=== PATIENT | female | born 1940 | race Caucasian/White ===

== ENCOUNTER 2016-10-07 18:08 | Inpatient (IN) | payer MEDICARE, OTHER ==
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
[2016-10-07 18:45] LABS: % BASOPHILS 0.8 % (0.0-2.0); % EOSINOPHILS 0.3 % (0.0-5.0); % MONOCYTES 6.2 % (2.0-10.0); % NEUTROPHILS 68.7 % (40.0-80.0); HEMATOCRIT 41.3 % (35.0-45.0); HEMOGLOBIN 13.7 gm/dL (11.7-16.1); MEAN CELL VOLUME 94.1 fl (81-100); MEAN CORPUSCULAR HEMOGLOBIN 31.3 pg (27.0-31.0); MEAN CORPUSCULAR HGB CONC 33.3 pg (28.0-36.0); NEUTROPHILE ABSOLUTE 4.9 Th/cmm (1.8-8.0); PLATELET COUNT 362 Th/cmm (150-400); RED BLOOD COUNT 4.39 Mil/cmm (3.80-5.20); RED CELL DISTRIBUTION WIDTH 12.1 % (11.5-20.0); WHITE BLOOD COUNT 7.3 Th/cmm (4.8-10.8)
[2016-10-07 18:53] LABS: ALB/GLOB RATIO 1.1 (1.0-1.8); ALKALINE PHOSPHATASE 195 U/L (34-104); ANION GAP 8.7 (7.0-16.0); BILIRUBIN,TOTAL 0.5 mg/dL (0.3-1.0); BUN - UREA NITROGEN 24 mg/dL (7-25); CALCIUM SERUM 9.8 mg/dL (8.6-10.3); CARBON DIOXIDE 27.4 mEq/L (21.0-31.0); CHLORIDE 101 mEq/L (98-107); CREATININE - SERUM 0.8 mg/dL (0.6-1.2); GLUCOSE 178 mg/dL (70-105); POTASSIUM SERUM 3.1 mEq/L (3.5-5.1); SGOT 25 U/L (13-39); SGPT/ALT 18 U/L (7-52); SODIUM SERUM 134 mEq/L (136-145)
[2016-10-07] MEDS ORDERED: Potassium Chloride 20 mEq ER Tab PO ONE ×2 (20:11→20:40)
[2016-10-07] MEDS ORDERED: cefTRIAXone 1 GM in Sodium Chloride 0.9% 50 ML IV ONE (21:16)
[2016-10-07] MEDS ORDERED: Magnesium Hydroxide (MOM) 30 mL UDC PO PRN (21:23)
[2016-10-07 22:58] LABS: URINE BILIRUBIN SMALL (NEGATIVE); URINE BLOOD NEGATIVE (NEGATIVE); URINE COLOR YELLOW; URINE GLUCOSE (UA) 500 mg/dL (NEGATIVE); URINE KETONE 15 mg/dL (NEGATIVE); URINE PH 5.5; URINE PROTEIN NEGATIVE (NEGATIVE)
[2016-10-07] MEDS: 0.45% NS w/20 mEq KCl 1,000 ML IV SCH (22:58)
[2016-10-07 22:59] LABS: URINE BACTERIA FEW /hpf (NONE SEEN); URINE EPITHELIAL CELLS OCCASIONAL /lpf (FEW); URINE RBC NONE SEEN /hpf (0-5)
--- NOTE | 2016-10-07 23:38 | Admit Criteria Form ---
Admit Criteria Forms - Admit Criteria Diagnosis: PSYCHIATRIC DISORDERS (Place 'X' for any and all applicable criteria): Ongoing inpatient care may be needed for 1 or more of the following(1)(2)(3)(4)( 6)(7)(8): [X ]I. Danger to self or others not manageable at lower level of care. [ ]II. Grave disability (eg, inability to perform self care necessary at lower level of care) [ ]III. Agitation or inappropriate behavior interfering with care for primary condition (eg, attempting to discontinue lines or drains prematurely, unable to cooperate with respiratory care) [ ]IV. Severe disability or disorder indicated by ALL of the following: [ ]a) Severe behavioral health disorder-related symptoms or condition indicated by 1 or more of the following: [ ]i) Severe problem with cognition, memory, judgment, or impulse control [ ]ii) Severe clinical manifestations (eg, hallucinations, delusions, other acute psychotic symptoms, sebastián, extreme agitation or anxiety) [ ]b) Patient management at lower level of care is not feasible until acute intervention or modification is initiated. Extended stay beyond goal length of stay for the primary condition may be needed until ALLof the following are present(1)(2)(3)(4)7)47)(23): [ ]a) Danger to self or others is absent or manageable at lower level of care [ ]b) Behavior crisis management, including physical or chemical restraints, is required and is not available at a lower level of care. [ ]c) Behavioral symptoms (e.g., agitation, somnolence, inappropriate behavior) are present, and are not manageable at a lower level of care. [ ]d) Patient cannot understand follow-up treatment and crisis plan. [ ]e) Provider and supports are sufficiently available at lower level of care. [ ]f) Patient can participate (e.g., verify absence of plan for harm) and is in needed of monitoring. The original [facility] [employer] content created by [facility] [employer] has been revised. The portions of the content which have been revised are identified through the use of italic text or in bold, and [facility] [employer] has neither reviewed nor approved the modified material. All other unmodified content is copyright [facility]. Please see references footnoted in the original [facility] edition 2017 Admit Criteria Met?: Yes
[2016-10-08] MEDS: INSULIN ASPART, RECOMBINANT 100 UNITS/ML SUBQ SCH ×3 (07:08→18:54)
[2016-10-08] MEDS ORDERED: EMPAGLIFLOZIN 10 MG PO SCH (09:00)
[2016-10-08] MEDS ORDERED: Multivitamin w/ Minerals Tab PO SCH (09:00)
[2016-10-08] MEDS: 0.45% NS w/20 mEq KCl 1,000 ML IV SCH (13:57)
[2016-10-08] MEDS ORDERED: VTE Chemical Prophylaxis Screen/Admission MC PRN (14:43)
== END 2016-10-08 23:00 | DRG 637 ==
LOC: ER 18:08 → MSI 21:05
PROVIDERS: ADMIT Family Medicine; ATTEND Family Medicine
DX: E11.649 Type 2 diabetes mellitus with hypoglycemia without coma (principal); G93.41 Metabolic encephalopathy; F03.90 Unspecified dementia, unspecified severity, without behavioral disturbance, psychotic disturbance, mood disturbance, and anxiety; N39.0 Urinary tract infection, site not specified; E86.0 Dehydration; E87.6 Hypokalemia; I10 Essential (primary) hypertension; F32.9 Major depressive disorder, single episode, unspecified; F29 Unspecified psychosis not due to a substance or known physiological condition; E78.5 Hyperlipidemia, unspecified; M19.90 Unspecified osteoarthritis, unspecified site; I25.2 Old myocardial infarction
CPT/HCPCS: 36415-UA; 80053-TC; 81001-TC; 82948-90; 84443-TC; 85025-TC; 86592-TC; 93005; J0696; J1644; J1815; J3480; Q0177; Z7610

== ENCOUNTER 2016-10-08 22:10 | Inpatient (IN) | payer MEDICARE, OTHER ==
[2016-10-08 22:43] VITALS: BP 123/76
[2016-10-08] MEDS ORDERED: Magnesium Hydroxide (MOM) 30 mL UDC PO PRN (23:01)
[2016-10-09] MEDS ORDERED: EMPAGLIFLOZIN 10 MG PO SCH (09:00)
[2016-10-09] MEDS: Multivitamin w/ Minerals Tab PO SCH (09:47)
--- NOTE | 2016-10-09 15:15 | History and Physical ---
History of Present Illness - HPI Chief Complaint: Altered level of mental status. HPI: The patient is an 75 year F with PMH significant for dementia,HTN,DM, admitted to medical floor with ALOC.The [facility] Vital Signs: Last Vital Signs Temp 97.6 F 10/09/16 06:31 Pulse 98 10/09/16 06:31 Resp 18 10/09/16 06:31 BP 96/71 10/09/16 06:31 Pulse Ox 96 10/09/16 06:31 Weight (lbs): 75 kg Past Medical History Cardiovascular: Report: AFIB, CAD, HTN, Hyperlipidemia Pulmonary: Report: No Pertinent Hx SECTION CHIEF: Report: Dementia GI: Report: No Pertinent Hx Psych: Report: Anxiety, Other (dementia) Musculoskeletal: Report: No Pertinent Hx Rheumatologic: Report: No pertinent Hx Infectious Disease: Report: No Pertinent Hx Renal/: Report: No Pertinent Hx Endocrine: Report: Diabetes Dermatology: Report: No Pertinent Hx - Past Surgical History Past Surgical History: No pertinent Hx Family Medical History - Family Member Mother Ethnicity: Unknown Living Status: Unknown Hx Family Cancer: (unknown) Hx Family Coronary Artery Disease: (unknown) Hx Family Congestive Heart Failure: (unknown) Hx Family Hypertension: (unknown) Hx Family Stroke: (unknown) Hx Family Diabetes: (unknown) Hx Family Seizures: (unknown) Hx Family Dementia: (unknown) Hx Family AIDS: (unknown) Hx Family COPD: (unknown) Hx Family Hepatitis: (unknown) Hx Family Psychiatric Problems: (unknown) Hx Family Tuberculosis: (unknown) Social History Smoke: No Alcohol: None Drugs: None 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 Domestic Violence: Negative Health Maintenance Health Maintenance: Tetanus, Influenza Vaccine, Pneumococcal Vaccine - Medications Home Medications: Home Medication Medication Instructions Recorded Type Acetaminophen [Tylenol] 650 mg PO Q4HR PRN 10/07/16 History Atorvastatin Calcium [Lipitor] 40 mg PO DAILY 10/07/16 History Docusate Sodium [Colace] 100 mg PO BID 10/07/16 History Donepezil Hcl [Aricept] 1 tab PO HS 10/07/16 History Empagliflozin [Jardiance] 10 mg PO DAILY 10/07/16 History Magnesium Hydroxide [Milk of 30 ml PO HS PRN 10/07/16 History Magnesia] Multivitamin w/ Minerals 1 tab PO DAILY 10/07/16 History [Theragran M] hydrOXYzine Pamoate [Vistaril] 25 mg PO BID 10/07/16 History metFORMIN [Glucophage] 500 mg PO BID 10/07/16 History - Allergies Allergies/Adverse Reactions: Allergies Allergy/AdvReac Type Severity Reaction Status Date / Time No Known Allergies Allergy Verified 10/07/16 18:22 Review of Systems - Review of Systems Constitutional: Denies: Fever, Chills, Sweats, Weakness Eyes: Denies: Pain, Vision Change, Redness ENT: Denies: Ear Pain, Ear Discharge, Nose Pain, Nose Discharge, Nose Congestion , Mouth Pain, Mouth Swelling, Throat Pain, Throat Swelling Respiratory: Denies: Cough, Dry, Shortness of Breath, Hemoptysis, Pleuritic Pain , Sputum, Wheezing Cardiovascular: Denies: Chest Pain, Palpitations, Orthopnea, Edema, Light Headedness Gastrointestinal: Denies: Nausea, Vomiting, Abdominal Pain, Diarrhea, Constipation, Hematochezia Genitourinary: Denies: Dysuria, Frequency, Incontinence, Hematuria, Retention Musculoskeletal: Denies: Neck Pain, Shoulder Pain, Arm Pain, Back Pain, Hand Pain, Foot Pain Skin: Denies: Rash, Lesions, Fernando, Bruising Neurological: Report: Confusion. Denies: Weakness, Numbness, Incoordination, Change in Speech, Seizures - Lab Results All Lab Results last 24 hours: Laboratory Last Values POC Glucose 143 MG/DL (70 - 105) H 10/08/16 23:59 Laboratory Results - last 24 hr 10/08/16 23:59 POC Glucose 143 H
[2016-10-10] MEDS: Multivitamin w/ Minerals Tab PO SCH (09:22)
[2016-10-11] MEDS: Multivitamin w/ Minerals Tab PO SCH (10:04)
[2016-10-12] MEDS: Multivitamin w/ Minerals Tab PO SCH (10:15)
[2016-10-13] MEDS: Multivitamin w/ Minerals Tab PO SCH (09:06)
--- NOTE | 2016-10-13 10:45 | Geri Psych Progress Note ---
Laura Psych Progress Note - Intro Patient was seen: . - Assessment Assessment: Case discussed with staff Reviewed The patient records and met with patient patient continues to be confused and demented continues to be unable to make a plan for self care continues to be unpredictable impulsive poor insight she is compliant with the medication with no side effects sedation no nausea no extrapyramidal symptoms working also PLACEMENT and will continue to work with the patient and group therapy milieu therapy adjusted medication as needed - Vitals, I&O Vitals: Vital Signs - 24 hr 10/12/16 10/12/16 10/12/16 14:00 19:51 20:00 Temp 98.0 F 97.2 F HR 90 102 RR 20 18 18 BP 105/54 100/49 O2 Sat % 96 96 10/13/16 05:54 Temp 98 F HR 70 RR 18 BP 94/54 O2 Sat % 97 I&O: Intake & Output 10/11/16 10/12/16 10/13/16 10/14/16 06:59 06:59 06:59 06:59 Intake Total 700 1140 1040 Balance 700 1140 1040 - ROS Neurological: Report: Other (see assmt) Psychological ROS: Report: Other (see assmt) - Objective Psych General Appearance: Report: Other (see assmt) Psych Behavior: Report: Other (see assmt) Psych Speech: Report: Other (see assmt) Psych Mood: Report: Other (see assmt) Psych Affect: Report: Other (see assmt) Psych Thought Process: Report: Other (see assmt) Psych Cognition: Report: Other (see assmt) Psych Insight: Report: Other (see assmt) Psych Judgement: Report: Other (see assmt) - Plan Plan: . - Review of Relevant Data Review of Relevant Data: I have reviewed the following items and time maureen (where applicable) has been applied. Psych Data Reviewed: Meds - Medications Current Medications: Current Medications Acetaminophen (Tylenol) 650 mg PO Q4HR PRN PRN Reason: Pain (Mild) Stop: 12/07/16 23:00 Atorvastatin Calcium (Lipitor) 40 mg PO DAILY [facility] Stop: 12/08/16 08:59 Last Admin: 10/13/16 09:06 Dose: 40 mg Docusate Sodium (Colace) 100 mg PO BID [facility] Stop: 12/08/16 08:59 Last Admin: 10/13/16 09:03 Dose: 100 mg Donepezil HCl (Aricept) 10 mg PO HS [facility] Stop: 12/08/16 20:59 Last Admin: 10/12/16 20:58 Dose: 10 mg Hydroxyzine Pamoate (Vistaril) 25 mg PO BID ERWIN PRN Reason: Protocol Stop: 12/08/16 08:59 Last Admin: 10/13/16 09:03 Dose: 25 mg Lorazepam (Ativan) 0.5 mg PO Q4HR PRN; Protocol PRN Reason: Anxiety Stop: 11/08/16 07:07 Last Admin: 10/13/16 09:07 Dose: 0.5 mg Magnesium Hydroxide (Milk Of Magnesia) 30 ml PO HS PRN PRN Reason: Constipation Stop: 12/07/16 23:00 Memantine (Namenda) 5 mg PO DAILY [facility] Stop: 12/11/16 08:59 Last Admin: 10/13/16 09:06 Dose: 5 mg Metformin HCl (Glucophage) 500 mg PO BID [facility] Stop: 12/08/16 08:59 Last Admin: 10/13/16 09:06 Dose: 500 mg Risperidone (Risperdal) 0.75 mg PO BID ERWIN PRN Reason: Protocol Stop: 12/11/16 11:32 Last Admin: 10/13/16 09:02 Dose: 0.75 mg Zolpidem Tartrate (Ambien) 5 mg PO HS PRN PRN Reason: Insomnia Stop: 12/07/16 22:56 Last Admin: 10/10/16 20:42 Dose: 5 mg
--- NOTE | 2016-10-13 12:05 | General Progress Note ---
Subjective - Review of Systems Service Date: 10/13/16 Subjective: The patient still confused.Still has episodes of agitation Objective - Results Recent Labs: Laboratory Last Values POC Glucose 162 MG/DL (70 - 105) H 10/13/16 06:00 - Physical Exam Vitals and I&O: Vital Signs Temp 98 F 10/13/16 05:54 Pulse 70 10/13/16 05:54 Resp 18 10/13/16 05:54 BP 94/54 10/13/16 05:54 Pulse Ox 97 10/13/16 05:54 Intake & Output 10/12/16 10/13/16 10/13/16 18:59 06:59 18:59 Intake Total 800 240 Balance 800 240 Weight (lbs) 54.068 kg Intake: Oral 800 240 Other: # Voids 4 1 # Bowel Movements 1 Stool Characteristics Soft Soft Active Medications: Current Medications Acetaminophen (Tylenol) 650 mg PO Q4HR PRN PRN Reason: Pain (Mild) Stop: 12/07/16 23:00 Atorvastatin Calcium (Lipitor) 40 mg PO DAILY [facility] Stop: 12/08/16 08:59 Last Admin: 10/13/16 09:06 Dose: 40 mg Docusate Sodium (Colace) 100 mg PO BID [facility] Stop: 12/08/16 08:59 Last Admin: 10/13/16 09:03 Dose: 100 mg Donepezil HCl (Aricept) 10 mg PO HS [facility] Stop: 12/08/16 20:59 Last Admin: 10/12/16 20:58 Dose: 10 mg Hydroxyzine Pamoate (Vistaril) 25 mg PO BID [facility] PRN Reason: Protocol Stop: 12/08/16 08:59 Last Admin: 10/13/16 09:03 Dose: 25 mg Lorazepam (Ativan) 0.5 mg PO Q4HR PRN; Protocol PRN Reason: Anxiety Stop: 11/08/16 07:07 Last Admin: 10/13/16 09:07 Dose: 0.5 mg Magnesium Hydroxide (Milk Of Magnesia) 30 ml PO HS PRN PRN Reason: Constipation Stop: 12/07/16 23:00 Memantine (Namenda) 5 mg PO DAILY [facility] Stop: 12/11/16 08:59 Last Admin: 10/13/16 09:06 Dose: 5 mg Metformin HCl (Glucophage) 500 mg PO BID [facility] Stop: 12/08/16 08:59 Last Admin: 10/13/16 09:06 Dose: 500 mg Risperidone (Risperdal) 0.75 mg PO BID [facility] PRN Reason: Protocol Stop: 12/11/16 11:32 Last Admin: 10/13/16 09:02 Dose: 0.75 mg Zolpidem Tartrate (Ambien) 5 mg PO HS PRN PRN Reason: Insomnia Stop: 12/07/16 22:56 Last Admin: 10/10/16 20:42 Dose: 5 mg General: No acute distress HEENT: Atraumatic, PERRLA, EOMI, Mucous membr. moist/pink Neck: Supple, JVD, +2 carotid pulse wo bruit, LAD Cardiovascular: Regular rate, Normal S1, Normal S2, Systolic murmurs, no Gallops Lungs: Clear to auscultation, Normal air movement Abdomen: Bowel sounds Neurological: Normal speech, Normal tone, Reflexes 2+ Psych/Mental Status: Other (confused) Assessment/Plan - Assessment Assessment: 1.DM. 2.HTN. 3.Dementia. - Plan Plan: Continue on current medication and diet.She is clear for activity. Nutritional Asmnt/Malnutr-PDOC - Dietary Evaluation Malnutrition Findings (Please click <Entered> for more info): Nutritional Asmnt/Malnutrition Start: 10/13/16 10: 46 Text: Status: Complete Freq: Document 10/13/16 10:46 GSUN (Rec: 10/13/16 10:48 [email or web address] [email or web address]) Nutritional Asmnt/Malnutrition Patient General Information Nutritional Screening Moderate Risk Screening Diagnosis Reason for visit: psychosis Pertinent Medical Hx/Surgical Hx Afib, CAD, HTN, hyperlipidemia , anxiety, dementia, DM Subjective Information 75 year old female from SNF, transfered from [facility] (dx. ALOC). Pt was asleep during visit, unable to be woken up. [place] up to neck, unable to complete physical assessment, pt with hx of being combative in [facility] unit. Pt appears overall thin. Bedscale 122.6lb at [facility] unit, CBW 119.2lb [facility] unit, questionable EMR weight 165ln, pt does not appear overweight. Spoke to RN , RN stated no nutrition concern at this time. Avg PO intake 71% of meals since adm, meeting nutritional needs. Current Diet Order/ Nutrition Support [facility] soft chopped, ELMA, CCHO Pertinent Medications Lipitor, Colace, MOM, Glucophage Pertinent Labs POC glucose since adm 143, 229 , 162 Nutritional Hx/Data Height 1.68 m Height (Calculated Centimeters) 167.6 Current Weight (lbs) 54.068 kg Weight (Calculated Kilograms) 54.1 Weight (Calculated Grams) 10185.2 [place] Body Weight 130 Weight Status Approriate GI Symptoms Usual diet at home [place] SNF: [facility] soft hcopped, ELMA, CCHO Skin Integrity/Comment: [place] 16. Skin intact. Current %PO Fair (50-74%) Estimated Nutritional Goals BEE in Kcals: Using Current wt Calories/Kcals/Kg CBW 119.2lb/54.1kg Kcals Calculated 1353-1623kcal (25-30kcal/kg) Protein: Using Current wt Protein Calculated 54g (1g/kg) Fluid: ml 1353-1623ml (1ml/kcal) Nutritional Problem 1. Problem Problem Altered nutrition related laboratory values related to Etiology DM aeb Signs/Symptoms: H&P, elevated POC glucose Intervention/Recommendation Comments 1. Continue with current diet order. Avg PO intake is adequate. 2. Recommend requent accuchecks, 3 checks so far since adm range 143-229H. Expected Outcomes/Goals Expected Outcomes/Goals 1. PO intake conitnue to meet at least 75% of estimated nutritional needs.
[2016-10-14] MEDS: Multivitamin w/ Minerals Tab PO SCH (09:15)
--- NOTE | 2016-10-14 14:54 | General Progress Note ---
Subjective - Review of Systems Service Date: 10/14/16 Subjective: The patient still confused.Still has episodes of agitation Objective - Results Recent Labs: Laboratory Last Values POC Glucose 162 MG/DL (70 - 105) H 10/13/16 06:00 - Physical Exam Vitals and I&O: Vital Signs Temp 97.8 F 10/14/16 07:01 Pulse 82 10/14/16 07:01 Resp 18 10/14/16 07:01 BP 110/52 10/14/16 07:01 Pulse Ox 97 10/14/16 07:01 Intake & Output 10/13/16 10/14/16 10/14/16 18:59 06:59 18:59 Intake Total 1200 Balance 1200 Weight (lbs) 54.068 kg Intake: Oral 1200 Other: # Voids 2 # Bowel Movements 1 Stool Characteristics Soft Active Medications: Current Medications Acetaminophen (Tylenol) 650 mg PO Q4HR PRN PRN Reason: Pain (Mild) Stop: 12/07/16 23:00 Atorvastatin Calcium (Lipitor) 40 mg PO DAILY [facility] Stop: 12/08/16 08:59 Last Admin: 10/14/16 09:15 Dose: 40 mg Docusate Sodium (Colace) 100 mg PO BID [facility] Stop: 12/08/16 08:59 Last Admin: 10/14/16 09:15 Dose: 100 mg Donepezil HCl (Aricept) 10 mg PO HS [facility] Stop: 12/08/16 20:59 Last Admin: 10/13/16 20:40 Dose: 10 mg Hydroxyzine Pamoate (Vistaril) 25 mg PO BID [facility] PRN Reason: Protocol Stop: 12/08/16 08:59 Last Admin: 10/14/16 09:14 Dose: 25 mg Lorazepam (Ativan) 0.5 mg PO Q4HR PRN; Protocol PRN Reason: Anxiety Stop: 11/08/16 07:07 Last Admin: 10/13/16 09:07 Dose: 0.5 mg Magnesium Hydroxide (Milk Of Magnesia) 30 ml PO HS PRN PRN Reason: Constipation Stop: 12/07/16 23:00 Memantine (Namenda) 5 mg PO DAILY [facility] Stop: 12/11/16 08:59 Last Admin: 10/14/16 09:14 Dose: 5 mg Metformin HCl (Glucophage) 500 mg PO BID [facility] Stop: 12/08/16 08:59 Last Admin: 10/14/16 09:14 Dose: 500 mg Risperidone (Risperdal) 0.75 mg PO BID [facility] PRN Reason: Protocol Stop: 12/11/16 11:32 Last Admin: 10/14/16 09:14 Dose: 0.75 mg Zolpidem Tartrate (Ambien) 5 mg PO HS PRN PRN Reason: Insomnia Stop: 12/07/16 22:56 Last Admin: 10/10/16 20:42 Dose: 5 mg General: No acute distress, no Alert HEENT: Atraumatic, PERRLA, EOMI Neck: Supple Cardiovascular: Regular rate, Normal S1, Normal S2 Lungs: Clear to auscultation Abdomen: Bowel sounds, Soft, no Hepatomegaly, no Splenomegaly, no Distended, no Rebound, no Mass Extremities: no Clubbing, no Cyanosis, no Edema, no Pulses Neurological: Normal gait, Normal speech, Normal tone, no Sensation intact Skin: no Rash, no Breakdown, no Significant lesion Psych/Mental Status: no Mental status NL Assessment/Plan - Assessment Assessment: 1.DM. 2.HTN. 3.Dementia. - Plan Plan: Continue on current medication and diet.She is clear for activity. Nutritional Asmnt/Malnutr-PDOC - Dietary Evaluation Malnutrition Findings (Please click <Entered> for more info): Nutritional Asmnt/Malnutrition Start: 10/13/16 10: 46 Text: Status: Complete Freq: Document 10/13/16 10:46 GSUN (Rec: 10/13/16 10:48 [email or web address] [email or web address]) Nutritional Asmnt/Malnutrition Patient General Information Nutritional Screening Moderate Risk Screening Diagnosis Reason for visit: psychosis Pertinent Medical Hx/Surgical Hx Afib, CAD, HTN, hyperlipidemia , anxiety, dementia, DM Subjective Information 75 year old female from SNF, transfered from [facility] (dx. ALOC). Pt was asleep during visit, unable to be woken up. [place] up to neck, unable to complete physical assessment, pt with hx of being combative in [facility] unit. Pt appears overall thin. Bedscale 122.6lb at [facility] unit, CBW 119.2lb [facility] unit, questionable EMR weight 165ln, pt does not appear overweight. Spoke to RN , RN stated no nutrition concern at this time. Avg PO intake 71% of meals since adm, meeting nutritional needs. Current Diet Order/ Nutrition Support [facility] soft chopped, ELMA, CCHO Pertinent Medications Lipitor, Colace, MOM, Glucophage Pertinent Labs POC glucose since adm 143, 229 , 162 Nutritional Hx/Data Height 1.68 m Height (Calculated Centimeters) 167.6 Current Weight (lbs) 54.068 kg Weight (Calculated Kilograms) 54.1 Weight (Calculated Grams) 42662.2 [place] Body Weight 130 Weight Status Approriate GI Symptoms Usual diet at home [place] SNF: [facility] soft hcopped, ELMA, CCHO Skin Integrity/Comment: [place] 16. Skin intact. Current %PO Fair (50-74%) Estimated Nutritional Goals BEE in Kcals: Using Current wt Calories/Kcals/Kg CBW 119.2lb/54.1kg Kcals Calculated 1353-1623kcal (25-30kcal/kg) Protein: Using Current wt Protein Calculated 54g (1g/kg) Fluid: ml 1353-1623ml (1ml/kcal) Nutritional Problem 1. Problem Problem Altered nutrition related laboratory values related to Etiology DM aeb Signs/Symptoms: H&P, elevated POC glucose Intervention/Recommendation Comments 1. Continue with current diet order. Avg PO intake is adequate. 2. Recommend requent accuchecks, 3 checks so far since adm range 143-229H. Expected Outcomes/Goals Expected Outcomes/Goals 1. PO intake conitnue to meet at least 75% of estimated nutritional needs.
[2016-10-15] MEDS: Multivitamin w/ Minerals Tab PO SCH (10:00)
--- NOTE | 2016-10-15 13:55 | Internal Medicine Prog Note ---
Internal Medicine Subjective - Subjective Service Date: 10/15/16 Patient is:: arousable, confused Internal Medicine Objective - Results Recent Labs: Laboratory Last Values POC Glucose 162 MG/DL (70 - 105) H 10/13/16 06:00 - Physical Exam Vitals and I&O: Vital Signs Temp 97.3 F 10/15/16 06:41 Pulse 80 10/15/16 06:41 Resp 20 10/15/16 08:00 BP 124/64 10/15/16 06:41 Pulse Ox 97 10/15/16 06:41 Intake & Output 10/14/16 10/15/16 10/15/16 18:59 06:59 18:59 Intake Total 960 120 Balance 960 120 Intake: Oral 960 120 Other: # Voids 3 3 # Bowel Movements 1 0 Active Medications: Current Medications Acetaminophen (Tylenol) 650 mg PO Q4HR PRN PRN Reason: Pain (Mild) Stop: 12/07/16 23:00 Atorvastatin Calcium (Lipitor) 40 mg PO DAILY [facility] Stop: 12/08/16 08:59 Last Admin: 10/15/16 10:00 Dose: 40 mg Docusate Sodium (Colace) 100 mg PO BID [facility] Stop: 12/08/16 08:59 Last Admin: 10/15/16 10:00 Dose: 100 mg Donepezil HCl (Aricept) 10 mg PO HS [facility] Stop: 12/08/16 20:59 Last Admin: 10/14/16 20:21 Dose: 10 mg Hydroxyzine Pamoate (Vistaril) 25 mg PO BID [facility] PRN Reason: Protocol Stop: 12/08/16 08:59 Last Admin: 10/15/16 10:00 Dose: 25 mg Lorazepam (Ativan) 0.5 mg PO Q4HR PRN; Protocol PRN Reason: Anxiety Stop: 11/08/16 07:07 Last Admin: 10/13/16 09:07 Dose: 0.5 mg Magnesium Hydroxide (Milk Of Magnesia) 30 ml PO HS PRN PRN Reason: Constipation Stop: 12/07/16 23:00 Memantine (Namenda) 5 mg PO DAILY [facility] Stop: 12/11/16 08:59 Last Admin: 10/15/16 10:00 Dose: 5 mg Metformin HCl (Glucophage) 500 mg PO BID [facility] Stop: 12/08/16 08:59 Last Admin: 10/15/16 10:00 Dose: 500 mg Risperidone (Risperdal) 0.75 mg PO BID [facility] PRN Reason: Protocol Stop: 12/11/16 11:32 Last Admin: 10/15/16 09:58 Dose: 0.75 mg Zolpidem Tartrate (Ambien) 5 mg PO HS PRN PRN Reason: Insomnia Stop: 12/07/16 22:56 Last Admin: 10/10/16 20:42 Dose: 5 mg General: weak HEENT: PERRLA, EOMI Neck: Supple, No LAD, no + JVD Lungs: no rales Cardiovascular: RRR, Normal S1, Normal S2, no with murmur Abdomen: soft, non-tender Extremities: clear, no edema, no clubbing Neurological: no change Internal Medicine Assmt/Plan - Assessment Assessment: 1.DM. 2.HTN. 3.Dementia. - Plan Plan: Continue on current medication and diet.She is clear for activity. Nutritional Asmnt/Malnutr-PDOC - Dietary Evaluation Malnutrition Findings (Please click <Entered> for more info): Nutritional Asmnt/Malnutrition Start: 10/13/16 10: 46 Text: Status: Complete Freq: Document 10/13/16 10:46 GSUN (Rec: 10/13/16 10:48 [email or web address]) Nutritional Asmnt/Malnutrition Patient General Information Nutritional Screening Moderate Risk Screening Diagnosis Reason for visit: psychosis Pertinent Medical Hx/Surgical Hx Afib, CAD, HTN, hyperlipidemia , anxiety, dementia, DM Subjective Information 75 year old female from SNF, transfered from [facility] (dx. ALOC). Pt was asleep during visit, unable to be woken up. [place] up to neck, unable to complete physical assessment, pt with hx of being combative in [facility] unit. Pt appears overall thin. Bedscale 122.6lb at [facility] unit, CBW 119.2lb [facility] unit, questionable EMR weight 165ln, pt does not appear overweight. Spoke to RN , RN stated no nutrition concern at this time. Avg PO intake 71% of meals since adm, meeting nutritional needs. Current Diet Order/ Nutrition Support Mech soft chopped, ELMA, CCHO Pertinent Medications Lipitor, Colace, MOM, Glucophage Pertinent Labs POC glucose since adm 143, 229 , 162 Nutritional Hx/Data Height 1.68 m Height (Calculated Centimeters) 167.6 Current Weight (lbs) 54.068 kg Weight (Calculated Kilograms) 54.1 Weight (Calculated Grams) 91934.2 [place] Body Weight 130 Weight Status Approriate GI Symptoms Usual diet at home [place] [facility]: [facility] soft hcopped, ELMA, CCHO Skin Integrity/Comment: [place] 16. Skin intact. Current %PO Fair (50-74%) Estimated Nutritional Goals BEE in Kcals: Using Current wt Calories/Kcals/Kg CBW 119.2lb/54.1kg Kcals Calculated 1353-1623kcal (25-30kcal/kg) Protein: Using Current wt Protein Calculated 54g (1g/kg) Fluid: ml 1353-1623ml (1ml/kcal) Nutritional Problem 1. Problem Problem Altered nutrition related laboratory values related to Etiology DM aeb Signs/Symptoms: H&P, elevated POC glucose Intervention/Recommendation Comments 1. Continue with current diet order. Avg PO intake is adequate. 2. Recommend requent accuchecks, 3 checks so far since adm range 143-229H. Expected Outcomes/Goals Expected Outcomes/Goals 1. PO intake conitnue to meet at least 75% of estimated nutritional needs.
[2016-10-16] MEDS: Multivitamin w/ Minerals Tab PO SCH (08:55)
[2016-10-17] MEDS: Multivitamin w/ Minerals Tab PO SCH (09:18)
[2016-10-17] MEDS ORDERED: Sodium Chloride 0.9% 1,000 ML IV ONE (20:04)
--- NOTE | 2016-10-17 20:21 | General Progress Note ---
Subjective - Review of Systems Service Date: 10/17/16 Subjective: ER Physician Rapid Response Note: Responded immediately when Rapid Response Call was announced overhead at about 1950. On arrival, pt appeared to be lethargic but was responsive to voice and tactile stimuli. According to pt's nurse, pt was noticed to be hypotensive with SBP in the high 80's. Pt had good respiratory effort and did not appear to be in distress otherwise. PE. P75 R 14 BP 99/52 O2 saturation in RA 94-95% Accuchek 138 WDWN female in NAD. Pt appeared to be lethargic but was responsive to voice and tactile stimuli HEENT PERRL. Unremarkable. Mucous membrane is dry. Pt did not cooperate for eye exam. Neck Supple. Carotid 2+/2+. No JVD. No cervical lymphadenopathy. COR RRR without m/g/r Lungs Clear. No rales or wheeze. Abdomen Soft, NT. Unremarkable. Ext No c/c/e. Neuro Alert and responsive to voice and tactile stimuli. Spontaneous movements noticed in all 4 extremities. Pt did not cooperate for full neurologic exam. 12 lead EKG: NSR wtih VR 74. LAD. Cannot r/o old AMI, age undetermined. No acute ischemic changes. Imp: Transient hypotension with decreased responsiveness most likely due to dehydration. Plan: IV with normal saline 500 ml IV bolus, then 150 ml/hr. Pt is to be transferred to Telemetry [place]. Pt's attending physician has been contacted. Awaiting for his response. Objective - Results Recent Labs: Laboratory Last Values POC Glucose 138 MG/DL (70 - 105) H 10/17/16 19:54 - Physical Exam Vitals and I&O: Vital Signs Temp 98.0 F 10/16/16 20:00 Pulse 76 10/17/16 08:00 Resp 18 10/17/16 08:00 BP 102/63 10/16/16 20:00 Pulse Ox 97 10/16/16 20:00 Intake & Output 10/17/16 10/17/16 10/18/16 06:59 18:59 06:59 Intake Total 120 Balance 120 Intake: Oral 120 Other: # Voids 1 Active Medications: Current Medications Acetaminophen (Tylenol) 650 mg PO Q4HR PRN PRN Reason: Pain (Mild) Stop: 12/07/16 23:00 Atorvastatin Calcium (Lipitor) 40 mg PO DAILY [facility] Stop: 12/08/16 08:59 Last Admin: 10/17/16 09:16 Dose: 40 mg Docusate Sodium (Colace) 100 mg PO BID [facility] Stop: 12/08/16 08:59 Last Admin: 10/17/16 16:40 Dose: 100 mg Donepezil HCl (Aricept) 10 mg PO HS [facility] Stop: 12/08/16 20:59 Last Admin: 10/16/16 20:21 Dose: Not Given Hydroxyzine Pamoate (Vistaril) 25 mg PO BID [facility] PRN Reason: Protocol Stop: 12/08/16 08:59 Last Admin: 10/17/16 16:41 Dose: 25 mg Sodium Chloride (Nacl 0.9%) 1,000 mls @ 0 mls/hr IV .Q0M ONE PRN Reason: Wide Open Stop: 10/17/16 20:05 Lorazepam (Ativan) 0.5 mg PO Q4HR PRN; Protocol PRN Reason: Anxiety Stop: 11/08/16 07:07 Last Admin: 10/16/16 13:40 Dose: 0.5 mg Magnesium Hydroxide (Milk Of Magnesia) 30 ml PO HS PRN PRN Reason: Constipation Stop: 12/07/16 23:00 Memantine (Namenda) 5 mg PO DAILY [facility] Stop: 12/11/16 08:59 Last Admin: 10/17/16 09:18 Dose: 5 mg Metformin HCl (Glucophage) 500 mg PO BID [facility] Stop: 12/08/16 08:59 Last Admin: 10/17/16 16:40 Dose: 500 mg Risperidone (Risperdal) 1 mg PO BID [facility] PRN Reason: Protocol Stop: 12/15/16 10:13 Last Admin: 10/17/16 16:40 Dose: 1 mg Zolpidem Tartrate (Ambien) 5 mg PO HS PRN PRN Reason: Insomnia Stop: 12/07/16 22:56 Last Admin: 10/10/16 20:42 Dose: 5 mg General: No acute distress, no Alert HEENT: Atraumatic, PERRLA, EOMI Neck: Supple Cardiovascular: Regular rate, Normal S1, Normal S2 Lungs: Clear to auscultation Abdomen: Bowel sounds, Soft, no Hepatomegaly, no Splenomegaly, no Distended, no Rebound, no Mass Extremities: no Clubbing, no Cyanosis, no Edema, no Pulses Neurological: Normal gait, Normal speech, Normal tone, no Sensation intact Skin: no Rash, no Breakdown, no Significant lesion Psych/Mental Status: no Mental status NL Assessment/Plan - Assessment Assessment: At 2019, pt's condition continued to improve. She was more alert and spoke clearly. BP was normalized to 107/54. I spoke with Dr. Ritchie, who covers for Dr. Rose, at about 2049. He was updated about pt's condition with pertinent history, physical findings, and EKG reviewed. He concurred with present management and assumed care of pt from here on. Case was signed off to Dr. Ritchie at about 2054 Nutritional Asmnt/Malnutr-PDOC - Dietary Evaluation Malnutrition Findings (Please click <Entered> for more info): Nutritional Asmnt/Malnutrition Start: 10/13/16 10: 46 Text: Status: Complete Freq: Document 10/13/16 10:46 GSUN (Rec: 10/13/16 10:48 [email or web address] [email or web address]) Nutritional Asmnt/Malnutrition Patient General Information Nutritional Screening Moderate Risk Screening Diagnosis Reason for visit: psychosis Pertinent Medical Hx/Surgical Hx Afib, CAD, HTN, hyperlipidemia , anxiety, dementia, DM Subjective Information 75 year old female from SNF, transfered from [facility] (dx. ALOC). Pt was asleep during visit, unable to be woken up. [place] up to neck, unable to complete physical assessment, pt with hx of being combative in [facility] unit. Pt appears overall thin. Bedscale 122.6lb at [facility] unit, CBW 119.2lb [facility] unit, questionable EMR weight 165ln, pt does not appear overweight. Spoke to RN , RN stated no nutrition concern at this time. Avg PO intake 71% of meals since adm, meeting nutritional needs. Current Diet Order/ Nutrition Support [facility] soft chopped, ELMA, CCHO Pertinent Medications Lipitor, Colace, MOM, Glucophage Pertinent Labs POC glucose since adm 143, 229 , 162 Nutritional Hx/Data Height 1.68 m Height (Calculated Centimeters) 167.6 Current Weight (lbs) 54.068 kg Weight (Calculated Kilograms) 54.1 Weight (Calculated Grams) 22317.2 [place] Body Weight 130 Weight Status Approriate GI Symptoms Usual diet at home [place] [facility]: [facility] soft hcopped, ELMA, CCHO Skin Integrity/Comment: [place] 16. Skin intact. Current %PO Fair (50-74%) Estimated Nutritional Goals BEE in Kcals: Using Current wt Calories/Kcals/Kg CBW 119.2lb/54.1kg Kcals Calculated 1353-1623kcal (25-30kcal/kg) Protein: Using Current wt Protein Calculated 54g (1g/kg) Fluid: ml 1353-1623ml (1ml/kcal) Nutritional Problem 1. Problem Problem Altered nutrition related laboratory values related to Etiology DM aeb Signs/Symptoms: H&P, elevated POC glucose Intervention/Recommendation Comments 1. Continue with current diet order. Avg PO intake is adequate. 2. Recommend requent accuchecks, 3 checks so far since adm range 143-229H. Expected Outcomes/Goals Expected Outcomes/Goals 1. PO intake conitnue to meet at least 75% of estimated nutritional needs.
== END 2016-10-17 21:00 | DRG 884 ==
LOC: GERO 22:10
PROVIDERS: ADMIT Psychiatry & Neurology Psychiatry; ATTEND Psychiatry & Neurology Psychiatry
DX: F03.90 Unspecified dementia, unspecified severity, without behavioral disturbance, psychotic disturbance, mood disturbance, and anxiety (principal); I95.89 Other hypotension; E11.9 Type 2 diabetes mellitus without complications; E86.0 Dehydration; F29 Unspecified psychosis not due to a substance or known physiological condition; I10 Essential (primary) hypertension
CPT/HCPCS: 82948-90; 93005; Q0177; Z7610

== ENCOUNTER 2016-10-17 20:30 | Inpatient (IN) | payer MEDICARE, OTHER ==
[2016-10-17] MEDS ORDERED: Sodium Chloride 0.9% 500 ML IV ONE (22:03)
[2016-10-17 22:19] LABS: % BASOPHILS 0.7 % (0.0-2.0); % EOSINOPHILS 0.9 % (0.0-5.0); % LYMPHOCYTES 31.4 % (20.0-50.0); % MONOCYTES 4.6 % (2.0-10.0); % NEUTROPHILS 62.4 % (40.0-80.0); MEAN CELL VOLUME 95.4 fl (81-100); MEAN CORPUSCULAR HEMOGLOBIN 31.9 pg (27.0-31.0); MEAN CORPUSCULAR HGB CONC 33.4 pg (28.0-36.0); MEAN PLATELET VOLUME 6.8 fl; NEUTROPHILE ABSOLUTE 4.7 Th/cmm (1.8-8.0); RED BLOOD COUNT 3.76 Mil/cmm (3.80-5.20); RED CELL DISTRIBUTION WIDTH 12.2 % (11.5-20.0); WHITE BLOOD COUNT 7.7 Th/cmm (4.8-10.8)
[2016-10-17 22:22] LABS: HEMATOCRIT 35.9 % (35.0-45.0); PLATELET COUNT 284 Th/cmm (150-400)
[2016-10-17 22:25] LABS: ALKALINE PHOSPHATASE 130 U/L (34-104); ANION GAP 4.8 (7.0-16.0); BILIRUBIN,TOTAL 0.5 mg/dL (0.3-1.0); BUN - UREA NITROGEN 17 mg/dL (7-25); BUN/CREATININE RATIO 28.3; CALCIUM SERUM 8.9 mg/dL (8.6-10.3); CARBON DIOXIDE 26.8 mEq/L (21.0-31.0); CHLORIDE 102 mEq/L (98-107); CREATININE - SERUM 0.6 mg/dL (0.6-1.2); GLUCOSE 154 mg/dL (70-105); POTASSIUM SERUM 3.6 mEq/L (3.5-5.1); SGOT 24 U/L (13-39); SGPT/ALT 20 U/L (7-52); SODIUM SERUM 130 mEq/L (136-145)
[2016-10-17] MEDS ORDERED: Magnesium Hydroxide (MOM) 30 mL UDC PO PRN (22:43)
[2016-10-17] MEDS: Sodium Chloride 0.9% 1,000 ML IV SCH (23:12)
[2016-10-18 07:04] LABS: % BASOPHILS 0.1 % (0.0-2.0); % EOSINOPHILS 0.8 % (0.0-5.0); % LYMPHOCYTES 27.5 % (20.0-50.0); % MONOCYTES 7.2 % (2.0-10.0); % NEUTROPHILS 64.4 % (40.0-80.0); HEMATOCRIT 34.3 % (35.0-45.0); HEMOGLOBIN 11.5 gm/dL (11.7-16.1); MEAN CELL VOLUME 94.4 fl (81-100); MEAN CORPUSCULAR HEMOGLOBIN 31.8 pg (27.0-31.0); MEAN CORPUSCULAR HGB CONC 33.7 pg (28.0-36.0); NEUTROPHILE ABSOLUTE 4.4 Th/cmm (1.8-8.0); PLATELET COUNT 244 Th/cmm (150-400); RED BLOOD COUNT 3.63 Mil/cmm (3.80-5.20); RED CELL DISTRIBUTION WIDTH 11.7 % (11.5-20.0); WHITE BLOOD COUNT 6.9 Th/cmm (4.8-10.8)
[2016-10-18 07:28] LABS: ANION GAP 5.9 (7.0-16.0); BUN - UREA NITROGEN 14 mg/dL (7-25); BUN/CREATININE RATIO 23.3; CALCIUM SERUM 8.8 mg/dL (8.6-10.3); CARBON DIOXIDE 26.8 mEq/L (21.0-31.0); CHLORIDE 107 mEq/L (98-107); CREATININE - SERUM 0.6 mg/dL (0.6-1.2); GLUCOSE 129 mg/dL (70-105); POTASSIUM SERUM 3.7 mEq/L (3.5-5.1); SODIUM SERUM 136 mEq/L (136-145)
[2016-10-18] MEDS: Multivitamin w/ Minerals Tab PO SCH ×2 (09:37→09:41)
[2016-10-18] MEDS: Sodium Chloride 0.9% 1,000 ML IV SCH (12:05)
--- NOTE | 2016-10-18 17:29 | Internal Medicine Prog Note ---
Internal Medicine Subjective - Subjective Service Date: 10/18/16 Patient seen and examined:: with staff (She pulling her IV line,but eatting well.) Patient is:: awake, non-verbal, in bed, agitated, confused Per staff patient has:: unstable gait, confused Internal Medicine Objective - Results Result Diagrams: 10/18/16 06:44 10/18/16 06:44 Recent Labs: Laboratory Last Values WBC 6.9 Th/cmm (4.8-10.8) 10/18/16 06:44 RBC 3.63 Mil/cmm (3.80-5.20) L 10/18/16 06:44 Hgb 11.5 gm/dL (11.7-16.1) L 10/18/16 06:44 Hct 34.3 % (35.0-45.0) L 10/18/16 06:44 MCV 94.4 fl (81-100) 10/18/16 06:44 MCH 31.8 pg (27.0-31.0) H 10/18/16 06:44 MCHC Differential 33.7 pg (28.0-36.0) 10/18/16 06:44 RDW 11.7 % (11.5-20.0) 10/18/16 06:44 Plt Count 244 Th/cmm (150-400) 10/18/16 06:44 MPV 7.0 fl 10/18/16 06:44 Neutrophils % 64.4 % (40.0-80.0) 10/18/16 06:44 Lymphocytes % 27.5 % (20.0-50.0) 10/18/16 06:44 Monocytes % 7.2 % (2.0-10.0) 10/18/16 06:44 Eosinophils % 0.8 % (0.0-5.0) 10/18/16 06:44 Basophils % 0.1 % (0.0-2.0) 10/18/16 06:44 Sodium 136 mEq/L (136-145) 10/18/16 06:44 Potassium 3.7 mEq/L (3.5-5.1) 10/18/16 06:44 Chloride 107 mEq/L (98-107) 10/18/16 06:44 Carbon Dioxide 26.8 mEq/L (21.0-31.0) 10/18/16 06:44 Anion Gap 5.9 (7.0-16.0) L 10/18/16 06:44 BUN 14 mg/dL (7-25) 10/18/16 06:44 Creatinine 0.6 mg/dL (0.6-1.2) 10/18/16 06:44 Est GFR ( Amer) TNP 10/18/16 06:44 Est GFR (Non-Af Amer) TNP 10/18/16 06:44 BUN/Creatinine Ratio 23.3 10/18/16 06:44 Glucose 129 mg/dL (70-105) H 10/18/16 06:44 POC Glucose 164 MG/DL (70 - 105) H 10/18/16 05:41 Calcium 8.8 mg/dL (8.6-10.3) 10/18/16 06:44 Total Bilirubin 0.5 mg/dL (0.3-1.0) 10/17/16 22:03 AST 24 U/L (13-39) 10/17/16 22:03 ALT 20 U/L (7-52) 10/17/16 22:03 Alkaline Phosphatase 130 U/L (34-104) H 10/17/16 22:03 Troponin I 0.01 ng/mL (0.01-0.05) 10/18/16 06:44 Total Protein 5.9 gm/dL (6.0-8.3) L 10/17/16 22:03 Albumin 3.0 gm/dL (3.7-5.3) L 10/17/16 22:03 Globulin 2.9 gm/dL 10/17/16 22:03 Albumin/Globulin Ratio 1.0 (1.0-1.8) 10/17/16 22:03 - Physical Exam Vitals and I&O: Vital Signs Temp 97 F 10/18/16 08:00 Pulse 94 10/18/16 08:00 Resp 16 10/18/16 08:00 BP 107/56 10/18/16 08:00 Pulse Ox 96 10/18/16 08:00 Intake & Output 10/17/16 10/18/16 10/18/16 18:59 06:59 18:59 Intake Total 200 966.25 Balance 200 966.25 Weight (lbs) 58.513 kg 58.513 kg Intake: Intake, IV Amount 966.25 Sodium Chloride 0.9% 1, 966.25 000 ml @ 75 mls/hr IV . [id number] [facility] Rx#:[id number] Oral 200 Other: # Voids 4 Active Medications: Current Medications Acetaminophen (Tylenol) 650 mg PO Q4H PRN PRN Reason: Pain (Mild) Stop: 12/16/16 22:31 Atorvastatin Calcium (Lipitor) 40 mg PO DAILY [facility] PRN Reason: Protocol Stop: 12/17/16 08:59 Last Admin: 10/18/16 09:41 Dose: Not Given Docusate Sodium (Colace) 100 mg PO BID [facility] Stop: 12/17/16 08:59 Last Admin: 10/18/16 09:41 Dose: Not Given Donepezil HCl (Aricept) 10 mg PO HS [facility] Stop: 12/17/16 20:59 Hydroxyzine Pamoate (Vistaril) 25 mg PO BID [facility] PRN Reason: Protocol Stop: 12/17/16 08:59 Last Admin: 10/18/16 09:41 Dose: Not Given Sodium Chloride (Nacl 0.9%) 1,000 mls @ 75 mls/hr IV .[id number] [facility] Stop: 12/16/16 22:24 Last Admin: 10/18/16 12:05 Dose: 75 mls/hr Lorazepam (Ativan) 0.5 mg PO Q4HR PRN; Protocol PRN Reason: Anxiety Stop: 12/16/16 22:40 Magnesium Hydroxide (Milk Of Magnesia) 30 ml PO HS PRN PRN Reason: Constipation Stop: 12/16/16 22:42 Metformin HCl (Glucophage) 500 mg PO BIDWM [facility] Stop: 12/17/16 07:59 Last Admin: 10/18/16 09:40 Dose: Not Given Risperidone (Risperdal) 0.75 mg PO BID [facility] PRN Reason: Protocol Stop: 12/17/16 08:59 Zolpidem Tartrate (Ambien) 5 mg PO HS PRN PRN Reason: Insomnia Stop: 12/16/16 22:59 General: no weak, no lethargic, no congested, no alert, no demented, no vegetative state, no obese, no bilateral temporal wasting, no cachectic, no edematous, no appears older HEENT: PERRLA, EOMI, anicteric sclerae, throat clear, no dry oral mucosa, no craniotomy scar Neck: Supple, No JVD, No thyromegaly, +2 carotid pulse wo bruit, + JVD, + trach , no mass, no deformity Lungs: CTAB, no congested, no wheezing, no rales, no ronchi, no chest deformity present Cardiovascular: RRR, Normal S1, Normal S2, without murmur, no with murmur, no tachy
--- NOTE | 2016-10-18 17:38 | History and Physical ---
History of Present Illness - HPI Chief Complaint: Altered level of conciousness and dehdration. HPI: The patient is an 75 year old f with past medical history significant for DM.dementia transfered from gyriatic floor to telematry with ALOC and dehydration.She was started on IV fluid. Vital Signs: Last Vital Signs Temp 97 F 10/18/16 08:00 Pulse 94 10/18/16 08:00 Resp 16 10/18/16 08:00 BP 107/56 10/18/16 08:00 Pulse Ox 96 10/18/16 08:00 Weight (lbs): 58 kg Past Medical History Cardiovascular: Report: Hyperlipidemia. Denies: No Pertinent Hx, AFIB, CAD, CHF , HTN, VA, Syncope, Mitral Valve Stenosis, Aortic Stenosis, Valve Insufficiency , Pulmonary Hypertension Pulmonary: Report: No Pertinent Hx. 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 Denies: CVA, Seizure, TIA, Vertigo GI: Report: No Pertinent Hx Psych: Report: Psychosis Musculoskeletal: Report: No Pertinent Hx Rheumatologic: Report: No pertinent Hx Infectious Disease: Report: No Pertinent Hx Renal/: Report: No Pertinent Hx Endocrine: Report: No Pertinent Hx Dermatology: Report: No Pertinent Hx - Past Surgical History Past Surgical History: No pertinent Hx Family Medical History - Family Member Mother History Unknown: Yes (Not cotributary) Ethnicity: Living Status: Hx Family Cancer: (unknown) Hx Family Coronary Artery Disease: (unknown) Hx Family Congestive Heart Failure: (unknown) Hx Family Hypertension: (unknown) Hx Family Stroke: (unknown) Hx Family Diabetes: (unknown) Hx Family Seizures: (unknown) Hx Family Dementia: (unknown) Hx Family AIDS: (unknown) Hx Family COPD: (unknown) Hx Family Hepatitis: (unknown) Hx Family Psychiatric Problems: (unknown) Hx Family Tuberculosis: (unknown) Social History Smoke: No Alcohol: None Drugs: None Lives: [facility] Domestic Violence: Negative Health Maintenance Health Maintenance: Tetanus, Influenza Vaccine, Pneumococcal Vaccine, Pap Smear , Mammogram, Colonoscopy, DEXA, HIV, PSA - Medications Home Medications: Home Medication Medication Instructions Recorded Type Acetaminophen [Tylenol] 650 mg PO Q4HR PRN 10/07/16 History Atorvastatin Calcium [Lipitor] 40 mg PO DAILY 10/07/16 History Docusate Sodium [Colace] 100 mg PO BID 10/07/16 History Donepezil Hcl [Aricept] 1 tab PO HS 10/07/16 History Empagliflozin [Jardiance] 10 mg PO DAILY 10/07/16 History Magnesium Hydroxide [Milk of 30 ml PO HS PRN 10/07/16 History Magnesia] Multivitamin w/ Minerals 1 tab PO DAILY 10/07/16 History [Theragran M] hydrOXYzine Pamoate [Vistaril] 25 mg PO BID 10/07/16 History metFORMIN [Glucophage] 500 mg PO BID 10/07/16 History - Allergies Allergies/Adverse Reactions: Allergies Allergy/AdvReac Type Severity Reaction Status Date / Time No Known Allergies Allergy Verified 10/07/16 18:22 Review of Systems - Review of Systems Constitutional: Report: No Significant Eyes: Report: No Significant ENT: Report: No Significant Respiratory: Report: No Significant Cardiovascular: Report: No Significant Gastrointestinal: Report: No Significant Genitourinary: Report: No Significant Musculoskeletal: Report: No Significant Skin: Report: No Significant Neurological: Report: Confusion Physical Exam - Physical Exam Neck: Report: Within normal limits Cardiovascular Systems: Report: +s1/s2 noted, Regular, Rate and Rhythm, no murmurs noted Respiratory: Report: Breath Sounds are within normal limits, Clear to Auscultation of lung pro Abdomen: Report: Non-tender to palpation, Tender to palpation Back: Report: Inspection of back is within normal limits. Extremities: Report: Non-tender to palpation. Skin: Report: Color of skin is within normal limits Neuro/Psych: Report: Disoriented to name time or place - Lab Results All Lab Results last 24 hours: Laboratory Last Values WBC 6.9 Th/cmm (4.8-10.8) 10/18/16 06:44 RBC 3.63 Mil/cmm (3.80-5.20) L 10/18/16 06:44 Hgb 11.5 gm/dL (11.7-16.1) L 10/18/16 06:44 Hct 34.3 % (35.0-45.0) L 10/18/16 06:44 MCV 94.4 fl (81-100) 10/18/16 06:44 MCH 31.8 pg (27.0-31.0) H 10/18/16 06:44 MCHC Differential 33.7 pg (28.0-36.0) 10/18/16 06:44 RDW 11.7 % (11.5-20.0) 10/18/16 06:44 Plt Count 244 Th/cmm (150-400) 10/18/16 06:44 MPV 7.0 fl 10/18/16 06:44 Neutrophils % 64.4 % (40.0-80.0) 10/18/16 06:44 Lymphocytes % 27.5 % (20.0-50.0) 10/18/16 06:44 Monocytes % 7.2 % (2.0-10.0) 10/18/16 06:44 Eosinophils % 0.8 % (0.0-5.0) 10/18/16 06:44 Basophils % 0.1 % (0.0-2.0) 10/18/16 06:44 Sodium 136 mEq/L (136-145) 10/18/16 06:44 Potassium 3.7 mEq/L (3.5-5.1) 10/18/16 06:44 Chloride 107 mEq/L (98-107) 10/18/16 06:44 Carbon Dioxide 26.8 mEq/L (21.0-31.0) 10/18/16 06:44 Anion Gap 5.9 (7.0-16.0) L 10/18/16 06:44 BUN 14 mg/dL (7-25) 10/18/16 06:44 Creatinine 0.6 mg/dL (0.6-1.2) 10/18/16 06:44 Est GFR ( Amer) TNP 10/18/16 06:44 Est GFR (Non-Af Amer) TNP 10/18/16 06:44 BUN/Creatinine Ratio 23.3 10/18/16 06:44 Glucose 129 mg/dL (70-105) H 10/18/16 06:44 POC Glucose 164 MG/DL (70 - 105) H 10/18/16 05:41 Calcium 8.8 mg/dL (8.6-10.3) 10/18/16 06:44 Total Bilirubin 0.5 mg/dL (0.3-1.0) 10/17/16 22:03 AST 24 U/L (13-39) 10/17/16 22:03 ALT 20 U/L (7-52) 10/17/16 22:03 Alkaline Phosphatase 130 U/L (34-104) H 10/17/16 22:03 Troponin I 0.01 ng/mL (0.01-0.05) 10/18/16 06:44 Total Protein 5.9 gm/dL (6.0-8.3) L 10/17/16 22:03 Albumin 3.0 gm/dL (3.7-5.3) L 10/17/16 22:03 Globulin 2.9 gm/dL 10/17/16 22:03 Albumin/Globulin Ratio 1.0 (1.0-1.8) 10/17/16 22:03 Laboratory Results - last 24 hr 10/17/16 10/17/16 10/17/16 22:03 22:03 22:03 WBC 7.7 RBC 3.76 L Hgb 12.0 Hct 35.9 D MCV 95.4 MCH 31.9 H MCHC Differential 33.4 RDW 12.2 Plt Count 284 D MPV 6.8 Neutrophils % 62.4 Lymphocytes % 31.4 Monocytes % 4.6 Eosinophils % 0.9 Basophils % 0.7 Sodium 130 L Potassium 3.6 Chloride 102 Carbon Dioxide 26.8 Anion Gap 4.8 L BUN 17 Creatinine 0.6 Est GFR ( Amer) TNP Est GFR (Non-Af Amer) TNP BUN/Creatinine Ratio 28.3 Glucose 154 H POC Glucose Calcium 8.9 Total Bilirubin 0.5 AST 24 ALT 20 Alkaline Phosphatase 130 H Troponin I 0.01 Total Protein 5.9 L Albumin 3.0 L Globulin 2.9 Albumin/Globulin Ratio 1.0 10/18/16 10/18/16 10/18/16 05:41 06:44 06:44 WBC 6.9 RBC 3.63 L Hgb 11.5 L Hct 34.3 L MCV 94.4 MCH 31.8 H MCHC Differential 33.7 RDW 11.7 Plt Count 244 MPV 7.0 Neutrophils % 64.4 Lymphocytes % 27.5 Monocytes % 7.2 Eosinophils % 0.8 Basophils % 0.1 Sodium 136 Potassium 3.7 Chloride 107 Carbon Dioxide 26.8 Anion Gap 5.9 L BUN 14 Creatinine 0.6 Est GFR ( Amer) TNP Est GFR (Non-Af Amer) TNP BUN/Creatinine Ratio 23.3 Glucose 129 H POC Glucose 164 H Calcium 8.8 Total Bilirubin AST ALT Alkaline Phosphatase Troponin I Total Protein Albumin Globulin Albumin/Globulin Ratio 10/18/16 06:44 WBC RBC Hgb Hct MCV MCH MCHC Differential RDW Plt Count MPV Neutrophils % Lymphocytes % Monocytes % Eosinophils % Basophils % Sodium Potassium Chloride Carbon Dioxide Anion Gap BUN Creatinine Est GFR ( Amer) Est GFR (Non-Af Amer) BUN/Creatinine Ratio Glucose POC Glucose Calcium Total Bilirubin AST ALT Alkaline Phosphatase Troponin I 0.01 Total Protein Albumin Globulin Albumin/Globulin Ratio - Assessment Assessment: 1.ALOC. 2.Dehydration 3.DM. 4.Dementia. - Plan Plan: Continue on current medication and diet.
[2016-10-19] MEDS: Multivitamin w/ Minerals Tab PO SCH (09:59)
--- NOTE | 2016-10-19 11:43 | Internal Medicine Prog Note ---
Internal Medicine Subjective - Subjective Service Date: 10/19/16 Patient is:: awake, non-verbal, in bed, agitated, confused Per staff patient has:: unstable gait, confused Internal Medicine Objective - Results Result Diagrams: 10/18/16 06:44 10/18/16 06:44 Recent Labs: Laboratory Last Values WBC 6.9 Th/cmm (4.8-10.8) 10/18/16 06:44 RBC 3.63 Mil/cmm (3.80-5.20) L 10/18/16 06:44 Hgb 11.5 gm/dL (11.7-16.1) L 10/18/16 06:44 Hct 34.3 % (35.0-45.0) L 10/18/16 06:44 MCV 94.4 fl (81-100) 10/18/16 06:44 MCH 31.8 pg (27.0-31.0) H 10/18/16 06:44 MCHC Differential 33.7 pg (28.0-36.0) 10/18/16 06:44 RDW 11.7 % (11.5-20.0) 10/18/16 06:44 Plt Count 244 Th/cmm (150-400) 10/18/16 06:44 MPV 7.0 fl 10/18/16 06:44 Neutrophils % 64.4 % (40.0-80.0) 10/18/16 06:44 Lymphocytes % 27.5 % (20.0-50.0) 10/18/16 06:44 Monocytes % 7.2 % (2.0-10.0) 10/18/16 06:44 Eosinophils % 0.8 % (0.0-5.0) 10/18/16 06:44 Basophils % 0.1 % (0.0-2.0) 10/18/16 06:44 Sodium 136 mEq/L (136-145) 10/18/16 06:44 Potassium 3.7 mEq/L (3.5-5.1) 10/18/16 06:44 Chloride 107 mEq/L (98-107) 10/18/16 06:44 Carbon Dioxide 26.8 mEq/L (21.0-31.0) 10/18/16 06:44 Anion Gap 5.9 (7.0-16.0) L 10/18/16 06:44 BUN 14 mg/dL (7-25) 10/18/16 06:44 Creatinine 0.6 mg/dL (0.6-1.2) 10/18/16 06:44 Est GFR ( Amer) TNP 10/18/16 06:44 Est GFR (Non-Af Amer) TNP 10/18/16 06:44 BUN/Creatinine Ratio 23.3 10/18/16 06:44 Glucose 129 mg/dL (70-105) H 10/18/16 06:44 POC Glucose 164 MG/DL (70 - 105) H 10/18/16 05:41 Calcium 8.8 mg/dL (8.6-10.3) 10/18/16 06:44 Total Bilirubin 0.5 mg/dL (0.3-1.0) 10/17/16 22:03 AST 24 U/L (13-39) 10/17/16 22:03 ALT 20 U/L (7-52) 10/17/16 22:03 Alkaline Phosphatase 130 U/L (34-104) H 10/17/16 22:03 Troponin I 0.01 ng/mL (0.01-0.05) 10/18/16 06:44 Total Protein 5.9 gm/dL (6.0-8.3) L 10/17/16 22:03 Albumin 3.0 gm/dL (3.7-5.3) L 10/17/16 22:03 Globulin 2.9 gm/dL 10/17/16 22:03 Albumin/Globulin Ratio 1.0 (1.0-1.8) 10/17/16 22:03 - Physical Exam Vitals and I&O: Vital Signs Temp 97 F 10/19/16 04:00 Pulse 76 10/19/16 04:00 Resp 18 10/19/16 04:00 BP 120/65 10/19/16 04:00 Pulse Ox 93 10/19/16 04:00 Intake & Output 10/18/16 10/19/16 10/19/16 18:59 06:59 18:59 Intake Total 1366.25 300 Balance 1366.25 300 Weight (lbs) 58.513 kg 53.977 kg Intake: Intake, IV Amount 966.25 Sodium Chloride 0.9% 1, 966.25 000 ml @ 75 mls/hr IV . [id number] [facility] Rx#:[id number] Oral 400 300 Other: # Voids 3 3 # Bowel Movements 0 0 Active Medications: Current Medications Acetaminophen (Tylenol) 650 mg PO Q4H PRN PRN Reason: Pain (Mild) Stop: 12/16/16 22:31 Atorvastatin Calcium (Lipitor) 40 mg PO DAILY [facility] PRN Reason: Protocol Stop: 12/17/16 08:59 Last Admin: 10/19/16 09:59 Dose: 40 mg Docusate Sodium (Colace) 100 mg PO BID [facility] Stop: 12/17/16 08:59 Last Admin: 10/19/16 09:59 Dose: 100 mg Donepezil HCl (Aricept) 10 mg PO HS [facility] Stop: 12/17/16 20:59 Last Admin: 10/18/16 21:44 Dose: 10 mg Hydroxyzine Pamoate (Vistaril) 25 mg PO BID [facility] PRN Reason: Protocol Stop: 12/17/16 08:59 Last Admin: 10/19/16 09:59 Dose: 25 mg Sodium Chloride (Nacl 0.9%) 1,000 mls @ 75 mls/hr IV .[id number] [facility] Stop: 12/16/16 22:24 Last Admin: 10/18/16 12:05 Dose: 75 mls/hr Lorazepam (Ativan) 0.5 mg PO Q4HR PRN; Protocol PRN Reason: Anxiety Stop: 12/16/16 22:40 Magnesium Hydroxide (Milk Of Magnesia) 30 ml PO HS PRN PRN Reason: Constipation Stop: 12/16/16 22:42 Metformin HCl (Glucophage) 500 mg PO BIDWM [facility] Stop: 12/17/16 07:59 Last Admin: 10/19/16 10:00 Dose: 500 mg Mupirocin (Bactroban Oint) 1 appl NS BID [facility] Stop: 10/23/16 17:01 Risperidone (Risperdal) 0.75 mg PO BID [facility] PRN Reason: Protocol Stop: 12/17/16 08:59 Zolpidem Tartrate (Ambien) 5 mg PO HS PRN PRN Reason: Insomnia Stop: 12/16/16 22:59 Last Admin: 10/18/16 21:44 Dose: 5 mg General: no weak, no lethargic, no congested, no alert, no demented, no vegetative state, no obese, no bilateral temporal wasting, no cachectic, no edematous, no appears older HEENT: PERRLA, EOMI, anicteric sclerae, throat clear, no dry oral mucosa, no craniotomy scar Neck: Supple, No JVD, No thyromegaly, +2 carotid pulse wo bruit, + JVD, + trach , no mass, no deformity Lungs: CTAB, no congested, no wheezing, no rales, no ronchi, no chest deformity present Cardiovascular: RRR, Normal S1, Normal S2, without murmur, no with murmur, no tachy Internal Medicine Assmt/Plan - Assessment Assessment: 1.ALOC. 2.Dehydration 3.DM. 4.Dementia. - Plan Plan: Continue on current medication and diet.Boost tid.
[2016-10-20] MEDS: Multivitamin w/ Minerals Tab PO SCH (11:00)
--- NOTE | 2016-10-20 13:47 | Internal Medicine Prog Note ---
Internal Medicine Subjective - Subjective Patient is:: awake, non-verbal, in bed, agitated, confused Per staff patient has:: unstable gait, confused Internal Medicine Objective - Results Result Diagrams: 10/18/16 06:44 10/18/16 06:44 Recent Labs: Laboratory Last Values WBC 6.9 Th/cmm (4.8-10.8) 10/18/16 06:44 RBC 3.63 Mil/cmm (3.80-5.20) L 10/18/16 06:44 Hgb 11.5 gm/dL (11.7-16.1) L 10/18/16 06:44 Hct 34.3 % (35.0-45.0) L 10/18/16 06:44 MCV 94.4 fl (81-100) 10/18/16 06:44 MCH 31.8 pg (27.0-31.0) H 10/18/16 06:44 MCHC Differential 33.7 pg (28.0-36.0) 10/18/16 06:44 RDW 11.7 % (11.5-20.0) 10/18/16 06:44 Plt Count 244 Th/cmm (150-400) 10/18/16 06:44 MPV 7.0 fl 10/18/16 06:44 Neutrophils % 64.4 % (40.0-80.0) 10/18/16 06:44 Lymphocytes % 27.5 % (20.0-50.0) 10/18/16 06:44 Monocytes % 7.2 % (2.0-10.0) 10/18/16 06:44 Eosinophils % 0.8 % (0.0-5.0) 10/18/16 06:44 Basophils % 0.1 % (0.0-2.0) 10/18/16 06:44 Sodium 136 mEq/L (136-145) 10/18/16 06:44 Potassium 3.7 mEq/L (3.5-5.1) 10/18/16 06:44 Chloride 107 mEq/L (98-107) 10/18/16 06:44 Carbon Dioxide 26.8 mEq/L (21.0-31.0) 10/18/16 06:44 Anion Gap 5.9 (7.0-16.0) L 10/18/16 06:44 BUN 14 mg/dL (7-25) 10/18/16 06:44 Creatinine 0.6 mg/dL (0.6-1.2) 10/18/16 06:44 Est GFR ( Amer) TNP 10/18/16 06:44 Est GFR (Non-Af Amer) TNP 10/18/16 06:44 BUN/Creatinine Ratio 23.3 10/18/16 06:44 Glucose 129 mg/dL (70-105) H 10/18/16 06:44 POC Glucose 164 MG/DL (70 - 105) H 10/18/16 05:41 Calcium 8.8 mg/dL (8.6-10.3) 10/18/16 06:44 Total Bilirubin 0.5 mg/dL (0.3-1.0) 10/17/16 22:03 AST 24 U/L (13-39) 10/17/16 22:03 ALT 20 U/L (7-52) 10/17/16 22:03 Alkaline Phosphatase 130 U/L (34-104) H 10/17/16 22:03 Troponin I 0.01 ng/mL (0.01-0.05) 10/18/16 06:44 Total Protein 5.9 gm/dL (6.0-8.3) L 10/17/16 22:03 Albumin 3.0 gm/dL (3.7-5.3) L 10/17/16 22:03 Globulin 2.9 gm/dL 10/17/16 22:03 Albumin/Globulin Ratio 1.0 (1.0-1.8) 10/17/16 22:03 - Physical Exam Vitals and I&O: Vital Signs Temp 97.8 F 10/20/16 04:00 Pulse 90 10/20/16 04:00 Resp 18 10/20/16 04:00 BP 113/60 10/20/16 04:00 Pulse Ox 93 10/19/16 04:00 Intake & Output 10/19/16 10/20/16 10/20/16 18:59 06:59 18:59 Weight (lbs) 53.977 kg 57.606 kg Other: # Voids 2 Stool Characteristics Soft Active Medications: Current Medications Acetaminophen (Tylenol) 650 mg PO Q4H PRN PRN Reason: Pain (Mild) Stop: 12/16/16 22:31 Atorvastatin Calcium (Lipitor) 40 mg PO DAILY [facility] PRN Reason: Protocol Stop: 12/17/16 08:59 Last Admin: 10/20/16 11:00 Dose: 40 mg Docusate Sodium (Colace) 100 mg PO BID [facility] Stop: 12/17/16 08:59 Last Admin: 10/20/16 11:01 Dose: 100 mg Donepezil HCl (Aricept) 10 mg PO HS [facility] Stop: 12/17/16 20:59 Last Admin: 10/19/16 20:28 Dose: 10 mg Hydroxyzine Pamoate (Vistaril) 25 mg PO BID [facility] PRN Reason: Protocol Stop: 12/17/16 08:59 Last Admin: 10/20/16 11:00 Dose: 25 mg Sodium Chloride (Nacl 0.9%) 1,000 mls @ 75 mls/hr IV .[id number] [facility] Stop: 12/16/16 22:24 Last Admin: 10/18/16 12:05 Dose: 75 mls/hr Ketoconazole (Nizoral 2% Cream) 1 appl TP BID [facility] Stop: 12/18/16 16:59 Last Admin: 10/20/16 11:02 Dose: 1 appl Lorazepam (Ativan) 0.5 mg PO Q4HR PRN; Protocol PRN Reason: Anxiety Stop: 12/16/16 22:40 Last Admin: 10/20/16 11:00 Dose: 0.5 mg Magnesium Hydroxide (Milk Of Magnesia) 30 ml PO HS PRN PRN Reason: Constipation Stop: 12/16/16 22:42 Metformin HCl (Glucophage) 500 mg PO BIDWM [facility] Stop: 12/17/16 07:59 Last Admin: 10/20/16 10:59 Dose: 500 mg Mupirocin (Bactroban Oint) 1 appl NS BID [facility] Stop: 10/23/16 17:01 Last Admin: 10/20/16 11:02 Dose: Not Given Risperidone (Risperdal) 0.75 mg PO BID [facility] Stop: 12/18/16 16:59 Last Admin: 10/20/16 10:59 Dose: 0.75 mg Zolpidem Tartrate (Ambien) 5 mg PO HS PRN PRN Reason: Insomnia Stop: 12/16/16 22:59 Last Admin: 10/20/16 00:01 Dose: 5 mg General: no weak, no lethargic, no congested, no alert, no demented, no vegetative state, no obese, no bilateral temporal wasting, no cachectic, no edematous, no appears older HEENT: PERRLA, EOMI, anicteric sclerae, throat clear, no dry oral mucosa, no craniotomy scar Neck: Supple, No JVD, No thyromegaly, +2 carotid pulse wo bruit, + JVD, + trach , no mass, no deformity Lungs: CTAB, no congested, no wheezing, no rales, no ronchi, no chest deformity present Cardiovascular: RRR, Normal S1, Normal S2, without murmur, no with murmur, no tachy Internal Medicine Assmt/Plan - Assessment Assessment: 1.ALOC. 2.Dehydration 3.DM. 4.Dementia. - Plan Plan: Continue on current medication and diet.Boost tid.
[2016-10-21] MEDS: Multivitamin w/ Minerals Tab PO SCH (08:35)
== END 2016-10-21 13:20 | DRG 640 ==
LOC: TELE 20:30 → MSI 10-19 11:46 → UNDODISIN 10-21 11:06
PROVIDERS: ADMIT Family Medicine; ATTEND Family Medicine
DX: E86.0 Dehydration (principal); G93.41 Metabolic encephalopathy; F03.90 Unspecified dementia, unspecified severity, without behavioral disturbance, psychotic disturbance, mood disturbance, and anxiety; E11.9 Type 2 diabetes mellitus without complications; E44.1 Mild protein-calorie malnutrition; R26.81 Unsteadiness on feet; E78.5 Hyperlipidemia, unspecified; Z68.20 Body mass index [BMI] 20.0-20.9, adult
CPT/HCPCS: 36415-UA; 80048-TC; 80053-TC; 82948-90; 84484-TC; 85025-TC; J7030; J7040; Q0177; Z7610

== ENCOUNTER 2016-10-21 13:23 | Inpatient (IN) | payer MEDICARE, OTHER ==
[2016-10-21] MEDS ORDERED: Magnesium Hydroxide (MOM) 30 mL UDC PO PRN (15:43)
[2016-10-22] MEDS ORDERED: EMPAGLIFLOZIN 10 MG PO SCH (09:00)
[2016-10-22] MEDS: Multivitamin w/ Minerals Tab PO SCH (09:10)
[2016-10-22 14:30] VITALS: BP 98/48
--- NOTE | 2016-10-22 19:14 | History and Physical ---
History of Present Illness - HPI Chief Complaint: Confusion and poor intake. HPI: The patient is 75 year old female with PMH significant for dementia, hyperlipidemia,admitted to acute hospital with alter level of conciousness.The patient has poor appetite.The [facility] eas [facility] 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 GI: Report: No Pertinent Hx Psych: Report: Psychosis Musculoskeletal: Report: No Pain Rheumatologic: Report: No pertinent Hx Infectious Disease: Report: No Pertinent Hx Renal/: Report: No Pertinent Hx Endocrine: Report: No Pertinent Hx Dermatology: Report: No Pertinent Hx - Past Surgical History Past Surgical History: No pertinent Hx Family Medical History - Family Member Mother History Unknown: Yes (Not cotributary) Ethnicity: Unknown Living Status: Unknown Hx Family Tuberculosis: No Social History Smoke: No Alcohol: None Drugs: None 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 Domestic Violence: Negative Health Maintenance Health Maintenance: Cholesterol, Influenza Vaccine, Pneumococcal Vaccine - Medications Home Medications: Home Medication Medication Instructions Recorded Type Acetaminophen [Tylenol] 650 mg PO Q4HR PRN 10/07/16 History Atorvastatin Calcium [Lipitor] 40 mg PO DAILY 10/07/16 History Docusate Sodium [Colace] 100 mg PO BID 10/07/16 History Donepezil Hcl [Aricept] 1 tab PO HS 10/07/16 History Empagliflozin [Jardiance] 10 mg PO DAILY 10/07/16 History Magnesium Hydroxide [Milk of 30 ml PO HS PRN 10/07/16 History Magnesia] Multivitamin w/ Minerals 1 tab PO DAILY 10/07/16 History [Theragran M] hydrOXYzine Pamoate [Vistaril] 25 mg PO BID 10/07/16 History metFORMIN [Glucophage] 500 mg PO BID 10/07/16 History Acetaminophen [Tylenol] 650 mg PO Q4H PRN tab 10/21/16 Rx Atorvastatin Calcium [Lipitor] 40 mg PO DAILY tab 10/21/16 Rx Docusate Sodium [Colace] 100 mg PO BID cap 10/21/16 Rx Donepezil Hcl [Aricept] 10 mg PO HS tab 10/21/16 Rx Ketoconazole 2% Cream [Nizoral 2% 1 appl TP BID appl 10/21/16 Rx Cream] Lorazepam [Ativan] 0.5 mg PO Q4HR PRN tab 10/21/16 Rx Magnesium Hydroxide [Milk of 30 ml PO HS PRN udc 10/21/16 Rx Magnesia] Multivitamin w/ Minerals 1 tab PO DAILY tab 10/21/16 Rx [Theragran M] Mupirocin Oint [Mupirocin*] 1 appl NS BID appl 10/21/16 Rx Zolpidem Tartrate [Ambien] 5 mg PO HS PRN tab 10/21/16 Rx hydrOXYzine Pamoate [Vistaril] 25 mg PO BID cap 10/21/16 Rx metFORMIN [Glucophage] 500 mg PO BIDWM tab 10/21/16 Rx risperiDONE [RisperDAL] 0.75 mg PO BID tab 10/21/16 Rx - Allergies Allergies/Adverse Reactions: Allergies Allergy/AdvReac Type Severity Reaction Status Date / Time No Known Allergies Allergy Verified 10/07/16 18:22 Review of Systems - Review of Systems Constitutional: Denies: No Significant, Fever, Chills, Sweats, Weakness, Malaise Eyes: Denies: No Significant, Pain, Vision Change, Conjunctivae Inflammation, Eyelid Inflammation, Redness ENT: Denies: No Significant, Ear Pain, Ear Discharge, Nose Pain, Nose Discharge , Nose Congestion, Mouth Pain, Mouth Swelling, Throat Pain, Throat Swelling Respiratory: Denies: No Significant, Cough, Dry, Shortness of Breath, Hemoptysis , SOB with Excertion, Pleuritic Pain, Sputum Cardiovascular: Denies: No Significant, Chest Pain, Palpitations, Orthopnea, Paroxysmal Noc. Dyspnea, Edema, Light Headedness Gastrointestinal: Denies: No Significant, Nausea, Vomiting, Abdominal Pain, Diarrhea, Constipation, Hematochezia Genitourinary: Denies: No Significant Musculoskeletal: Denies: No Significant Skin: Denies: No Significant Neurological: Denies: No Significant Physical Exam - Physical Exam Neck: Report: Within normal limits Cardiovascular Systems: Report: +s1/s2 noted, Regular, Rate and Rhythm, no murmurs noted Respiratory: Report: Breath Sounds are within normal limits, Clear to Auscultation of lung pro Abdomen: Report: Non-tender to palpation Back: Report: Inspection of back is within normal limits. Extremities: Report: Non-tender to palpation., Patient had full range of motion Skin: Report: Color of skin is within normal limits, Warm Neuro/Psych: Report: Disoriented to name time or place, No motor deficit, No sensory deficit - Lab Results All Lab Results last 24 hours: Laboratory Last Values POC Glucose 224 MG/DL (70 - 105) H 10/21/16 15:32 - Assessment Assessment: 1.Hyperlipidemia. 2.Dementia. 3.Poor apetite. 4.Psychosis. 5.Excoriation of the skin of back. - Plan Plan: Continue on current medication and diet and wound care.
[2016-10-23] MEDS: Multivitamin w/ Minerals Tab PO SCH (09:32)
--- NOTE | 2016-10-23 19:51 | Internal Medicine Prog Note ---
Internal Medicine Subjective - Subjective Service Date: 10/23/16 Patient seen and examined:: without staff Patient is:: awake, in bed, talking Patient Complaints of:: other (no complains) Per staff patient has:: no adverse event, eating well, confused, tolerating meds Internal Medicine Objective - Results Recent Labs: Laboratory Last Values POC Glucose 224 MG/DL (70 - 105) H 10/21/16 15:32 - Physical Exam Vitals and I&O: Vital Signs Temp 97.6 F 10/23/16 14:00 Pulse 88 10/23/16 14:00 Resp 20 10/23/16 14:00 BP 110/60 10/23/16 14:00 Pulse Ox 96 10/23/16 14:00 Intake & Output 10/23/16 10/23/16 10/24/16 06:59 18:59 06:59 Intake Total 1400 Balance 1400 Weight (lbs) 57 kg Intake: Oral 1400 Other: # Voids 3 # Bowel Movements 1 Active Medications: Current Medications Acetaminophen (Tylenol) 650 mg PO Q4H PRN PRN Reason: Pain (Mild) Stop: 12/20/16 15:38 Atorvastatin Calcium (Lipitor) 40 mg PO DAILY [facility] PRN Reason: Protocol Stop: 12/21/16 08:59 Last Admin: 10/23/16 09:32 Dose: 40 mg Docusate Sodium (Colace) 100 mg PO BID [facility] Stop: 12/20/16 16:59 Last Admin: 10/23/16 16:46 Dose: Not Given Donepezil HCl (Aricept) 10 mg PO HS [facility] Stop: 12/20/16 20:59 Last Admin: 10/22/16 21:08 Dose: 10 mg Hydroxyzine Pamoate (Vistaril) 25 mg PO BID [facility] PRN Reason: Protocol Stop: 10/31/16 16:59 Last Admin: 10/23/16 16:47 Dose: Not Given Ketoconazole (Nizoral 2% Cream) 1 appl TP BID [facility] Stop: 12/20/16 16:59 Last Admin: 10/23/16 16:47 Dose: Not Given Lorazepam (Ativan) 0.5 mg PO Q4HR PRN; Protocol PRN Reason: Anxiety Stop: 12/20/16 15:42 Last Admin: 10/21/16 21:10 Dose: 0.5 mg Magnesium Hydroxide (Milk Of Magnesia) 30 ml PO HS PRN PRN Reason: Constipation Stop: 12/20/16 15:42 Memantine (Namenda) 5 mg PO DAILY [facility] Stop: 12/22/16 08:59 Last Admin: 10/23/16 09:32 Dose: 5 mg Miscellaneous (Empagliflozin [Jardiance]) 10 mg PO DAILY [facility] Stop: 12/21/16 08:59 Mupirocin (Bactroban Oint) 1 appl NS BID [facility] Stop: 12/20/16 16:59 Last Admin: 10/23/16 16:47 Dose: Not Given Zolpidem Tartrate (Ambien) 5 mg PO HS PRN PRN Reason: Insomnia Stop: 12/20/16 15:42 General: weak, demented HEENT: PERRLA Neck: Supple, No JVD, No LAD Lungs: CTAB Cardiovascular: RRR, without murmur Abdomen: soft, non-tender Extremities: clear Neurological: no change Internal Medicine Assmt/Plan - Assessment Assessment: 1.Hyperlipidemia. 2.Dementia. 3.Poor apetite. 4.Psychosis. 5.Excoriation of the skin of back. - Plan Plan: Continue on current medication and diet and wound care.
[2016-10-24] MEDS: Multivitamin w/ Minerals Tab PO SCH (10:41)
--- NOTE | 2016-10-24 15:43 | Internal Medicine Prog Note ---
Internal Medicine Subjective - Subjective Service Date: 10/24/16 Patient seen and examined:: without staff Patient is:: awake, in bed, talking Patient Complaints of:: other (no complains) Per staff patient has:: no adverse event, eating well, confused, tolerating meds Internal Medicine Objective - Results Recent Labs: Laboratory Last Values POC Glucose 224 MG/DL (70 - 105) H 10/21/16 15:32 - Physical Exam Vitals and I&O: Vital Signs Temp 97.2 F 10/24/16 07:16 Pulse 87 10/24/16 07:16 Resp 18 10/24/16 15:24 BP 107/58 10/24/16 07:16 Pulse Ox 97 10/24/16 07:16 Intake & Output 10/23/16 10/24/16 10/24/16 18:59 06:59 18:59 Intake Total 1400 Balance 1400 Intake: Oral 1400 Other: # Voids 3 2 # Bowel Movements 1 Stool Characteristics Soft Active Medications: Current Medications Acetaminophen (Tylenol) 650 mg PO Q4H PRN PRN Reason: Pain (Mild) Stop: 12/20/16 15:38 Atorvastatin Calcium (Lipitor) 40 mg PO DAILY [facility] PRN Reason: Protocol Stop: 12/21/16 08:59 Last Admin: 10/24/16 10:41 Dose: Not Given Docusate Sodium (Colace) 100 mg PO BID [facility] Stop: 12/20/16 16:59 Last Admin: 10/24/16 10:30 Dose: Not Given Donepezil HCl (Aricept) 10 mg PO HS [facility] Stop: 12/20/16 20:59 Last Admin: 10/23/16 20:55 Dose: 10 mg Glipizide (Glucotrol) 2.5 mg PO DAILY [facility] Stop: 12/24/16 08:59 Hydroxyzine Pamoate (Vistaril) 25 mg PO BID [facility] PRN Reason: Protocol Stop: 10/31/16 16:59 Last Admin: 10/24/16 10:41 Dose: Not Given Ketoconazole (Nizoral 2% Cream) 1 appl TP BID [facility] Stop: 12/20/16 16:59 Last Admin: 10/24/16 10:29 Dose: Not Given Lorazepam (Ativan) 0.5 mg PO Q4HR PRN; Protocol PRN Reason: Anxiety Stop: 12/20/16 15:42 Last Admin: 10/21/16 21:10 Dose: 0.5 mg Magnesium Hydroxide (Milk Of Magnesia) 30 ml PO HS PRN PRN Reason: Constipation Stop: 12/20/16 15:42 Memantine (Namenda) 5 mg PO DAILY [facility] Stop: 12/22/16 08:59 Last Admin: 10/24/16 10:41 Dose: Not Given Miscellaneous (Empagliflozin [Jardiance]) 10 mg PO DAILY [facility] Stop: 12/21/16 08:59 Mupirocin (Bactroban Oint) 1 appl NS BID [facility] Stop: 12/20/16 16:59 Last Admin: 10/24/16 10:28 Dose: Not Given Zolpidem Tartrate (Ambien) 5 mg PO HS PRN PRN Reason: Insomnia Stop: 12/20/16 15:42 Last Admin: 10/23/16 20:55 Dose: 5 mg General: weak, demented HEENT: PERRLA Neck: Supple, No JVD, No LAD Lungs: CTAB Cardiovascular: RRR, without murmur Abdomen: soft, non-tender Extremities: clear Neurological: no change Internal Medicine Assmt/Plan - Assessment Assessment: 1.Hyperlipidemia. 2.Dementia. 3.Poor apetite. 4.Psychosis. 5.Excoriation of the skin of back. 6.DM - Plan Plan: Continue on current medication and diet and wound care.Glyburide 2.5 mg po every morning.
[2016-10-25] MEDS: Multivitamin w/ Minerals Tab PO SCH (08:07)
--- NOTE | 2016-10-25 16:16 | Internal Medicine Prog Note ---
Internal Medicine Subjective - Subjective Service Date: 10/25/16 Patient seen and examined:: with staff Patient is:: awake, in bed, talking Patient Complaints of:: other (no complains) Per staff patient has:: no adverse event, eating well, confused, tolerating meds Internal Medicine Objective - Results Recent Labs: Laboratory Last Values POC Glucose 224 MG/DL (70 - 105) H 10/21/16 15:32 - Physical Exam Vitals and I&O: Vital Signs Temp 98.3 F 10/25/16 15:43 Pulse 106 10/25/16 15:43 Resp 20 10/25/16 15:43 BP 151/72 10/25/16 15:43 Pulse Ox 98 10/25/16 15:43 Intake & Output 10/24/16 10/25/16 10/25/16 18:59 06:59 18:59 Intake Total 1200 120 Balance 1200 120 Intake: Oral 1200 120 Other: # Voids 4 3 # Bowel Movements 1 Stool Characteristics Soft Soft Active Medications: Current Medications Acetaminophen (Tylenol) 650 mg PO Q4H PRN PRN Reason: Pain (Mild) Stop: 12/20/16 15:38 Atorvastatin Calcium (Lipitor) 40 mg PO DAILY [facility] PRN Reason: Protocol Stop: 12/21/16 08:59 Last Admin: 10/25/16 08:07 Dose: 40 mg Docusate Sodium (Colace) 100 mg PO BID [facility] Stop: 12/20/16 16:59 Last Admin: 10/25/16 08:07 Dose: 100 mg Donepezil HCl (Aricept) 10 mg PO HS [facility] Stop: 12/20/16 20:59 Last Admin: 10/24/16 20:04 Dose: 10 mg Glipizide (Glucotrol) 2.5 mg PO DAILY [facility] Stop: 12/24/16 08:59 Last Admin: 10/25/16 08:08 Dose: 2.5 mg Hydroxyzine Pamoate (Vistaril) 25 mg PO BID [facility] PRN Reason: Protocol Stop: 10/31/16 16:59 Last Admin: 10/25/16 08:08 Dose: 25 mg Ketoconazole (Nizoral 2% Cream) 1 appl TP BID [facility] Stop: 12/20/16 16:59 Last Admin: 10/25/16 08:09 Dose: Not Given Lorazepam (Ativan) 0.5 mg PO Q4HR PRN; Protocol PRN Reason: Anxiety Stop: 12/20/16 15:42 Last Admin: 10/24/16 17:00 Dose: 0.5 mg Magnesium Hydroxide (Milk Of Magnesia) 30 ml PO HS PRN PRN Reason: Constipation Stop: 12/20/16 15:42 Memantine (Namenda) 5 mg PO DAILY [facility] Stop: 12/22/16 08:59 Last Admin: 10/25/16 08:08 Dose: 5 mg Mupirocin (Bactroban Oint) 1 appl NS BID [facility] Stop: 12/20/16 16:59 Last Admin: 10/25/16 08:09 Dose: Not Given Zolpidem Tartrate (Ambien) 5 mg PO HS PRN PRN Reason: Insomnia Stop: 12/20/16 15:42 Last Admin: 10/24/16 20:04 Dose: 5 mg General: weak, demented HEENT: PERRLA Neck: Supple, No JVD, No LAD Lungs: CTAB Cardiovascular: RRR, without murmur Abdomen: soft, non-tender Extremities: clear Neurological: no change - Procedures Procedures: SKIN OF THE LEFT BUTTOCK SIGNIFICANT FOR REDNESS AND TENDERNESS. Internal Medicine Assmt/Plan - Assessment Assessment: 1.Hyperlipidemia. 2.Dementia. 3.Poor apetite. 4.Psychosis. 5.Excoriation of the skin of back. 6.DM 7.CELLULITES AND POSSIBLE ABCESS OF LT BUTTOCK. - Plan Plan: Continue on current medication and diet and wound care.Glyburide 2.5 mg po every morning.Consult .Clindamycin 600mg po tid.CBC and CMP in AM.
[2016-10-26] MEDS: Multivitamin w/ Minerals Tab PO SCH (09:25)
[2016-10-26] MEDS: Venelex 60gm Tube TP SCH (09:25)
--- NOTE | 2016-10-26 21:43 | Internal Medicine Prog Note ---
Internal Medicine Subjective - Subjective Service Date: 10/26/16 Patient seen and examined:: with staff Patient is:: awake, in bed, talking Patient Complaints of:: other (no complains) Per staff patient has:: no adverse event, eating well, confused, tolerating meds Internal Medicine Objective - Results Recent Labs: Laboratory Last Values POC Glucose 224 MG/DL (70 - 105) H 10/21/16 15:32 - Physical Exam Vitals and I&O: Vital Signs Temp 97.3 F 10/26/16 20:29 Pulse 93 10/26/16 20:29 Resp 18 10/26/16 20:29 BP 115/63 10/26/16 20:29 Pulse Ox 94 10/26/16 20:29 Intake & Output 10/26/16 10/26/16 10/27/16 06:59 18:59 06:59 Intake Total 60 800 140 Balance 60 800 140 Intake: Oral 60 800 140 Other: # Voids 1 4 1 # Bowel Movements 0 1 1 Active Medications: Current Medications Acetaminophen (Tylenol) 650 mg PO Q4H PRN PRN Reason: Pain (Mild) Stop: 12/20/16 15:38 Atorvastatin Calcium (Lipitor) 40 mg PO DAILY ERWIN PRN Reason: Protocol Stop: 12/21/16 08:59 Last Admin: 10/26/16 09:16 Dose: 40 mg Clindamycin HCl (Cleocin Hcl) 300 mg PO Q8HR ERWIN Stop: 12/24/16 20:59 Last Admin: 10/26/16 21:01 Dose: 300 mg Docusate Sodium (Colace) 100 mg PO BID ERWIN Stop: 12/20/16 16:59 Last Admin: 10/26/16 17:02 Dose: 100 mg Donepezil HCl (Aricept) 10 mg PO HS ERWIN Stop: 12/20/16 20:59 Last Admin: 10/26/16 21:01 Dose: 10 mg Glipizide (Glucotrol) 2.5 mg PO DAILY ERWIN Stop: 12/24/16 08:59 Last Admin: 10/26/16 09:17 Dose: 2.5 mg Hydroxyzine Pamoate (Vistaril) 25 mg PO BID ERWIN PRN Reason: Protocol Stop: 10/31/16 16:59 Last Admin: 10/26/16 17:02 Dose: 25 mg Ketoconazole (Nizoral 2% Cream) 1 appl TP BID ERWIN Stop: 12/20/16 16:59 Last Admin: 10/26/16 17:01 Dose: Not Given Lorazepam (Ativan) 0.5 mg PO Q4HR PRN; Protocol PRN Reason: Anxiety Stop: 12/20/16 15:42 Last Admin: 10/26/16 21:01 Dose: 0.5 mg Magnesium Hydroxide (Milk Of Magnesia) 30 ml PO HS PRN PRN Reason: Constipation Stop: 12/20/16 15:42 Memantine (Namenda) 5 mg PO DAILY ERWIN Stop: 12/22/16 08:59 Last Admin: 10/26/16 09:16 Dose: 5 mg Mupirocin (Bactroban Oint) 1 appl NS BID ERWIN Stop: 12/20/16 16:59 Last Admin: 10/26/16 17:01 Dose: Not Given Zolpidem Tartrate (Ambien) 5 mg PO HS PRN PRN Reason: Insomnia Stop: 12/20/16 15:42 Last Admin: 10/24/16 20:04 Dose: 5 mg General: weak, demented HEENT: PERRLA Neck: Supple, No JVD, No LAD Lungs: CTAB Cardiovascular: RRR, without murmur Abdomen: soft, non-tender Extremities: clear Neurological: no change Internal Medicine Assmt/Plan - Assessment Assessment: 1.Hyperlipidemia. 2.Dementia. 3.Poor apetite. 4.Psychosis. 5.Excoriation of the skin of back. 6.DM 7.CELLULITES AND POSSIBLE ABCESS OF LT BUTTOCK. - Plan Plan: Continue on current medication and diet and wound care.Wetting for to see the patien.Continue on current antibiotics. Nutritional Asmnt/Malnutr-PDOC - Dietary Evaluation Malnutrition Findings (Please click <Entered> for more info): Nutritional Asmnt/Malnutrition Start: 10/26/16 17: 05 Text: Status: Complete Freq: Document 10/26/16 17:05 GSJUAN (Rec: 10/26/16 17:15 GSJUAN [email or web address]) Nutritional Asmnt/Malnutrition Patient General Information Nutritional Screening Consult Diagnosis Reason for visit: unspecified dementia Pertinent Medical Hx/Surgical Hx Hyperlipidemia, dementia, psychosis Subjective Information [address] consult for abscess x2-3. Attempted to speak to pt in thu chair in rec room, pt made eye contact but did not respond to RD. Limited physical assessment due to pt hx of being agitated, pt appeared overall thin. Spoke to DSP ENGINEER in rec room, DSP ENGINEER stated pt's PO intake is dependent on cognition, at times only want coffee and at times 100% of meals, no difficulties noted. Avg PO intake 58% of meals for past 12 meals, meeting nutritional needs. Current Diet Order/ Nutrition Support [facility] soft chopped. Pertinent Medications Lipitor, Colace, Gulcotrol, MOM Pertinent Labs 10/21: POC 224H Nutritional Hx/Data Height 1.68 m Height (Calculated Centimeters) 167.6 Current Weight (lbs) 56.971 kg Weight (Calculated Kilograms) 57.0 Weight (Calculated Grams) 26069.2 [place] Body Weight 130 Weight Status Approriate GI Symptoms Skin Integrity/Comment: Truman 15. Woudn care 10/25: right buttock abscess Current %PO Fair (50-74%) Estimated Nutritional Goals BEE in Kcals: Using Current wt Calories/Kcals/Kg CBW 125.6lb/57.1kg Kcals Calculated 1428-1713kcal (25-30kcal/kg) Protein: Using Current wt Protein Calculated 57g (1g/kg) Fluid: ml 1428-1713ml (1ml/kcal) Nutritional Problem 1. Problem Problem No nturitional problem at this time. Intervention/Recommendation Comments 1. Continue with current diet order. Avg PO intake is meeting minimal estimated nutritional needs. Encourage and assist with meals as needed. Expected Outcomes/Goals Expected Outcomes/Goals 1. PO intake continue to meet at least 75% of estimated nutritional needs.
[2016-10-27] MEDS: Multivitamin w/ Minerals Tab PO SCH (09:40)
[2016-10-27] MEDS: Venelex 60gm Tube TP SCH (09:47)
[2016-10-27 11:08] LABS: % BASOPHILS 0.4 % (0.0-2.0); % EOSINOPHILS 0.7 % (0.0-5.0); % LYMPHOCYTES 21.7 % (20.0-50.0); % NEUTROPHILS 71.2 % (40.0-80.0); HEMATOCRIT 34.7 % (35.0-45.0); HEMOGLOBIN 11.3 gm/dL (11.7-16.1); MEAN CORPUSCULAR HEMOGLOBIN 30.7 pg (27.0-31.0); MEAN CORPUSCULAR HGB CONC 32.7 pg (28.0-36.0); MEAN PLATELET VOLUME 6.8 fl; NEUTROPHILE ABSOLUTE 5.4 Th/cmm (1.8-8.0); RED CELL DISTRIBUTION WIDTH 11.9 % (11.5-20.0); WHITE BLOOD COUNT 7.6 Th/cmm (4.8-10.8)
[2016-10-27 11:16] LABS: PLATELET COUNT 341 Th/cmm (150-400)
--- NOTE | 2016-10-27 15:38 | Consultation ---
Consult Note - Consult Note Service Date: 10/27/16 Consult Note: PHYSICIAN Consultation Note: Date of Admission: 10/21/16 Purpose of Consultation: Chief Complaint: History of Present Illness: Patient TIARA DEAN was admitted to [facility] with UNSPECIFIED DEMENTIA. Past Medical History: Diagnoses TYPE 2 DIABETES MELLITUS WITHOUT COMPLICATIONS (10/21/16) HYPERLIPIDEMIA, UNSPECIFIED (10/21/16) UNSPECIFIED DEMENTIA WITHOUT BEHAVIORAL DISTURBANCE (10/21/16) UNSP PSYCHOSIS NOT DUE TO A SUBSTANCE OR KNOWN PHYSIOL COND (10/21/16) CELLULITIS OF BUTTOCK (10/21/16) Allergies Allergy/AdvReac Type Severity Reaction Status Date / Time No Known Allergies Allergy Verified 10/07/16 18:22 Vital Signs Temp 98.3 F 10/27/16 05:55 Pulse 83 10/27/16 05:55 Resp 19 10/27/16 05:55 BP 106/54 10/27/16 05:55 Pulse Ox 95 10/27/16 05:55 Intake & Output 10/26/16 10/27/16 10/27/16 18:59 06:59 18:59 Intake Total 800 140 Balance 800 140 Intake: Oral 800 140 Other: # Voids 4 2 # Bowel Movements 1 0 Laboratory Results - last 24 hr 10/27/16 11:00 WBC 7.6 RBC 3.70 L Hgb 11.3 L Hct 34.7 L MCV 94.0 MCH 30.7 MCHC Differential 32.7 RDW 11.9 Plt Count 341 D MPV 6.8 Neutrophils % 71.2 Lymphocytes % 21.7 Monocytes % 6.0 Eosinophils % 0.7 Basophils % 0.4 Home Medication Medication Instructions Recorded Type Acetaminophen [Tylenol] 650 mg PO Q4HR PRN 10/07/16 History Atorvastatin Calcium [Lipitor] 40 mg PO DAILY 10/07/16 History Donepezil Hcl [Aricept] 1 tab PO HS 10/07/16 History Empagliflozin [Jardiance] 10 mg PO DAILY 10/07/16 History metFORMIN [Glucophage] 500 mg PO BID 10/07/16 History Docusate Sodium [Colace] 100 mg PO BID cap 10/21/16 Rx Magnesium Hydroxide [Milk of 30 ml PO HS PRN udc 10/21/16 Rx Magnesia] Multivitamin w/ Minerals 1 tab PO DAILY tab 10/21/16 Rx [Theragran M] hydrOXYzine Pamoate [Vistaril] 25 mg PO BID cap 10/21/16 Rx metFORMIN [Glucophage] 500 mg PO BIDWM tab 10/21/16 Rx risperiDONE [RisperDAL] 0.75 mg PO BID tab 10/21/16 Rx Acetaminophen [Tylenol] 650 mg PO Q4H PRN tab 10/27/16 Rx Atorvastatin Calcium [Lipitor] 40 mg PO DAILY tab 10/27/16 Rx Balsam [place] Oil [Venelex] 1 appl TP DAILY appl 10/27/16 Rx Clindamycin HCl [Cleocin*] 300 mg PO Q8HR cap 10/27/16 Rx Docusate Sodium [Colace] 100 mg PO BID cap 10/27/16 Rx Donepezil Hcl [Aricept] 10 mg PO HS tab 10/27/16 Rx Glipizide [Glucotrol] 2.5 mg PO DAILY tab 10/27/16 Rx Ketoconazole 2% Cream [Nizoral 2% 1 appl TP BID appl 10/27/16 Rx Cream] Lorazepam [Ativan] 0.5 mg PO Q4HR PRN tab 10/27/16 Rx Magnesium Hydroxide [Milk of 30 ml PO HS PRN udc 10/27/16 Rx Magnesia] Memantine [Namenda] 5 mg PO DAILY tab 10/27/16 Rx Multivitamin w/ Minerals 1 tab PO DAILY tab 10/27/16 Rx [Theragran M] Mupirocin Oint [Mupirocin*] 1 appl NS BID appl 10/27/16 Rx Zolpidem Tartrate [Ambien] 5 mg PO HS PRN tab 10/27/16 Rx hydrOXYzine Pamoate [Vistaril] 25 mg PO BID cap 10/27/16 Rx risperiDONE [RisperDAL] 0.25 mg PO BID tab 10/27/16 Rx Current Medications Generic Name Dose Route Start Last Admin Trade Name Freq PRN Reason Stop Dose Admin Acetaminophen 650 mg 10/21/16 15:39 Tylenol PO 12/20/16 15:38 Q4H PRN Pain (Mild) Atorvastatin Calcium 40 mg 10/22/16 09:00 10/27/16 09:41 Lipitor PO 12/21/16 08:59 40 mg DAILY ERWIN Administration Protocol Clindamycin HCl 300 mg 10/25/16 21:00 10/27/16 14:33 Cleocin Hcl PO 12/24/16 20:59 300 mg Q8HR ERWIN Administration Docusate Sodium 100 mg 10/21/16 17:00 10/27/16 09:40 Colace PO 12/20/16 16:59 100 mg BID ERWIN Administration Donepezil HCl 10 mg 10/21/16 21:00 10/26/16 21:01 Aricept PO 12/20/16 20:59 10 mg HS ERWIN Administration Glipizide 2.5 mg 10/25/16 09:00 10/27/16 09:40 Glucotrol PO 12/24/16 08:59 2.5 mg DAILY ERWIN Administration Hydroxyzine Pamoate 25 mg 10/21/16 17:00 10/27/16 09:40 Vistaril PO 10/31/16 16:59 25 mg BID ERWIN Administration Protocol Ketoconazole 1 appl 10/21/16 17:00 10/27/16 09:47 Nizoral 2% Cream TP 12/20/16 16:59 1 appl BID ERWIN Administration Lorazepam 0.5 mg 10/21/16 15:43 10/26/16 21:01 Ativan PO 12/20/16 15:42 0.5 mg Q4HR PRN Administration Anxiety Protocol Magnesium Hydroxide 30 ml 10/21/16 15:43 Milk Of Magnesia PO 12/20/16 15:42 HS PRN Constipation Memantine 5 mg 10/23/16 09:00 10/27/16 09:41 Namenda PO 12/22/16 08:59 5 mg DAILY ERWIN Administration Mupirocin 1 appl 10/21/16 17:00 10/27/16 09:47 Bactroban Oint NS 12/20/16 16:59 1 appl BID ERWIN Administration Risperidone 0.25 mg 10/27/16 09:00 10/27/16 09:48 Risperdal PO 12/26/16 08:59 0.25 mg BID ERWIN Administration Protocol Zolpidem Tartrate 5 mg 10/21/16 15:43 10/24/16 20:04 Ambien PO 12/20/16 15:42 5 mg HS PRN Administration Insomnia Review of Systems: A 12 point ROS was reviewed with the pertinent positive and negatives noted in the HPI. Social History Smoking Status Unknown if ever smoked Drug Use No Alcohol Use No Physical Exam: General: HEENT: Cardio: Respiratory: Abdominal: Genital/Urinary: Extremities: Neurological: Assessment: right hip wound with necrosis and drainage measuring 3 by 4 cm Plan: Excisional debridement and local wound care Nighat Coreas Plaridel Cerna 10/[id number]
== END 2016-10-27 15:50 | DRG 884 ==
LOC: GERO 13:23
PROVIDERS: ADMIT Psychiatry & Neurology Psychiatry; ATTEND Psychiatry & Neurology Psychiatry
DX: F03.90 Unspecified dementia, unspecified severity, without behavioral disturbance, psychotic disturbance, mood disturbance, and anxiety (principal); E11.9 Type 2 diabetes mellitus without complications; L03.317 Cellulitis of buttock; S71.001A Unspecified open wound, right hip, initial encounter; F29 Unspecified psychosis not due to a substance or known physiological condition; E78.5 Hyperlipidemia, unspecified; S30.810A Abrasion of lower back and pelvis, initial encounter; Z79.84 Long term (current) use of oral hypoglycemic drugs
CPT/HCPCS: 36415-UA; 82948-90; 85025-TC; 87070-90; 87075-90; 87205-90; Q0177; Z7610

== ENCOUNTER 2016-10-27 15:54 | Inpatient (IN) | payer MEDICARE, MEDICAID ==
[2016-10-27 17:58] VITALS: BP 120/60
[2016-10-27] MEDS ORDERED: Non-Formulary Item 1 EA (Acetaminophen [Tylenol] 650 MG) PO PRN (18:56)
[2016-10-27] MEDS ORDERED: Magnesium Hydroxide (MOM) 30 mL UDC PO PRN (18:56)
[2016-10-27] MEDS ORDERED: MAGNESIUM HYDROXIDE PO PRN (18:56)
--- NOTE | 2016-10-27 20:15 | History and Physical ---
History of Present Illness - HPI Chief Complaint: CELLULITES AND ABCESS OF RT BUTTOCK. HPI: THE PATIENT IS A 75 YEAR FEMALE WITH PMH SIGNIFICANT FOR DM,DEMENTIA ,ADMITED TO THE MEDICAL FLOOR WITH CELLULITIS AND ABCESS OF RT BUTTOCK. 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 GI: Report: No Pertinent Hx Psych: Report: Psychosis Musculoskeletal: Report: No Pertinent Hx Rheumatologic: Report: No pertinent Hx Renal/: Report: No Pertinent Hx, Other (CELLULITIS AND ABCESS OF RT BUTTOCK.) Endocrine: Report: Diabetes Dermatology: Report: Cellulitis Family Medical History - Family Member Mother History Unknown: Yes (Not cotributary) Ethnicity: Unknown Living Status: Unknown Hx Family Cancer: (unknown) Hx Family Coronary Artery Disease: (unknown) Hx Family Congestive Heart Failure: (unknown) Hx Family Hypertension: (unknown) Hx Family Stroke: (unknown) Hx Family Diabetes: (unknown) Hx Family Seizures: (unknown) Hx Family Dementia: (unknown) Hx Family AIDS: (unknown) Hx Family COPD: (unknown) Hx Family Hepatitis: (unknown) Hx Family Psychiatric Problems: (unknown) Hx Family Tuberculosis: No Social History Smoke: No Alcohol: None Drugs: None Lives: Long Term Domestic Violence: Negative - Medications Home Medications: Home Medication Medication Instructions Recorded Type Acetaminophen [Tylenol] 650 mg PO Q4HR PRN 10/07/16 History Atorvastatin Calcium [Lipitor] 40 mg PO DAILY 10/07/16 History Donepezil Hcl [Aricept] 1 tab PO HS 10/07/16 History Empagliflozin [Jardiance] 10 mg PO DAILY 10/07/16 History metFORMIN [Glucophage] 500 mg PO BID 10/07/16 History Docusate Sodium [Colace] 100 mg PO BID cap 10/21/16 Rx Magnesium Hydroxide [Milk of 30 ml PO HS PRN udc 10/21/16 Rx Magnesia] Multivitamin w/ Minerals 1 tab PO DAILY tab 10/21/16 Rx [Theragran M] hydrOXYzine Pamoate [Vistaril] 25 mg PO BID cap 10/21/16 Rx metFORMIN [Glucophage] 500 mg PO BIDWM tab 10/21/16 Rx risperiDONE [RisperDAL] 0.75 mg PO BID tab 10/21/16 Rx Acetaminophen [Tylenol] 650 mg PO Q4H PRN tab 10/27/16 Rx Atorvastatin Calcium [Lipitor] 40 mg PO DAILY tab 10/27/16 Rx Balsam [place] Oil [Venelex] 1 appl TP DAILY appl 10/27/16 Rx Clindamycin HCl [Cleocin*] 300 mg PO Q8HR cap 10/27/16 Rx Docusate Sodium [Colace] 100 mg PO BID cap 10/27/16 Rx Donepezil Hcl [Aricept] 10 mg PO HS tab 10/27/16 Rx Glipizide [Glucotrol] 2.5 mg PO DAILY tab 10/27/16 Rx Ketoconazole 2% Cream [Nizoral 2% 1 appl TP BID appl 10/27/16 Rx Cream] Lorazepam [Ativan] 0.5 mg PO Q4HR PRN tab 10/27/16 Rx Magnesium Hydroxide [Milk of 30 ml PO HS PRN udc 10/27/16 Rx Magnesia] Memantine [Namenda] 5 mg PO DAILY tab 10/27/16 Rx Multivitamin w/ Minerals 1 tab PO DAILY tab 10/27/16 Rx [Theragran M] Mupirocin Oint [Mupirocin*] 1 appl NS BID appl 10/27/16 Rx Zolpidem Tartrate [Ambien] 5 mg PO HS PRN tab 10/27/16 Rx hydrOXYzine Pamoate [Vistaril] 25 mg PO BID cap 10/27/16 Rx risperiDONE [RisperDAL] 0.25 mg PO BID tab 10/27/16 Rx - Allergies Allergies/Adverse Reactions: Allergies Allergy/AdvReac Type Severity Reaction Status Date / Time No Known Allergies Allergy Verified 10/07/16 18:22 Review of Systems - Review of Systems Constitutional: Report: No Significant Eyes: Report: No Significant ENT: Report: No Significant Respiratory: Report: No Significant Cardiovascular: Report: No Significant Gastrointestinal: Report: No Significant Genitourinary: Report: No Significant Musculoskeletal: Report: No Significant Skin: Report: Lesions (ABCESS ON RT BUTTOCK) Neurological: Report: Confusion Physical Exam - Physical Exam HEENT: Report: Pharnyx within normal limits Neck: Report: Within normal limits Cardiovascular Systems: Report: Regular, Rate and Rhythm, no murmurs noted Respiratory: Report: Breath Sounds are within normal limits, Clear to Auscultation of lung pro Abdomen: Report: Non-tender to palpation Back: Report: Inspection of back is within normal limits. Extremities: Report: Non-tender to palpation. Skin: Report: Warm Neuro/Psych: Report: No new focal deficits - Assessment Assessment: 1.CELLULITES AND ABCESS OF RT BUTTOCK. 2.DM. 3.DEMENTIA. 4.DJD. - Plan Plan: 1.ADMIT TO MEDICAL FLOOR. 2.MECHANICAL DIEY. 3.VANCOMYCIN PER PHARMECY. 4.CONSULT . 5.CONSULT . 6.RESUME ALL MEDICATION AND DIET.
[2016-10-27] MEDS ORDERED: DONEPEZIL HCL PO SCH (21:00)
[2016-10-28 07:11] LABS: % BASOPHILS 0.3 % (0.0-2.0); % EOSINOPHILS 0.8 % (0.0-5.0); % LYMPHOCYTES 24.8 % (20.0-50.0); % MONOCYTES 5.7 % (2.0-10.0); % NEUTROPHILS 68.4 % (40.0-80.0); HEMATOCRIT 38.1 % (35.0-45.0); HEMOGLOBIN 12.7 gm/dL (11.7-16.1); MEAN CELL VOLUME 93.3 fl (81-100); MEAN CORPUSCULAR HGB CONC 33.2 pg (28.0-36.0); NEUTROPHILE ABSOLUTE 5.1 Th/cmm (1.8-8.0); PLATELET COUNT 375 Th/cmm (150-400); RED BLOOD COUNT 4.09 Mil/cmm (3.80-5.20); RED CELL DISTRIBUTION WIDTH 11.9 % (11.5-20.0); WHITE BLOOD COUNT 7.4 Th/cmm (4.8-10.8)
[2016-10-28 07:19] LABS: ALB/GLOB RATIO 0.8 (1.0-1.8); ALKALINE PHOSPHATASE 124 U/L (34-104); ANION GAP 7.4 (7.0-16.0); BILIRUBIN,TOTAL 0.4 mg/dL (0.3-1.0); BUN - UREA NITROGEN 17 mg/dL (7-25); BUN/CREATININE RATIO 28.3; CALCIUM SERUM 9.7 mg/dL (8.6-10.3); CARBON DIOXIDE 30.4 mEq/L (21.0-31.0); CHLORIDE 101 mEq/L (98-107); CREATININE - SERUM 0.6 mg/dL (0.6-1.2); GLUCOSE 223 mg/dL (70-105); POTASSIUM SERUM 3.8 mEq/L (3.5-5.1); SGOT 27 U/L (13-39); SGPT/ALT 23 U/L (7-52); SODIUM SERUM 135 mEq/L (136-145)
--- NOTE | 2016-10-28 08:43 | Consultation ---
Consult Note - Consult Note Service Date: 10/27/16 Consult Note: PHYSICIAN Consultation Note: Date of Admission: 10/27/16 Purpose of Consultation: Chief Complaint: History of Present Illness: Patient TIARA DEAN was admitted to [facility] with WOUND WITH MRSA INFECTION. Past Medical History: Diagnoses TYPE 2 DIABETES MELLITUS WITHOUT COMPLICATIONS (10/27/16) UNSPECIFIED DEMENTIA WITHOUT BEHAVIORAL DISTURBANCE (10/27/16) CUTANEOUS ABSCESS OF BUTTOCK (10/27/16) CELLULITIS OF BUTTOCK (10/27/16) UNSPECIFIED OSTEOARTHRITIS, UNSPECIFIED SITE (10/27/16) Allergies Allergy/AdvReac Type Severity Reaction Status Date / Time No Known Allergies Allergy Verified 10/07/16 18:22 Vital Signs Temp 97.8 F 10/28/16 04:00 Pulse 88 10/28/16 04:00 Resp 19 10/28/16 04:00 BP 138/78 10/28/16 04:00 Pulse Ox 98 10/28/16 04:00 Intake & Output 10/27/16 10/28/16 10/28/16 18:59 06:59 18:59 Weight (lbs) 54.522 kg Other: # Voids 2 # Bowel Movements 0 Stool Characteristics Soft Soft Laboratory Results - last 24 hr 10/28/16 10/28/16 06:25 06:25 WBC 7.4 RBC 4.09 Hgb 12.7 Hct 38.1 MCV 93.3 MCH 31.0 MCHC Differential 33.2 RDW 11.9 Plt Count 375 MPV 7.0 Neutrophils % 68.4 Lymphocytes % 24.8 Monocytes % 5.7 Eosinophils % 0.8 Basophils % 0.3 Sodium 135 L Potassium 3.8 Chloride 101 Carbon Dioxide 30.4 Anion Gap 7.4 BUN 17 Creatinine 0.6 Est GFR ( Amer) TNP Est GFR (Non-Af Amer) TNP BUN/Creatinine Ratio 28.3 Glucose 223 H Calcium 9.7 Total Bilirubin 0.4 AST 27 ALT 23 Alkaline Phosphatase 124 H Total Protein 7.2 Albumin 3.2 L Globulin 4.0 Albumin/Globulin Ratio 0.8 L Home Medication Medication Instructions Recorded Type Acetaminophen [Tylenol] 650 mg PO Q4HR PRN 10/07/16 History Atorvastatin Calcium [Lipitor] 40 mg PO DAILY 10/07/16 History Donepezil Hcl [Aricept] 1 tab PO HS 10/07/16 History Empagliflozin [Jardiance] 10 mg PO DAILY 10/07/16 History metFORMIN [Glucophage] 500 mg PO BID 10/07/16 History Docusate Sodium [Colace] 100 mg PO BID cap 10/21/16 Rx Magnesium Hydroxide [Milk of 30 ml PO HS PRN udc 10/21/16 Rx Magnesia] Multivitamin w/ Minerals 1 tab PO DAILY tab 10/21/16 Rx [Theragran M] hydrOXYzine Pamoate [Vistaril] 25 mg PO BID cap 10/21/16 Rx metFORMIN [Glucophage] 500 mg PO BIDWM tab 10/21/16 Rx risperiDONE [RisperDAL] 0.75 mg PO BID tab 10/21/16 Rx Acetaminophen [Tylenol] 650 mg PO Q4H PRN tab 10/27/16 Rx Atorvastatin Calcium [Lipitor] 40 mg PO DAILY tab 10/27/16 Rx Balsam [place] Oil [Venelex] 1 appl TP DAILY appl 10/27/16 Rx Clindamycin HCl [Cleocin*] 300 mg PO Q8HR cap 10/27/16 Rx Docusate Sodium [Colace] 100 mg PO BID cap 10/27/16 Rx Donepezil Hcl [Aricept] 10 mg PO HS tab 10/27/16 Rx Glipizide [Glucotrol] 2.5 mg PO DAILY tab 10/27/16 Rx Ketoconazole 2% Cream [Nizoral 2% 1 appl TP BID appl 10/27/16 Rx Cream] Lorazepam [Ativan] 0.5 mg PO Q4HR PRN tab 10/27/16 Rx Magnesium Hydroxide [Milk of 30 ml PO HS PRN udc 10/27/16 Rx Magnesia] Memantine [Namenda] 5 mg PO DAILY tab 10/27/16 Rx Multivitamin w/ Minerals 1 tab PO DAILY tab 10/27/16 Rx [Theragran M] Mupirocin Oint [Mupirocin*] 1 appl NS BID appl 10/27/16 Rx Zolpidem Tartrate [Ambien] 5 mg PO HS PRN tab 10/27/16 Rx hydrOXYzine Pamoate [Vistaril] 25 mg PO BID cap 10/27/16 Rx risperiDONE [RisperDAL] 0.25 mg PO BID tab 10/27/16 Rx Current Medications Generic Name Dose Route Start Last Admin Trade Name Freq PRN Reason Stop Dose Admin Acetaminophen 650 mg 10/27/16 18:56 Tylenol PO 12/26/16 18:55 Q4H PRN Pain (Mild) Atorvastatin Calcium 40 mg 10/28/16 09:00 Lipitor PO 12/27/16 08:59 DAILY ERWIN Protocol Clindamycin HCl 300 mg 10/27/16 21:00 10/28/16 05:45 Cleocin Hcl PO 12/26/16 20:59 Not Given Q8HR ERWIN Docusate Sodium 100 mg 10/28/16 09:00 Colace PO 12/27/16 08:59 BID ERWIN Donepezil HCl 10 mg 10/27/16 21:00 10/27/16 22:05 Aricept PO 12/26/16 20:59 10 mg HS ERWIN Administration Glipizide 2.5 mg 10/28/16 09:00 Glucotrol PO 12/27/16 08:59 DAILY ERWIN Hydroxyzine Pamoate 25 mg 10/28/16 09:00 Vistaril PO 12/27/16 08:59 BID ERWIN Protocol Hydroxyzine Pamoate 25 mg 10/28/16 09:00 Vistaril PO 12/27/16 08:59 BID ERWIN Protocol Ketoconazole 1 appl 10/28/16 09:00 Nizoral 2% Cream TP 12/27/16 08:59 BID ERWIN Lorazepam 0.5 mg 10/27/16 18:56 Ativan PO 12/26/16 18:55 Q4HR PRN Anxiety Protocol Magnesium Hydroxide 30 ml 10/27/16 18:56 Milk Of Magnesia PO 12/26/16 18:55 HS PRN Constipation Memantine 5 mg 10/28/16 09:00 Namenda PO 12/27/16 08:59 DAILY ERWIN Metformin HCl 500 mg 10/28/16 09:00 Glucophage PO 12/27/16 08:59 BID ERWIN Metformin HCl 500 mg 10/28/16 08:00 Glucophage PO 12/27/16 07:59 BIDWM ERWIN Miscellaneous 1 ea 10/27/16 21:00 Vancomycin Iv Per Pharmacy 12/26/16 20:59 PRN PRN PROTOCOL Miscellaneous 650 mg 10/27/16 18:56 Acetaminophen [Tylenol] PO Q4HR PRN Pain (Mild) Miscellaneous 40 mg 10/28/16 09:00 Atorvastatin Calcium [Lipitor] PO 12/27/16 08:59 DAILY ERWIN Miscellaneous 1 appl 10/28/16 09:00 Balsam [place] Oil [Venelex] TP 12/27/16 08:59 DAILY ERWIN Miscellaneous 100 mg 10/28/16 09:00 Docusate Sodium [Colace] PO 12/27/16 08:59 BID ERWIN Miscellaneous 1 tab 10/27/16 21:00 Donepezil Hcl [Aricept] PO 12/26/16 20:59 HS ERWIN Miscellaneous 10 mg 10/28/16 09:00 Empagliflozin [Jardiance] PO 12/27/16 08:59 DAILY ERWIN Miscellaneous 30 ml 10/27/16 18:56 Magnesium Hydroxide [Milk Of Magnesia] PO HS PRN Constipation Miscellaneous 1 tab 10/28/16 09:00 Multivitamin W/ Minerals [Theragran M] PO 12/27/16 08:59 DAILY ERWIN Miscellaneous 1 appl 10/28/16 09:00 Mupirocin Oint [Mupirocin*] NS 12/27/16 08:59 BID ERWIN Risperidone 0.25 mg 10/28/16 09:00 Risperdal PO 12/27/16 08:59 BID ERWIN Protocol Risperidone 0.75 mg 10/28/16 09:00 Risperdal PO 12/27/16 08:59 BID ERWIN Protocol Zolpidem Tartrate 5 mg 10/27/16 18:56 Ambien PO 12/26/16 18:55 HS PRN Insomnia Review of Systems: A 12 point ROS was reviewed with the pertinent positive and negatives noted in the HPI. Social History Smoking Status Never smoker Drug Use No Alcohol Use No Family Medical History Family Medical History Start: 10/27/16 16: 17 Freq: ONCE Status: Active Document 10/27/16 16:17 RICO (Rec: 10/27/16 20:13 RICO [email or web address]) Family Medical History Mother History Unknown Yes Ethnicity Unknown Living Status Unknown Physical Exam: General: HEENT: Cardio: Respiratory: Abdominal: Genital/Urinary: Extremities: Neurological: Assessment: patient seen in [facility]. has open wound right buttocks, etiology is unknown, duration unknown Plan: will need excisional debridement and local wound care Signed, Robert Disla 10/28/[id number]
--- NOTE | 2016-10-28 08:44 | General Progress Note ---
Subjective - Review of Systems Service Date: 10/28/16 Events since last encounter: await consent for debridement Objective - Results Result Diagrams: 10/28/16 06:25 10/28/16 06:25 Recent Labs: Laboratory Last Values WBC 7.4 Th/cmm (4.8-10.8) 10/28/16 06:25 RBC 4.09 Mil/cmm (3.80-5.20) 10/28/16 06:25 Hgb 12.7 gm/dL (11.7-16.1) 10/28/16 06:25 Hct 38.1 % (35.0-45.0) 10/28/16 06:25 MCV 93.3 fl (81-100) 10/28/16 06:25 MCH 31.0 pg (27.0-31.0) 10/28/16 06:25 MCHC Differential 33.2 pg (28.0-36.0) 10/28/16 06:25 RDW 11.9 % (11.5-20.0) 10/28/16 06:25 Plt Count 375 Th/cmm (150-400) 10/28/16 06:25 MPV 7.0 fl 10/28/16 06:25 Neutrophils % 68.4 % (40.0-80.0) 10/28/16 06:25 Lymphocytes % 24.8 % (20.0-50.0) 10/28/16 06:25 Monocytes % 5.7 % (2.0-10.0) 10/28/16 06:25 Eosinophils % 0.8 % (0.0-5.0) 10/28/16 06:25 Basophils % 0.3 % (0.0-2.0) 10/28/16 06:25 Sodium 135 mEq/L (136-145) L 10/28/16 06:25 Potassium 3.8 mEq/L (3.5-5.1) 10/28/16 06:25 Chloride 101 mEq/L (98-107) 10/28/16 06:25 Carbon Dioxide 30.4 mEq/L (21.0-31.0) 10/28/16 06:25 Anion Gap 7.4 (7.0-16.0) 10/28/16 06:25 BUN 17 mg/dL (7-25) 10/28/16 06:25 Creatinine 0.6 mg/dL (0.6-1.2) 10/28/16 06:25 Est GFR ( Amer) TNP 10/28/16 06:25 Est GFR (Non-Af Amer) TNP 10/28/16 06:25 BUN/Creatinine Ratio 28.3 10/28/16 06:25 Glucose 223 mg/dL (70-105) H 10/28/16 06:25 Hemoglobin A1c % 7.7 % (4.0-6.0) H 10/28/16 06:25 Calcium 9.7 mg/dL (8.6-10.3) 10/28/16 06:25 Total Bilirubin 0.4 mg/dL (0.3-1.0) 10/28/16 06:25 AST 27 U/L (13-39) 10/28/16 06:25 ALT 23 U/L (7-52) 10/28/16 06:25 Alkaline Phosphatase 124 U/L (34-104) H 10/28/16 06:25 Total Protein 7.2 gm/dL (6.0-8.3) 10/28/16 06:25 Albumin 3.2 gm/dL (3.7-5.3) L 10/28/16 06:25 Globulin 4.0 gm/dL 10/28/16 06:25 Albumin/Globulin Ratio 0.8 (1.0-1.8) L 10/28/16 06:25 - Physical Exam Vitals and I&O: Vital Signs Temp 97.8 F 10/28/16 04:00 Pulse 88 10/28/16 04:00 Resp 19 10/28/16 04:00 BP 138/78 10/28/16 04:00 Pulse Ox 98 10/28/16 04:00 Intake & Output 10/27/16 10/28/16 10/28/16 18:59 06:59 18:59 Weight (lbs) 54.522 kg Other: # Voids 2 # Bowel Movements 0 Stool Characteristics Soft Soft Active Medications: Current Medications Acetaminophen (Tylenol) 650 mg PO Q4H PRN PRN Reason: Pain (Mild) Stop: 12/26/16 18:55 Atorvastatin Calcium (Lipitor) 40 mg PO DAILY [facility] PRN Reason: Protocol Stop: 12/27/16 08:59 Clindamycin HCl (Cleocin Hcl) 300 mg PO Q8HR [facility] Stop: 12/26/16 20:59 Last Admin: 10/28/16 05:45 Dose: Not Given Docusate Sodium (Colace) 100 mg PO BID [facility] Stop: 12/27/16 08:59 Donepezil HCl (Aricept) 10 mg PO HS [facility] Stop: 12/26/16 20:59 Last Admin: 10/27/16 22:05 Dose: 10 mg Glipizide (Glucotrol) 2.5 mg PO DAILY [facility] Stop: 12/27/16 08:59 Hydroxyzine Pamoate (Vistaril) 25 mg PO BID [facility] PRN Reason: Protocol Stop: 12/27/16 08:59 Hydroxyzine Pamoate (Vistaril) 25 mg PO BID [facility] PRN Reason: Protocol Stop: 12/27/16 08:59 Ketoconazole (Nizoral 2% Cream) 1 appl TP BID [facility] Stop: 12/27/16 08:59 Lorazepam (Ativan) 0.5 mg PO Q4HR PRN; Protocol PRN Reason: Anxiety Stop: 12/26/16 18:55 Magnesium Hydroxide (Milk Of Magnesia) 30 ml PO HS PRN PRN Reason: Constipation Stop: 12/26/16 18:55 Memantine (Namenda) 5 mg PO DAILY [facility] Stop: 12/27/16 08:59 Metformin HCl (Glucophage) 500 mg PO BID [facility] Stop: 12/27/16 08:59 Metformin HCl (Glucophage) 500 mg PO BIDWM [facility] Stop: 12/27/16 07:59 Miscellaneous (Vancomycin Iv Per Pharmacy) 1 [facility] PRN PRN PRN Reason: PROTOCOL Stop: 12/26/16 20:59 Miscellaneous (Acetaminophen [Tylenol]) 650 mg PO Q4HR PRN PRN Reason: Pain (Mild) Miscellaneous (Atorvastatin Calcium [Lipitor]) 40 mg PO DAILY [facility] Stop: 12/27/16 08:59 Miscellaneous (Balsam [place] Oil [Venelex]) 1 appl TP DAILY [facility] Stop: 12/27/16 08:59 Miscellaneous (Docusate Sodium [Colace]) 100 mg PO BID [facility] Stop: 12/27/16 08:59 Miscellaneous (Donepezil Hcl [Aricept]) 1 tab PO HS [facility] Stop: 12/26/16 20:59 Miscellaneous (Empagliflozin [Jardiance]) 10 mg PO DAILY [facility] Stop: 12/27/16 08:59 Miscellaneous (Magnesium Hydroxide [Milk Of Magnesia]) 30 ml PO HS PRN PRN Reason: Constipation Miscellaneous (Multivitamin W/ Minerals [Theragran M]) 1 tab PO DAILY [facility] Stop: 12/27/16 08:59 Miscellaneous (Mupirocin Oint [Mupirocin*]) 1 appl NS BID [facility] Stop: 12/27/16 08:59 Risperidone (Risperdal) 0.25 mg PO BID [facility] PRN Reason: Protocol Stop: 12/27/16 08:59 Risperidone (Risperdal) 0.75 mg PO BID [facility] PRN Reason: Protocol Stop: 12/27/16 08:59 Zolpidem Tartrate (Ambien) 5 mg PO HS PRN PRN Reason: Insomnia Stop: 12/26/16 18:55
[2016-10-28] MEDS ORDERED: DOCUSATE SODIUM 100 MG PO SCH (09:00)
[2016-10-28] MEDS ORDERED: MULTIVITAMIN PO SCH (09:00)
[2016-10-28] MEDS ORDERED: Non-Formulary Item 1 EA (Atorvastatin Calcium [Lipitor] 40 MG) PO SCH (09:00)
[2016-10-28] MEDS ORDERED: CASTOR OIL APPL TP SCH (09:00)
[2016-10-28] MEDS ORDERED: MINERALS PO SCH (09:00)
[2016-10-28] MEDS ORDERED: [UNRECOGNIZED DRUG - OTHER] NS SCH (09:00)
[2016-10-28] MEDS ORDERED: BALSAM PERU TP SCH (09:00)
[2016-10-28] MEDS ORDERED: EMPAGLIFLOZIN 10 MG PO SCH (09:00)
[2016-10-28] MEDS: Multivitamin w/ Minerals Tab PO SCH (09:26)
[2016-10-28] MEDS ORDERED: Magnesium Hydroxide (MOM) 30 mL UDC PO PRN (11:38)
--- NOTE | 2016-10-28 15:33 | Internal Medicine Prog Note ---
Internal Medicine Subjective - Subjective Service Date: 10/28/16 Patient seen and examined:: without staff Patient is:: awake, non-verbal Per staff patient has:: no adverse event Internal Medicine Objective - Results Result Diagrams: 10/28/16 06:25 10/28/16 06:25 Recent Labs: Laboratory Last Values WBC 7.4 Th/cmm (4.8-10.8) 10/28/16 06:25 RBC 4.09 Mil/cmm (3.80-5.20) 10/28/16 06:25 Hgb 12.7 gm/dL (11.7-16.1) 10/28/16 06:25 Hct 38.1 % (35.0-45.0) 10/28/16 06:25 MCV 93.3 fl (81-100) 10/28/16 06:25 MCH 31.0 pg (27.0-31.0) 10/28/16 06:25 MCHC Differential 33.2 pg (28.0-36.0) 10/28/16 06:25 RDW 11.9 % (11.5-20.0) 10/28/16 06:25 Plt Count 375 Th/cmm (150-400) 10/28/16 06:25 MPV 7.0 fl 10/28/16 06:25 Neutrophils % 68.4 % (40.0-80.0) 10/28/16 06:25 Lymphocytes % 24.8 % (20.0-50.0) 10/28/16 06:25 Monocytes % 5.7 % (2.0-10.0) 10/28/16 06:25 Eosinophils % 0.8 % (0.0-5.0) 10/28/16 06:25 Basophils % 0.3 % (0.0-2.0) 10/28/16 06:25 Sodium 135 mEq/L (136-145) L 10/28/16 06:25 Potassium 3.8 mEq/L (3.5-5.1) 10/28/16 06:25 Chloride 101 mEq/L (98-107) 10/28/16 06:25 Carbon Dioxide 30.4 mEq/L (21.0-31.0) 10/28/16 06:25 Anion Gap 7.4 (7.0-16.0) 10/28/16 06:25 BUN 17 mg/dL (7-25) 10/28/16 06:25 Creatinine 0.6 mg/dL (0.6-1.2) 10/28/16 06:25 Est GFR ( Amer) TNP 10/28/16 06:25 Est GFR (Non-Af Amer) TNP 10/28/16 06:25 BUN/Creatinine Ratio 28.3 10/28/16 06:25 Glucose 223 mg/dL (70-105) H 10/28/16 06:25 POC Glucose 197 MG/DL (70 - 105) H 10/28/16 12:40 Hemoglobin A1c % 7.7 % (4.0-6.0) H 10/28/16 06:25 Calcium 9.7 mg/dL (8.6-10.3) 10/28/16 06:25 Total Bilirubin 0.4 mg/dL (0.3-1.0) 10/28/16 06:25 AST 27 U/L (13-39) 10/28/16 06:25 ALT 23 U/L (7-52) 10/28/16 06:25 Alkaline Phosphatase 124 U/L (34-104) H 10/28/16 06:25 Total Protein 7.2 gm/dL (6.0-8.3) 10/28/16 06:25 Albumin 3.2 gm/dL (3.7-5.3) L 10/28/16 06:25 Globulin 4.0 gm/dL 10/28/16 06:25 Albumin/Globulin Ratio 0.8 (1.0-1.8) L 10/28/16 06:25 - Physical Exam Vitals and I&O: Vital Signs Temp 97.8 F 10/28/16 04:00 Pulse 88 10/28/16 04:00 Resp 19 10/28/16 04:00 BP 138/78 10/28/16 04:00 Pulse Ox 98 10/28/16 04:00 Intake & Output 10/27/16 10/28/16 10/28/16 18:59 06:59 18:59 Weight (lbs) 54.522 kg Other: # Voids 2 # Bowel Movements 0 Stool Characteristics Soft Soft Active Medications: Current Medications Acetaminophen (Tylenol) 650 mg PO Q4H PRN PRN Reason: Pain (Mild) Stop: 12/26/16 18:55 Acetaminophen (Tylenol) 650 mg PO Q4H PRN PRN Reason: PAIN/FEVER Stop: 12/27/16 11:35 Atorvastatin Calcium (Lipitor) 40 mg PO DAILY [facility] PRN Reason: Protocol Stop: 12/27/16 08:59 Last Admin: 10/28/16 09:26 Dose: 40 mg Atorvastatin Calcium (Lipitor) 40 mg PO HS [facility] Stop: 12/27/16 20:59 Docusate Sodium (Colace) 100 mg PO BID [facility] Stop: 12/27/16 08:59 Last Admin: 10/28/16 09:27 Dose: 100 mg Docusate Sodium (Colace) 100 mg PO BID [facility] Stop: 12/27/16 16:59 Donepezil HCl (Aricept) 10 mg PO HS [facility] Stop: 12/26/16 20:59 Last Admin: 10/27/16 22:05 Dose: 10 mg Glipizide (Glucotrol) 2.5 mg PO DAILY [facility] Stop: 12/27/16 08:59 Last Admin: 10/28/16 09:28 Dose: 2.5 mg Hydroxyzine Pamoate (Vistaril) 25 mg PO BID [facility] PRN Reason: Protocol Stop: 12/27/16 08:59 Hydroxyzine Pamoate (Vistaril) 25 mg PO BID [facility] PRN Reason: Protocol Stop: 12/27/16 08:59 Last Admin: 10/28/16 09:29 Dose: 25 mg Vancomycin HCl 1.25 gm/ Sodium (Chloride) 250 mls @ 165 mls/hr IV Q24H [facility] Stop: 12/27/16 10:59 Last Admin: 10/28/16 11:00 Dose: 165 mls/hr Piperacillin Sod/Tazobactam (Sod 4.5 gm/ Sodium Chloride) 100 mls @ 100 mls/hr IV Q8HR [facility] Stop: 12/27/16 12:59 Ketoconazole (Nizoral 2% Cream) 1 appl TP BID [facility] Stop: 12/27/16 08:59 Last Admin: 10/28/16 09:29 Dose: 1 appl Lorazepam (Ativan) 0.5 mg PO Q4HR PRN; Protocol PRN Reason: Anxiety Stop: 12/26/16 18:55 Magnesium Hydroxide (Milk Of Magnesia) 30 ml PO HS PRN PRN Reason: Constipation Stop: 12/26/16 18:55 Magnesium Hydroxide (Milk Of Magnesia) 30 ml PO HS PRN PRN Reason: STOMACH Stop: 12/27/16 11:37 Memantine (Namenda) 5 mg PO DAILY [facility] Stop: 12/27/16 08:59 Last Admin: 10/28/16 09:27 Dose: 5 mg Metformin HCl (Glucophage) 500 mg PO BID [facility] Stop: 12/27/16 08:59 Metformin HCl (Glucophage) 500 mg PO BIDWM [facility] Stop: 12/27/16 07:59 Last Admin: 10/28/16 09:37 Dose: 500 mg Miscellaneous (Vancomycin Iv Per Pharmacy) 1 ea PRN PRN PRN Reason: PROTOCOL Stop: 12/26/16 20:59 Miscellaneous (Donepezil Hcl [Aricept]) 1 tab PO HS [facility] Stop: 12/26/16 20:59 Miscellaneous (Empagliflozin [Jardiance]) 10 mg PO DAILY [facility] Stop: 12/27/16 08:59 Miscellaneous (Zosyn Iv Per Pharmacy) 1 [facility] PRN PRN PRN Reason: PROTOCOL Stop: 12/27/16 12:25 Multivitamins/Vitamin C (Theragran) 1 tab PO DAILY [facility] Stop: 12/28/16 08:59 Mupirocin (Bactroban Oint) 1 appl NS BID [facility] Stop: 12/27/16 16:59 Risperidone (Risperdal) 0.75 mg PO BID [facility] PRN Reason: Protocol Stop: 12/27/16 08:59 Last Admin: 10/28/16 13:36 Dose: 0.75 mg Zolpidem Tartrate (Ambien) 5 mg PO HS PRN PRN Reason: Insomnia Stop: 12/26/16 18:55 General: weak, no lethargic, no congested, no obtunded, no disheveled, no thin, no bilateral temporal wasting HEENT: NC/AT, PERRLA, throat clear Neck: Supple, No JVD Lungs: CTAB, no congested, no rales, no ronchi Cardiovascular: Normal S1 Abdomen: soft, non-tender, non-distended Extremities: clear Neurological: bedbound Internal Medicine Assmt/Plan - Assessment Assessment: 1.CELLULITES AND ABCESS OF RT BUTTOCK. 2.DM. 3.DEMENTIA. 4.DJD. - Plan Plan: CONTINUE ON CURRENT MEDICATION AND DIET.
--- NOTE | 2016-10-28 20:09 | Consultation ---
DATE OF CONSULTATION: 10/28/2016 The patient was transferred from [facility] to Med/Surg on 10/27/2016. IDENTIFYING INFORMATION: The patient is a 75-year-old female. REASON FOR CONSULT: I was asked to followup with this patient who was sent from [facility]. The patient was admitted due to agitation and disability. The patient is demented, confused, very poor historian. The patient has been on Aricept 10 mg at bedtime and Ativan as needed 0.5 mg, Namenda 5 mg daily. Risperdal 0.25 mg twice a day that was increased to 0.75 mg twice a day. PAST PSYCHIATRIC HISTORY: The patient with multiple prior admissions because of agitation, irritability. She has been at [facility]. MEDICAL HISTORY: The patient was transferred to the medical floor because she had MRSA positive and she is on contact isolation. ALLERGIES: The patient has no known drug allergies. MEDICATIONS: The patient has high cholesterol. She is on antibiotic, clindamycin, Aricept 10 mg at bedtime, glipizide for high cholesterol and Desyrel as needed, ketoconazole 2% to apply to wound area, metformin for diabetes mellitus, multivitamin and ____ skin ointment, vancomycin. FAMILY AND SOCIAL HISTORY: Noncontributory. The patient has been staying at [facility] and her family is very supportive. They come and visit her every day. MENTAL STATUS EXAMINATION: The patient is appropriately dressed, not well groomed. She was alert, but very confused, unable to participate in meaningful conversation demented, confused, gets irritable easily, cannot tell me the date, where she is, why she is here or her age. Long and short term memory poor, cannot answer questions regarding hallucinations, suicidal ideation or homicidal ideation. Her insight and judgment is impaired. IMPRESSION: AXIS I: Psychosis, not otherwise specified, dementia. MEDICAL DIAGNOSES: Deferred to Dr. Rose. I would recommend to continue on medication. The patient needs follow up with the psychiatrist upon discharge. Thank you very much for allowing me to participate in the care of this most interesting lady. JOB# [id number]
--- NOTE | 2016-10-28 21:08 | Consultation ---
DATE OF CONSULTATION: 10/27/2016 PRIMARY CARE PHYSICIAN: Dr. Rose. This is a 75-year-old female who was from a longterm, was brought to the Emergency with complaint of sacral decubitus and patient's wound culture, MRSA positive. Infectious consultation was called. PAST MEDICAL HISTORY: Diabetes and dementia. FAMILY HISTORY: Negative, nonsmoker. ALLERGIES: None. REVIEW OF SYSTEMS: A 14-point review of systems negative except above. PHYSICAL EXAMINATION: GENERAL: The patient is an elderly female, well nourished. VITAL SIGNS: Temperature 98, pulse 75, respirations 18, blood pressure 149/65. HEENT: Mild pallor. No icterus. No plaque. NECK: Supple. No thyromegaly. LUNGS: Breath sounds bilateral vesicular. CARDIOVASCULAR: S1, S2. ABDOMEN: Soft, bowel sounds. NODES: No thyroid or cervical lymph nodes. EXTREMITIES: Sacral decubitus about 5-inch in diameter with fresh yellow slough. The patient also osteoarthritic changes, muscle hypertrophy. DIAGNOSES: 1.Methicillin-resistant Staphylococcus aureus infected sacral decubitus, unstageable. 2.Osteoarthritis. 3.Diabetes. PLAN: The patient is started on vancomycin, pharmacy to follow, supportive care, local wound care. Regarding hyperlipidemia, continue statin; fungal rash, ketoconazole, diabetes, glipizide; dementia, Aricept. Thank you, Dr. Rose for this consultation. MRSA isolation. JOB# [id number]
[2016-10-29 07:00] LABS: INR 0.95 (0.5-1.4); PROTHROMBIN TIME (TEST) 9.9 SECONDS (9.5-11.5)
[2016-10-29] MEDS ORDERED: Midazolam 1mg/ml 2 ml vial IV ONE (09:18)
--- NOTE | 2016-10-29 09:36 | Diagnostic Imaging Report ---
CHEST X-RAY: AP view INDICATION: Cough, preop COMPARISON: None FINDINGS: The patient is rotated. No focal consolidation or effusions. Heart size appears borderline prominent. Degenerative changes of the spine are noted. Cholecystectomy clips are noted. IMPRESSION: Limited exam due to rotation. No focal consolidation identified. Borderline prominent heart.
--- NOTE | 2016-10-29 09:51 | Operative Report ---
Operative Report - Surgery Date of Surgery:: 10/29/16 Procedure:: excisional debridement right hip wound Indication for procedure:: MRSA wound infection with necrosis Procedure consent:: given by granddaughter Anesthesia:: Anesthesiologist: Anesthesia: sedation Preoperative diagnosis:: MRSA wound infection right buttocks Postoperative diagnosis:: same Description of Procedure:: Procedure: The patient was placed on the left lateral decubitus position. She was given IV sedation The wound was prepped with Betadine and draped. Excisional debridement was done with scissors. photos were take. Size of wound: 2 by 4 cm,. 1 cm deep. Santyl was applied, local wound care will be ordered. Anesthiologist: Jani Verma Surgeon: Jani Hamilton
[2016-10-29] MEDS ORDERED: Venelex 60gm Tube TP ONE (09:54)
[2016-10-29] MEDS: Venelex 60gm Tube TP SCH (09:59)
[2016-10-29] MEDS: Multivitamin w/ Minerals Tab PO SCH (09:59)
[2016-10-29] MEDS: Multivitamin Tab PO SCH (09:59)
--- NOTE | 2016-10-29 17:17 | Internal Medicine Prog Note ---
Internal Medicine Subjective - Subjective Service Date: 10/29/16 Patient is:: awake, non-verbal Per staff patient has:: no adverse event Internal Medicine Objective - Results Result Diagrams: 10/28/16 06:25 10/28/16 06:25 Recent Labs: Laboratory Last Values WBC 7.4 Th/cmm (4.8-10.8) 10/28/16 06:25 RBC 4.09 Mil/cmm (3.80-5.20) 10/28/16 06:25 Hgb 12.7 gm/dL (11.7-16.1) 10/28/16 06:25 Hct 38.1 % (35.0-45.0) 10/28/16 06:25 MCV 93.3 fl (81-100) 10/28/16 06:25 MCH 31.0 pg (27.0-31.0) 10/28/16 06:25 MCHC Differential 33.2 pg (28.0-36.0) 10/28/16 06:25 RDW 11.9 % (11.5-20.0) 10/28/16 06:25 Plt Count 375 Th/cmm (150-400) 10/28/16 06:25 MPV 7.0 fl 10/28/16 06:25 Neutrophils % 68.4 % (40.0-80.0) 10/28/16 06:25 Lymphocytes % 24.8 % (20.0-50.0) 10/28/16 06:25 Monocytes % 5.7 % (2.0-10.0) 10/28/16 06:25 Eosinophils % 0.8 % (0.0-5.0) 10/28/16 06:25 Basophils % 0.3 % (0.0-2.0) 10/28/16 06:25 PT 9.9 SECONDS (9.5-11.5) 10/29/16 06:34 INR 0.95 (0.5-1.4) 10/29/16 06:34 PTT (Actin FS) 21.2 SECONDS (26.0-38.0) L 10/29/16 06:34 Sodium 135 mEq/L (136-145) L 10/28/16 06:25 Potassium 3.8 mEq/L (3.5-5.1) 10/28/16 06:25 Chloride 101 mEq/L (98-107) 10/28/16 06:25 Carbon Dioxide 30.4 mEq/L (21.0-31.0) 10/28/16 06:25 Anion Gap 7.4 (7.0-16.0) 10/28/16 06:25 BUN 17 mg/dL (7-25) 10/28/16 06:25 Creatinine 0.6 mg/dL (0.6-1.2) 10/28/16 06:25 Est GFR ( Amer) TNP 10/28/16 06:25 Est GFR (Non-Af Amer) TNP 10/28/16 06:25 BUN/Creatinine Ratio 28.3 10/28/16 06:25 Glucose 223 mg/dL (70-105) H 10/28/16 06:25 POC Glucose 145 MG/DL (70 - 105) H 10/29/16 05:59 Hemoglobin A1c % 7.7 % (4.0-6.0) H 10/28/16 06:25 Calcium 9.7 mg/dL (8.6-10.3) 10/28/16 06:25 Total Bilirubin 0.4 mg/dL (0.3-1.0) 10/28/16 06:25 AST 27 U/L (13-39) 10/28/16 06:25 ALT 23 U/L (7-52) 10/28/16 06:25 Alkaline Phosphatase 124 U/L (34-104) H 10/28/16 06:25 Total Protein 7.2 gm/dL (6.0-8.3) 10/28/16 06:25 Albumin 3.2 gm/dL (3.7-5.3) L 10/28/16 06:25 Globulin 4.0 gm/dL 10/28/16 06:25 Albumin/Globulin Ratio 0.8 (1.0-1.8) L 10/28/16 06:25 PTH Intact 21 pg/mL (15-65) 10/28/16 06:25 - Physical Exam Vitals and I&O: Vital Signs Temp 97.5 F 10/29/16 04:00 Pulse 90 10/29/16 04:00 Resp 18 10/29/16 04:00 BP 112/50 10/29/16 04:00 Pulse Ox 98 10/29/16 04:00 Intake & Output 10/28/16 10/29/16 10/29/16 18:59 06:59 18:59 Intake Total 250 120 100 Balance 250 120 100 Weight (lbs) 54.431 kg 54.091 kg Intake: Intake, IV Amount 250 100 Piperacillin Sodium/ 100 Tazobact 4.5 gm In Sodium Chloride 0.9% 100 ml @ 100 mls/hr IV Q8HR [facility] Rx #:[id number] Vancomycin HCl 1.25 gm In 250 Sodium Chloride 0.9% 250 ml @ 165 mls/hr IV Q24H [facility] Rx#:[id number] Oral 120 Other: # Voids 3 # Bowel Movements 1 Stool Characteristics Soft Formed Active Medications: Current Medications Acetaminophen (Tylenol) 650 mg PO Q4H PRN PRN Reason: Pain (Mild) Stop: 12/26/16 18:55 Acetaminophen (Tylenol) 650 mg PO Q4H PRN PRN Reason: PAIN/FEVER Stop: 12/27/16 11:35 Atorvastatin Calcium (Lipitor) 40 mg PO DAILY [facility] PRN Reason: Protocol Stop: 12/27/16 08:59 Last Admin: 10/29/16 09:58 Dose: Not Given Atorvastatin Calcium (Lipitor) 40 mg PO HS [facility] Stop: 12/27/16 20:59 Last Admin: 10/28/16 21:42 Dose: 40 mg Docusate Sodium (Colace) 100 mg PO BID [facility] Stop: 12/27/16 08:59 Last Admin: 10/29/16 09:57 Dose: Not Given Docusate Sodium (Colace) 100 mg PO BID [facility] Stop: 12/27/16 16:59 Last Admin: 10/29/16 09:59 Dose: Not Given Donepezil HCl (Aricept) 10 mg PO HS [facility] Stop: 12/26/16 20:59 Last Admin: 10/28/16 21:43 Dose: 10 mg Glipizide (Glucotrol) 2.5 mg PO DAILY [facility] Stop: 12/27/16 08:59 Last Admin: 10/29/16 09:59 Dose: Not Given Hydroxyzine Pamoate (Vistaril) 25 mg PO BID [facility] PRN Reason: Protocol Stop: 12/27/16 08:59 Last Admin: 10/29/16 09:59 Dose: Not Given Vancomycin HCl 1.25 gm/ Sodium (Chloride) 250 mls @ 165 mls/hr IV Q24H [facility] Stop: 12/27/16 10:59 Last Admin: 10/29/16 11:19 Dose: 165 mls/hr Piperacillin Sod/Tazobactam (Sod 4.5 gm/ Sodium Chloride) 100 mls @ 100 mls/hr IV Q8HR [facility] Stop: 12/27/16 12:59 Last Infusion: 10/29/16 08:00 Dose: Infused Ketoconazole (Nizoral 2% Cream) 1 appl TP BID [facility] Stop: 12/27/16 08:59 Last Admin: 10/29/16 09:57 Dose: Not Given Lorazepam (Ativan) 0.5 mg PO Q4HR PRN; Protocol PRN Reason: Anxiety Stop: 12/26/16 18:55 Last Admin: 10/28/16 21:44 Dose: 0.5 mg Magnesium Hydroxide (Milk Of Magnesia) 30 ml PO HS PRN PRN Reason: Constipation Stop: 12/26/16 18:55 Magnesium Hydroxide (Milk Of Magnesia) 30 ml PO HS PRN PRN Reason: STOMACH Stop: 12/27/16 11:37 Memantine (Namenda) 5 mg PO DAILY [facility] Stop: 12/27/16 08:59 Last Admin: 10/29/16 09:59 Dose: Not Given Metformin HCl (Glucophage) 500 mg PO BIDWM [facility] Stop: 12/27/16 07:59 Last Admin: 10/29/16 09:58 Dose: Not Given Miscellaneous (Vancomycin Iv Per Pharmacy) 1 [facility] PRN PRN PRN Reason: PROTOCOL Stop: 12/26/16 20:59 Miscellaneous (Empagliflozin [Jardiance]) 10 mg PO DAILY [facility] Stop: 12/27/16 08:59 Miscellaneous (Zosyn Iv Per Pharmacy) 1 [facility] PRN PRN PRN Reason: PROTOCOL Stop: 12/27/16 12:25 Multivitamins/Vitamin C (Theragran) 1 tab PO DAILY [facility] Stop: 12/28/16 08:59 Last Admin: 10/29/16 09:59 Dose: Not Given Mupirocin (Bactroban Oint) 1 appl NS BID [facility] Stop: 12/27/16 16:59 Last Admin: 10/29/16 09:57 Dose: Not Given Risperidone (Risperdal) 0.75 mg PO BID [facility] PRN Reason: Protocol Stop: 12/27/16 08:59 Last Admin: 10/29/16 09:59 Dose: Not Given Zolpidem Tartrate (Ambien) 5 mg PO HS PRN PRN Reason: Insomnia Stop: 12/26/16 18:55 General: weak, no lethargic, no congested, no obtunded, no disheveled, no thin, no bilateral temporal wasting HEENT: NC/AT, PERRLA, throat clear Neck: Supple, No JVD Lungs: CTAB, no congested, no rales, no ronchi Cardiovascular: Normal S1 Abdomen: soft, non-tender, non-distended Extremities: clear Neurological: bedbound - Procedures Procedures: Procedures Procedure Code Date EXCISION OF R UP LEG SUBCU/FASCIA, OPEN APPROACH [id number] 10/27/16 REMOVAL OF PRESSURE SORE [id number] 10/27/16 Internal Medicine Assmt/Plan - Assessment Assessment: 1.CELLULITES AND ABCESS OF RT BUTTOCK. 2.DM. 3.DEMENTIA. 4.DJD. 5.Status post surgical debredment of buttock abcess. - Plan Plan: CONTINUE ON CURRENT MEDICATION AND DIET.
--- NOTE | 2016-10-29 20:10 | Progress Notes ---
DATE: 10/29/2016 Case was discussed with staff of the patient, reviewed records. The patient continues to be restless, irritable. She does have MRSA to the wound. She is on contact isolation because of MRSA. She is unpredictable, impulsive. She has been needing a lot of redirection. She is on multiple antibiotics. No side effects with the medication, no sedation, no nausea. She is on Risperdal 0.25 mg twice a day, that was increased 0.75 mg twice a day, and no side effects, no sedation, no nausea, no extrapyramidal symptoms. We will continue to work with the patient in group therapy, milieu therapy, and adjust the medication as needed. JOB# [id number]
[2016-10-30] MEDS: Multivitamin w/ Minerals Tab PO SCH (09:56)
[2016-10-30] MEDS: Multivitamin Tab PO SCH (09:57)
[2016-10-30] MEDS: Venelex 60gm Tube TP SCH (09:58)
[2016-10-30] MEDS: Silver Antimicrobial Wound Gel 0.25 oz Tube TP SCH (09:59)
[2016-10-31] MEDS: Multivitamin w/ Minerals Tab PO SCH (08:58)
[2016-10-31] MEDS: Multivitamin Tab PO SCH (08:58)
[2016-10-31] MEDS: Venelex 60gm Tube TP SCH (08:59)
[2016-10-31] MEDS: Silver Antimicrobial Wound Gel 0.25 oz Tube TP SCH (08:59)
--- NOTE | 2016-10-31 09:24 | General Progress Note ---
Subjective - Review of Systems Service Date: 10/31/16 Events since last encounter: redressed. wound is superficial, still with poor granulation Objective - Results Result Diagrams: 10/28/16 06:25 10/30/16 10:55 Recent Labs: Laboratory Last Values WBC 7.4 Th/cmm (4.8-10.8) 10/28/16 06:25 RBC 4.09 Mil/cmm (3.80-5.20) 10/28/16 06:25 Hgb 12.7 gm/dL (11.7-16.1) 10/28/16 06:25 Hct 38.1 % (35.0-45.0) 10/28/16 06:25 MCV 93.3 fl (81-100) 10/28/16 06:25 MCH 31.0 pg (27.0-31.0) 10/28/16 06:25 MCHC Differential 33.2 pg (28.0-36.0) 10/28/16 06:25 RDW 11.9 % (11.5-20.0) 10/28/16 06:25 Plt Count 375 Th/cmm (150-400) 10/28/16 06:25 MPV 7.0 fl 10/28/16 06:25 Neutrophils % 68.4 % (40.0-80.0) 10/28/16 06:25 Lymphocytes % 24.8 % (20.0-50.0) 10/28/16 06:25 Monocytes % 5.7 % (2.0-10.0) 10/28/16 06:25 Eosinophils % 0.8 % (0.0-5.0) 10/28/16 06:25 Basophils % 0.3 % (0.0-2.0) 10/28/16 06:25 PT 9.9 SECONDS (9.5-11.5) 10/29/16 06:34 INR 0.95 (0.5-1.4) 10/29/16 06:34 PTT (Actin FS) 21.2 SECONDS (26.0-38.0) L 10/29/16 06:34 Sodium 135 mEq/L (136-145) L 10/28/16 06:25 Potassium 3.8 mEq/L (3.5-5.1) 10/28/16 06:25 Chloride 101 mEq/L (98-107) 10/28/16 06:25 Carbon Dioxide 30.4 mEq/L (21.0-31.0) 10/28/16 06:25 Anion Gap 7.4 (7.0-16.0) 10/28/16 06:25 BUN 11 mg/dL (7-25) 10/30/16 10:55 Creatinine 0.7 mg/dL (0.6-1.2) 10/30/16 10:55 Est GFR ( Amer) TNP 10/28/16 06:25 Est GFR (Non-Af Amer) TNP 10/28/16 06:25 BUN/Creatinine Ratio 28.3 10/28/16 06:25 Glucose 223 mg/dL (70-105) H 10/28/16 06:25 POC Glucose 145 MG/DL (70 - 105) H 10/29/16 05:59 Hemoglobin A1c % 7.7 % (4.0-6.0) H 10/28/16 06:25 Calcium 9.7 mg/dL (8.6-10.3) 10/28/16 06:25 Total Bilirubin 0.4 mg/dL (0.3-1.0) 10/28/16 06:25 AST 27 U/L (13-39) 10/28/16 06:25 ALT 23 U/L (7-52) 10/28/16 06:25 Alkaline Phosphatase 124 U/L (34-104) H 10/28/16 06:25 Total Protein 7.2 gm/dL (6.0-8.3) 10/28/16 06:25 Albumin 3.2 gm/dL (3.7-5.3) L 10/28/16 06:25 Globulin 4.0 gm/dL 10/28/16 06:25 Albumin/Globulin Ratio 0.8 (1.0-1.8) L 10/28/16 06:25 PTH Intact 21 pg/mL (15-65) 10/28/16 06:25 Vancomycin Trough 14.9 ug/mL (10-20) 10/30/16 10:55 - Physical Exam Vitals and I&O: Vital Signs Temp 98.6 F 10/30/16 20:00 Pulse 99 10/30/16 20:00 Resp 18 10/31/16 08:00 BP 105/58 10/30/16 20:00 Pulse Ox 99 10/30/16 20:00 Intake & Output 10/30/16 10/31/16 10/31/16 18:59 06:59 18:59 Intake Total 350 100 Balance 350 100 Weight (lbs) 53.977 kg Intake: Intake, IV Amount 350 100 Piperacillin Sodium/ 100 100 Tazobact 4.5 gm In Sodium Chloride 0.9% 100 ml @ 100 mls/hr IV Q8HR [facility] Rx #:[id number] Vancomycin HCl 1.25 gm In 250 Sodium Chloride 0.9% 250 ml @ 165 mls/hr IV Q24H [facility] Rx#:[id number] Active Medications: Current Medications Acetaminophen (Tylenol) 650 mg PO Q4H PRN PRN Reason: Pain (Mild) Stop: 12/26/16 18:55 Last Admin: 10/30/16 00:12 Dose: 650 mg Acetaminophen (Tylenol) 650 mg PO Q4H PRN PRN Reason: PAIN/FEVER Stop: 12/27/16 11:35 Atorvastatin Calcium (Lipitor) 40 mg PO DAILY [facility] PRN Reason: Protocol Stop: 12/27/16 08:59 Last Admin: 10/31/16 08:57 Dose: 40 mg Atorvastatin Calcium (Lipitor) 40 mg PO HS [facility] Stop: 12/27/16 20:59 Last Admin: 10/30/16 23:10 Dose: 40 mg Docusate Sodium (Colace) 100 mg PO BID [facility] Stop: 12/27/16 08:59 Last Admin: 10/31/16 08:57 Dose: 100 mg Donepezil HCl (Aricept) 10 mg PO HS [facility] Stop: 12/26/16 20:59 Last Admin: 10/29/16 21:03 Dose: 10 mg Glipizide (Glucotrol) 2.5 mg PO DAILY [facility] Stop: 12/27/16 08:59 Last Admin: 10/31/16 08:57 Dose: 2.5 mg Hydroxyzine Pamoate (Vistaril) 25 mg PO BID [facility] PRN Reason: Protocol Stop: 12/27/16 08:59 Last Admin: 10/31/16 08:58 Dose: 25 mg Vancomycin HCl 1.25 gm/ Sodium (Chloride) 250 mls @ 165 mls/hr IV Q24H [facility] Stop: 12/27/16 10:59 Last Infusion: 10/30/16 11:31 Dose: Infused Piperacillin Sod/Tazobactam (Sod 4.5 gm/ Sodium Chloride) 100 mls @ 100 mls/hr IV Q8HR [facility] Stop: 12/27/16 12:59 Last Admin: 10/31/16 05:11 Dose: 100 mls/hr Ketoconazole (Nizoral 2% Cream) 1 appl TP BID [facility] Stop: 12/27/16 08:59 Last Admin: 10/31/16 08:59 Dose: 1 appl Lorazepam (Ativan) 0.5 mg PO Q4HR PRN; Protocol PRN Reason: Anxiety Stop: 12/26/16 18:55 Last Admin: 10/30/16 15:29 Dose: 0.5 mg Magnesium Hydroxide (Milk Of Magnesia) 30 ml PO HS PRN PRN Reason: Constipation Stop: 12/26/16 18:55 Magnesium Hydroxide (Milk Of Magnesia) 30 ml PO HS PRN PRN Reason: STOMACH Stop: 12/27/16 11:37 Memantine (Namenda) 5 mg PO DAILY [facility] Stop: 12/27/16 08:59 Last Admin: 10/31/16 08:59 Dose: 5 mg Metformin HCl (Glucophage) 500 mg PO BIDWM [facility] Stop: 12/27/16 07:59 Last Admin: 10/31/16 08:58 Dose: 500 mg Miscellaneous (Vancomycin Iv Per Pharmacy) 1 [facility] PRN PRN PRN Reason: PROTOCOL Stop: 12/26/16 20:59 Miscellaneous (Empagliflozin [Jardiance]) 10 mg PO DAILY [facility] Stop: 12/27/16 08:59 Miscellaneous (Zosyn Iv Per Pharmacy) 1 [facility] PRN PRN PRN Reason: PROTOCOL Stop: 12/27/16 12:25 Multivitamins/Vitamin C (Theragran) 1 tab PO DAILY [facility] Stop: 12/28/16 08:59 Last Admin: 10/31/16 08:58 Dose: 1 tab Mupirocin (Bactroban Oint) 1 appl NS BID [facility] Stop: 12/27/16 16:59 Last Admin: 10/31/16 08:59 Dose: 1 appl Risperidone (Risperdal) 0.75 mg PO BID [facility] PRN Reason: Protocol Stop: 12/27/16 08:59 Last Admin: 10/31/16 08:58 Dose: 0.75 mg Wound Care/Dressing Products (Silvasorb) 1 appl TP DAILY [facility] Stop: 12/29/16 08:59 Last Admin: 10/31/16 08:59 Dose: 1 appl Zolpidem Tartrate (Ambien) 5 mg PO HS PRN PRN Reason: Insomnia Stop: 12/26/16 18:55 Last Admin: 10/30/16 00:13 Dose: 5 mg - Procedures Procedures: Procedures Procedure Code Date EXCISION OF R UP LEG SUBCU/FASCIA, OPEN APPROACH [id number] 10/27/16 REMOVAL OF PRESSURE SORE 24957 10/27/16 Nutritional Asmnt/Malnutr-PDOC - Dietary Evaluation Malnutrition Findings (Please click <Entered> for more info): Nutritional Asmnt/Malnutrition Start: 10/30/16 10: 52 Text: Status: Complete Freq: Document 10/30/16 10:52 MMULDONTAE (Rec: 10/30/16 11:15 MMULHERN RIYA FN) Nutritional Asmnt/Malnutrition Patient General Information Nutritional Screening Consult Diagnosis Cellulitis of buttock, mild protein-calorie malnutrition, pressure ulcer Pertinent Medical Hx/Surgical Hx Dementia, DM Subjective Information Consult received for absesses. Patient was admitted from SNF . Had excisional debridment of right hip ulcer 10/29. 1:1 sitter. Patient seen in bed agitated, trying to pull out IV. Current Diet Order/ Nutrition Support Mechanical soft chopped with Boost TID. Patient / S.O Can't verbalize diet edu Pertinent Medications lipitor, colace, glipizide, MOM, metformin, vancomycin, MVI w/C Pertinent Labs Glucose 223>197>124>145, HGA1C 7.7, albumin 3.2 Nutritional Hx/Data Height 1.68 m Height (Calculated Centimeters) 167.6 Current Weight (lbs) 53.977 kg Weight (Calculated Kilograms) 54.0 Weight (Calculated Grams) 34107.5 [place] Body Weight 130 % [place] Body Weight 91 Weight Status Approriate GI Symptoms GI Symptoms None Difficult in: Chewing Food Allergies No Cultural/Ethnic/Holiness Belief none indicated Usual diet at home unknown Skin Integrity/Comment: 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 Current %PO Fair (50-74%) Estimated Nutritional Goals BEE in Kcals: Using Current wt Calories/Kcals/Kg 119 lb/54kg CBW Kcals Calculated 9677-9512 kcal/day (30-35 kcal /kg) - wound healing, BMI Protein: Using Current wt Protein Calculated 90-108 gm/day (1.7-2 gm/kg) - wound healing with debridment Fluid: ml 8044-3107 ml/day (1 ml/kcal) Nutritional Problem 1. Problem Problem Increased nutrient needs related to Etiology wound healing aeb Signs/Symptoms: hip wound with recent debridment Intervention/Recommendation Recommendations by RD Protein supplementation Comments 1. Continue mechanical soft chopped diet as tolerated by juan antonio. 2. Switch Boost for Boost Plus to optimize protein intake. Boost plus TID to provide 1080n kcal, 42 gm protein. 3. Continue multivitamin and vitamin C supplementation to promote wound healing. Consider adding arginaid powder 1 packet/day. 4. Continue to monitor blood sugar and provide insulin as prescribed; if blood sugar increases, consider modifying diet to 60 gm CCHO with Boost Glucose Control TID. Expected Outcomes/Goals Expected Outcomes/Goals Oral intake to meet >75% of estimated nutrient needs, weight stable, nutrition related labs remain normal. Physician Parameters for PEM Serum Albumin (g/dl) 3.1 - 3.4 (Mild)
--- NOTE | 2016-10-31 14:43 | Infectious Disease Prog Note ---
Infectious Disease Subjective - Review of Systems Service Date: 10/31/16 Subjective: sacral decub hpi- pt wound cx e coli sensitive to all ros no fver oe vs chets claer abd soft sacral decub dx sacral decub infection plan van lindsay duong iv Infectious Disease Objective - Results Result Diagrams: 10/28/16 06:25 10/30/16 10:55 Recent Labs: Laboratory Last Values WBC 7.4 Th/cmm (4.8-10.8) 10/28/16 06:25 RBC 4.09 Mil/cmm (3.80-5.20) 10/28/16 06:25 Hgb 12.7 gm/dL (11.7-16.1) 10/28/16 06:25 Hct 38.1 % (35.0-45.0) 10/28/16 06:25 MCV 93.3 fl (81-100) 10/28/16 06:25 MCH 31.0 pg (27.0-31.0) 10/28/16 06:25 MCHC Differential 33.2 pg (28.0-36.0) 10/28/16 06:25 RDW 11.9 % (11.5-20.0) 10/28/16 06:25 Plt Count 375 Th/cmm (150-400) 10/28/16 06:25 MPV 7.0 fl 10/28/16 06:25 Neutrophils % 68.4 % (40.0-80.0) 10/28/16 06:25 Lymphocytes % 24.8 % (20.0-50.0) 10/28/16 06:25 Monocytes % 5.7 % (2.0-10.0) 10/28/16 06:25 Eosinophils % 0.8 % (0.0-5.0) 10/28/16 06:25 Basophils % 0.3 % (0.0-2.0) 10/28/16 06:25 PT 9.9 SECONDS (9.5-11.5) 10/29/16 06:34 INR 0.95 (0.5-1.4) 10/29/16 06:34 PTT (Actin FS) 21.2 SECONDS (26.0-38.0) L 10/29/16 06:34 Sodium 135 mEq/L (136-145) L 10/28/16 06:25 Potassium 3.8 mEq/L (3.5-5.1) 10/28/16 06:25 Chloride 101 mEq/L (98-107) 10/28/16 06:25 Carbon Dioxide 30.4 mEq/L (21.0-31.0) 10/28/16 06:25 Anion Gap 7.4 (7.0-16.0) 10/28/16 06:25 BUN 11 mg/dL (7-25) 10/30/16 10:55 Creatinine 0.7 mg/dL (0.6-1.2) 10/30/16 10:55 Est GFR ( Amer) TNP 10/28/16 06:25 Est GFR (Non-Af Amer) TNP 10/28/16 06:25 BUN/Creatinine Ratio 28.3 10/28/16 06:25 Glucose 223 mg/dL (70-105) H 10/28/16 06:25 POC Glucose 145 MG/DL (70 - 105) H 10/29/16 05:59 Hemoglobin A1c % 7.7 % (4.0-6.0) H 10/28/16 06:25 Calcium 9.7 mg/dL (8.6-10.3) 10/28/16 06:25 Total Bilirubin 0.4 mg/dL (0.3-1.0) 10/28/16 06:25 AST 27 U/L (13-39) 10/28/16 06:25 ALT 23 U/L (7-52) 10/28/16 06:25 Alkaline Phosphatase 124 U/L (34-104) H 10/28/16 06:25 Total Protein 7.2 gm/dL (6.0-8.3) 10/28/16 06:25 Albumin 3.2 gm/dL (3.7-5.3) L 10/28/16 06:25 Globulin 4.0 gm/dL 10/28/16 06:25 Albumin/Globulin Ratio 0.8 (1.0-1.8) L 10/28/16 06:25 PTH Intact 21 pg/mL (15-65) 10/28/16 06:25 Vancomycin Trough 14.9 ug/mL (10-20) 10/30/16 10:55 - Physical Exam Vitals and I&O: Vital Signs Temp 98.1 F 10/31/16 12:07 Pulse 98 10/31/16 12:07 Resp 18 10/31/16 12:07 BP 108/61 10/31/16 12:07 Pulse Ox 98 10/31/16 12:07 Intake & Output 10/30/16 10/31/16 10/31/16 18:59 06:59 18:59 Intake Total 350 100 250 Balance 350 100 250 Weight (lbs) 53.977 kg Intake: Intake, IV Amount 350 100 250 Piperacillin Sodium/ 100 100 Tazobact 4.5 gm In Sodium Chloride 0.9% 100 ml @ 100 mls/hr IV Q8HR [facility] Rx #:[id number] Vancomycin HCl 1.25 gm In 250 250 Sodium Chloride 0.9% 250 ml @ 165 mls/hr IV Q24H [facility] [place] Rx#:[id number] Active Medications: Current Medications Acetaminophen (Tylenol) 650 mg PO Q4H PRN PRN Reason: Pain (Mild) Stop: 12/26/16 18:55 Last Admin: 10/30/16 00:12 Dose: 650 mg Acetaminophen (Tylenol) 650 mg PO Q4H PRN PRN Reason: PAIN/FEVER Stop: 12/27/16 11:35 Atorvastatin Calcium (Lipitor) 40 mg PO DAILY [facility] [place] PRN Reason: Protocol Stop: 12/27/16 08:59 Last Admin: 10/31/16 08:57 Dose: 40 mg Atorvastatin Calcium (Lipitor) 40 mg PO HS [facility] [place] Stop: 12/27/16 20:59 Last Admin: 10/30/16 23:10 Dose: 40 mg Docusate Sodium (Colace) 100 mg PO BID [facility] [place] Stop: 12/27/16 08:59 Last Admin: 10/31/16 08:57 Dose: 100 mg Donepezil HCl (Aricept) 10 mg PO HS [facility] [place] Stop: 12/26/16 20:59 Last Admin: 10/29/16 21:03 Dose: 10 mg Glipizide (Glucotrol) 2.5 mg PO DAILY [facility] [place] Stop: 12/27/16 08:59 Last Admin: 10/31/16 08:57 Dose: 2.5 mg Hydroxyzine Pamoate (Vistaril) 25 mg PO BID [facility] [place] PRN Reason: Protocol Stop: 12/27/16 08:59 Last Admin: 10/31/16 08:58 Dose: 25 mg Vancomycin HCl 1.25 gm/ Sodium (Chloride) 250 mls @ 165 mls/hr IV Q24H [facility] Stop: 12/27/16 10:59 Last Infusion: 10/31/16 12:43 Dose: Infused Piperacillin Sod/Tazobactam (Sod 4.5 gm/ Sodium Chloride) 100 mls @ 100 mls/hr IV Q8HR [facility] Stop: 12/27/16 12:59 Last Admin: 10/31/16 05:11 Dose: 100 mls/hr Ketoconazole (Nizoral 2% Cream) 1 appl TP BID [facility] Stop: 12/27/16 08:59 Last Admin: 10/31/16 08:59 Dose: 1 appl Lorazepam (Ativan) 0.5 mg PO Q4HR PRN; Protocol PRN Reason: Anxiety Stop: 12/26/16 18:55 Last Admin: 10/30/16 15:29 Dose: 0.5 mg Magnesium Hydroxide (Milk Of Magnesia) 30 ml PO HS PRN PRN Reason: Constipation Stop: 12/26/16 18:55 Magnesium Hydroxide (Milk Of Magnesia) 30 ml PO HS PRN PRN Reason: STOMACH Stop: 12/27/16 11:37 Memantine (Namenda) 5 mg PO DAILY [facility] Stop: 12/27/16 08:59 Last Admin: 10/31/16 08:59 Dose: 5 mg Metformin HCl (Glucophage) 500 mg PO BIDWM [facility] Stop: 12/27/16 07:59 Last Admin: 10/31/16 08:58 Dose: 500 mg Miscellaneous (Vancomycin Iv Per Pharmacy) 1 [facility] PRN PRN PRN Reason: PROTOCOL Stop: 12/26/16 20:59 Miscellaneous (Empagliflozin [Jardiance]) 10 mg PO DAILY [facility] Stop: 12/27/16 08:59 Miscellaneous (Zosyn Iv Per Pharmacy) 1 [facility] PRN PRN PRN Reason: PROTOCOL Stop: 12/27/16 12:25 Multivitamins/Vitamin C (Theragran) 1 tab PO DAILY [facility] Stop: 12/28/16 08:59 Last Admin: 10/31/16 08:58 Dose: 1 tab Mupirocin (Bactroban Oint) 1 appl NS BID [facility] Stop: 12/27/16 16:59 Last Admin: 10/31/16 08:59 Dose: 1 appl Risperidone (Risperdal) 0.75 mg PO BID [facility] PRN Reason: Protocol Stop: 12/27/16 08:59 Last Admin: 10/31/16 08:58 Dose: 0.75 mg Wound Care/Dressing Products (Silvasorb) 1 appl TP DAILY [facility] Stop: 12/29/16 08:59 Last Admin: 10/31/16 08:59 Dose: 1 appl Zolpidem Tartrate (Ambien) 5 mg PO HS PRN PRN Reason: Insomnia Stop: 12/26/16 18:55 Last Admin: 10/30/16 00:13 Dose: 5 mg - Procedures Procedures: Procedures Procedure Code Date EXCISION OF R UP LEG SUBCU/FASCIA, OPEN APPROACH [id number] 10/27/16 REMOVAL OF PRESSURE SORE 47119 10/27/16 Nutritional Asmnt/Malnutr-PDOC - Dietary Evaluation Malnutrition Findings (Please click <Entered> for more info): Nutritional Asmnt/Malnutrition Start: 10/30/16 10: 52 Text: Status: Complete Freq: Document 10/30/16 10:52 CAROLYNE (Rec: 10/30/16 11:15 [email or web address] RITTER- [email or web address]) Nutritional Asmnt/Malnutrition Patient General Information Nutritional Screening Consult Diagnosis Cellulitis of buttock, mild protein-calorie malnutrition, pressure ulcer Pertinent Medical Hx/Surgical Hx Dementia, DM Subjective Information Consult received for absesses. Patient was admitted from SNF . Had excisional debridment of right hip ulcer 10/29. 1:1 sitter. Patient seen in bed agitated, trying to pull out IV. Current Diet Order/ Nutrition Support Mechanical soft chopped with Boost TID. Patient / S.O Can't verbalize diet edu Pertinent Medications lipitor, colace, glipizide, MOM, metformin, vancomycin, MVI w/C Pertinent Labs Glucose 223>197>124>145, HGA1C 7.7, albumin 3.2 Nutritional Hx/Data Height 1.68 m Height (Calculated Centimeters) 167.6 Current Weight (lbs) 53.977 kg Weight (Calculated Kilograms) 54.0 Weight (Calculated Grams) 35837.5 [place] Body Weight 130 % [place] Body Weight 91 Weight Status Approriate GI Symptoms GI Symptoms None Difficult in: Chewing Food Allergies No Cultural/Ethnic/Anglican Belief none indicated Usual diet at home unknown Skin Integrity/Comment: 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 Current %PO Fair (50-74%) Estimated Nutritional Goals BEE in Kcals: Using Current wt Calories/Kcals/Kg 119 lb/54kg CBW Kcals Calculated 3459-8279 kcal/day (30-35 kcal /kg) - wound healing, BMI Protein: Using Current wt Protein Calculated 90-108 gm/day (1.7-2 gm/kg) - wound healing with debridment Fluid: ml 6121-8178 ml/day (1 ml/kcal) Nutritional Problem 1. Problem Problem Increased nutrient needs related to Etiology wound healing aeb Signs/Symptoms: hip wound with recent debridment Intervention/Recommendation Recommendations by RD Protein supplementation Comments 1. Continue mechanical soft chopped diet as tolerated by juan antonio. 2. Switch Boost for Boost Plus to optimize protein intake. Boost plus TID to provide 1080n kcal, 42 gm protein. 3. Continue multivitamin and vitamin C supplementation to promote wound healing. Consider adding arginaid powder 1 packet/day. 4. Continue to monitor blood sugar and provide insulin as prescribed; if blood sugar increases, consider modifying diet to 60 gm CCHO with Boost Glucose Control TID. Expected Outcomes/Goals Expected Outcomes/Goals Oral intake to meet >75% of estimated nutrient needs, weight stable, nutrition related labs remain normal. Physician Parameters for PEM Serum Albumin (g/dl) 3.1 - 3.4 (Mild)
[2016-11-01 07:02] LABS: % BASOPHILS 1.1 % (0.0-2.0); % EOSINOPHILS 0.6 % (0.0-5.0); % LYMPHOCYTES 15.4 % (20.0-50.0); % MONOCYTES 4.4 % (2.0-10.0); % NEUTROPHILS 78.5 % (40.0-80.0); HEMATOCRIT 37.6 % (35.0-45.0); HEMOGLOBIN 12.3 gm/dL (11.7-16.1); MEAN CELL VOLUME 93.2 fl (81-100); MEAN CORPUSCULAR HEMOGLOBIN 30.5 pg (27.0-31.0); MEAN CORPUSCULAR HGB CONC 32.7 pg (28.0-36.0); MEAN PLATELET VOLUME 6.6 fl; PLATELET COUNT 393 Th/cmm (150-400); RED BLOOD COUNT 4.04 Mil/cmm (3.80-5.20); RED CELL DISTRIBUTION WIDTH 11.7 % (11.5-20.0)
[2016-11-01 07:05] LABS: WHITE BLOOD COUNT 11.5 Th/cmm (4.8-10.8)
[2016-11-01 07:32] LABS: ANION GAP 7.7 (7.0-16.0); BUN - UREA NITROGEN 14 mg/dL (7-25); CALCIUM SERUM 9.4 mg/dL (8.6-10.3); CARBON DIOXIDE 28.1 mEq/L (21.0-31.0); CHLORIDE 108 mEq/L (98-107); CREATININE - SERUM 0.7 mg/dL (0.6-1.2); GLUCOSE 159 mg/dL (70-105); POTASSIUM SERUM 3.8 mEq/L (3.5-5.1); SODIUM SERUM 140 mEq/L (136-145)
[2016-11-01] MEDS: Multivitamin w/ Minerals Tab PO SCH (09:24)
[2016-11-01] MEDS: Multivitamin Tab PO SCH (09:25)
[2016-11-01] MEDS: Venelex 60gm Tube TP SCH (09:29)
[2016-11-01] MEDS: Silver Antimicrobial Wound Gel 0.25 oz Tube TP SCH (09:30)
--- NOTE | 2016-11-01 11:36 | Progress Notes ---
DATE: 11/01/2016 SUBJECTIVE: Case was discussed with staff of the patient. The patient is showing progress. She is eating better, but has to be fed by the staff. She has been easier to redirect. She is sleeping better, compliant with the medications. She still had mittens on her hands because she tends to pull her IVs. No side effects with the medication, no sedation, no nausea, no extrapyramidal symptoms. No changes have been done over the weekend. Thank you very much for allowing me to participate in the care of this most interesting lady. JOB# [id number]
--- NOTE | 2016-11-01 17:53 | Internal Medicine Prog Note ---
Internal Medicine Subjective - Subjective Patient is:: awake, non-verbal Per staff patient has:: no adverse event, eating well, confused Internal Medicine Objective - Results Result Diagrams: 11/01/16 06:30 11/01/16 06:30 Recent Labs: Laboratory Last Values WBC 11.5 Th/cmm (4.8-10.8) H D 11/01/16 06:30 RBC 4.04 Mil/cmm (3.80-5.20) 11/01/16 06:30 Hgb 12.3 gm/dL (11.7-16.1) 11/01/16 06:30 Hct 37.6 % (35.0-45.0) 11/01/16 06:30 MCV 93.2 fl (81-100) 11/01/16 06:30 MCH 30.5 pg (27.0-31.0) 11/01/16 06:30 MCHC Differential 32.7 pg (28.0-36.0) 11/01/16 06:30 RDW 11.7 % (11.5-20.0) 11/01/16 06:30 Plt Count 393 Th/cmm (150-400) 11/01/16 06:30 MPV 6.6 fl 11/01/16 06:30 Neutrophils % 78.5 % (40.0-80.0) 11/01/16 06:30 Lymphocytes % 15.4 % (20.0-50.0) L 11/01/16 06:30 Monocytes % 4.4 % (2.0-10.0) 11/01/16 06:30 Eosinophils % 0.6 % (0.0-5.0) 11/01/16 06:30 Basophils % 1.1 % (0.0-2.0) 11/01/16 06:30 PT 9.9 SECONDS (9.5-11.5) 10/29/16 06:34 INR 0.95 (0.5-1.4) 10/29/16 06:34 PTT (Actin FS) 21.2 SECONDS (26.0-38.0) L 10/29/16 06:34 Sodium 140 mEq/L (136-145) 11/01/16 06:30 Potassium 3.8 mEq/L (3.5-5.1) 11/01/16 06:30 Chloride 108 mEq/L (98-107) H 11/01/16 06:30 Carbon Dioxide 28.1 mEq/L (21.0-31.0) 11/01/16 06:30 Anion Gap 7.7 (7.0-16.0) 11/01/16 06:30 BUN 14 mg/dL (7-25) 11/01/16 06:30 Creatinine 0.7 mg/dL (0.6-1.2) 11/01/16 06:30 Est GFR ( Amer) TNP 11/01/16 06:30 Est GFR (Non-Af Amer) TNP 11/01/16 06:30 BUN/Creatinine Ratio 20.0 11/01/16 06:30 Glucose 159 mg/dL (70-105) H 11/01/16 06:30 POC Glucose 145 MG/DL (70 - 105) H 10/29/16 05:59 Hemoglobin A1c % 7.7 % (4.0-6.0) H 10/28/16 06:25 Calcium 9.4 mg/dL (8.6-10.3) 11/01/16 06:30 Total Bilirubin 0.4 mg/dL (0.3-1.0) 10/28/16 06:25 AST 27 U/L (13-39) 10/28/16 06:25 ALT 23 U/L (7-52) 10/28/16 06:25 Alkaline Phosphatase 124 U/L (34-104) H 10/28/16 06:25 Total Protein 7.2 gm/dL (6.0-8.3) 10/28/16 06:25 Albumin 3.2 gm/dL (3.7-5.3) L 10/28/16 06:25 Globulin 4.0 gm/dL 10/28/16 06:25 Albumin/Globulin Ratio 0.8 (1.0-1.8) L 10/28/16 06:25 PTH Intact 21 pg/mL (15-65) 10/28/16 06:25 Vancomycin Trough 14.9 ug/mL (10-20) 10/30/16 10:55 - Physical Exam Vitals and I&O: Vital Signs Temp 97 F 11/01/16 04:00 Pulse 86 11/01/16 04:00 Resp 18 11/01/16 08:00 BP 104/73 11/01/16 04:00 Pulse Ox 100 11/01/16 04:00 Intake & Output 10/31/16 11/01/16 11/01/16 18:59 06:59 18:59 Intake Total 250 100 100 Balance 250 100 100 Weight (lbs) 53.388 kg Intake: Intake, IV Amount 250 100 100 Piperacillin Sodium/ 100 100 Tazobact 4.5 gm In Sodium Chloride 0.9% 100 ml @ 100 mls/hr IV Q8HR [facility] Rx #:[id number] Vancomycin HCl 1.25 gm In 250 Sodium Chloride 0.9% 250 ml @ 165 mls/hr IV Q24H [facility] Rx#:[id number] Active Medications: Current Medications Acetaminophen (Tylenol) 650 mg PO Q4H PRN PRN Reason: PAIN/FEVER Stop: 12/27/16 11:35 Atorvastatin Calcium (Lipitor) 40 mg PO DAILY [facility] PRN Reason: Protocol Stop: 12/27/16 08:59 Last Admin: 11/01/16 09:25 Dose: 40 mg Atorvastatin Calcium (Lipitor) 40 mg PO HS [facility] Stop: 12/27/16 20:59 Last Admin: 10/31/16 20:35 Dose: 40 mg Docusate Sodium (Colace) 100 mg PO BID [facility] Stop: 12/27/16 08:59 Last Admin: 11/01/16 17:39 Dose: 100 mg Donepezil HCl (Aricept) 10 mg PO HS [facility] Stop: 12/26/16 20:59 Last Admin: 10/31/16 20:35 Dose: 10 mg Glipizide (Glucotrol) 2.5 mg PO DAILY [facility] Stop: 12/27/16 08:59 Last Admin: 11/01/16 09:26 Dose: 2.5 mg Hydroxyzine Pamoate (Vistaril) 25 mg PO BID [facility] PRN Reason: Protocol Stop: 12/27/16 08:59 Last Admin: 11/01/16 17:39 Dose: 25 mg Vancomycin HCl 1.25 gm/ Sodium (Chloride) 250 mls @ 165 mls/hr IV Q24H [facility] Stop: 12/27/16 10:59 Last Admin: 11/01/16 12:18 Dose: 165 mls/hr Piperacillin Sod/Tazobactam (Sod 4.5 gm/ Sodium Chloride) 100 mls @ 100 mls/hr IV Q8HR [facility] Stop: 12/27/16 12:59 Last Admin: 11/01/16 17:39 Dose: 100 mls/hr Ketoconazole (Nizoral 2% Cream) 1 appl TP BID [facility] Stop: 12/27/16 08:59 Last Admin: 11/01/16 17:41 Dose: 1 appl Lorazepam (Ativan) 0.5 mg PO Q4HR PRN; Protocol PRN Reason: Anxiety Stop: 12/26/16 18:55 Last Admin: 11/01/16 02:08 Dose: 0.5 mg Magnesium Hydroxide (Milk Of Magnesia) 30 ml PO HS PRN PRN Reason: STOMACH Stop: 12/27/16 11:37 Memantine (Namenda) 5 mg PO DAILY [facility] Stop: 12/27/16 08:59 Last Admin: 11/01/16 09:24 Dose: 5 mg Metformin HCl (Glucophage) 500 mg PO BIDWM [facility] Stop: 12/27/16 07:59 Last Admin: 11/01/16 17:40 Dose: 500 mg Miscellaneous (Vancomycin Iv Per Pharmacy) 1 [facility] PRN PRN PRN Reason: PROTOCOL Stop: 12/26/16 20:59 Miscellaneous (Empagliflozin [Jardiance]) 10 mg PO DAILY [facility] Stop: 12/27/16 08:59 Miscellaneous (Zosyn Iv Per Pharmacy) 1 [facility] PRN PRN PRN Reason: PROTOCOL Stop: 12/27/16 12:25 Multivitamins/Vitamin C (Theragran) 1 tab PO DAILY [facility] Stop: 12/28/16 08:59 Last Admin: 11/01/16 09:25 Dose: 1 tab Mupirocin (Bactroban Oint) 1 appl NS BID [facility] Stop: 12/27/16 16:59 Last Admin: 11/01/16 17:41 Dose: 1 appl Risperidone (Risperdal) 0.75 mg PO BID [facility] PRN Reason: Protocol Stop: 12/27/16 08:59 Last Admin: 11/01/16 17:40 Dose: 0.75 mg Wound Care/Dressing Products (Silvasorb) 1 appl TP DAILY [facility] Stop: 12/29/16 08:59 Last Admin: 11/01/16 09:30 Dose: 1 appl Zolpidem Tartrate (Ambien) 5 mg PO HS PRN PRN Reason: Insomnia Stop: 12/26/16 18:55 Last Admin: 11/01/16 02:08 Dose: 5 mg General: weak, no lethargic, no congested, no obtunded, no disheveled, no thin, no bilateral temporal wasting HEENT: NC/AT, PERRLA, throat clear Neck: Supple, No JVD Lungs: CTAB, no congested, no rales, no ronchi Cardiovascular: Normal S1 Abdomen: soft, non-tender, non-distended Extremities: clear Neurological: bedbound - Procedures Procedures: Procedures Procedure Code Date EXCISION OF R UP LEG SUBCU/FASCIA, OPEN APPROACH [id number] 10/27/16 REMOVAL OF PRESSURE SORE 33939 10/27/16 Internal Medicine Assmt/Plan - Assessment Assessment: 1.CELLULITES AND ABCESS OF RT BUTTOCK. 2.DM. 3.DEMENTIA. 4.DJD. 5.Status post surgical debredment of buttock abcess. - Plan Plan: CONTINUE ON CURRENT MEDICATION AND DIET. Nutritional Asmnt/Malnutr-PDOC - Dietary Evaluation Malnutrition Findings (Please click <Entered> for more info): Nutritional Asmnt/Malnutrition Start: 10/30/16 10: 52 Text: Status: Complete Freq: Document 10/30/16 10:52 CAROLYNE (Rec: 10/30/16 11:15 MMZHANNA RITTER- FNS1) Nutritional Asmnt/Malnutrition Patient General Information Nutritional Screening Consult Diagnosis Cellulitis of buttock, mild protein-calorie malnutrition, pressure ulcer Pertinent Medical Hx/Surgical Hx Dementia, DM Subjective Information Consult received for absesses. Patient was admitted from SNF . Had excisional debridment of right hip ulcer 10/29. 1:1 sitter. Patient seen in bed agitated, trying to pull out IV. Current Diet Order/ Nutrition Support Mechanical soft chopped with Boost TID. Patient / S.O Can't verbalize diet edu Pertinent Medications lipitor, colace, glipizide, MOM, metformin, vancomycin, MVI w/C Pertinent Labs Glucose 223>197>124>145, HGA1C 7.7, albumin 3.2 Nutritional Hx/Data Height 1.68 m Height (Calculated Centimeters) 167.6 Current Weight (lbs) 53.977 kg Weight (Calculated Kilograms) 54.0 Weight (Calculated Grams) 05904.5 [place] Body Weight 130 % [place] Body Weight 91 Weight Status Approriate GI Symptoms GI Symptoms None Difficult in: Chewing Food Allergies No Cultural/Ethnic/Latter Day Belief none indicated Usual diet at home unknown Skin Integrity/Comment: 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 Current %PO Fair (50-74%) Estimated Nutritional Goals BEE in Kcals: Using Current wt Calories/Kcals/Kg 119 lb/54kg CBW Kcals Calculated 7032-9978 kcal/day (30-35 kcal /kg) - wound healing, BMI Protein: Using Current wt Protein Calculated 90-108 gm/day (1.7-2 gm/kg) - wound healing with debridment Fluid: ml 6225-4185 ml/day (1 ml/kcal) Nutritional Problem 1. Problem Problem Increased nutrient needs related to Etiology wound healing aeb Signs/Symptoms: hip wound with recent debridment Intervention/Recommendation Recommendations by RD Protein supplementation Comments 1. Continue mechanical soft chopped diet as tolerated by juan antonio. 2. Switch Boost for Boost Plus to optimize protein intake. Boost plus TID to provide 1080n kcal, 42 gm protein. 3. Continue multivitamin and vitamin C supplementation to promote wound healing. Consider adding arginaid powder 1 packet/day. 4. Continue to monitor blood sugar and provide insulin as prescribed; if blood sugar increases, consider modifying diet to 60 gm CCHO with Boost Glucose Control TID. Expected Outcomes/Goals Expected Outcomes/Goals Oral intake to meet >75% of estimated nutrient needs, weight stable, nutrition related labs remain normal. Physician Parameters for PEM Serum Albumin (g/dl) 3.1 - 3.4 (Mild)
--- NOTE | 2016-11-02 00:26 | Admit Criteria Form ---
Admit Criteria Forms - Admit Criteria Diagnosis: CELLULITIS Clinical Indications for Admission to Inpatient Care (Place 'X' for any and all applicable criteria): Admission is indicated for ANY ONE of the following(1)(2)(3)(4)(5): [ ]I. Limb-threatening infection [ ]II. High-risk comorbid condition as indicated by ANY ONE of the following: [ ]a) Uncontrolled diabetes (eg, HbA1c greater than 10% (0.1)) [ ]b) Cirrhosis [ ]c) Neutropenia [ ]d) Asplenia [ ]e) Immunosuppression [ ]f) Symptomatic heart failure [ ]III. Failure of outpatient therapy as indicated by ALL of the following: [ ]a) Progression or no improvement after adequate trial (minimum of 48 hours, with longer period for stable lower extremity infection) [ ]b) Adequate antibiotic regimen as indicated by use of ANY ONE of the following: [ ]i) First-generation cephalosporin (e.g., cephalexin) [ ]ii) Antistaphylococcal penicillin (e.g., dicloxacillin) [ ]iii) Penicillin-allergic patient regimen (clindamycin, extended-spectrum fluoroquinolone, or doxycycline) [ ]iv) Resistant organism (eg, methicillin-resistant Staphylococcus aureus) regimen (6) [ ]c) Outpatient intravenous therapy regimen is not appropriate due to ANY ONE of the following. (7)(8)(9)(10): [ ]i) It was tried and was not successful (eg, progression of infection). [ ]ii) It is not available or cannot be arranged in a clinically appropriate time frame (e.g., the next day). [ ]iii) Clinical presentation (eg, acuity of infection, rapidity of progression, confirmed or suspected bacteremia) is judged to require ALL of the following: [ ]1) Immediate initiation of intravenous therapy ( eg, cannot wait for next day) [ ]2) Intensity of patient monitoring and observation (eg, vital sign measurement, checks for infection progression) that cannot be provided at other than inpatient level of care [ ]IV. Mental status changes [ ]V. Bacteremia [ ]. Hemodynamic instability [ ]VII. Suspected necrotizing soft tissue infection (e.g., gas in tissue)(11)( 12) [ ]VIII. Orbital infection (13)(14) [ ]IX. Associated surgical procedure (e.g., abscess drainage, debridement) not amenable to outpatient, emergency department, or observation care [ ]X. Cutaneous gangrene [ ]XI. High fever (temperature greater than 39.5 degrees C (103.1 degrees F) (oral)) not responsive to outpatient, emergency department, or observation care therapy [ X]XIII. Inpatient admission required rather than observation care (Also use Cellulitis: Observation Care as appropriate) because of ANY ONE of the following : [ ]a) Periorbital or perineal infection that is severe or worsening [ ]b) Severe pain requiring acute inpatient management [ ]c) IV fluid to replace significant ongoing (e.g., for over 24 hours) losses (greater than 3L/m2 per day) [ ]d) Compartment syndrome monitoring (17) [ ]e) Strict or protective (eg, laminar flow) isolation [ ]f) Urgent debridement or skin grafting [ ]g) Bone or joint debridement [ ]h) Immediate inpatient surgery [ X]i) Other condition, treatment or monitoring requiring inpatient admission Extended stay beyond goal length of stay may be needed for (1)(18): [ ]a) Necrotizing soft tissue infection or fasciitis [ ]b) Gram-negative infection [ ]c) Methicillin-resistant Staphylococcal aureus (MRSA) infection [ ]d) Peripheral venous insufficiency with cellulitis [ ]e) Extensive edema [ ]f) Sepsis or continued Hemodynamic instability [ ]g) Continued high fever or mental status change [ ]h) Bacteremia [ ]i) Active serious comorbid conditions ( eg, heart failure, renal insufficiency) The original [facility] [employer] content created by [facility] [employer] has been revised. The portions of the content which have been revised are identified through the use of italic text or in bold, and [facility] has neither reviewed nor approved the modified material. All other unmodified content is copyright [facility] Please see references footnoted in the original [facility] edition 2016 Admit Criteria Met?: Yes
--- NOTE | 2016-11-02 05:25 | Pathology Report ---
[id number] Collection date: 10/28/2016 Surgeon: Dr. Brendon Disla Specimen Description: Debrided tissue, right buttock Gross Description: Received in formalin are two irregular portions of skin and soft tissue measuring 2.2 and 2.3 cm in greatest dimension. Sectioning shows areas of ulceration and degenerative changes. [place] sections are submitted in one cassette. Microscopic Description: The histologic sections show ulcerated skin with acute suppurative inflammation consisting of large collections of neutrophils within a degenerated / necrotic background. Diagnosis: Ulcerated skin and soft tissue showing suppurative inflammation and necrosis, consistent with debridement. [facility]# [id number] MTDTeresa
[2016-11-02] MEDS: Venelex 60gm Tube TP SCH (10:01)
[2016-11-02] MEDS: Silver Antimicrobial Wound Gel 0.25 oz Tube TP SCH (10:02)
[2016-11-02] MEDS: Multivitamin Tab PO SCH (10:02)
--- NOTE | 2016-11-02 11:26 | Infectious Disease Prog Note ---
Infectious Disease Subjective - Review of Systems Service Date: 11/02/16 Subjective: sacral decub hpi- pt wound cx e coli mrsa schedule for discharg ed/w staff 1 week abx as above s no fver oe vs chets claer abd soft sacral decub dx sacral decub infection plan van co zosyn iv x 1 week Infectious Disease Objective - Results Result Diagrams: 11/01/16 06:30 11/01/16 06:30 Recent Labs: Laboratory Last Values WBC 11.5 Th/cmm (4.8-10.8) H D 11/01/16 06:30 RBC 4.04 Mil/cmm (3.80-5.20) 11/01/16 06:30 Hgb 12.3 gm/dL (11.7-16.1) 11/01/16 06:30 Hct 37.6 % (35.0-45.0) 11/01/16 06:30 MCV 93.2 fl (81-100) 11/01/16 06:30 MCH 30.5 pg (27.0-31.0) 11/01/16 06:30 MCHC Differential 32.7 pg (28.0-36.0) 11/01/16 06:30 RDW 11.7 % (11.5-20.0) 11/01/16 06:30 Plt Count 393 Th/cmm (150-400) 11/01/16 06:30 MPV 6.6 fl 11/01/16 06:30 Neutrophils % 78.5 % (40.0-80.0) 11/01/16 06:30 Lymphocytes % 15.4 % (20.0-50.0) L 11/01/16 06:30 Monocytes % 4.4 % (2.0-10.0) 11/01/16 06:30 Eosinophils % 0.6 % (0.0-5.0) 11/01/16 06:30 Basophils % 1.1 % (0.0-2.0) 11/01/16 06:30 PT 9.9 SECONDS (9.5-11.5) 10/29/16 06:34 INR 0.95 (0.5-1.4) 10/29/16 06:34 PTT (Actin FS) 21.2 SECONDS (26.0-38.0) L 10/29/16 06:34 Sodium 140 mEq/L (136-145) 11/01/16 06:30 Potassium 3.8 mEq/L (3.5-5.1) 11/01/16 06:30 Chloride 108 mEq/L (98-107) H 11/01/16 06:30 Carbon Dioxide 28.1 mEq/L (21.0-31.0) 11/01/16 06:30 Anion Gap 7.7 (7.0-16.0) 11/01/16 06:30 BUN 14 mg/dL (7-25) 11/01/16 06:30 Creatinine 0.7 mg/dL (0.6-1.2) 11/01/16 06:30 Est GFR ( Amer) TNP 11/01/16 06:30 Est GFR (Non-Af Amer) TNP 11/01/16 06:30 BUN/Creatinine Ratio 20.0 11/01/16 06:30 Glucose 159 mg/dL (70-105) H 11/01/16 06:30 POC Glucose 145 MG/DL (70 - 105) H 10/29/16 05:59 Hemoglobin A1c % 7.7 % (4.0-6.0) H 10/28/16 06:25 Calcium 9.4 mg/dL (8.6-10.3) 11/01/16 06:30 Total Bilirubin 0.4 mg/dL (0.3-1.0) 10/28/16 06:25 AST 27 U/L (13-39) 10/28/16 06:25 ALT 23 U/L (7-52) 10/28/16 06:25 Alkaline Phosphatase 124 U/L (34-104) H 10/28/16 06:25 Total Protein 7.2 gm/dL (6.0-8.3) 10/28/16 06:25 Albumin 3.2 gm/dL (3.7-5.3) L 10/28/16 06:25 Globulin 4.0 gm/dL 10/28/16 06:25 Albumin/Globulin Ratio 0.8 (1.0-1.8) L 10/28/16 06:25 PTH Intact 21 pg/mL (15-65) 10/28/16 06:25 Vancomycin Trough 14.9 ug/mL (10-20) 10/30/16 10:55 - Physical Exam Vitals and I&O: Vital Signs Temp 97 F 11/02/16 04:00 Pulse 98 11/02/16 04:00 Resp 18 11/02/16 04:00 BP 110/67 11/02/16 04:00 Pulse Ox 98 11/02/16 04:00 Intake & Output 11/01/16 11/02/16 11/02/16 18:59 06:59 18:59 Intake Total 850 100 Balance 850 100 Weight (lbs) 53.388 kg 53.07 kg Intake: Intake, IV Amount 450 100 Piperacillin Sodium/ 200 100 Tazobact 4.5 gm In Sodium Chloride 0.9% 100 ml @ 100 mls/hr IV Q8HR [facility] Rx #:[id number] Vancomycin HCl 1.25 gm In 250 Sodium Chloride 0.9% 250 ml @ 165 mls/hr IV Q24H [facility] Rx#:[id number] Oral 400 Other: # Voids 3 3 # Bowel Movements 2 4 Active Medications: Current Medications Acetaminophen (Tylenol) 650 mg PO Q4H PRN PRN Reason: PAIN/FEVER Stop: 12/27/16 11:35 Atorvastatin Calcium (Lipitor) 40 mg PO DAILY [facility] PRN Reason: Protocol Stop: 12/27/16 08:59 Last Admin: 11/02/16 10:01 Dose: Not Given Atorvastatin Calcium (Lipitor) 40 mg PO HS [facility] Stop: 12/27/16 20:59 Last Admin: 11/01/16 21:50 Dose: 40 mg Docusate Sodium (Colace) 100 mg PO BID [facility] Stop: 12/27/16 08:59 Last Admin: 11/02/16 10:02 Dose: Not Given Donepezil HCl (Aricept) 10 mg PO HS [facility] Stop: 12/26/16 20:59 Last Admin: 11/01/16 21:50 Dose: 10 mg Glipizide (Glucotrol) 2.5 mg PO DAILY [facility] Stop: 12/27/16 08:59 Last Admin: 11/02/16 10:02 Dose: Not Given Hydroxyzine Pamoate (Vistaril) 25 mg PO BID [facility] PRN Reason: Protocol Stop: 12/27/16 08:59 Last Admin: 11/02/16 10:02 Dose: Not Given Vancomycin HCl 1.25 gm/ Sodium (Chloride) 250 mls @ 165 mls/hr IV Q24H [facility] Stop: 12/27/16 10:59 Last Infusion: 11/01/16 14:00 Dose: Infused Piperacillin Sod/Tazobactam (Sod 4.5 gm/ Sodium Chloride) 100 mls @ 100 mls/hr IV Q8HR [facility] Stop: 12/27/16 12:59 Last Admin: 11/02/16 09:59 Dose: 100 mls/hr Ketoconazole (Nizoral 2% Cream) 1 appl TP BID [facility] Stop: 12/27/16 08:59 Last Admin: 11/02/16 10:02 Dose: Not Given Lorazepam (Ativan) 0.5 mg PO Q4HR PRN; Protocol PRN Reason: Anxiety Stop: 12/26/16 18:55 Last Admin: 11/01/16 02:08 Dose: 0.5 mg Magnesium Hydroxide (Milk Of Magnesia) 30 ml PO HS PRN PRN Reason: STOMACH Stop: 12/27/16 11:37 Memantine (Namenda) 5 mg PO DAILY [facility] Stop: 12/27/16 08:59 Last Admin: 11/02/16 10:02 Dose: Not Given Metformin HCl (Glucophage) 500 mg PO BIDWM [facility] Stop: 12/27/16 07:59 Last Admin: 11/02/16 10:01 Dose: Not Given Miscellaneous (Vancomycin Iv Per Pharmacy) 1 [facility] PRN PRN PRN Reason: PROTOCOL Stop: 12/26/16 20:59 Miscellaneous (Empagliflozin [Jardiance]) 10 mg PO DAILY [facility] Stop: 12/27/16 08:59 Miscellaneous (Zosyn Iv Per Pharmacy) 1 [facility] PRN PRN PRN Reason: PROTOCOL Stop: 12/27/16 12:25 Multivitamins/Vitamin C (Theragran) 1 tab PO DAILY [facility] Stop: 12/28/16 08:59 Last Admin: 11/02/16 10:02 Dose: Not Given Mupirocin (Bactroban Oint) 1 appl NS BID [facility] Stop: 12/27/16 16:59 Last Admin: 11/02/16 10:02 Dose: Not Given Risperidone (Risperdal) 0.75 mg PO BID [facility] PRN Reason: Protocol Stop: 12/27/16 08:59 Last Admin: 11/02/16 10:02 Dose: Not Given Wound Care/Dressing Products (Silvasorb) 1 appl TP DAILY [facility] Stop: 12/29/16 08:59 Last Admin: 11/02/16 10:02 Dose: Not Given Zolpidem Tartrate (Ambien) 5 mg PO HS PRN PRN Reason: Insomnia Stop: 12/26/16 18:55 Last Admin: 11/01/16 02:08 Dose: 5 mg - Procedures Procedures: Procedures Procedure Code Date EXCISION OF R UP LEG SUBCU/FASCIA, OPEN APPROACH [id number] 10/27/16 REMOVAL OF PRESSURE SORE 11086 10/27/16 Nutritional Asmnt/Malnutr-PDOC - Dietary Evaluation Malnutrition Findings (Please click <Entered> for more info): Nutritional Asmnt/Malnutrition Start: 10/30/16 10: 52 Text: Status: Complete Freq: Document 10/30/16 10:52 MMULHERN (Rec: 10/30/16 11:15 MMULHERN RIYA- FNS1) Nutritional Asmnt/Malnutrition Patient General Information Nutritional Screening Consult Diagnosis Cellulitis of buttock, mild protein-calorie malnutrition, pressure ulcer Pertinent Medical Hx/Surgical Hx Dementia, DM Subjective Information Consult received for absesses. Patient was admitted from SNF . Had excisional debridment of right hip ulcer 10/29. 1:1 sitter. Patient seen in bed agitated, trying to pull out IV. Current Diet Order/ Nutrition Support Mechanical soft chopped with Boost TID. Patient / S.O Can't verbalize diet edu Pertinent Medications lipitor, colace, glipizide, MOM, metformin, vancomycin, MVI w/C Pertinent Labs Glucose 223>197>124>145, HGA1C 7.7, albumin 3.2 Nutritional Hx/Data Height 1.68 m Height (Calculated Centimeters) 167.6 Current Weight (lbs) 53.977 kg Weight (Calculated Kilograms) 54.0 Weight (Calculated Grams) 65419.5 [place] Body Weight 130 % [place] Body Weight 91 Weight Status Approriate GI Symptoms GI Symptoms None Difficult in: Chewing Food Allergies No Cultural/Ethnic/Sikh Belief none indicated Usual diet at home unknown Skin Integrity/Comment: 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 Current %PO Fair (50-74%) Estimated Nutritional Goals BEE in Kcals: Using Current wt Calories/Kcals/Kg 119 lb/54kg CBW Kcals Calculated 2650-3126 kcal/day (30-35 kcal /kg) - wound healing, BMI Protein: Using Current wt Protein Calculated 90-108 gm/day (1.7-2 gm/kg) - wound healing with debridment Fluid: ml 4915-8046 ml/day (1 ml/kcal) Nutritional Problem 1. Problem Problem Increased nutrient needs related to Etiology wound healing aeb Signs/Symptoms: hip wound with recent debridment Intervention/Recommendation Recommendations by RD Protein supplementation Comments 1. Continue mechanical soft chopped diet as tolerated by juan antonio. 2. Switch Boost for Boost Plus to optimize protein intake. Boost plus TID to provide 1080n kcal, 42 gm protein. 3. Continue multivitamin and vitamin C supplementation to promote wound healing. Consider adding arginaid powder 1 packet/day. 4. Continue to monitor blood sugar and provide insulin as prescribed; if blood sugar increases, consider modifying diet to 60 gm CCHO with Boost Glucose Control TID. Expected Outcomes/Goals Expected Outcomes/Goals Oral intake to meet >75% of estimated nutrient needs, weight stable, nutrition related labs remain normal. Physician Parameters for PEM Serum Albumin (g/dl) 3.1 - 3.4 (Mild)
--- NOTE | 2016-11-03 04:44 | Progress Notes ---
DATE: 11/02/2016 SUBJECTIVE: Case was discussed with staff of the patient, reviewed records. The patient continues to have poor insight. However, she is demented, confused, unable to make safe plan for self care. She is sleeping better. She is eating better. She is no longer causing any management problem according to the staff, so she is ready to go back to the nursing facility where they will also take care of her. I told the patient that I will be following up with the patient there at [place]. JOB# [id number]
== END 2016-11-02 19:00 | DRG 571 ==
LOC: MSI 15:54 → UNDODISIN 11-02 13:00
PROVIDERS: ADMIT Family Medicine; ATTEND Family Medicine
PROC: 0JB90ZZ Excision of Buttock Subcutaneous Tissue and Fascia, Open Approach (ICD-10-PCS; principal; 2016-10-29)
DX: L02.31 Cutaneous abscess of buttock (principal); E44.1 Mild protein-calorie malnutrition; L89.150 Pressure ulcer of sacral region, unstageable; F03.90 Unspecified dementia, unspecified severity, without behavioral disturbance, psychotic disturbance, mood disturbance, and anxiety; B95.62 Methicillin resistant Staphylococcus aureus infection as the cause of diseases classified elsewhere; E11.9 Type 2 diabetes mellitus without complications; Z68.1 Body mass index [BMI] 19.9 or less, adult; L03.317 Cellulitis of buttock; E78.5 Hyperlipidemia, unspecified; F29 Unspecified psychosis not due to a substance or known physiological condition; M19.90 Unspecified osteoarthritis, unspecified site; B96.20 Unspecified Escherichia coli [E. coli] as the cause of diseases classified elsewhere; Z79.84 Long term (current) use of oral hypoglycemic drugs
CPT/HCPCS: 36415-UA; 71010-TC; 80048-TC; 80053-TC; 80202-TC; 82565-TC; 82948-90; 83036-90; 83970-90; 84520-TC; 85025-TC; 85610-TC; 87070-90; 87075-90; 87205-90; J2001; J2250; J2543; J2704; J3370; J7030; Q0177; Z7610

== ENCOUNTER 2017-06-02 17:14 | Inpatient (IN) | payer MEDICAID, MEDICARE ==
--- NOTE | 2017-06-02 17:46 | ED Physician Chart ---
ED Chief Complaint/HPI - Patient Information Date Seen:: 06/02/17 Time Seen:: 17:25 Chief Complaint:: Agitation History of Present Illness:: onset x one day of agitation and aggressive/hostile behavior; no report of SIs, trauma, H/as, neck pain, C/P, SOB, Abd. Pain, A/N/V/D/C, fever, chills, or urinary s/s Allergies:: Allergies Allergy/AdvReac Type Severity Reaction Status Date / Time No Known Allergies Allergy Verified 10/07/16 18:22 Historian:: Patient, EMS Review:: Nurse's Note Reviewed, Old Chart Reviewed, EMS run form Reviewed ED Review of Systems - Review of Systems General/Constitutional: No fever, No chills, No weight loss, No weakness, No diaphoresis, No edema, No loss of appetite Skin: No skin lesions, No rash, No bruising Head: No headache, No light-headedness Eyes: No loss of vision, No pain, No diplopia ENT: No earache, No nasal drainage, No sore throat, No tinnitus Neck: No neck pain, No swelling, No thyromegaly, No stiffness, No mass noted Cardio Vascular: No chest pain, No palpitations, No PND, No orthopnea, No edema Pulmonary: No SOB, No cough, No sputum, No wheezing GI: No nausea, No vomiting, No diarrhea, No pain, No melena, No hematochezia, No constipation, No hematemesis G/U: No dysuria, No frequency, No hematuria, No nacturia [employer] Claims Adjuster: No vaginal discharge, No abnormal vaginal bleed, No contraction Musculoskeletal: No bone or joint pain, No back pain, No muscle pain Endocrine: No polyuria, No polydipsia Psychiatric: Prior psych history, Depression, Anxiety, No suicidal ideation, No homicidal ideation, Auditory hallucination, No visual hallucination Hematopoietic: No bruising, No lymphadenopathy Allergic/Immuno: No urticaria, No angioedema Neurological: No syncope, No focal symptoms, No weakness, No paresthesia, No headache, No seizure, No dizziness, Confusion, No vertigo ED Past Medical History - Past Medical History Obtainable: Yes Past Medical History: HTN, DM, Dyslipidemia, Dementia Family History: Diabetes Melitus, HTN Social History: Non Smoker, No Alcohol, No Drug Use, Single, Care Facility Surgical History: None Psychiatricy History: Depression, Bipolar, Dementia Medication: Reviewed Family Medical History - Family Member Mother History Unknown: Yes (Not cotributary) Ethnicity: Unknown Living Status: Unknown Hx Family Cancer: (unknown) Hx Family Coronary Artery Disease: (unknown) Hx Family Congestive Heart Failure: (unknown) Hx Family Hypertension: (unknown) Hx Family Stroke: (unknown) Hx Family Diabetes: (unknown) Hx Family Seizures: (unknown) Hx Family Dementia: (unknown) Hx Family AIDS: (unknown) Hx Family COPD: (unknown) Hx Family Hepatitis: (unknown) Hx Family Psychiatric Problems: (unknown) Hx Family Tuberculosis: No ED Physical Exam - Physical Examination General/Constitutional: Awake, Well-developed, well-nourished, Alert, No distress, GCS 15, Non-toxic appearing, Ambulatory Head: Atraumatic Eyes: Lids, conjuctiva normal, PERRL, EOMI Skin: Nl inspection, No rash, No skin lesions, No ecchymosis, Well hydrated, No lymphadenopathy ENMT: External ears, nose nl, TM canals nl, Nasal exam nl, Lips, teeth, gums nl , Oropharynx nl, Tonsils nl Neck: Nontender, Full ROM w/o pain, No JVD, No nuchal rigidity, No bruit, No mass, No stridor Respiratory: Nl effort/Exclusion, Clear to Auscultation, No Wheeze/Rhonchi/Rales Cardio Vascular: RRR, No murmur, gallop, rubs, NL S1 S2, Carotid/Femoral/Distal pulses equal bilaterally GI: No tenderness/rebounding/guarding, No organomegaly, No hernia, Normal BS's, Nondistended, No mass/bruits, No McBurney tenderness : No CVA tenderness Extremities: No tenderness or effusion, Full ROM, normal strength in all extremities, No edema, Normal digits & nails Neuro/Psych: DTR's symmetric, Normal sensory exam, Normal motor strength, Judgement/insight normal, Mood normal, Normal gait, No focal deficits Other Neuro/Psych comments:: Disoriented and Confused; + Psychomotor Agitation; no SIs; Mood/affect: Labile Misc: Normal back, No paraspinal tenderness ED Labs/Radiology/EKG Results - Lab Results Comments:: unremarkable - EKG Interpretations EKG Time:: 17:52 Rate & Rhythm: 75; NSR Comments:: non-specific st-t changes ED Septic Shock - . Is Septic Shock (SBP<90, OR Lactate>4 mmol\L) present?: No ED Reassessment (Disposition) - Reassessment Reassessment Condition:: Improved - Diagnosis Diagnosis:: Medically Cleared; Dementia; Agitation; Bipolar Disorder - Aftercare/Follow up Instructions Aftercare/Follow-Up Instructions:: Counseled pt regarding lab results/diagnosis & need follow up, Counseled pt & family regarding lab results/diagnosis & need follow up - Patient Disposition Discharge/Transfer:: Acute Care w/in this hosp Admitted to:: [facility] Condition at Disposition:: Stable, Improved
[2017-06-02 18:26] LABS: % BASOPHILS 0.6 % (0.0-2.0); % EOSINOPHILS 2.8 % (0.0-5.0); % NEUTROPHILS 48.6 % (40.0-80.0); EOSINOPHILE ABSOLUTE 0.2 Th/cmm (0.1-0.4); HEMATOCRIT 36.9 % (41.0-60); HEMOGLOBIN 12.3 gm/dL (12-16); LYMPHOCYTE ABSOLUTE 2.8 Th/cmm (1.5-3.0); MEAN CORPUSCULAR HEMOGLOBIN 30.6 pg (27.0-31.0); MEAN CORPUSCULAR HGB CONC 33.3 pg (28.0-36.0); MEAN PLATELET VOLUME 6.6 fl; MONOCYTE ABSOLUTE 0.4 Th/cmm (0.3-1.0); NEUTROPHILE ABSOLUTE 3.2 Th/cmm (1.8-8.0); RED BLOOD COUNT 4.01 Mil/cmm (3.80-5.20); RED CELL DISTRIBUTION WIDTH 13.2 % (11.5-20.0)
[2017-06-02 18:29] LABS: WHITE BLOOD COUNT 6.6 Th/cmm (4.8-10.8)
[2017-06-02 18:30] LABS: PLATELET COUNT 287 Th/cmm (150-400)
[2017-06-02 18:41] LABS: ALB/GLOB RATIO 0.9 (1.0-1.8); ALBUMIN 3.4 gm/dL (3.7-5.3); ALKALINE PHOSPHATASE 116 U/L (34-104); ANION GAP 9.9 (7.0-16.0); BILIRUBIN,TOTAL 0.4 mg/dL (0.3-1.0); BUN - UREA NITROGEN 18 mg/dL (7-25); CALCIUM SERUM 9.4 mg/dL (8.6-10.3); CARBON DIOXIDE 24.2 mEq/L (21.0-31.0); CHLORIDE 107 mEq/L (98-107); CHOLESTEROL 123 mg/dL (<200); CREATININE - SERUM 0.7 mg/dL (0.6-1.2); GLUCOSE 133 mg/dL (70-105); HDL -HIGH DENSITY LIPOPROTEIN 60 mg/dL (23-92); POTASSIUM SERUM 4.1 mEq/L (3.5-5.1); SGOT 28 U/L (13-39); SGPT/ALT 32 U/L (7-52); SODIUM SERUM 137 mEq/L (136-145); TOTAL PROTEIN,SERUM 7.3 gm/dL (6.0-8.3); TRIGLYCERIDES 107 mg/dL (<150)
[2017-06-02 18:42] LABS: ACETAMINOPHEN < 10.0 ug/mL (10.0-30.0); SALICYLATES (ASPIRIN) < 25.0 mg/L (30.0-100.0)
[2017-06-02 20:23] VITALS: BP 125/69
[2017-06-03] MEDS: Calcium Carb/Vit D 500 mg/200 U Tab PO SCH (09:03)
--- NOTE | 2017-06-03 12:52 | Psychosocial Evaluation ---
DATE OF SERVICE: IDENTIFYING INFORMATION: The patient is a 76-year-old female. CHIEF COMPLAINT: No answer. HISTORY OF PRESENT ILLNESS: The patient was referred from [place] because of agitated behavior. The patient is demented, confused, unable to make safe plan for self-care. She is well known prior to me as I have seen her many times with multiple prior admissions, also I see her at [facility]. She is unpredictable, impulsive, confused, unable to participate in a meaningful conversation. PAST PSYCHIATRIC HISTORY: Multiple prior admission to this facility because of psychosis and dementia. The patient is a poor historian. Unable to tell me the date, where she is, why she is here. ALLERGIES: No known drug allergies. PAST MEDICAL HISTORY: The patient is diabetic with hyperlipidemia. MEDICATIONS: The patient was restarted on her medication, Namenda 5 mg daily and Aricept 5 mg at bedtime. FAMILY AND SOCIAL HISTORY: The patient has been at [facility]. Her family is very much involved. The patient has many children that are very supportive. They always come visit her. They visit her here in the past. While she was at [facility], they are very much involved in her care. No further information is available from the patient. MENTAL STATUS EXAMINATION: The patient is appropriately dressed, not well groomed. She was somewhat irritable, unable to participate in a meaningful conversation, tell me her age, where she is, or why she is here. Her long and short term memory is poor. Unable to tell me why she is here or where she is. She was acting agitated at the [facility], hard to redirect, unpredictable, impulsive. When asked about suicide, homicide, she would not answer any of my questions. Her insight and judgment is impaired. IMPRESSION: AXIS I: Psychosis, not otherwise specified, dementia. MEDICAL DIAGNOSES: Diabetes mellitus, hyperlipidemia. Her assets, she is accepting and negative poor coping skills. INITIAL TREATMENT PLAN: We will increase her Namenda. Continue Aricept. We will do group therapy, milieu therapy, and individual therapy. ESTIMATED LENGTH OF STAY: 3-7 days. DISCHARGE CRITERIA: Decrease in psychosis, agitation. After discharge, outpatient. JOB# [id number]
[2017-06-03 14:25] LABS: A1C % 8.8 % (4.0-6.0)
[2017-06-03] MEDS ORDERED: PYRIDOXINE PO SCH (21:00)
[2017-06-03] MEDS ORDERED: MELATONIN PO SCH (21:00)
[2017-06-03] MEDS: Atorvastatin Calcium 10 MG TAB PO SCH (21:42)
--- NOTE | 2017-06-03 22:00 | History & Physical ---
ADMIT DATE: 06/03/2017 HISTORY OF PRESENT ILLNESS: The patient is a 76-year-old female with long history of diabetes mellitus, hyperlipidemia, degenerative joint disease, dementia, admitted to Geropsych Department at [facility] for evaluation and treatment. The patient is a poor historian. No fever, no chills, no nausea, no vomiting. PAST MEDICAL HISTORY: Significant for diabetes mellitus, hyperlipidemia, degenerative joint disease, dementia. PAST SURGICAL HISTORY: No recent surgery. ALLERGIES: None. MEDICATIONS: Follow admission reconciliation. SOCIAL HISTORY: No smoking, alcohol or drug use. FAMILY HISTORY: Noncontributory. REVIEW OF SYSTEMS: RENAL SYSTEM: No history of chronic renal disorder. CARDIOVASCULAR SYSTEM: No coronary artery disease. ENDOCRINE SYSTEM: She has history of diabetes mellitus. No thyroid problem. GASTROINTESTINAL SYSTEM: No upper or lower gastrointestinal bleed. NEUROLOGICAL SYSTEM: History of dementia. No seizure disorder. SKELETOMUSCULAR SYSTEM: She had degenerative joint disease. PHYSICAL EXAMINATION: GENERAL: She is awake, not coherent. VITAL SIGNS: Temperature 97.7, heart rate 84, blood pressure 108/63. HEENT: Normocephalic. Pupils reactive to light and accommodation. Sclerae clear. NECK: Supple. Negative for lymphadenopathy, JVD or bruit. CHEST: Entry of air bilaterally normal. No rhonchi or wheezing. HEART: S1, S2 normal. No murmur, gallop or rub. ABDOMEN: Soft, bowel sounds positive. EXTREMITIES: No edema. BACK: No tenderness. SKIN: Intact. NEUROLOGIC: She is awake, not coherent. No focal motor deficits. LABORATORY DATA: White blood 6.6, hemoglobin 12.3, hematocrit 36.9, and platelet is 287. Sodium 137, potassium 4.1, BUN 18, creatinine 0.7, glucose 133. ASSESSMENT: 1. Diabetes mellitus. 2. Hyperlipidemia. 3. Degenerative joint disease. 4. Dementia. PLAN: The patient admitted to the hospital under Dr. Zuñiga's service. MEDICAL PROBLEMS ADDRESSED DURING HOSPITALIZATION: Dementia. MEDICAL PROBLEMS ADDRESSED AT DISCHARGE: Diabetes mellitus, hypertension, degenerative joint disease. The patient is medically stable for activity. Thank you, Dr. Zuñiga for asking me to see your patient. JOB# [id number]
[2017-06-04] MEDS: INSULIN ASPART SLIDING SCALE 100 UNITS/ML UNIT SUBQ SCH ×4 (06:40→21:20)
[2017-06-04] MEDS: Calcium Carb/Vit D 500 mg/200 U Tab PO SCH (08:55)
[2017-06-04] MEDS: Multivitamin w/ Minerals Tab PO SCH (08:56)
--- NOTE | 2017-06-04 19:46 | Internal Medicine Prog Note ---
Internal Medicine Subjective - Subjective Service Date: 06/04/17 Patient seen and examined:: with staff Patient is:: in bed, confused Per staff patient has:: no adverse event Internal Medicine Objective - Results Result Diagrams: 06/02/17 18:18 06/02/17 18:18 Recent Labs: Laboratory Last Values WBC 6.6 Th/cmm (4.8-10.8) D 06/02/17 18:18 RBC 4.01 Mil/cmm (3.80-5.20) 06/02/17 18:18 Hgb 12.3 gm/dL (12-16) 06/02/17 18:18 Hct 36.9 % (41.0-60) L 06/02/17 18:18 MCV 92.0 fl (81-100) 06/02/17 18:18 MCH 30.6 pg (27.0-31.0) 06/02/17 18:18 MCHC Differential 33.3 pg (28.0-36.0) 06/02/17 18:18 RDW 13.2 % (11.5-20.0) 06/02/17 18:18 Plt Count 287 Th/cmm (150-400) D 06/02/17 18:18 MPV 6.6 fl 06/02/17 18:18 Neutrophils % 48.6 % (40.0-80.0) 06/02/17 18:18 Lymphocytes % 42.0 % (20.0-50.0) 06/02/17 18:18 Monocytes % 6.0 % (2.0-10.0) 06/02/17 18:18 Eosinophils % 2.8 % (0.0-5.0) 06/02/17 18:18 Basophils % 0.6 % (0.0-2.0) 06/02/17 18:18 Sodium 137 mEq/L (136-145) 06/02/17 18:18 Potassium 4.1 mEq/L (3.5-5.1) 06/02/17 18:18 Chloride 107 mEq/L (98-107) 06/02/17 18:18 Carbon Dioxide 24.2 mEq/L (21.0-31.0) 06/02/17 18:18 Anion Gap 9.9 (7.0-16.0) 06/02/17 18:18 BUN 18 mg/dL (7-25) 06/02/17 18:18 Creatinine 0.7 mg/dL (0.6-1.2) 06/02/17 18:18 Est GFR ( Amer) TNP 06/02/17 18:18 Est GFR (Non-Af Amer) TNP 06/02/17 18:18 BUN/Creatinine Ratio 25.7 06/02/17 18:18 Glucose 133 mg/dL (70-105) H 06/02/17 18:18 POC Glucose 118 MG/DL (70 - 105) H 06/04/17 11:56 Hemoglobin A1c % 8.8 % (4.0-6.0) H 06/02/17 18:18 Calcium 9.4 mg/dL (8.6-10.3) 06/02/17 18:18 Total Bilirubin 0.4 mg/dL (0.3-1.0) 06/02/17 18:18 AST 28 U/L (13-39) 06/02/17 18:18 ALT 32 U/L (7-52) 06/02/17 18:18 Alkaline Phosphatase 116 U/L (34-104) H 06/02/17 18:18 Total Protein 7.3 gm/dL (6.0-8.3) 06/02/17 18:18 Albumin 3.4 gm/dL (3.7-5.3) L 06/02/17 18:18 Globulin 3.9 gm/dL 06/02/17 18:18 Albumin/Globulin Ratio 0.9 (1.0-1.8) L 06/02/17 18:18 Triglycerides 107 mg/dL (<150) 06/02/17 18:18 Cholesterol 123 mg/dL (<200) 06/02/17 18:18 LDL Cholesterol Direct 45 mg/dL (75-193) L 06/02/17 18:18 HDL Cholesterol 60 mg/dL (23-92) 06/02/17 18:18 TSH 3.38 uIU/ml (0.34-5.60) 06/02/17 18:18 Salicylates < 25.0 mg/L (30.0-100.0) L 06/02/17 18:18 Acetaminophen < 10.0 ug/mL (10.0-30.0) L 06/02/17 18:18 Ethyl Alcohol < 10 mg/dL (0-10) 06/02/17 18:18 RPR NONREACTIVE (NONREACTIVE) 06/02/17 18:18 - Physical Exam Vitals and I&O: Vital Signs Temp 97.6 F 06/04/17 16:42 Pulse 90 06/04/17 16:42 Resp 18 06/04/17 16:42 BP 118/75 06/04/17 16:42 Pulse Ox 97 06/04/17 16:42 Intake & Output 06/04/17 06/04/17 06/05/17 06:59 18:59 06:59 Intake Total 600 Balance 600 Intake: Oral 600 Other: # Voids 2 # Bowel Movements 1 Stool Characteristics Soft Active Medications: Current Medications Acetaminophen (Tylenol) 325 mg PO Q4HR PRN PRN Reason: Pain (Mild) Stop: 08/02/17 01:11 Alendronate Sodium (Fosamax) 70 mg PO QSAT [facility] Stop: 08/03/17 06:59 Last Admin: 06/04/17 06:40 Dose: Not Given Atorvastatin Calcium (Lipitor) 20 mg PO HS [facility] Stop: 08/02/17 20:59 Last Admin: 06/03/17 21:42 Dose: 20 mg Calcium/Vitamin D (Oscal W/Vitamin D) 1 tab PO DAILY [facility] Stop: 08/02/17 08:59 Last Admin: 06/04/17 08:55 Dose: Not Given Docusate Sodium (Colace) 100 mg PO BID [facility] Stop: 08/02/17 08:59 Last Admin: 06/04/17 16:59 Dose: Not Given Donepezil HCl (Aricept) 10 mg PO HS [facility] Stop: 08/02/17 20:59 Last Admin: 06/03/17 21:42 Dose: 10 mg Glipizide (Glucotrol) 2.5 mg PO QAM [facility] Stop: 08/02/17 08:59 Last Admin: 06/04/17 08:55 Dose: Not Given Insulin Aspart (Novolog Insulin Sliding Scale) 0 units SUBQ ACHS [facility] PRN Reason: Protocol Stop: 08/03/17 07:29 Last Admin: 06/04/17 16:59 Dose: Not Given Lorazepam (Ativan) 1 mg PO Q4HR PRN; Protocol PRN Reason: Agitation Stop: 08/02/17 11:59 Last Admin: 06/04/17 08:56 Dose: 1 mg Magnesium Hydroxide (Milk Of Magnesia) 30 ml PO DAILY PRN PRN Reason: Constipation Stop: 08/02/17 01:11 Memantine (Namenda) 5 mg PO BID [facility] Stop: 08/02/17 16:59 Last Admin: 06/04/17 17:13 Dose: Not Given General: demented HEENT: NC/AT, PERRLA, EOMI, anicteric sclerae, throat clear Neck: Supple, +2 carotid pulse wo bruit, No LAD, + JVD Lungs: CTAB Cardiovascular: RRR, Normal S1, Normal S2, without murmur Abdomen: soft, non-tender, non-distended Extremities: clear Neurological: no change - Procedures Procedures: Procedures Procedure Code Date EXCISION OF BUTTOCK SUBCU/FASCIA, OPEN APPROACH [id number] 10/27/16 REMOVAL OF PRESSURE SORE [id number] 10/27/16 Internal Medicine Assmt/Plan - Assessment Assessment: 1.DM. 2.HYPERLIPIDEMIA. 3.DEMENTIA. 4.PSYCHOSIS. - Plan Plan: CONTINUE ON CURRENT MEDICATION AND DIET.
--- NOTE | 2017-06-04 20:37 | Psychosocial Evaluation ---
DATE OF SERVICE: This is Dr. Orozco covering for Essence Zuñiga MD SUBJECTIVE: The patient was seen and evaluated. The patient's chart reviewed. The patient is a 76-year-old female who was initially brought in here from [place], very disorganized, disheveled, becoming very irritable, needed redirections, whose recently Namenda was increased and maintained on Aricept. Today on [id number] evaluation, the patient presents very disorganized and with severe memory impairment, unable to engage in coherent linear conversation. ASSESSMENT AND PLAN: The patient is a 76-year-old female psychologically distraught by the severe dementia, behavior disturbances, unable to provide safety outside of structured environment. We will continue with primary psychiatrist's treatment plan and goals, which include Aricept at 10 mg a day and Namenda 5 mg p.o. b.i.d. to target the patient's behavior disturbances from her dementia. JOB# [id number]
[2017-06-04] MEDS: Atorvastatin Calcium 10 MG TAB PO SCH (21:02)
[2017-06-05] MEDS: INSULIN ASPART SLIDING SCALE 100 UNITS/ML UNIT SUBQ SCH ×4 (06:39→21:08)
[2017-06-05] MEDS: Calcium Carb/Vit D 500 mg/200 U Tab PO SCH (09:14)
[2017-06-05] MEDS: Multivitamin w/ Minerals Tab PO SCH (09:14)
--- NOTE | 2017-06-05 19:21 | Progress Notes ---
DATE: 06/05/2017 SUBJECTIVE: The patient was seen and evaluated. The patient's chart reviewed. Today on [id number] evaluation, the patient is unable to engage in linear conversation. She derails. She talks target to herself, hyperverbal and observed to be responding. Nursing staff also reported that overnight that she has observed to be continued to be responding, disorganized. MENTAL STATUS EXAMINATION: Disorganized, responding, severe memory impairment and coherent conversation. ASSESSMENT AND PLAN: The patient is a 76-year-old female with severe dementia and behavior disturbances. We will continue with both neurocognitive enhancers include Aricept and Namenda to continue targeting the patient's behavior disturbances from the dementia. We will obtain more collateral baseline information. JOB# [id number]
--- NOTE | 2017-06-05 20:40 | Internal Medicine Prog Note ---
Internal Medicine Subjective - Subjective Service Date: 06/05/17 Patient seen and examined:: with staff Patient is:: in bed, confused Per staff patient has:: no adverse event Internal Medicine Objective - Results Result Diagrams: 06/02/17 18:18 06/02/17 18:18 Recent Labs: Laboratory Last Values WBC 6.6 Th/cmm (4.8-10.8) D 06/02/17 18:18 RBC 4.01 Mil/cmm (3.80-5.20) 06/02/17 18:18 Hgb 12.3 gm/dL (12-16) 06/02/17 18:18 Hct 36.9 % (41.0-60) L 06/02/17 18:18 MCV 92.0 fl (81-100) 06/02/17 18:18 MCH 30.6 pg (27.0-31.0) 06/02/17 18:18 MCHC Differential 33.3 pg (28.0-36.0) 06/02/17 18:18 RDW 13.2 % (11.5-20.0) 06/02/17 18:18 Plt Count 287 Th/cmm (150-400) D 06/02/17 18:18 MPV 6.6 fl 06/02/17 18:18 Neutrophils % 48.6 % (40.0-80.0) 06/02/17 18:18 Lymphocytes % 42.0 % (20.0-50.0) 06/02/17 18:18 Monocytes % 6.0 % (2.0-10.0) 06/02/17 18:18 Eosinophils % 2.8 % (0.0-5.0) 06/02/17 18:18 Basophils % 0.6 % (0.0-2.0) 06/02/17 18:18 Sodium 137 mEq/L (136-145) 06/02/17 18:18 Potassium 4.1 mEq/L (3.5-5.1) 06/02/17 18:18 Chloride 107 mEq/L (98-107) 06/02/17 18:18 Carbon Dioxide 24.2 mEq/L (21.0-31.0) 06/02/17 18:18 Anion Gap 9.9 (7.0-16.0) 06/02/17 18:18 BUN 18 mg/dL (7-25) 06/02/17 18:18 Creatinine 0.7 mg/dL (0.6-1.2) 06/02/17 18:18 Est GFR ( Amer) TNP 06/02/17 18:18 Est GFR (Non-Af Amer) TNP 06/02/17 18:18 BUN/Creatinine Ratio 25.7 06/02/17 18:18 Glucose 133 mg/dL (70-105) H 06/02/17 18:18 POC Glucose 93 MG/DL (70 - 105) 06/05/17 17:02 Hemoglobin A1c % 8.8 % (4.0-6.0) H 06/02/17 18:18 Calcium 9.4 mg/dL (8.6-10.3) 06/02/17 18:18 Total Bilirubin 0.4 mg/dL (0.3-1.0) 06/02/17 18:18 AST 28 U/L (13-39) 06/02/17 18:18 ALT 32 U/L (7-52) 06/02/17 18:18 Alkaline Phosphatase 116 U/L (34-104) H 06/02/17 18:18 Total Protein 7.3 gm/dL (6.0-8.3) 06/02/17 18:18 Albumin 3.4 gm/dL (3.7-5.3) L 06/02/17 18:18 Globulin 3.9 gm/dL 06/02/17 18:18 Albumin/Globulin Ratio 0.9 (1.0-1.8) L 06/02/17 18:18 Triglycerides 107 mg/dL (<150) 06/02/17 18:18 Cholesterol 123 mg/dL (<200) 06/02/17 18:18 LDL Cholesterol Direct 45 mg/dL (75-193) L 06/02/17 18:18 HDL Cholesterol 60 mg/dL (23-92) 06/02/17 18:18 TSH 3.38 uIU/ml (0.34-5.60) 06/02/17 18:18 Salicylates < 25.0 mg/L (30.0-100.0) L 06/02/17 18:18 Acetaminophen < 10.0 ug/mL (10.0-30.0) L 06/02/17 18:18 Ethyl Alcohol < 10 mg/dL (0-10) 06/02/17 18:18 RPR NONREACTIVE (NONREACTIVE) 06/02/17 18:18 - Physical Exam Vitals and I&O: Vital Signs Temp 97.4 F 06/05/17 15:39 Pulse 90 06/05/17 15:39 Resp 18 06/05/17 20:00 BP 111/57 06/05/17 15:39 Pulse Ox 96 06/05/17 15:39 Intake & Output 06/05/17 06/05/17 06/06/17 06:59 18:59 06:59 Intake Total 600 Balance 600 Intake: Oral 600 Other: # Voids 2 # Bowel Movements 1 Stool Characteristics Soft Active Medications: Current Medications Acetaminophen (Tylenol) 325 mg PO Q4HR PRN PRN Reason: Pain (Mild) Stop: 08/02/17 01:11 Alendronate Sodium (Fosamax) 70 mg PO QSAT [facility] Stop: 08/03/17 06:59 Last Admin: 06/04/17 06:40 Dose: Not Given Atorvastatin Calcium (Lipitor) 20 mg PO HS [facility] Stop: 08/02/17 20:59 Last Admin: 06/04/17 21:02 Dose: 20 mg Calcium/Vitamin D (Oscal W/Vitamin D) 1 tab PO DAILY [facility] Stop: 08/02/17 08:59 Last Admin: 06/05/17 09:14 Dose: 1 tab Docusate Sodium (Colace) 100 mg PO BID [facility] Stop: 08/02/17 08:59 Last Admin: 06/05/17 17:50 Dose: 100 mg Donepezil HCl (Aricept) 10 mg PO HS [facility] Stop: 08/02/17 20:59 Last Admin: 06/04/17 21:02 Dose: 10 mg Glipizide (Glucotrol) 2.5 mg PO QAM [facility] Stop: 08/02/17 08:59 Last Admin: 06/05/17 09:14 Dose: 2.5 mg Insulin Aspart (Novolog Insulin Sliding Scale) 0 units SUBQ ACHS [facility] PRN Reason: Protocol Stop: 08/03/17 07:29 Last Admin: 06/05/17 17:50 Dose: Not Given Lorazepam (Ativan) 1 mg PO Q4HR PRN; Protocol PRN Reason: Agitation Stop: 08/02/17 11:59 Last Admin: 06/04/17 08:56 Dose: 1 mg Magnesium Hydroxide (Milk Of Magnesia) 30 ml PO DAILY PRN PRN Reason: Constipation Stop: 08/02/17 01:11 Memantine (Namenda) 5 mg PO BID [facility] Stop: 08/02/17 16:59 Last Admin: 06/05/17 17:50 Dose: 5 mg General: demented HEENT: NC/AT, PERRLA, EOMI, anicteric sclerae, throat clear Neck: Supple, +2 carotid pulse wo bruit, No LAD, + JVD Lungs: CTAB Cardiovascular: RRR, Normal S1, Normal S2, without murmur Abdomen: soft, non-tender, non-distended Extremities: clear Neurological: no change - Procedures Procedures: Procedures Procedure Code Date EXCISION OF BUTTOCK SUBCU/FASCIA, OPEN APPROACH [id number] 10/27/16 REMOVAL OF PRESSURE SORE [id number] 10/27/16 Internal Medicine Assmt/Plan - Assessment Assessment: 1.DM. 2.HYPERLIPIDEMIA. 3.DEMENTIA. 4.PSYCHOSIS. - Plan Plan: CONTINUE ON CURRENT MEDICATION AND DIET.
[2017-06-05] MEDS: Atorvastatin Calcium 10 MG TAB PO SCH (21:08)
[2017-06-06] MEDS: INSULIN ASPART SLIDING SCALE 100 UNITS/ML UNIT SUBQ SCH ×4 (06:48→21:46)
[2017-06-06] MEDS: Multivitamin w/ Minerals Tab PO SCH (09:24)
[2017-06-06] MEDS: Calcium Carb/Vit D 500 mg/200 U Tab PO SCH (09:24)
--- NOTE | 2017-06-06 19:51 | Internal Medicine Prog Note ---
Internal Medicine Subjective - Subjective Service Date: 06/06/17 Patient seen and examined:: with staff (SHE FEEL[employer] WELL) Patient is:: in bed, confused Per staff patient has:: no adverse event Internal Medicine Objective - Results Result Diagrams: 06/02/17 18:18 06/02/17 18:18 Recent Labs: Laboratory Last Values WBC 6.6 Th/cmm (4.8-10.8) D 06/02/17 18:18 RBC 4.01 Mil/cmm (3.80-5.20) 06/02/17 18:18 Hgb 12.3 gm/dL (12-16) 06/02/17 18:18 Hct 36.9 % (41.0-60) L 06/02/17 18:18 MCV 92.0 fl (81-100) 06/02/17 18:18 MCH 30.6 pg (27.0-31.0) 06/02/17 18:18 MCHC Differential 33.3 pg (28.0-36.0) 06/02/17 18:18 RDW 13.2 % (11.5-20.0) 06/02/17 18:18 Plt Count 287 Th/cmm (150-400) D 06/02/17 18:18 MPV 6.6 fl 06/02/17 18:18 Neutrophils % 48.6 % (40.0-80.0) 06/02/17 18:18 Lymphocytes % 42.0 % (20.0-50.0) 06/02/17 18:18 Monocytes % 6.0 % (2.0-10.0) 06/02/17 18:18 Eosinophils % 2.8 % (0.0-5.0) 06/02/17 18:18 Basophils % 0.6 % (0.0-2.0) 06/02/17 18:18 Sodium 137 mEq/L (136-145) 06/02/17 18:18 Potassium 4.1 mEq/L (3.5-5.1) 06/02/17 18:18 Chloride 107 mEq/L (98-107) 06/02/17 18:18 Carbon Dioxide 24.2 mEq/L (21.0-31.0) 06/02/17 18:18 Anion Gap 9.9 (7.0-16.0) 06/02/17 18:18 BUN 18 mg/dL (7-25) 06/02/17 18:18 Creatinine 0.7 mg/dL (0.6-1.2) 06/02/17 18:18 Est GFR ( Amer) TNP 06/02/17 18:18 Est GFR (Non-Af Amer) TNP 06/02/17 18:18 BUN/Creatinine Ratio 25.7 06/02/17 18:18 Glucose 133 mg/dL (70-105) H 06/02/17 18:18 POC Glucose 124 MG/DL (70 - 105) H 06/06/17 17:02 Hemoglobin A1c % 8.8 % (4.0-6.0) H 06/02/17 18:18 Calcium 9.4 mg/dL (8.6-10.3) 06/02/17 18:18 Total Bilirubin 0.4 mg/dL (0.3-1.0) 06/02/17 18:18 AST 28 U/L (13-39) 06/02/17 18:18 ALT 32 U/L (7-52) 06/02/17 18:18 Alkaline Phosphatase 116 U/L (34-104) H 06/02/17 18:18 Total Protein 7.3 gm/dL (6.0-8.3) 06/02/17 18:18 Albumin 3.4 gm/dL (3.7-5.3) L 06/02/17 18:18 Globulin 3.9 gm/dL 06/02/17 18:18 Albumin/Globulin Ratio 0.9 (1.0-1.8) L 06/02/17 18:18 Triglycerides 107 mg/dL (<150) 06/02/17 18:18 Cholesterol 123 mg/dL (<200) 06/02/17 18:18 LDL Cholesterol Direct 45 mg/dL (75-193) L 06/02/17 18:18 HDL Cholesterol 60 mg/dL (23-92) 06/02/17 18:18 TSH 3.38 uIU/ml (0.34-5.60) 06/02/17 18:18 Salicylates < 25.0 mg/L (30.0-100.0) L 06/02/17 18:18 Acetaminophen < 10.0 ug/mL (10.0-30.0) L 06/02/17 18:18 Ethyl Alcohol < 10 mg/dL (0-10) 06/02/17 18:18 RPR NONREACTIVE (NONREACTIVE) 06/02/17 18:18 - Physical Exam Vitals and I&O: Vital Signs Temp 97.4 F 06/06/17 16:09 Pulse 76 06/06/17 16:09 Resp 20 06/06/17 16:09 BP 138/72 06/06/17 16:09 Pulse Ox 96 06/06/17 16:09 Intake & Output 06/06/17 06/06/17 06/07/17 06:59 18:59 06:59 Intake Total 240 850 Balance 240 850 Intake: Oral 240 850 Other: # Voids 1 4 # Bowel Movements 1 Stool Characteristics Soft Formed Active Medications: Current Medications Acetaminophen (Tylenol) 325 mg PO Q4HR PRN PRN Reason: Pain (Mild) Stop: 08/02/17 01:11 Alendronate Sodium (Fosamax) 70 mg PO QSAT [facility] Stop: 08/03/17 06:59 Last Admin: 06/04/17 06:40 Dose: Not Given Atorvastatin Calcium (Lipitor) 20 mg PO HS [facility] Stop: 08/02/17 20:59 Last Admin: 06/05/17 21:08 Dose: 20 mg Calcium/Vitamin D (Oscal W/Vitamin D) 1 tab PO DAILY [facility] Stop: 08/02/17 08:59 Last Admin: 06/06/17 09:24 Dose: 1 tab Docusate Sodium (Colace) 100 mg PO BID [facility] Stop: 08/02/17 08:59 Last Admin: 06/06/17 16:10 Dose: 100 mg Donepezil HCl (Aricept) 10 mg PO HS [facility] Stop: 08/02/17 20:59 Last Admin: 06/05/17 21:08 Dose: 10 mg Glipizide (Glucotrol) 2.5 mg PO QAM [facility] Stop: 08/02/17 08:59 Last Admin: 06/06/17 09:24 Dose: 2.5 mg Insulin Aspart (Novolog Insulin Sliding Scale) 0 units SUBQ ACHS [facility] PRN Reason: Protocol Stop: 08/03/17 07:29 Last Admin: 06/06/17 17:04 Dose: Not Given Lorazepam (Ativan) 1 mg PO Q4HR PRN; Protocol PRN Reason: Agitation Stop: 08/02/17 11:59 Last Admin: 06/06/17 09:24 Dose: 1 mg Magnesium Hydroxide (Milk Of Magnesia) 30 ml PO DAILY PRN PRN Reason: Constipation Stop: 08/02/17 01:11 Memantine (Namenda) 5 mg PO BID [facility] Stop: 08/02/17 16:59 Last Admin: 06/06/17 16:10 Dose: 5 mg General: demented HEENT: NC/AT, PERRLA, EOMI, anicteric sclerae, throat clear Neck: Supple, +2 carotid pulse wo bruit, No LAD, + JVD Lungs: CTAB Cardiovascular: RRR, Normal S1, Normal S2, without murmur Abdomen: soft, non-tender, non-distended Extremities: clear Neurological: no change - Procedures Procedures: Procedures Procedure Code Date EXCISION OF BUTTOCK SUBCU/FASCIA, OPEN APPROACH [id number] 10/27/16 REMOVAL OF PRESSURE SORE 17297 10/27/16 Internal Medicine Assmt/Plan - Assessment Assessment: 1.DM. 2.HYPERLIPIDEMIA. 3.DEMENTIA. 4.PSYCHOSIS. - Plan Plan: CONTINUE ON CURRENT MEDICATION AND DIET.
[2017-06-06] MEDS: Atorvastatin Calcium 10 MG TAB PO SCH (21:27)
--- NOTE | 2017-06-06 23:34 | Progress Notes ---
DATE: 06/06/2017 SUBJECTIVE: Case was discussed with staff of the patient, reviewed records. The patient continues to be confused, demented. Continues to be aggressive, irritable, banging on her side rails. Continues to have poor insight. Continues to look disheveled, disorganized. She is compliant with the medication with no side effects, no sedation, no nausea, no extrapyramidal symptoms and she is on Aricept 10 mg at bedtime and Namenda that was increased to 5 mg twice a day. PLAN: We will continue outpatient group therapy, milieu therapy, and adjust medications as needed. JOB# [id number]
[2017-06-07] MEDS: INSULIN ASPART SLIDING SCALE 100 UNITS/ML UNIT SUBQ SCH ×4 (06:32→20:42)
[2017-06-07] MEDS: Multivitamin w/ Minerals Tab PO SCH (08:39)
[2017-06-07] MEDS: Calcium Carb/Vit D 500 mg/200 U Tab PO SCH (08:39)
--- NOTE | 2017-06-07 19:15 | Internal Medicine Prog Note ---
Internal Medicine Subjective - Subjective Service Date: 06/07/17 Patient seen and examined:: with staff Patient is:: in bed, confused Per staff patient has:: no adverse event Internal Medicine Objective - Results Result Diagrams: 06/02/17 18:18 06/02/17 18:18 Recent Labs: Laboratory Last Values WBC 6.6 Th/cmm (4.8-10.8) D 06/02/17 18:18 RBC 4.01 Mil/cmm (3.80-5.20) 06/02/17 18:18 Hgb 12.3 gm/dL (12-16) 06/02/17 18:18 Hct 36.9 % (41.0-60) L 06/02/17 18:18 MCV 92.0 fl (81-100) 06/02/17 18:18 MCH 30.6 pg (27.0-31.0) 06/02/17 18:18 MCHC Differential 33.3 pg (28.0-36.0) 06/02/17 18:18 RDW 13.2 % (11.5-20.0) 06/02/17 18:18 Plt Count 287 Th/cmm (150-400) D 06/02/17 18:18 MPV 6.6 fl 06/02/17 18:18 Neutrophils % 48.6 % (40.0-80.0) 06/02/17 18:18 Lymphocytes % 42.0 % (20.0-50.0) 06/02/17 18:18 Monocytes % 6.0 % (2.0-10.0) 06/02/17 18:18 Eosinophils % 2.8 % (0.0-5.0) 06/02/17 18:18 Basophils % 0.6 % (0.0-2.0) 06/02/17 18:18 Sodium 137 mEq/L (136-145) 06/02/17 18:18 Potassium 4.1 mEq/L (3.5-5.1) 06/02/17 18:18 Chloride 107 mEq/L (98-107) 06/02/17 18:18 Carbon Dioxide 24.2 mEq/L (21.0-31.0) 06/02/17 18:18 Anion Gap 9.9 (7.0-16.0) 06/02/17 18:18 BUN 18 mg/dL (7-25) 06/02/17 18:18 Creatinine 0.7 mg/dL (0.6-1.2) 06/02/17 18:18 Est GFR ( Amer) TNP 06/02/17 18:18 Est GFR (Non-Af Amer) TNP 06/02/17 18:18 BUN/Creatinine Ratio 25.7 06/02/17 18:18 Glucose 133 mg/dL (70-105) H 06/02/17 18:18 POC Glucose 87 MG/DL (70 - 105) 06/07/17 16:23 Hemoglobin A1c % 8.8 % (4.0-6.0) H 06/02/17 18:18 Calcium 9.4 mg/dL (8.6-10.3) 06/02/17 18:18 Total Bilirubin 0.4 mg/dL (0.3-1.0) 06/02/17 18:18 AST 28 U/L (13-39) 06/02/17 18:18 ALT 32 U/L (7-52) 06/02/17 18:18 Alkaline Phosphatase 116 U/L (34-104) H 06/02/17 18:18 Total Protein 7.3 gm/dL (6.0-8.3) 06/02/17 18:18 Albumin 3.4 gm/dL (3.7-5.3) L 06/02/17 18:18 Globulin 3.9 gm/dL 06/02/17 18:18 Albumin/Globulin Ratio 0.9 (1.0-1.8) L 06/02/17 18:18 Triglycerides 107 mg/dL (<150) 06/02/17 18:18 Cholesterol 123 mg/dL (<200) 06/02/17 18:18 LDL Cholesterol Direct 45 mg/dL (75-193) L 06/02/17 18:18 HDL Cholesterol 60 mg/dL (23-92) 06/02/17 18:18 TSH 3.38 uIU/ml (0.34-5.60) 06/02/17 18:18 Salicylates < 25.0 mg/L (30.0-100.0) L 06/02/17 18:18 Acetaminophen < 10.0 ug/mL (10.0-30.0) L 06/02/17 18:18 Ethyl Alcohol < 10 mg/dL (0-10) 06/02/17 18:18 RPR NONREACTIVE (NONREACTIVE) 06/02/17 18:18 - Physical Exam Vitals and I&O: Vital Signs Temp 97.9 F 06/07/17 14:06 Pulse 70 06/07/17 14:06 Resp 20 06/07/17 14:06 BP 116/65 06/07/17 14:06 Pulse Ox 97 06/07/17 14:06 Intake & Output 06/07/17 06/07/17 06/08/17 06:59 18:59 06:59 Intake Total 120 800 Output Total 1 Balance 119 800 Intake: Oral 120 800 Output: Stool 1 Other: # Voids 3 3 # Bowel Movements 1 0 Active Medications: Current Medications Acetaminophen (Tylenol) 325 mg PO Q4HR PRN PRN Reason: Pain (Mild) Stop: 08/02/17 01:11 Alendronate Sodium (Fosamax) 70 mg PO QSAT [facility] Stop: 08/03/17 06:59 Last Admin: 06/04/17 06:40 Dose: Not Given Atorvastatin Calcium (Lipitor) 20 mg PO HS [facility] Stop: 08/02/17 20:59 Last Admin: 06/06/17 21:27 Dose: 20 mg Calcium/Vitamin D (Oscal W/Vitamin D) 1 tab PO DAILY [facility] Stop: 08/02/17 08:59 Last Admin: 06/07/17 08:39 Dose: 1 tab Docusate Sodium (Colace) 100 mg PO BID [facility] Stop: 08/02/17 08:59 Last Admin: 06/07/17 17:05 Dose: 100 mg Donepezil HCl (Aricept) 10 mg PO HS [facility] Stop: 08/02/17 20:59 Last Admin: 06/06/17 21:27 Dose: 10 mg Glipizide (Glucotrol) 2.5 mg PO QAM [facility] Stop: 08/02/17 08:59 Last Admin: 06/07/17 08:39 Dose: 2.5 mg Insulin Aspart (Novolog Insulin Sliding Scale) 0 units SUBQ ACHS [facility] PRN Reason: Protocol Stop: 08/03/17 07:29 Last Admin: 06/07/17 16:25 Dose: Not Given Lorazepam (Ativan) 1 mg PO Q4HR PRN; Protocol PRN Reason: Agitation Stop: 08/02/17 11:59 Last Admin: 06/07/17 08:39 Dose: 1 mg Magnesium Hydroxide (Milk Of Magnesia) 30 ml PO DAILY PRN PRN Reason: Constipation Stop: 08/02/17 01:11 Memantine (Namenda) 5 mg PO BID [facility] Stop: 08/02/17 16:59 Last Admin: 06/07/17 17:05 Dose: 5 mg General: demented HEENT: NC/AT, PERRLA, EOMI, anicteric sclerae, throat clear Neck: Supple, +2 carotid pulse wo bruit, No LAD, + JVD Lungs: CTAB Cardiovascular: RRR, Normal S1, Normal S2, without murmur Abdomen: soft, non-tender, non-distended Extremities: clear Neurological: no change - Procedures Procedures: Procedures Procedure Code Date EXCISION OF BUTTOCK SUBCU/FASCIA, OPEN APPROACH [id number] 10/27/16 REMOVAL OF PRESSURE SORE 75221 10/27/16 Internal Medicine Assmt/Plan - Assessment Assessment: 1.DM. 2.HYPERLIPIDEMIA. 3.DEMENTIA. 4.PSYCHOSIS. - Plan Plan: CONTINUE ON CURRENT MEDICATION AND DIET.
[2017-06-07] MEDS: Atorvastatin Calcium 10 MG TAB PO SCH (20:27)
--- NOTE | 2017-06-07 22:10 | Progress Notes ---
DATE: 06/07/2017 Case was discussed with staff of the patient, reviewed records. The patient continues to be easily agitated, irritable, continues to have poor insight, unable to make safe plan for self-care. She is unpredictable, impulsive, needing redirection. She is on Ativan. I am reluctant to give her any antipsychotic at this stage, but usually she gets better after few days. No side effects with the medication, no sedation, no nausea and we will continue patient in group therapy and therapy, adjust medication as needed. JOB# [id number]
[2017-06-08] MEDS: INSULIN ASPART SLIDING SCALE 100 UNITS/ML UNIT SUBQ SCH ×3 (06:44→21:48)
[2017-06-08] MEDS: Multivitamin w/ Minerals Tab PO SCH (08:17)
[2017-06-08] MEDS: Calcium Carb/Vit D 500 mg/200 U Tab PO SCH (08:19)
--- NOTE | 2017-06-08 13:15 | Internal Medicine Prog Note ---
Internal Medicine Subjective - Subjective Service Date: 06/08/17 Patient seen and examined:: with staff Patient is:: in bed, confused Per staff patient has:: no adverse event Internal Medicine Objective - Results Result Diagrams: 06/02/17 18:18 06/02/17 18:18 Recent Labs: Laboratory Last Values WBC 6.6 Th/cmm (4.8-10.8) D 06/02/17 18:18 RBC 4.01 Mil/cmm (3.80-5.20) 06/02/17 18:18 Hgb 12.3 gm/dL (12-16) 06/02/17 18:18 Hct 36.9 % (41.0-60) L 06/02/17 18:18 MCV 92.0 fl (81-100) 06/02/17 18:18 MCH 30.6 pg (27.0-31.0) 06/02/17 18:18 MCHC Differential 33.3 pg (28.0-36.0) 06/02/17 18:18 RDW 13.2 % (11.5-20.0) 06/02/17 18:18 Plt Count 287 Th/cmm (150-400) D 06/02/17 18:18 MPV 6.6 fl 06/02/17 18:18 Neutrophils % 48.6 % (40.0-80.0) 06/02/17 18:18 Lymphocytes % 42.0 % (20.0-50.0) 06/02/17 18:18 Monocytes % 6.0 % (2.0-10.0) 06/02/17 18:18 Eosinophils % 2.8 % (0.0-5.0) 06/02/17 18:18 Basophils % 0.6 % (0.0-2.0) 06/02/17 18:18 Sodium 137 mEq/L (136-145) 06/02/17 18:18 Potassium 4.1 mEq/L (3.5-5.1) 06/02/17 18:18 Chloride 107 mEq/L (98-107) 06/02/17 18:18 Carbon Dioxide 24.2 mEq/L (21.0-31.0) 06/02/17 18:18 Anion Gap 9.9 (7.0-16.0) 06/02/17 18:18 BUN 18 mg/dL (7-25) 06/02/17 18:18 Creatinine 0.7 mg/dL (0.6-1.2) 06/02/17 18:18 Est GFR ( Amer) TNP 06/02/17 18:18 Est GFR (Non-Af Amer) TNP 06/02/17 18:18 BUN/Creatinine Ratio 25.7 06/02/17 18:18 Glucose 133 mg/dL (70-105) H 06/02/17 18:18 POC Glucose 144 MG/DL (70 - 105) H 06/08/17 06:23 Hemoglobin A1c % 8.8 % (4.0-6.0) H 06/02/17 18:18 Calcium 9.4 mg/dL (8.6-10.3) 06/02/17 18:18 Total Bilirubin 0.4 mg/dL (0.3-1.0) 06/02/17 18:18 AST 28 U/L (13-39) 06/02/17 18:18 ALT 32 U/L (7-52) 06/02/17 18:18 Alkaline Phosphatase 116 U/L (34-104) H 06/02/17 18:18 Total Protein 7.3 gm/dL (6.0-8.3) 06/02/17 18:18 Albumin 3.4 gm/dL (3.7-5.3) L 06/02/17 18:18 Globulin 3.9 gm/dL 06/02/17 18:18 Albumin/Globulin Ratio 0.9 (1.0-1.8) L 06/02/17 18:18 Triglycerides 107 mg/dL (<150) 06/02/17 18:18 Cholesterol 123 mg/dL (<200) 06/02/17 18:18 LDL Cholesterol Direct 45 mg/dL (75-193) L 06/02/17 18:18 HDL Cholesterol 60 mg/dL (23-92) 06/02/17 18:18 TSH 3.38 uIU/ml (0.34-5.60) 06/02/17 18:18 Salicylates < 25.0 mg/L (30.0-100.0) L 06/02/17 18:18 Acetaminophen < 10.0 ug/mL (10.0-30.0) L 06/02/17 18:18 Ethyl Alcohol < 10 mg/dL (0-10) 06/02/17 18:18 RPR NONREACTIVE (NONREACTIVE) 06/02/17 18:18 - Physical Exam Vitals and I&O: Vital Signs Temp 96.2 F 06/08/17 06:12 Pulse 97 06/08/17 06:12 Resp 16 06/08/17 06:12 BP 129/66 06/08/17 06:12 Pulse Ox 100 06/08/17 06:12 Intake & Output 06/07/17 06/08/17 06/08/17 18:59 06:59 18:59 Intake Total 800 240 Balance 800 240 Intake: Oral 800 240 Other: # Voids 3 1 # Bowel Movements 0 Active Medications: Current Medications Acetaminophen (Tylenol) 325 mg PO Q4HR PRN PRN Reason: Pain (Mild) Stop: 08/02/17 01:11 Alendronate Sodium (Fosamax) 70 mg PO QSAT [facility] Stop: 08/03/17 06:59 Last Admin: 06/04/17 06:40 Dose: Not Given Atorvastatin Calcium (Lipitor) 20 mg PO HS [facility] Stop: 08/02/17 20:59 Last Admin: 06/07/17 20:27 Dose: 20 mg Calcium/Vitamin D (Oscal W/Vitamin D) 1 tab PO DAILY [facility] Stop: 08/02/17 08:59 Last Admin: 06/08/17 08:19 Dose: 1 tab Docusate Sodium (Colace) 100 mg PO BID [facility] Stop: 08/02/17 08:59 Last Admin: 06/08/17 08:17 Dose: 100 mg Donepezil HCl (Aricept) 10 mg PO HS [facility] Stop: 08/02/17 20:59 Last Admin: 06/07/17 20:27 Dose: 10 mg Glipizide (Glucotrol) 2.5 mg PO QAM [facility] Stop: 08/02/17 08:59 Last Admin: 06/08/17 08:17 Dose: 2.5 mg Insulin Aspart (Novolog Insulin Sliding Scale) 0 units SUBQ ACHS [facility] PRN Reason: Protocol Stop: 08/03/17 07:29 Last Admin: 06/08/17 06:44 Dose: Not Given Lorazepam (Ativan) 1 mg PO Q4HR PRN; Protocol PRN Reason: Agitation Stop: 08/02/17 11:59 Last Admin: 06/08/17 08:19 Dose: 1 mg Magnesium Hydroxide (Milk Of Magnesia) 30 ml PO DAILY PRN PRN Reason: Constipation Stop: 08/02/17 01:11 Memantine (Namenda) 10 mg PO BID [facility] Stop: 08/07/17 08:02 General: demented HEENT: NC/AT, PERRLA, EOMI, anicteric sclerae, throat clear Neck: Supple, +2 carotid pulse wo bruit, No LAD, + JVD Lungs: CTAB Cardiovascular: RRR, Normal S1, Normal S2, without murmur Abdomen: soft, non-tender, non-distended Extremities: clear Neurological: no change - Procedures Procedures: Procedures Procedure Code Date EXCISION OF BUTTOCK SUBCU/FASCIA, OPEN APPROACH [id number] 10/27/16 REMOVAL OF PRESSURE SORE 06544 10/27/16 Internal Medicine Assmt/Plan - Assessment Assessment: 1.DM. 2.HYPERLIPIDEMIA. 3.DEMENTIA. 4.PSYCHOSIS. - Plan Plan: CONTINUE ON CURRENT MEDICATION AND DIET.
[2017-06-08] MEDS: Atorvastatin Calcium 10 MG TAB PO SCH (21:24)
--- NOTE | 2017-06-08 22:20 | Progress Notes ---
DATE: 06/08/2017 Case and discussed with staff of the patient, reviewed records. The patient continues to be agitated, laughing, continues to be banging on the rails of the bed, continues to be loud, continues to be unpredictable, impulsive, needing redirection. Continues to have poor insight, I will be further increasing her Namenda dose, maybe while ____ down, and so far no side effects to the medications, no sedation, no nausea. Lab work on the records is her blood sugar that was detected yesterday at [address] Ashley was taking care of her and no side effects with the medication and will continue to work with the patient in group therapy, milieu therapy, adjust the medication as needed. JOB# [id number]
[2017-06-09] MEDS: INSULIN ASPART SLIDING SCALE 100 UNITS/ML UNIT SUBQ SCH ×4 (06:42→20:27)
[2017-06-09] MEDS: Multivitamin w/ Minerals Tab PO SCH (14:57)
[2017-06-09] MEDS: Calcium Carb/Vit D 500 mg/200 U Tab PO SCH (14:57)
--- NOTE | 2017-06-09 18:29 | Internal Medicine Prog Note ---
Internal Medicine Subjective - Subjective Service Date: 06/09/17 Patient seen and examined:: with staff Patient is:: in bed, confused Per staff patient has:: no adverse event Internal Medicine Objective - Results Result Diagrams: 06/02/17 18:18 06/02/17 18:18 Recent Labs: Laboratory Last Values WBC 6.6 Th/cmm (4.8-10.8) D 06/02/17 18:18 RBC 4.01 Mil/cmm (3.80-5.20) 06/02/17 18:18 Hgb 12.3 gm/dL (12-16) 06/02/17 18:18 Hct 36.9 % (41.0-60) L 06/02/17 18:18 MCV 92.0 fl (81-100) 06/02/17 18:18 MCH 30.6 pg (27.0-31.0) 06/02/17 18:18 MCHC Differential 33.3 pg (28.0-36.0) 06/02/17 18:18 RDW 13.2 % (11.5-20.0) 06/02/17 18:18 Plt Count 287 Th/cmm (150-400) D 06/02/17 18:18 MPV 6.6 fl 06/02/17 18:18 Neutrophils % 48.6 % (40.0-80.0) 06/02/17 18:18 Lymphocytes % 42.0 % (20.0-50.0) 06/02/17 18:18 Monocytes % 6.0 % (2.0-10.0) 06/02/17 18:18 Eosinophils % 2.8 % (0.0-5.0) 06/02/17 18:18 Basophils % 0.6 % (0.0-2.0) 06/02/17 18:18 Sodium 137 mEq/L (136-145) 06/02/17 18:18 Potassium 4.1 mEq/L (3.5-5.1) 06/02/17 18:18 Chloride 107 mEq/L (98-107) 06/02/17 18:18 Carbon Dioxide 24.2 mEq/L (21.0-31.0) 06/02/17 18:18 Anion Gap 9.9 (7.0-16.0) 06/02/17 18:18 BUN 18 mg/dL (7-25) 06/02/17 18:18 Creatinine 0.7 mg/dL (0.6-1.2) 06/02/17 18:18 Est GFR ( Amer) TNP 06/02/17 18:18 Est GFR (Non-Af Amer) TNP 06/02/17 18:18 BUN/Creatinine Ratio 25.7 06/02/17 18:18 Glucose 133 mg/dL (70-105) H 06/02/17 18:18 POC Glucose 201 MG/DL (70 - 105) H 06/09/17 16:40 Hemoglobin A1c % 8.8 % (4.0-6.0) H 06/02/17 18:18 Calcium 9.4 mg/dL (8.6-10.3) 06/02/17 18:18 Total Bilirubin 0.4 mg/dL (0.3-1.0) 06/02/17 18:18 AST 28 U/L (13-39) 06/02/17 18:18 ALT 32 U/L (7-52) 06/02/17 18:18 Alkaline Phosphatase 116 U/L (34-104) H 06/02/17 18:18 Total Protein 7.3 gm/dL (6.0-8.3) 06/02/17 18:18 Albumin 3.4 gm/dL (3.7-5.3) L 06/02/17 18:18 Globulin 3.9 gm/dL 06/02/17 18:18 Albumin/Globulin Ratio 0.9 (1.0-1.8) L 06/02/17 18:18 Triglycerides 107 mg/dL (<150) 06/02/17 18:18 Cholesterol 123 mg/dL (<200) 06/02/17 18:18 LDL Cholesterol Direct 45 mg/dL (75-193) L 06/02/17 18:18 HDL Cholesterol 60 mg/dL (23-92) 06/02/17 18:18 TSH 3.38 uIU/ml (0.34-5.60) 06/02/17 18:18 Salicylates < 25.0 mg/L (30.0-100.0) L 06/02/17 18:18 Acetaminophen < 10.0 ug/mL (10.0-30.0) L 06/02/17 18:18 Ethyl Alcohol < 10 mg/dL (0-10) 06/02/17 18:18 RPR NONREACTIVE (NONREACTIVE) 06/02/17 18:18 - Physical Exam Vitals and I&O: Vital Signs Temp 96.8 F 06/09/17 15:03 Pulse 85 06/09/17 15:03 Resp 16 06/09/17 15:03 BP 108/55 06/09/17 15:03 Pulse Ox 96 06/09/17 15:03 Intake & Output 06/08/17 06/09/17 06/09/17 18:59 06:59 18:59 Intake Total 800 120 Balance 800 120 Intake: Oral 800 120 Other: # Voids 3 3 Active Medications: Current Medications Acetaminophen (Tylenol) 325 mg PO Q4HR PRN PRN Reason: Pain (Mild) Stop: 08/02/17 01:11 Alendronate Sodium (Fosamax) 70 mg PO QSAT [facility] Stop: 08/03/17 06:59 Last Admin: 06/04/17 06:40 Dose: Not Given Atorvastatin Calcium (Lipitor) 20 mg PO HS [facility] Stop: 08/02/17 20:59 Last Admin: 06/08/17 21:24 Dose: 20 mg Calcium/Vitamin D (Oscal W/Vitamin D) 1 tab PO DAILY [facility] Stop: 08/02/17 08:59 Last Admin: 06/09/17 14:57 Dose: Not Given Docusate Sodium (Colace) 100 mg PO BID [facility] Stop: 08/02/17 08:59 Last Admin: 06/09/17 17:14 Dose: Not Given Donepezil HCl (Aricept) 10 mg PO HS [facility] Stop: 08/02/17 20:59 Last Admin: 06/08/17 21:24 Dose: 10 mg Glipizide (Glucotrol) 2.5 mg PO QAM [facility] Stop: 08/02/17 08:59 Last Admin: 06/09/17 14:57 Dose: Not Given Insulin Aspart (Novolog Insulin Sliding Scale) 0 units SUBQ ACHS [facility] PRN Reason: Protocol Stop: 08/03/17 07:29 Last Admin: 06/09/17 17:53 Dose: 4 units Lorazepam (Ativan) 0.5 mg PO BID [facility] PRN Reason: Protocol Stop: 08/08/17 16:59 Last Admin: 06/09/17 17:14 Dose: 0.5 mg Magnesium Hydroxide (Milk Of Magnesia) 30 ml PO DAILY PRN PRN Reason: Constipation Stop: 08/02/17 01:11 Memantine (Namenda) 10 mg PO BID [facility] Stop: 08/07/17 08:02 Last Admin: 06/09/17 17:14 Dose: 10 mg General: demented HEENT: NC/AT, PERRLA, EOMI, anicteric sclerae, throat clear Neck: Supple, +2 carotid pulse wo bruit, No LAD, + JVD Lungs: CTAB Cardiovascular: RRR, Normal S1, Normal S2, without murmur Abdomen: soft, non-tender, non-distended Extremities: clear Neurological: no change - Procedures Procedures: Procedures Procedure Code Date EXCISION OF BUTTOCK SUBCU/FASCIA, OPEN APPROACH [id number] 10/27/16 REMOVAL OF PRESSURE SORE 54099 10/27/16 Internal Medicine Assmt/Plan - Assessment Assessment: 1.DM. 2.HYPERLIPIDEMIA. 3.DEMENTIA. 4.PSYCHOSIS. - Plan Plan: CONTINUE ON CURRENT MEDICATION AND DIET. Nutritional Asmnt/Malnutr-PDOC - Dietary Evaluation Malnutrition Findings (Please click <Entered> for more info): Nutritional Asmnt/Malnutrition Start: 06/08/17 14: 28 Text: Status: Complete Freq: Document 06/08/17 14:28 LCBRENNANG (Rec: 06/08/17 14:33 [id number]) Nutritional Asmnt/Malnutrition Patient General Information Nutritional Screening Moderate Risk Diagnosis psychosis Pertinent Medical Hx/Surgical Hx DM, hyperlipidemia, DJD, dementia Subjective Information per records, PO intake 50-100% . Current Diet Order/ Nutrition Support [facility], ELMA, CCHO Pertinent Medications oscal w/vit D, colace, glucotrol, novolog Pertinent Labs 06/02 Glucose 133, A1c 8.8 06/06-06/08 POC 87-242 Nutritional Hx/Data Height 1.63 m Height (Calculated Centimeters) 162.6 Current Weight (lbs) 61.235 kg Weight (Calculated Kilograms) 61.2 Weight (Calculated Grams) 64592.0 [place] Body Weight 120 % [place] Body Weight 113 Body Mass Index (BMI) 23.1 Weight Status Approriate GI Symptoms GI Symptoms None Last BM 06/07 Difficult in: None Skin Integrity/Comment: intact Estimated Nutritional Goals BEE in Kcals: Using Current wt Calories/Kcals/Kg 25-30 Kcals Calculated 7463-8834 Protein: Using Current wt Protein g/k-1.2 Protein Calculated 61-73 Fluid: ml 1525-1830ml (1ml/kcal) Nutritional Problem 1. Problem Problem altered nutrition related lab values Etiology hx of DM Signs/Symptoms: Glucose 133, A1c 8.8 POC 87-242 Malnutrition Alert Protein-Calorie Malnutrition N/A Is there a minimum of two criteria No selected? Query Text:Check all the applicable criteria. A minimum of two criteria are recommended for diagnosis of either severe or non-severe malnutrition. Intervention/Recommendation Comments 1. Continue with current diet as ordered. 2. Monitor PO intake, wt, labs and skin integrity 3. F/U as low risk in 7 days, 3/7 Expected Outcomes/Goals Expected Outcomes/Goals 1. PO intake to meet at least 75% of nutritional needs. 2. Wt stability, skin to remain intact, labs to approach WNL.
[2017-06-09] MEDS: Atorvastatin Calcium 10 MG TAB PO SCH (20:18)
--- NOTE | 2017-06-10 03:17 | Progress Notes ---
DATE: 06/09/2017 Case was discussed with staff of the patient, reviewed records. The patient continues to be agitated, yelling and screaming. Continues to have poor insight. Continues to be confused, demented, unable to make safe plan for self-care. I will be adding Ativan to her medications, trying to avoid antipsychotic to help her calm down and be less agitated, on a regular basis to help with her anxiety. We shall add Ativan to her medications. Still unpredictable and impulsive. No side effects with the medications. No sedation. No nausea. We will continue outpatient group therapy, milieu therapy, adjust medications as needed. JOB# [id number]
[2017-06-10] MEDS: INSULIN ASPART SLIDING SCALE 100 UNITS/ML UNIT SUBQ SCH ×4 (07:44→21:35)
[2017-06-10] MEDS: Multivitamin w/ Minerals Tab PO SCH (08:07)
[2017-06-10] MEDS: Calcium Carb/Vit D 500 mg/200 U Tab PO SCH (08:08)
[2017-06-10] MEDS: Atorvastatin Calcium 10 MG TAB PO SCH (21:33)
--- NOTE | 2017-06-10 22:24 | Progress Notes ---
DATE: 06/10/2017 Case was discussed with staff of the patient and reviewed records. The patient continues to be unpredictable, impulsive, yelling, knocking on the bed, banging on her bed rails. Continues to have poor insight. Continues to need redirection. So, obviously she is not responding well. I will be adding a small dose of Seroquel to her medication and so far no side effects with the rest of her medication, no sedation, no nausea, no extrapyramidal symptoms. We will continue to work with the patient in group therapy, milieu therapy, adjust medication as needed. JOB# [id number]
--- NOTE | 2017-06-11 00:14 | Internal Medicine Prog Note ---
Internal Medicine Subjective - Subjective Service Date: 06/10/17 Patient seen and examined:: without staff Patient is:: awake, in bed, confused Per staff patient has:: no adverse event Internal Medicine Objective - Results Result Diagrams: 06/02/17 18:18 06/02/17 18:18 Recent Labs: Laboratory Last Values WBC 6.6 Th/cmm (4.8-10.8) D 06/02/17 18:18 RBC 4.01 Mil/cmm (3.80-5.20) 06/02/17 18:18 Hgb 12.3 gm/dL (12-16) 06/02/17 18:18 Hct 36.9 % (41.0-60) L 06/02/17 18:18 MCV 92.0 fl (81-100) 06/02/17 18:18 MCH 30.6 pg (27.0-31.0) 06/02/17 18:18 MCHC Differential 33.3 pg (28.0-36.0) 06/02/17 18:18 RDW 13.2 % (11.5-20.0) 06/02/17 18:18 Plt Count 287 Th/cmm (150-400) D 06/02/17 18:18 MPV 6.6 fl 06/02/17 18:18 Neutrophils % 48.6 % (40.0-80.0) 06/02/17 18:18 Lymphocytes % 42.0 % (20.0-50.0) 06/02/17 18:18 Monocytes % 6.0 % (2.0-10.0) 06/02/17 18:18 Eosinophils % 2.8 % (0.0-5.0) 06/02/17 18:18 Basophils % 0.6 % (0.0-2.0) 06/02/17 18:18 Sodium 137 mEq/L (136-145) 06/02/17 18:18 Potassium 4.1 mEq/L (3.5-5.1) 06/02/17 18:18 Chloride 107 mEq/L (98-107) 06/02/17 18:18 Carbon Dioxide 24.2 mEq/L (21.0-31.0) 06/02/17 18:18 Anion Gap 9.9 (7.0-16.0) 06/02/17 18:18 BUN 18 mg/dL (7-25) 06/02/17 18:18 Creatinine 0.7 mg/dL (0.6-1.2) 06/02/17 18:18 Est GFR ( Amer) TNP 06/02/17 18:18 Est GFR (Non-Af Amer) TNP 06/02/17 18:18 BUN/Creatinine Ratio 25.7 06/02/17 18:18 Glucose 133 mg/dL (70-105) H 06/02/17 18:18 POC Glucose 105 MG/DL (70 - 105) 06/10/17 17:00 Hemoglobin A1c % 8.8 % (4.0-6.0) H 06/02/17 18:18 Calcium 9.4 mg/dL (8.6-10.3) 06/02/17 18:18 Total Bilirubin 0.4 mg/dL (0.3-1.0) 06/02/17 18:18 AST 28 U/L (13-39) 06/02/17 18:18 ALT 32 U/L (7-52) 06/02/17 18:18 Alkaline Phosphatase 116 U/L (34-104) H 06/02/17 18:18 Total Protein 7.3 gm/dL (6.0-8.3) 06/02/17 18:18 Albumin 3.4 gm/dL (3.7-5.3) L 06/02/17 18:18 Globulin 3.9 gm/dL 06/02/17 18:18 Albumin/Globulin Ratio 0.9 (1.0-1.8) L 06/02/17 18:18 Triglycerides 107 mg/dL (<150) 06/02/17 18:18 Cholesterol 123 mg/dL (<200) 06/02/17 18:18 LDL Cholesterol Direct 45 mg/dL (75-193) L 06/02/17 18:18 HDL Cholesterol 60 mg/dL (23-92) 06/02/17 18:18 TSH 3.38 uIU/ml (0.34-5.60) 06/02/17 18:18 Salicylates < 25.0 mg/L (30.0-100.0) L 06/02/17 18:18 Acetaminophen < 10.0 ug/mL (10.0-30.0) L 06/02/17 18:18 Ethyl Alcohol < 10 mg/dL (0-10) 06/02/17 18:18 RPR NONREACTIVE (NONREACTIVE) 06/02/17 18:18 - Physical Exam Vitals and I&O: Vital Signs Temp 97.4 F 06/10/17 15:17 Pulse 80 06/10/17 20:00 Resp 18 06/10/17 20:00 BP 126/51 06/10/17 15:17 Pulse Ox 97 06/10/17 15:17 Intake & Output 06/10/17 06/10/17 06/11/17 06:59 18:59 06:59 Intake Total 120 1200 Balance 120 1200 Intake: Oral 120 1200 Other: # Voids 3 3 Active Medications: Current Medications Acetaminophen (Tylenol) 325 mg PO Q4HR PRN PRN Reason: Pain (Mild) Stop: 08/02/17 01:11 Alendronate Sodium (Fosamax) 70 mg PO QSAT [facility] Stop: 08/03/17 06:59 Last Admin: 06/04/17 06:40 Dose: Not Given Atorvastatin Calcium (Lipitor) 20 mg PO HS [facility] Stop: 08/02/17 20:59 Last Admin: 06/10/17 21:33 Dose: 20 mg Calcium/Vitamin D (Oscal W/Vitamin D) 1 tab PO DAILY [facility] Stop: 08/02/17 08:59 Last Admin: 06/10/17 08:08 Dose: 1 tab Docusate Sodium (Colace) 100 mg PO BID [facility] Stop: 08/02/17 08:59 Last Admin: 06/10/17 16:11 Dose: 100 mg Donepezil HCl (Aricept) 10 mg PO HS [facility] Stop: 08/02/17 20:59 Last Admin: 06/10/17 21:34 Dose: 10 mg Glipizide (Glucotrol) 2.5 mg PO QAM [facility] Stop: 08/02/17 08:59 Last Admin: 06/10/17 08:06 Dose: 2.5 mg Insulin Aspart (Novolog Insulin Sliding Scale) 0 units SUBQ ACHS [facility] PRN Reason: Protocol Stop: 08/03/17 07:29 Last Admin: 06/10/17 21:35 Dose: 2 units Lorazepam (Ativan) 0.5 mg PO BID [facility] PRN Reason: Protocol Stop: 08/08/17 16:59 Last Admin: 06/10/17 16:11 Dose: 0.5 mg Magnesium Hydroxide (Milk Of Magnesia) 30 ml PO DAILY PRN PRN Reason: Constipation Stop: 08/02/17 01:11 Memantine (Namenda) 10 mg PO BID [facility] Stop: 08/07/17 08:02 Last Admin: 06/10/17 16:11 Dose: 10 mg Quetiapine Fumarate (Seroquel) 12.5 mg PO HS [facility] PRN Reason: Protocol Stop: 08/09/17 20:59 Last Admin: 06/10/17 21:33 Dose: 12.5 mg General: demented HEENT: NC/AT, PERRLA, EOMI, anicteric sclerae, throat clear Neck: Supple, +2 carotid pulse wo bruit, No LAD, + JVD Lungs: CTAB Cardiovascular: RRR, Normal S1, Normal S2, without murmur Abdomen: soft, non-tender, non-distended Extremities: clear Neurological: no change - Procedures Procedures: Procedures Procedure Code Date EXCISION OF BUTTOCK SUBCU/FASCIA, OPEN APPROACH [id number] 10/27/16 REMOVAL OF PRESSURE SORE 01976 10/27/16 Internal Medicine Assmt/Plan - Assessment Assessment: 1.DM. 2.HYPERLIPIDEMIA. 3.DEMENTIA. 4.PSYCHOSIS. - Plan Plan: CONTINUE ON CURRENT MEDICATION AND DIET. Nutritional Asmnt/Malnutr-PDOC - Dietary Evaluation Malnutrition Findings (Please click <Entered> for more info): Nutritional Asmnt/Malnutrition Start: 06/08/17 14: 28 Text: Status: Complete Freq: Document 06/08/17 14:28 BRENNAN (Rec: 06/08/17 14:33 BRENNAN [email or web address]) Nutritional Asmnt/Malnutrition Patient General Information Nutritional Screening Moderate Risk Diagnosis psychosis Pertinent Medical Hx/Surgical Hx DM, hyperlipidemia, DJD, dementia Subjective Information per records, PO intake 50-100% . Current Diet Order/ Nutrition Support [facility] soft [facility], ELMA, CCHO Pertinent Medications oscal w/vit D, colace, glucotrol, novolog Pertinent Labs 06/02 Glucose 133, A1c 8.8 06/06-06/08 POC 87-242 Nutritional Hx/Data Height 1.63 m Height (Calculated Centimeters) 162.6 Current Weight (lbs) 61.235 kg Weight (Calculated Kilograms) 61.2 Weight (Calculated Grams) 75123.0 [place] Body Weight 120 % [place] Body Weight 113 Body Mass Index (BMI) 23.1 Weight Status Approriate GI Symptoms GI Symptoms None Last BM 06/07 Difficult in: None Skin Integrity/Comment: intact Estimated Nutritional Goals BEE in Kcals: Using Current wt Calories/Kcals/Kg 25-30 Kcals Calculated 5641-9751 Protein: Using Current wt Protein g/k-1.2 Protein Calculated 61-73 Fluid: ml 1525-1830ml (1ml/kcal) Nutritional Problem 1. Problem Problem altered nutrition related lab values Etiology hx of DM Signs/Symptoms: Glucose 133, A1c 8.8 POC 87-242 Malnutrition Alert Protein-Calorie Malnutrition N/A Is there a minimum of two criteria No selected? Query Text:Check all the applicable criteria. A minimum of two criteria are recommended for diagnosis of either severe or non-severe malnutrition. Intervention/Recommendation Comments 1. Continue with current diet as ordered. 2. Monitor PO intake, wt, labs and skin integrity 3. F/U as low risk in 7 days, 3/7 Expected Outcomes/Goals Expected Outcomes/Goals 1. PO intake to meet at least 75% of nutritional needs. 2. Wt stability, skin to remain intact, labs to approach WNL.
[2017-06-11] MEDS: INSULIN ASPART SLIDING SCALE 100 UNITS/ML UNIT SUBQ SCH ×4 (06:36→21:53)
[2017-06-11] MEDS: Calcium Carb/Vit D 500 mg/200 U Tab PO SCH (09:47)
[2017-06-11] MEDS: Multivitamin w/ Minerals Tab PO SCH (09:47)
[2017-06-11] MEDS ORDERED: Haloperidol Lactate 5 mg/mL 1mL Vial ONE (13:38)
[2017-06-11] MEDS ORDERED: Haloperidol Lactate 5 mg/mL 1mL Vial IM ONE (13:45)
--- NOTE | 2017-06-11 15:12 | General Progress Note ---
Subjective - Review of Systems Service Date: 06/11/17 Subjective: resting comfortably no distress Objective - Results Result Diagrams: 06/02/17 18:18 06/02/17 18:18 Recent Labs: Laboratory Last Values WBC 6.6 Th/cmm (4.8-10.8) D 06/02/17 18:18 RBC 4.01 Mil/cmm (3.80-5.20) 06/02/17 18:18 Hgb 12.3 gm/dL (12-16) 06/02/17 18:18 Hct 36.9 % (41.0-60) L 06/02/17 18:18 MCV 92.0 fl (81-100) 06/02/17 18:18 MCH 30.6 pg (27.0-31.0) 06/02/17 18:18 MCHC Differential 33.3 pg (28.0-36.0) 06/02/17 18:18 RDW 13.2 % (11.5-20.0) 06/02/17 18:18 Plt Count 287 Th/cmm (150-400) D 06/02/17 18:18 MPV 6.6 fl 06/02/17 18:18 Neutrophils % 48.6 % (40.0-80.0) 06/02/17 18:18 Lymphocytes % 42.0 % (20.0-50.0) 06/02/17 18:18 Monocytes % 6.0 % (2.0-10.0) 06/02/17 18:18 Eosinophils % 2.8 % (0.0-5.0) 06/02/17 18:18 Basophils % 0.6 % (0.0-2.0) 06/02/17 18:18 Sodium 137 mEq/L (136-145) 06/02/17 18:18 Potassium 4.1 mEq/L (3.5-5.1) 06/02/17 18:18 Chloride 107 mEq/L (98-107) 06/02/17 18:18 Carbon Dioxide 24.2 mEq/L (21.0-31.0) 06/02/17 18:18 Anion Gap 9.9 (7.0-16.0) 06/02/17 18:18 BUN 18 mg/dL (7-25) 06/02/17 18:18 Creatinine 0.7 mg/dL (0.6-1.2) 06/02/17 18:18 Est GFR ( Amer) TNP 06/02/17 18:18 Est GFR (Non-Af Amer) TNP 06/02/17 18:18 BUN/Creatinine Ratio 25.7 06/02/17 18:18 Glucose 133 mg/dL (70-105) H 06/02/17 18:18 POC Glucose 107 MG/DL (70 - 105) H 06/11/17 05:36 Hemoglobin A1c % 8.8 % (4.0-6.0) H 06/02/17 18:18 Calcium 9.4 mg/dL (8.6-10.3) 06/02/17 18:18 Total Bilirubin 0.4 mg/dL (0.3-1.0) 06/02/17 18:18 AST 28 U/L (13-39) 06/02/17 18:18 ALT 32 U/L (7-52) 06/02/17 18:18 Alkaline Phosphatase 116 U/L (34-104) H 06/02/17 18:18 Total Protein 7.3 gm/dL (6.0-8.3) 06/02/17 18:18 Albumin 3.4 gm/dL (3.7-5.3) L 06/02/17 18:18 Globulin 3.9 gm/dL 06/02/17 18:18 Albumin/Globulin Ratio 0.9 (1.0-1.8) L 06/02/17 18:18 Triglycerides 107 mg/dL (<150) 06/02/17 18:18 Cholesterol 123 mg/dL (<200) 06/02/17 18:18 LDL Cholesterol Direct 45 mg/dL (75-193) L 06/02/17 18:18 HDL Cholesterol 60 mg/dL (23-92) 06/02/17 18:18 TSH 3.38 uIU/ml (0.34-5.60) 06/02/17 18:18 Salicylates < 25.0 mg/L (30.0-100.0) L 06/02/17 18:18 Acetaminophen < 10.0 ug/mL (10.0-30.0) L 06/02/17 18:18 Ethyl Alcohol < 10 mg/dL (0-10) 06/02/17 18:18 RPR NONREACTIVE (NONREACTIVE) 06/02/17 18:18 - Physical Exam Vitals and I&O: Vital Signs Temp 97.4 F 06/10/17 15:17 Pulse 80 06/11/17 08:00 Resp 18 06/11/17 08:00 BP 126/51 06/10/17 15:17 Pulse Ox 97 06/10/17 15:17 Intake & Output 06/10/17 06/11/17 06/11/17 18:59 06:59 18:59 Intake Total 1200 Balance 1200 Intake: Oral 1200 Other: # Voids 3 Active Medications: Current Medications Acetaminophen (Tylenol) 325 mg PO Q4HR PRN PRN Reason: Pain (Mild) Stop: 08/02/17 01:11 Alendronate Sodium (Fosamax) 70 mg PO QSAT [facility] Stop: 08/03/17 06:59 Last Admin: 06/11/17 06:13 Dose: 70 mg Atorvastatin Calcium (Lipitor) 20 mg PO HS [facility] Stop: 08/02/17 20:59 Last Admin: 06/10/17 21:33 Dose: 20 mg Calcium/Vitamin D (Oscal W/Vitamin D) 1 tab PO DAILY [facility] Stop: 08/02/17 08:59 Last Admin: 06/11/17 09:47 Dose: 1 tab Docusate Sodium (Colace) 100 mg PO BID [facility] Stop: 08/02/17 08:59 Last Admin: 06/11/17 09:46 Dose: 100 mg Donepezil HCl (Aricept) 10 mg PO HS [facility] Stop: 08/02/17 20:59 Last Admin: 06/10/17 21:34 Dose: 10 mg Glipizide (Glucotrol) 2.5 mg PO QAM [facility] Stop: 08/02/17 08:59 Last Admin: 06/11/17 09:45 Dose: 2.5 mg Insulin Aspart (Novolog Insulin Sliding Scale) 0 units SUBQ ACHS [facility] PRN Reason: Protocol Stop: 08/03/17 07:29 Last Admin: 06/11/17 13:56 Dose: Not Given Lorazepam (Ativan) 0.5 mg PO BID [facility] PRN Reason: Protocol Stop: 08/08/17 16:59 Last Admin: 06/11/17 09:46 Dose: 0.5 mg Magnesium Hydroxide (Milk Of Magnesia) 30 ml PO DAILY PRN PRN Reason: Constipation Stop: 08/02/17 01:11 Memantine (Namenda) 10 mg PO BID [facility] Stop: 08/07/17 08:02 Last Admin: 06/11/17 09:47 Dose: 10 mg Quetiapine Fumarate (Seroquel) 12.5 mg PO HS [facility] PRN Reason: Protocol Stop: 08/09/17 20:59 Last Admin: 06/10/17 21:33 Dose: 12.5 mg General: No acute distress HEENT: Atraumatic, PERRLA, EOMI Neck: Supple, JVD, Thyromegaly Cardiovascular: Regular rate, Normal S1, Normal S2 Lungs: Clear to auscultation Abdomen: Bowel sounds, Soft - Procedures Procedures: Procedures Procedure Code Date EXCISION OF BUTTOCK SUBCU/FASCIA, OPEN APPROACH [id number] 10/27/16 REMOVAL OF PRESSURE SORE 89257 10/27/16 Assessment/Plan - Assessment Assessment: 1.DM. 2.HYPERLIPIDEMIA. 3.DEMENTIA. 4.PSYCHOSIS. - Plan Plan: cont current treatment Nutritional Asmnt/Malnutr-PDOC - Dietary Evaluation Malnutrition Findings (Please click <Entered> for more info): Nutritional Asmnt/Malnutrition Start: 06/08/17 14: 28 Text: Status: Complete Freq: Document 06/08/17 14:28 BRENNAN (Rec: 06/08/17 14:33 BRENNAN [email or web address]) Nutritional Asmnt/Malnutrition Patient General Information Nutritional Screening Moderate Risk Diagnosis psychosis Pertinent Medical Hx/Surgical Hx DM, hyperlipidemia, DJD, dementia Subjective Information per records, PO intake 50-100% . Current Diet Order/ Nutrition Support [facility], ELMA, CCHO Pertinent Medications oscal w/vit D, colace, glucotrol, novolog Pertinent Labs 06/02 Glucose 133, A1c 8.8 06/06-06/08 POC 87-242 Nutritional Hx/Data Height 1.63 m Height (Calculated Centimeters) 162.6 Current Weight (lbs) 61.235 kg Weight (Calculated Kilograms) 61.2 Weight (Calculated Grams) 32117.0 [place] Body Weight 120 % [place] Body Weight 113 Body Mass Index (BMI) 23.1 Weight Status Approriate GI Symptoms GI Symptoms None Last BM 06/07 Difficult in: None Skin Integrity/Comment: intact Estimated Nutritional Goals BEE in Kcals: Using Current wt Calories/Kcals/Kg 25-30 Kcals Calculated 6696-5922 Protein: Using Current wt Protein g/k-1.2 Protein Calculated 61-73 Fluid: ml 1525-1830ml (1ml/kcal) Nutritional Problem 1. Problem Problem altered nutrition related lab values Etiology hx of DM Signs/Symptoms: Glucose 133, A1c 8.8 POC 87-242 Malnutrition Alert Protein-Calorie Malnutrition N/A Is there a minimum of two criteria No selected? Query Text:Check all the applicable criteria. A minimum of two criteria are recommended for diagnosis of either severe or non-severe malnutrition. Intervention/Recommendation Comments 1. Continue with current diet as ordered. 2. Monitor PO intake, wt, labs and skin integrity 3. F/U as low risk in 7 days, 3/7 Expected Outcomes/Goals Expected Outcomes/Goals 1. PO intake to meet at least 75% of nutritional needs. 2. Wt stability, skin to remain intact, labs to approach WNL.
--- NOTE | 2017-06-11 16:39 | Progress Notes ---
DATE: 06/11/2017 Case was discussed with staff of the patient. The patient continues to have episodes of irritability, continues to have episodes of being angry, banging on her rail of her bed, continues to have poor insight, not easy to redirect. However, she is a bit more mellow since I initiated Seroquel yesterday with no side effects, no sedation, no nausea, no extrapyramidal symptoms. Continues to be unable to make a plan for self-care. We will continue patient in group therapy, milieu therapy, adjust medications as needed. JOB# [id number]
[2017-06-11] MEDS: Atorvastatin Calcium 10 MG TAB PO SCH (21:33)
[2017-06-12] MEDS: INSULIN ASPART SLIDING SCALE 100 UNITS/ML UNIT SUBQ SCH ×4 (06:44→21:16)
[2017-06-12] MEDS: Multivitamin w/ Minerals Tab PO SCH (08:17)
[2017-06-12] MEDS: Calcium Carb/Vit D 500 mg/200 U Tab PO SCH (08:18)
--- NOTE | 2017-06-12 08:21 | General Progress Note ---
Subjective - Review of Systems Service Date: 06/12/17 Subjective: resting comfortably no distress Objective - Results Result Diagrams: 06/02/17 18:18 06/02/17 18:18 Recent Labs: Laboratory Last Values WBC 6.6 Th/cmm (4.8-10.8) D 06/02/17 18:18 RBC 4.01 Mil/cmm (3.80-5.20) 06/02/17 18:18 Hgb 12.3 gm/dL (12-16) 06/02/17 18:18 Hct 36.9 % (41.0-60) L 06/02/17 18:18 MCV 92.0 fl (81-100) 06/02/17 18:18 MCH 30.6 pg (27.0-31.0) 06/02/17 18:18 MCHC Differential 33.3 pg (28.0-36.0) 06/02/17 18:18 RDW 13.2 % (11.5-20.0) 06/02/17 18:18 Plt Count 287 Th/cmm (150-400) D 06/02/17 18:18 MPV 6.6 fl 06/02/17 18:18 Neutrophils % 48.6 % (40.0-80.0) 06/02/17 18:18 Lymphocytes % 42.0 % (20.0-50.0) 06/02/17 18:18 Monocytes % 6.0 % (2.0-10.0) 06/02/17 18:18 Eosinophils % 2.8 % (0.0-5.0) 06/02/17 18:18 Basophils % 0.6 % (0.0-2.0) 06/02/17 18:18 Sodium 137 mEq/L (136-145) 06/02/17 18:18 Potassium 4.1 mEq/L (3.5-5.1) 06/02/17 18:18 Chloride 107 mEq/L (98-107) 06/02/17 18:18 Carbon Dioxide 24.2 mEq/L (21.0-31.0) 06/02/17 18:18 Anion Gap 9.9 (7.0-16.0) 06/02/17 18:18 BUN 18 mg/dL (7-25) 06/02/17 18:18 Creatinine 0.7 mg/dL (0.6-1.2) 06/02/17 18:18 Est GFR ( Amer) TNP 06/02/17 18:18 Est GFR (Non-Af Amer) TNP 06/02/17 18:18 BUN/Creatinine Ratio 25.7 06/02/17 18:18 Glucose 133 mg/dL (70-105) H 06/02/17 18:18 POC Glucose 158 MG/DL (70 - 105) H 06/12/17 06:09 Hemoglobin A1c % 8.8 % (4.0-6.0) H 06/02/17 18:18 Calcium 9.4 mg/dL (8.6-10.3) 06/02/17 18:18 Total Bilirubin 0.4 mg/dL (0.3-1.0) 06/02/17 18:18 AST 28 U/L (13-39) 06/02/17 18:18 ALT 32 U/L (7-52) 06/02/17 18:18 Alkaline Phosphatase 116 U/L (34-104) H 06/02/17 18:18 Total Protein 7.3 gm/dL (6.0-8.3) 06/02/17 18:18 Albumin 3.4 gm/dL (3.7-5.3) L 06/02/17 18:18 Globulin 3.9 gm/dL 06/02/17 18:18 Albumin/Globulin Ratio 0.9 (1.0-1.8) L 06/02/17 18:18 Triglycerides 107 mg/dL (<150) 06/02/17 18:18 Cholesterol 123 mg/dL (<200) 06/02/17 18:18 LDL Cholesterol Direct 45 mg/dL (75-193) L 06/02/17 18:18 HDL Cholesterol 60 mg/dL (23-92) 06/02/17 18:18 TSH 3.38 uIU/ml (0.34-5.60) 06/02/17 18:18 Salicylates < 25.0 mg/L (30.0-100.0) L 06/02/17 18:18 Acetaminophen < 10.0 ug/mL (10.0-30.0) L 06/02/17 18:18 Ethyl Alcohol < 10 mg/dL (0-10) 06/02/17 18:18 RPR NONREACTIVE (NONREACTIVE) 06/02/17 18:18 - Physical Exam Vitals and I&O: Vital Signs Temp 97.6 F 06/12/17 06:29 Pulse 95 06/12/17 06:29 Resp 18 06/12/17 06:29 BP 115/64 06/12/17 06:29 Pulse Ox 98 06/12/17 06:29 Intake & Output 06/11/17 06/12/17 06/12/17 18:59 06:59 18:59 Intake Total 1200 Balance 1200 Intake: Oral 1200 Other: # Voids 3 Active Medications: Current Medications Acetaminophen (Tylenol) 325 mg PO Q4HR PRN PRN Reason: Pain (Mild) Stop: 08/02/17 01:11 Alendronate Sodium (Fosamax) 70 mg PO QSAT [facility] Stop: 08/03/17 06:59 Last Admin: 06/11/17 06:13 Dose: 70 mg Atorvastatin Calcium (Lipitor) 20 mg PO HS [facility] Stop: 08/02/17 20:59 Last Admin: 06/11/17 21:33 Dose: 20 mg Calcium/Vitamin D (Oscal W/Vitamin D) 1 tab PO DAILY [facility] Stop: 08/02/17 08:59 Last Admin: 06/12/17 08:18 Dose: 1 tab Docusate Sodium (Colace) 100 mg PO BID [facility] Stop: 08/02/17 08:59 Last Admin: 06/12/17 08:18 Dose: 100 mg Donepezil HCl (Aricept) 10 mg PO HS [facility] Stop: 08/02/17 20:59 Last Admin: 06/11/17 21:33 Dose: 10 mg Glipizide (Glucotrol) 2.5 mg PO QAM [facility] Stop: 08/02/17 08:59 Last Admin: 06/12/17 08:18 Dose: 2.5 mg Insulin Aspart (Novolog Insulin Sliding Scale) 0 units SUBQ ACHS [facility] PRN Reason: Protocol Stop: 08/03/17 07:29 Last Admin: 06/12/17 06:44 Dose: 2 units Lorazepam (Ativan) 0.5 mg PO BID [facility] PRN Reason: Protocol Stop: 08/08/17 16:59 Last Admin: 06/12/17 08:18 Dose: 0.5 mg Magnesium Hydroxide (Milk Of Magnesia) 30 ml PO DAILY PRN PRN Reason: Constipation Stop: 08/02/17 01:11 Memantine (Namenda) 10 mg PO BID [facility] Stop: 08/07/17 08:02 Last Admin: 06/12/17 08:17 Dose: 10 mg Quetiapine Fumarate (Seroquel) 12.5 mg PO HS [facility] PRN Reason: Protocol Stop: 08/09/17 20:59 Last Admin: 06/11/17 21:33 Dose: 12.5 mg General: No acute distress HEENT: Atraumatic, PERRLA, EOMI Neck: Supple, JVD, Thyromegaly Cardiovascular: Regular rate, Normal S1, Normal S2 Lungs: Clear to auscultation Abdomen: Bowel sounds, Soft - Procedures Procedures: Procedures Procedure Code Date EXCISION OF BUTTOCK SUBCU/FASCIA, OPEN APPROACH [id number] 10/27/16 REMOVAL OF PRESSURE SORE 25209 10/27/16 Assessment/Plan - Assessment Assessment: 1.DM. 2.HYPERLIPIDEMIA. 3.DEMENTIA. 4.PSYCHOSIS. - Plan Plan: cont current treatment Nutritional Asmnt/Malnutr-PDOC - Dietary Evaluation Malnutrition Findings (Please click <Entered> for more info): Nutritional Asmnt/Malnutrition Start: 06/08/17 14: 28 Text: Status: Complete Freq: Document 06/08/17 14:28 BRENNAN (Rec: 06/08/17 14:33 BRENNAN [email or web address]) Nutritional Asmnt/Malnutrition Patient General Information Nutritional Screening Moderate Risk Diagnosis psychosis Pertinent Medical Hx/Surgical Hx DM, hyperlipidemia, DJD, dementia Subjective Information per records, PO intake 50-100% . Current Diet Order/ Nutrition Support [facility] soft ground, ELMA, CCHO Pertinent Medications oscal w/vit D, colace, glucotrol, novolog Pertinent Labs 06/02 Glucose 133, A1c 8.8 06/06-06/08 POC 87-242 Nutritional Hx/Data Height 1.63 m Height (Calculated Centimeters) 162.6 Current Weight (lbs) 61.235 kg Weight (Calculated Kilograms) 61.2 Weight (Calculated Grams) 78327.0 [place] Body Weight 120 % [place] Body Weight 113 Body Mass Index (BMI) 23.1 Weight Status Approriate GI Symptoms GI Symptoms None Last BM 06/07 Difficult in: None Skin Integrity/Comment: intact Estimated Nutritional Goals BEE in Kcals: Using Current wt Calories/Kcals/Kg 25-30 Kcals Calculated 1537-8530 Protein: Using Current wt Protein g/k-1.2 Protein Calculated 61-73 Fluid: ml 1525-1830ml (1ml/kcal) Nutritional Problem 1. Problem Problem altered nutrition related lab values Etiology hx of DM Signs/Symptoms: Glucose 133, A1c 8.8 POC 87-242 Malnutrition Alert Protein-Calorie Malnutrition N/A Is there a minimum of two criteria No selected? Query Text:Check all the applicable criteria. A minimum of two criteria are recommended for diagnosis of either severe or non-severe malnutrition. Intervention/Recommendation Comments 1. Continue with current diet as ordered. 2. Monitor PO intake, wt, labs and skin integrity 3. F/U as low risk in 7 days, 3/7 Expected Outcomes/Goals Expected Outcomes/Goals 1. PO intake to meet at least 75% of nutritional needs. 2. Wt stability, skin to remain intact, labs to approach WNL.
[2017-06-12] MEDS: Atorvastatin Calcium 10 MG TAB PO SCH (20:49)
--- NOTE | 2017-06-12 22:25 | Progress Notes ---
DATE: 06/12/2017 Case was discussed with staff of the patient and reviewed records. The patient continues to have episodes of agitation and irritability, continues to have poor insight, unable to make safe plan for self-care, demented, confused, needing redirection. She tolerated the Seroquel with no side effects, no sedation, no nausea, no extrapyramidal symptoms and she is less loud, responding better to redirection. We will continue to work with the patient in group therapy, milieu therapy, adjust the medication as needed. JOB# [id number]
[2017-06-13] MEDS: INSULIN ASPART SLIDING SCALE 100 UNITS/ML UNIT SUBQ SCH ×4 (06:42→21:33)
[2017-06-13] MEDS: Multivitamin w/ Minerals Tab PO SCH (08:06)
[2017-06-13] MEDS: Magnesium Hydroxide (MOM) 30 mL UDC PO PRN (08:06)
[2017-06-13] MEDS: Calcium Carb/Vit D 500 mg/200 U Tab PO SCH (08:08)
[2017-06-13] MEDS: Atorvastatin Calcium 10 MG TAB PO SCH (21:34)
--- NOTE | 2017-06-13 22:12 | Progress Notes ---
DATE: 06/13/2017 Case was discussed with staff of the patient, reviewed records. The patient continues to be easily agitated, continues to have poor insight. Unable to make safe plan for self-care. She is demented, confused, ____ severe irritability and agitation. She is compliant with the medication with no side effects, no sedation, no nausea, no extrapyramidal symptoms. I will be increasing her Seroquel dose at bedtime to 25. So far no side effects. We will continue to work with the patient in group therapy, milieu therapy, adjust medication as needed. JOB# [id number]
--- NOTE | 2017-06-13 23:17 | Internal Medicine Prog Note ---
Internal Medicine Subjective - Subjective Service Date: 06/13/17 Patient seen and examined:: without staff Patient is:: awake, in bed, confused Per staff patient has:: no adverse event Internal Medicine Objective - Results Result Diagrams: 06/02/17 18:18 06/02/17 18:18 Recent Labs: Laboratory Last Values WBC 6.6 Th/cmm (4.8-10.8) D 06/02/17 18:18 RBC 4.01 Mil/cmm (3.80-5.20) 06/02/17 18:18 Hgb 12.3 gm/dL (12-16) 06/02/17 18:18 Hct 36.9 % (41.0-60) L 06/02/17 18:18 MCV 92.0 fl (81-100) 06/02/17 18:18 MCH 30.6 pg (27.0-31.0) 06/02/17 18:18 MCHC Differential 33.3 pg (28.0-36.0) 06/02/17 18:18 RDW 13.2 % (11.5-20.0) 06/02/17 18:18 Plt Count 287 Th/cmm (150-400) D 06/02/17 18:18 MPV 6.6 fl 06/02/17 18:18 Neutrophils % 48.6 % (40.0-80.0) 06/02/17 18:18 Lymphocytes % 42.0 % (20.0-50.0) 06/02/17 18:18 Monocytes % 6.0 % (2.0-10.0) 06/02/17 18:18 Eosinophils % 2.8 % (0.0-5.0) 06/02/17 18:18 Basophils % 0.6 % (0.0-2.0) 06/02/17 18:18 Sodium 137 mEq/L (136-145) 06/02/17 18:18 Potassium 4.1 mEq/L (3.5-5.1) 06/02/17 18:18 Chloride 107 mEq/L (98-107) 06/02/17 18:18 Carbon Dioxide 24.2 mEq/L (21.0-31.0) 06/02/17 18:18 Anion Gap 9.9 (7.0-16.0) 06/02/17 18:18 BUN 18 mg/dL (7-25) 06/02/17 18:18 Creatinine 0.7 mg/dL (0.6-1.2) 06/02/17 18:18 Est GFR ( Amer) TNP 06/02/17 18:18 Est GFR (Non-Af Amer) TNP 06/02/17 18:18 BUN/Creatinine Ratio 25.7 06/02/17 18:18 Glucose 133 mg/dL (70-105) H 06/02/17 18:18 POC Glucose 144 MG/DL (70 - 105) H 06/13/17 20:28 Hemoglobin A1c % 8.8 % (4.0-6.0) H 06/02/17 18:18 Calcium 9.4 mg/dL (8.6-10.3) 06/02/17 18:18 Total Bilirubin 0.4 mg/dL (0.3-1.0) 06/02/17 18:18 AST 28 U/L (13-39) 06/02/17 18:18 ALT 32 U/L (7-52) 06/02/17 18:18 Alkaline Phosphatase 116 U/L (34-104) H 06/02/17 18:18 Total Protein 7.3 gm/dL (6.0-8.3) 06/02/17 18:18 Albumin 3.4 gm/dL (3.7-5.3) L 06/02/17 18:18 Globulin 3.9 gm/dL 06/02/17 18:18 Albumin/Globulin Ratio 0.9 (1.0-1.8) L 06/02/17 18:18 Triglycerides 107 mg/dL (<150) 06/02/17 18:18 Cholesterol 123 mg/dL (<200) 06/02/17 18:18 LDL Cholesterol Direct 45 mg/dL (75-193) L 06/02/17 18:18 HDL Cholesterol 60 mg/dL (23-92) 06/02/17 18:18 TSH 3.38 uIU/ml (0.34-5.60) 06/02/17 18:18 Salicylates < 25.0 mg/L (30.0-100.0) L 06/02/17 18:18 Acetaminophen < 10.0 ug/mL (10.0-30.0) L 06/02/17 18:18 Ethyl Alcohol < 10 mg/dL (0-10) 06/02/17 18:18 RPR NONREACTIVE (NONREACTIVE) 06/02/17 18:18 - Physical Exam Vitals and I&O: Vital Signs Temp 97.5 F 06/13/17 20:53 Pulse 81 06/13/17 20:53 Resp 20 06/13/17 20:53 BP 133/75 06/13/17 20:53 Pulse Ox 99 06/13/17 20:53 Intake & Output 06/13/17 06/13/17 06/14/17 06:59 18:59 06:59 Intake Total 360 800 240 Balance 360 800 240 Intake: Oral 360 800 240 Other: # Voids 2 3 1 # Bowel Movements 1 0 Active Medications: Current Medications Acetaminophen (Tylenol) 325 mg PO Q4HR PRN PRN Reason: Pain (Mild) Stop: 08/02/17 01:11 Last Admin: 06/13/17 06:22 Dose: 325 mg Alendronate Sodium (Fosamax) 70 mg PO QSAT [facility] Stop: 08/03/17 06:59 Last Admin: 06/11/17 06:13 Dose: 70 mg Atorvastatin Calcium (Lipitor) 20 mg PO HS [facility] Stop: 08/02/17 20:59 Last Admin: 06/13/17 21:34 Dose: 20 mg Calcium/Vitamin D (Oscal W/Vitamin D) 1 tab PO DAILY [facility] Stop: 08/02/17 08:59 Last Admin: 06/13/17 08:08 Dose: 1 tab Docusate Sodium (Colace) 100 mg PO BID [facility] Stop: 08/02/17 08:59 Last Admin: 06/13/17 17:08 Dose: 100 mg Donepezil HCl (Aricept) 10 mg PO HS [facility] Stop: 08/02/17 20:59 Last Admin: 06/13/17 21:34 Dose: 10 mg Glipizide (Glucotrol) 2.5 mg PO QAM [facility] Stop: 08/02/17 08:59 Last Admin: 06/13/17 08:07 Dose: 2.5 mg Insulin Aspart (Novolog Insulin Sliding Scale) 0 units SUBQ ACHS [facility] PRN Reason: Protocol Stop: 08/03/17 07:29 Last Admin: 03/05/18 21:33 Dose: Not Given Lorazepam (Ativan) 0.5 mg PO BID [facility] PRN Reason: Protocol Stop: 08/08/17 16:59 Last Admin: 06/13/17 17:07 Dose: 0.5 mg Magnesium Hydroxide (Milk Of Magnesia) 30 ml PO DAILY PRN PRN Reason: Constipation Stop: 08/02/17 01:11 Last Admin: 06/13/17 08:06 Dose: 30 ml Memantine (Namenda) 10 mg PO BID [facility] Stop: 08/07/17 08:02 Last Admin: 06/13/17 17:08 Dose: 10 mg Quetiapine Fumarate (Seroquel) 25 mg PO HS [facility] PRN Reason: Protocol Stop: 08/12/17 11:39 Last Admin: 06/13/17 21:35 Dose: 25 mg General: demented HEENT: NC/AT, PERRLA, EOMI, anicteric sclerae, throat clear Neck: Supple, +2 carotid pulse wo bruit, No LAD, + JVD Lungs: CTAB Cardiovascular: RRR, Normal S1, Normal S2, without murmur Abdomen: soft, non-tender, non-distended Extremities: clear Neurological: no change - Procedures Procedures: Procedures Procedure Code Date EXCISION OF BUTTOCK SUBCU/FASCIA, OPEN APPROACH [id number] 10/27/16 REMOVAL OF PRESSURE SORE 50415 10/27/16 Internal Medicine Assmt/Plan - Assessment Assessment: 1.DM. 2.HYPERLIPIDEMIA. 3.DEMENTIA. 4.PSYCHOSIS. - Plan Plan: CONTINUE ON CURRENT MEDICATION AND DIET. Nutritional Asmnt/Malnutr-PDOC - Dietary Evaluation Malnutrition Findings (Please click <Entered> for more info): Nutritional Asmnt/Malnutrition Start: 06/08/17 14: 28 Text: Status: Complete Freq: Document 06/08/17 14:28 LCBRENNANG (Rec: 06/08/17 14:33 LCBRENNANG [email or web address]) Nutritional Asmnt/Malnutrition Patient General Information Nutritional Screening Moderate Risk Diagnosis psychosis Pertinent Medical Hx/Surgical Hx DM, hyperlipidemia, DJD, dementia Subjective Information per records, PO intake 50-100% . Current Diet Order/ Nutrition Support mech soft ground, ELMA, CCHO Pertinent Medications oscal w/vit D, colace, glucotrol, novolog Pertinent Labs 06/02 Glucose 133, A1c 8.8 06/06-06/08 POC 87-242 Nutritional Hx/Data Height 1.63 m Height (Calculated Centimeters) 162.6 Current Weight (lbs) 61.235 kg Weight (Calculated Kilograms) 61.2 Weight (Calculated Grams) 45985.0 [place] Body Weight 120 % [place] Body Weight 113 Body Mass Index (BMI) 23.1 Weight Status Approriate GI Symptoms GI Symptoms None Last BM 06/07 Difficult in: None Skin Integrity/Comment: intact Estimated Nutritional Goals BEE in Kcals: Using Current wt Calories/Kcals/Kg 25-30 Kcals Calculated 4684-2395 Protein: Using Current wt Protein g/k-1.2 Protein Calculated 61-73 Fluid: ml 1525-1830ml (1ml/kcal) Nutritional Problem 1. Problem Problem altered nutrition related lab values Etiology hx of DM Signs/Symptoms: Glucose 133, A1c 8.8 POC 87-242 Malnutrition Alert Protein-Calorie Malnutrition N/A Is there a minimum of two criteria No selected? Query Text:Check all the applicable criteria. A minimum of two criteria are recommended for diagnosis of either severe or non-severe malnutrition. Intervention/Recommendation Comments 1. Continue with current diet as ordered. 2. Monitor PO intake, wt, labs and skin integrity 3. F/U as low risk in 7 days, 3/7 Expected Outcomes/Goals Expected Outcomes/Goals 1. PO intake to meet at least 75% of nutritional needs. 2. Wt stability, skin to remain intact, labs to approach WNL.
[2017-06-14] MEDS: Magnesium Hydroxide (MOM) 30 mL UDC PO PRN (08:02)
[2017-06-14] MEDS: Multivitamin w/ Minerals Tab PO SCH (08:03)
[2017-06-14] MEDS: Calcium Carb/Vit D 500 mg/200 U Tab PO SCH (08:03)
[2017-06-14] MEDS: INSULIN ASPART SLIDING SCALE 100 UNITS/ML UNIT SUBQ SCH ×4 (08:06→21:14)
--- NOTE | 2017-06-14 11:48 | Internal Medicine Prog Note ---
Internal Medicine Subjective - Subjective Service Date: 06/14/17 Patient seen and examined:: with staff Patient is:: awake, in bed, confused Per staff patient has:: no adverse event Internal Medicine Objective - Results Result Diagrams: 06/02/17 18:18 06/02/17 18:18 Recent Labs: Laboratory Last Values WBC 6.6 Th/cmm (4.8-10.8) D 06/02/17 18:18 RBC 4.01 Mil/cmm (3.80-5.20) 06/02/17 18:18 Hgb 12.3 gm/dL (12-16) 06/02/17 18:18 Hct 36.9 % (41.0-60) L 06/02/17 18:18 MCV 92.0 fl (81-100) 06/02/17 18:18 MCH 30.6 pg (27.0-31.0) 06/02/17 18:18 MCHC Differential 33.3 pg (28.0-36.0) 06/02/17 18:18 RDW 13.2 % (11.5-20.0) 06/02/17 18:18 Plt Count 287 Th/cmm (150-400) D 06/02/17 18:18 MPV 6.6 fl 06/02/17 18:18 Neutrophils % 48.6 % (40.0-80.0) 06/02/17 18:18 Lymphocytes % 42.0 % (20.0-50.0) 06/02/17 18:18 Monocytes % 6.0 % (2.0-10.0) 06/02/17 18:18 Eosinophils % 2.8 % (0.0-5.0) 06/02/17 18:18 Basophils % 0.6 % (0.0-2.0) 06/02/17 18:18 Sodium 137 mEq/L (136-145) 06/02/17 18:18 Potassium 4.1 mEq/L (3.5-5.1) 06/02/17 18:18 Chloride 107 mEq/L (98-107) 06/02/17 18:18 Carbon Dioxide 24.2 mEq/L (21.0-31.0) 06/02/17 18:18 Anion Gap 9.9 (7.0-16.0) 06/02/17 18:18 BUN 18 mg/dL (7-25) 06/02/17 18:18 Creatinine 0.7 mg/dL (0.6-1.2) 06/02/17 18:18 Est GFR ( Amer) TNP 06/02/17 18:18 Est GFR (Non-Af Amer) TNP 06/02/17 18:18 BUN/Creatinine Ratio 25.7 06/02/17 18:18 Glucose 133 mg/dL (70-105) H 06/02/17 18:18 POC Glucose 164 MG/DL (70 - 105) H 06/14/17 06:32 Hemoglobin A1c % 8.8 % (4.0-6.0) H 06/02/17 18:18 Calcium 9.4 mg/dL (8.6-10.3) 06/02/17 18:18 Total Bilirubin 0.4 mg/dL (0.3-1.0) 06/02/17 18:18 AST 28 U/L (13-39) 06/02/17 18:18 ALT 32 U/L (7-52) 06/02/17 18:18 Alkaline Phosphatase 116 U/L (34-104) H 06/02/17 18:18 Total Protein 7.3 gm/dL (6.0-8.3) 06/02/17 18:18 Albumin 3.4 gm/dL (3.7-5.3) L 06/02/17 18:18 Globulin 3.9 gm/dL 06/02/17 18:18 Albumin/Globulin Ratio 0.9 (1.0-1.8) L 06/02/17 18:18 Triglycerides 107 mg/dL (<150) 06/02/17 18:18 Cholesterol 123 mg/dL (<200) 06/02/17 18:18 LDL Cholesterol Direct 45 mg/dL (75-193) L 06/02/17 18:18 HDL Cholesterol 60 mg/dL (23-92) 06/02/17 18:18 TSH 3.38 uIU/ml (0.34-5.60) 06/02/17 18:18 Salicylates < 25.0 mg/L (30.0-100.0) L 06/02/17 18:18 Acetaminophen < 10.0 ug/mL (10.0-30.0) L 06/02/17 18:18 Ethyl Alcohol < 10 mg/dL (0-10) 06/02/17 18:18 RPR NONREACTIVE (NONREACTIVE) 06/02/17 18:18 - Physical Exam Vitals and I&O: Vital Signs Temp 97.8 F 06/14/17 06:18 Pulse 89 06/14/17 06:18 Resp 20 06/14/17 06:18 BP 130/62 06/14/17 06:18 Pulse Ox 99 06/14/17 06:18 Intake & Output 06/13/17 06/14/17 06/14/17 18:59 06:59 18:59 Intake Total 800 240 Balance 800 240 Intake: Oral 800 240 Other: # Voids 3 3 # Bowel Movements 0 1 Active Medications: Current Medications Acetaminophen (Tylenol) 325 mg PO Q4HR PRN PRN Reason: Pain (Mild) Stop: 08/02/17 01:11 Last Admin: 06/13/17 06:22 Dose: 325 mg Alendronate Sodium (Fosamax) 70 mg PO QSAT [facility] Stop: 08/03/17 06:59 Last Admin: 06/11/17 06:13 Dose: 70 mg Atorvastatin Calcium (Lipitor) 20 mg PO HS [facility] Stop: 08/02/17 20:59 Last Admin: 06/13/17 21:34 Dose: 20 mg Calcium/Vitamin D (Oscal W/Vitamin D) 1 tab PO DAILY [facility] Stop: 08/02/17 08:59 Last Admin: 06/14/17 08:03 Dose: 1 tab Docusate Sodium (Colace) 100 mg PO BID [facility] Stop: 08/02/17 08:59 Last Admin: 06/14/17 08:03 Dose: 100 mg Donepezil HCl (Aricept) 10 mg PO HS [facility] Stop: 08/02/17 20:59 Last Admin: 06/13/17 21:34 Dose: 10 mg Glipizide (Glucotrol) 2.5 mg PO QAM [facility] Stop: 08/02/17 08:59 Last Admin: 06/14/17 08:03 Dose: 2.5 mg Insulin Aspart (Novolog Insulin Sliding Scale) 0 units SUBQ ACHS [facility] PRN Reason: Protocol Stop: 08/03/17 07:29 Last Admin: 06/14/17 08:06 Dose: Not Given Lorazepam (Ativan) 0.5 mg PO BID [facility] PRN Reason: Protocol Stop: 08/08/17 16:59 Last Admin: 06/14/17 08:03 Dose: 0.5 mg Magnesium Hydroxide (Milk Of Magnesia) 30 ml PO DAILY PRN PRN Reason: Constipation Stop: 08/02/17 01:11 Last Admin: 06/14/17 08:02 Dose: 30 ml Memantine (Namenda) 10 mg PO BID [facility] Stop: 08/07/17 08:02 Last Admin: 06/14/17 08:03 Dose: 10 mg Quetiapine Fumarate (Seroquel) 25 mg PO HS [facility] PRN Reason: Protocol Stop: 08/12/17 11:39 Last Admin: 06/13/17 21:35 Dose: 25 mg General: demented HEENT: NC/AT, PERRLA, EOMI, anicteric sclerae, throat clear Neck: Supple, +2 carotid pulse wo bruit, No LAD, + JVD Lungs: CTAB Cardiovascular: RRR, Normal S1, Normal S2, without murmur Abdomen: soft, non-tender, non-distended Extremities: clear Neurological: no change - Procedures Procedures: Procedures Procedure Code Date EXCISION OF BUTTOCK SUBCU/FASCIA, OPEN APPROACH [id number] 10/27/16 REMOVAL OF PRESSURE SORE 67122 10/27/16 Internal Medicine Assmt/Plan - Assessment Assessment: 1.DM. 2.HYPERLIPIDEMIA. 3.DEMENTIA. 4.PSYCHOSIS. - Plan Plan: CONTINUE ON CURRENT MEDICATION AND DIET. Nutritional Asmnt/Malnutr-PDOC - Dietary Evaluation Malnutrition Findings (Please click <Entered> for more info): Nutritional Asmnt/Malnutrition Start: 06/08/17 14: 28 Text: Status: Complete Freq: Document 06/08/17 14:28 LCBRENNANG (Rec: 06/08/17 14:33 LCBRENNANG [email or web address]) Nutritional Asmnt/Malnutrition Patient General Information Nutritional Screening Moderate Risk Diagnosis psychosis Pertinent Medical Hx/Surgical Hx DM, hyperlipidemia, DJD, dementia Subjective Information per records, PO intake 50-100% . Current Diet Order/ Nutrition Support mech soft ground, ELMA, CCHO Pertinent Medications oscal w/vit D, colace, glucotrol, novolog Pertinent Labs 06/02 Glucose 133, A1c 8.8 06/06-06/08 POC 87-242 Nutritional Hx/Data Height 1.63 m Height (Calculated Centimeters) 162.6 Current Weight (lbs) 61.235 kg Weight (Calculated Kilograms) 61.2 Weight (Calculated Grams) 27417.0 [place] Body Weight 120 % [place] Body Weight 113 Body Mass Index (BMI) 23.1 Weight Status Approriate GI Symptoms GI Symptoms None Last BM 06/07 Difficult in: None Skin Integrity/Comment: intact Estimated Nutritional Goals BEE in Kcals: Using Current wt Calories/Kcals/Kg 25-30 Kcals Calculated 2491-7192 Protein: Using Current wt Protein g/k-1.2 Protein Calculated 61-73 Fluid: ml 1525-1830ml (1ml/kcal) Nutritional Problem 1. Problem Problem altered nutrition related lab values Etiology hx of DM Signs/Symptoms: Glucose 133, A1c 8.8 POC 87-999 Malnutrition Alert Protein-Calorie Malnutrition N/A Is there a minimum of two criteria No selected? Query Text:Check all the applicable criteria. A minimum of two criteria are recommended for diagnosis of either severe or non-severe malnutrition. Intervention/Recommendation Comments 1. Continue with current diet as ordered. 2. Monitor PO intake, wt, labs and skin integrity 3. F/U as low risk in 7 days, 3/7 Expected Outcomes/Goals Expected Outcomes/Goals 1. PO intake to meet at least 75% of nutritional needs. 2. Wt stability, skin to remain intact, labs to approach WNL.
[2017-06-14] MEDS: Atorvastatin Calcium 10 MG TAB PO SCH (21:14)
--- NOTE | 2017-06-14 22:06 | Progress Notes ---
DATE: 06/14/2017 Case was discussed with staff of the patient and reviewed records. The patient continues to be confused, irritable, easily agitated, continues to have poor insight, continues to be unable to make safe plan for self-care. She tolerated increase in Seroquel with no side effects, no sedation, no nausea, no extrapyramidal symptoms. We will continue outpatient group therapy, milieu therapy, adjust medications as needed. [facility]# [id number]
[2017-06-15] MEDS: INSULIN ASPART SLIDING SCALE 100 UNITS/ML UNIT SUBQ SCH ×4 (06:48→21:32)
[2017-06-15] MEDS: Calcium Carb/Vit D 500 mg/200 U Tab PO SCH (08:05)
[2017-06-15] MEDS: Multivitamin w/ Minerals Tab PO SCH (08:05)
--- NOTE | 2017-06-15 15:30 | Progress Notes ---
DATE: 06/15/2017 Case was discussed with staff of the patient, reviewed records. The patient continued to have episodes of agitation, irritability, continues to need redirection, demented, confused, unable to make safe plan for self-care or participate in meaningful conversation. Sleeping well, eating well. I did increase her Seroquel to 25 mg at bedtime on 06/13/2017, so early to make further changes and no side effects, no sedation, no nausea, no extrapyramidal symptoms. We will continue to work with the patient in group therapy, milieu therapy, adjust her medication as needed. JOB# [id number]
--- NOTE | 2017-06-15 19:47 | Internal Medicine Prog Note ---
Internal Medicine Subjective - Subjective Service Date: 06/15/17 Patient seen and examined:: with staff Patient is:: awake, in bed, confused Per staff patient has:: no adverse event Internal Medicine Objective - Results Result Diagrams: 06/02/17 18:18 06/02/17 18:18 Recent Labs: Laboratory Last Values WBC 6.6 Th/cmm (4.8-10.8) D 06/02/17 18:18 RBC 4.01 Mil/cmm (3.80-5.20) 06/02/17 18:18 Hgb 12.3 gm/dL (12-16) 06/02/17 18:18 Hct 36.9 % (41.0-60) L 06/02/17 18:18 MCV 92.0 fl (81-100) 06/02/17 18:18 MCH 30.6 pg (27.0-31.0) 06/02/17 18:18 MCHC Differential 33.3 pg (28.0-36.0) 06/02/17 18:18 RDW 13.2 % (11.5-20.0) 06/02/17 18:18 Plt Count 287 Th/cmm (150-400) D 06/02/17 18:18 MPV 6.6 fl 06/02/17 18:18 Neutrophils % 48.6 % (40.0-80.0) 06/02/17 18:18 Lymphocytes % 42.0 % (20.0-50.0) 06/02/17 18:18 Monocytes % 6.0 % (2.0-10.0) 06/02/17 18:18 Eosinophils % 2.8 % (0.0-5.0) 06/02/17 18:18 Basophils % 0.6 % (0.0-2.0) 06/02/17 18:18 Sodium 137 mEq/L (136-145) 06/02/17 18:18 Potassium 4.1 mEq/L (3.5-5.1) 06/02/17 18:18 Chloride 107 mEq/L (98-107) 06/02/17 18:18 Carbon Dioxide 24.2 mEq/L (21.0-31.0) 06/02/17 18:18 Anion Gap 9.9 (7.0-16.0) 06/02/17 18:18 BUN 18 mg/dL (7-25) 06/02/17 18:18 Creatinine 0.7 mg/dL (0.6-1.2) 06/02/17 18:18 Est GFR ( Amer) TNP 06/02/17 18:18 Est GFR (Non-Af Amer) TNP 06/02/17 18:18 BUN/Creatinine Ratio 25.7 06/02/17 18:18 Glucose 133 mg/dL (70-105) H 06/02/17 18:18 POC Glucose 102 MG/DL (70 - 105) 06/15/17 16:57 Hemoglobin A1c % 8.8 % (4.0-6.0) H 06/02/17 18:18 Calcium 9.4 mg/dL (8.6-10.3) 06/02/17 18:18 Total Bilirubin 0.4 mg/dL (0.3-1.0) 06/02/17 18:18 AST 28 U/L (13-39) 06/02/17 18:18 ALT 32 U/L (7-52) 06/02/17 18:18 Alkaline Phosphatase 116 U/L (34-104) H 06/02/17 18:18 Total Protein 7.3 gm/dL (6.0-8.3) 06/02/17 18:18 Albumin 3.4 gm/dL (3.7-5.3) L 06/02/17 18:18 Globulin 3.9 gm/dL 06/02/17 18:18 Albumin/Globulin Ratio 0.9 (1.0-1.8) L 06/02/17 18:18 Triglycerides 107 mg/dL (<150) 06/02/17 18:18 Cholesterol 123 mg/dL (<200) 06/02/17 18:18 LDL Cholesterol Direct 45 mg/dL (75-193) L 06/02/17 18:18 HDL Cholesterol 60 mg/dL (23-92) 06/02/17 18:18 TSH 3.38 uIU/ml (0.34-5.60) 06/02/17 18:18 Salicylates < 25.0 mg/L (30.0-100.0) L 06/02/17 18:18 Acetaminophen < 10.0 ug/mL (10.0-30.0) L 06/02/17 18:18 Ethyl Alcohol < 10 mg/dL (0-10) 06/02/17 18:18 RPR NONREACTIVE (NONREACTIVE) 06/02/17 18:18 - Physical Exam Vitals and I&O: Vital Signs Temp 97.6 F 06/15/17 15:55 Pulse 75 06/15/17 15:55 Resp 20 06/15/17 15:55 BP 135/68 06/15/17 15:55 Pulse Ox 97 06/15/17 15:55 Intake & Output 06/15/17 06/15/17 06/16/17 06:59 18:59 06:59 Intake Total 240 800 Balance 240 800 Intake: Oral 240 800 Other: # Voids 2 2 # Bowel Movements 1 1 Active Medications: Current Medications Acetaminophen (Tylenol) 325 mg PO Q4HR PRN PRN Reason: Pain (Mild) Stop: 08/02/17 01:11 Last Admin: 06/13/17 06:22 Dose: 325 mg Alendronate Sodium (Fosamax) 70 mg PO QSAT [facility] Stop: 08/03/17 06:59 Last Admin: 06/11/17 06:13 Dose: 70 mg Atorvastatin Calcium (Lipitor) 20 mg PO HS [facility] Stop: 08/02/17 20:59 Last Admin: 06/14/17 21:14 Dose: 20 mg Calcium/Vitamin D (Oscal W/Vitamin D) 1 tab PO DAILY [facility] Stop: 08/02/17 08:59 Last Admin: 06/15/17 08:05 Dose: 1 tab Docusate Sodium (Colace) 100 mg PO BID [facility] Stop: 08/02/17 08:59 Last Admin: 06/15/17 16:02 Dose: 100 mg Donepezil HCl (Aricept) 10 mg PO HS [facility] Stop: 08/02/17 20:59 Last Admin: 06/14/17 21:14 Dose: 10 mg Glipizide (Glucotrol) 2.5 mg PO QAM [facility] Stop: 08/02/17 08:59 Last Admin: 06/15/17 08:05 Dose: 2.5 mg Insulin Aspart (Novolog Insulin Sliding Scale) 0 units SUBQ ACHS [facility] PRN Reason: Protocol Stop: 08/03/17 07:29 Last Admin: 06/15/17 17:03 Dose: Not Given Lorazepam (Ativan) 0.5 mg PO BID [facility] PRN Reason: Protocol Stop: 08/08/17 16:59 Last Admin: 06/15/17 16:03 Dose: 0.5 mg Magnesium Hydroxide (Milk Of Magnesia) 30 ml PO DAILY PRN PRN Reason: Constipation Stop: 08/02/17 01:11 Last Admin: 06/14/17 08:02 Dose: 30 ml Memantine (Namenda) 10 mg PO BID [facility] Stop: 08/07/17 08:02 Last Admin: 06/15/17 16:02 Dose: 10 mg Quetiapine Fumarate (Seroquel) 25 mg PO HS [facility] PRN Reason: Protocol Stop: 08/12/17 11:39 Last Admin: 06/14/17 21:13 Dose: 25 mg General: demented HEENT: NC/AT, PERRLA, EOMI, anicteric sclerae, throat clear Neck: Supple, +2 carotid pulse wo bruit, No LAD, + JVD Lungs: CTAB Cardiovascular: RRR, Normal S1, Normal S2, without murmur Abdomen: soft, non-tender, non-distended Extremities: clear Neurological: no change - Procedures Procedures: Procedures Procedure Code Date EXCISION OF BUTTOCK SUBCU/FASCIA, OPEN APPROACH [id number] 10/27/16 REMOVAL OF PRESSURE SORE 27926 10/27/16 Internal Medicine Assmt/Plan - Assessment Assessment: 1.DM. 2.HYPERLIPIDEMIA. 3.DEMENTIA. 4.PSYCHOSIS. - Plan Plan: CONTINUE ON CURRENT MEDICATION AND DIET. Nutritional Asmnt/Malnutr-PDOC - Dietary Evaluation Malnutrition Findings (Please click <Entered> for more info): Nutritional Asmnt/Malnutrition Start: 06/08/17 14: 28 Text: Status: Complete Freq: Document 06/08/17 14:28 LCBRENNANG (Rec: 06/08/17 14:33 LCBRENNANG [email or web address]) Nutritional Asmnt/Malnutrition Patient General Information Nutritional Screening Moderate Risk Diagnosis psychosis Pertinent Medical Hx/Surgical Hx DM, hyperlipidemia, DJD, dementia Subjective Information per records, PO intake 50-100% . Current Diet Order/ Nutrition Support mech soft ground, ELMA, CCHO Pertinent Medications oscal w/vit D, colace, glucotrol, novolog Pertinent Labs 06/02 Glucose 133, A1c 8.8 06/06-06/08 POC 87-242 Nutritional Hx/Data Height 1.63 m Height (Calculated Centimeters) 162.6 Current Weight (lbs) 61.235 kg Weight (Calculated Kilograms) 61.2 Weight (Calculated Grams) 64178.0 [place] Body Weight 120 % [place] Body Weight 113 Body Mass Index (BMI) 23.1 Weight Status Approriate GI Symptoms GI Symptoms None Last BM 06/07 Difficult in: None Skin Integrity/Comment: intact Estimated Nutritional Goals BEE in Kcals: Using Current wt Calories/Kcals/Kg 25-30 Kcals Calculated 6159-5762 Protein: Using Current wt Protein g/k-1.2 Protein Calculated 61-73 Fluid: ml 1525-1830ml (1ml/kcal) Nutritional Problem 1. Problem Problem altered nutrition related lab values Etiology hx of DM Signs/Symptoms: Glucose 133, A1c 8.8 POC 87-300 Malnutrition Alert Protein-Calorie Malnutrition N/A Is there a minimum of two criteria No selected? Query Text:Check all the applicable criteria. A minimum of two criteria are recommended for diagnosis of either severe or non-severe malnutrition. Intervention/Recommendation Comments 1. Continue with current diet as ordered. 2. Monitor PO intake, wt, labs and skin integrity 3. F/U as low risk in 7 days, 3/7 Expected Outcomes/Goals Expected Outcomes/Goals 1. PO intake to meet at least 75% of nutritional needs. 2. Wt stability, skin to remain intact, labs to approach WNL.
[2017-06-15] MEDS: Atorvastatin Calcium 10 MG TAB PO SCH (21:15)
[2017-06-16] MEDS: INSULIN ASPART SLIDING SCALE 100 UNITS/ML UNIT SUBQ SCH ×4 (06:37→22:00)
[2017-06-16] MEDS: Multivitamin w/ Minerals Tab PO SCH (08:19)
[2017-06-16] MEDS: Calcium Carb/Vit D 500 mg/200 U Tab PO SCH (08:19)
--- NOTE | 2017-06-16 18:59 | Progress Notes ---
DATE: 06/16/2017 Case was discussed with staff of the patient, reviewed records. The patient continues to be acting out. She was yelling and screaming earlier today and continues to have poor insight, unpredictable, impulsive, needing redirection. She is able to sleep. The staff feed her and sometimes family comes and feed her. No side effects of medication, no sedation or nausea and no extrapyramidal symptoms. Continues to be ___ because of her agitated behavior. No side effects with the medication, no sedation, no nausea and no extrapyramidal symptoms. We will continue the patient in group therapy, milieu therapy, and adjust medications as needed. JOB# [id number]
--- NOTE | 2017-06-16 20:03 | Internal Medicine Prog Note ---
Internal Medicine Subjective - Subjective Service Date: 06/16/17 Patient seen and examined:: with staff Patient is:: awake, in bed, confused Per staff patient has:: no adverse event Internal Medicine Objective - Results Result Diagrams: 06/02/17 18:18 06/02/17 18:18 Recent Labs: Laboratory Last Values WBC 6.6 Th/cmm (4.8-10.8) D 06/02/17 18:18 RBC 4.01 Mil/cmm (3.80-5.20) 06/02/17 18:18 Hgb 12.3 gm/dL (12-16) 06/02/17 18:18 Hct 36.9 % (41.0-60) L 06/02/17 18:18 MCV 92.0 fl (81-100) 06/02/17 18:18 MCH 30.6 pg (27.0-31.0) 06/02/17 18:18 MCHC Differential 33.3 pg (28.0-36.0) 06/02/17 18:18 RDW 13.2 % (11.5-20.0) 06/02/17 18:18 Plt Count 287 Th/cmm (150-400) D 06/02/17 18:18 MPV 6.6 fl 06/02/17 18:18 Neutrophils % 48.6 % (40.0-80.0) 06/02/17 18:18 Lymphocytes % 42.0 % (20.0-50.0) 06/02/17 18:18 Monocytes % 6.0 % (2.0-10.0) 06/02/17 18:18 Eosinophils % 2.8 % (0.0-5.0) 06/02/17 18:18 Basophils % 0.6 % (0.0-2.0) 06/02/17 18:18 Sodium 137 mEq/L (136-145) 06/02/17 18:18 Potassium 4.1 mEq/L (3.5-5.1) 06/02/17 18:18 Chloride 107 mEq/L (98-107) 06/02/17 18:18 Carbon Dioxide 24.2 mEq/L (21.0-31.0) 06/02/17 18:18 Anion Gap 9.9 (7.0-16.0) 06/02/17 18:18 BUN 18 mg/dL (7-25) 06/02/17 18:18 Creatinine 0.7 mg/dL (0.6-1.2) 06/02/17 18:18 Est GFR ( Amer) TNP 06/02/17 18:18 Est GFR (Non-Af Amer) TNP 06/02/17 18:18 BUN/Creatinine Ratio 25.7 06/02/17 18:18 Glucose 133 mg/dL (70-105) H 06/02/17 18:18 POC Glucose 145 MG/DL (70 - 105) H 06/16/17 16:54 Hemoglobin A1c % 8.8 % (4.0-6.0) H 06/02/17 18:18 Calcium 9.4 mg/dL (8.6-10.3) 06/02/17 18:18 Total Bilirubin 0.4 mg/dL (0.3-1.0) 06/02/17 18:18 AST 28 U/L (13-39) 06/02/17 18:18 ALT 32 U/L (7-52) 06/02/17 18:18 Alkaline Phosphatase 116 U/L (34-104) H 06/02/17 18:18 Total Protein 7.3 gm/dL (6.0-8.3) 06/02/17 18:18 Albumin 3.4 gm/dL (3.7-5.3) L 06/02/17 18:18 Globulin 3.9 gm/dL 06/02/17 18:18 Albumin/Globulin Ratio 0.9 (1.0-1.8) L 06/02/17 18:18 Triglycerides 107 mg/dL (<150) 06/02/17 18:18 Cholesterol 123 mg/dL (<200) 06/02/17 18:18 LDL Cholesterol Direct 45 mg/dL (75-193) L 06/02/17 18:18 HDL Cholesterol 60 mg/dL (23-92) 06/02/17 18:18 TSH 3.38 uIU/ml (0.34-5.60) 06/02/17 18:18 Salicylates < 25.0 mg/L (30.0-100.0) L 06/02/17 18:18 Acetaminophen < 10.0 ug/mL (10.0-30.0) L 06/02/17 18:18 Ethyl Alcohol < 10 mg/dL (0-10) 06/02/17 18:18 RPR NONREACTIVE (NONREACTIVE) 06/02/17 18:18 - Physical Exam Vitals and I&O: Vital Signs Temp 97.3 F 06/16/17 14:00 Pulse 82 06/16/17 14:00 Resp 20 06/16/17 14:00 BP 119/75 06/16/17 14:00 Pulse Ox 96 06/16/17 14:00 Intake & Output 06/16/17 06/16/17 06/17/17 06:59 18:59 06:59 Intake Total 120 1200 Balance 120 1200 Intake: Oral 120 1200 Other: # Voids 3 # Bowel Movements 0 2 Active Medications: Current Medications Acetaminophen (Tylenol) 325 mg PO Q4HR PRN PRN Reason: Pain (Mild) Stop: 08/02/17 01:11 Last Admin: 06/13/17 06:22 Dose: 325 mg Alendronate Sodium (Fosamax) 70 mg PO QSAT [facility] Stop: 08/03/17 06:59 Last Admin: 06/11/17 06:13 Dose: 70 mg Atorvastatin Calcium (Lipitor) 20 mg PO HS [facility] Stop: 08/02/17 20:59 Last Admin: 06/15/17 21:15 Dose: 20 mg Calcium/Vitamin D (Oscal W/Vitamin D) 1 tab PO DAILY ERWIN Stop: 08/02/17 08:59 Last Admin: 06/16/17 08:19 Dose: 1 tab Docusate Sodium (Colace) 100 mg PO BID ERWIN Stop: 08/02/17 08:59 Last Admin: 06/16/17 16:38 Dose: 100 mg Donepezil HCl (Aricept) 10 mg PO HS ERWIN Stop: 08/02/17 20:59 Last Admin: 06/15/17 21:15 Dose: 10 mg Glipizide (Glucotrol) 2.5 mg PO QAM ERWIN Stop: 08/02/17 08:59 Last Admin: 06/16/17 08:19 Dose: 2.5 mg Insulin Aspart (Novolog Insulin Sliding Scale) 0 units SUBQ ACHS ERWIN PRN Reason: Protocol Stop: 08/03/17 07:29 Last Admin: 06/16/17 17:02 Dose: Not Given Lorazepam (Ativan) 0.5 mg PO BID ERWIN PRN Reason: Protocol Stop: 08/08/17 16:59 Last Admin: 06/16/17 16:38 Dose: 0.5 mg Magnesium Hydroxide (Milk Of Magnesia) 30 ml PO DAILY PRN PRN Reason: Constipation Stop: 08/02/17 01:11 Last Admin: 06/14/17 08:02 Dose: 30 ml Memantine (Namenda) 10 mg PO BID ERWIN Stop: 08/07/17 08:02 Last Admin: 06/16/17 16:38 Dose: 10 mg Quetiapine Fumarate (Seroquel) 25 mg PO HS ERWIN PRN Reason: Protocol Stop: 08/12/17 11:39 Last Admin: 06/15/17 21:15 Dose: 25 mg General: demented HEENT: NC/AT, PERRLA, EOMI, anicteric sclerae, throat clear Neck: Supple, +2 carotid pulse wo bruit, No LAD, + JVD Lungs: CTAB Cardiovascular: RRR, Normal S1, Normal S2, without murmur Abdomen: soft, non-tender, non-distended Extremities: clear Neurological: no change - Procedures Procedures: Procedures Procedure Code Date EXCISION OF BUTTOCK SUBCU/FASCIA, OPEN APPROACH [id number] 10/27/16 REMOVAL OF PRESSURE SORE 92386 10/27/16 Internal Medicine Assmt/Plan - Assessment Assessment: 1.DM. 2.HYPERLIPIDEMIA. 3.DEMENTIA. 4.PSYCHOSIS. - Plan Plan: CONTINUE ON CURRENT MEDICATION AND DIET. Nutritional Asmnt/Malnutr-PDOC - Dietary Evaluation Malnutrition Findings (Please click <Entered> for more info): Nutritional Asmnt/Malnutrition Start: 06/08/17 14: 28 Text: Status: Complete Freq: Document 06/08/17 14:28 LCBRENNANG (Rec: 06/08/17 14:33 LCBRENNANG [email or web address]) Nutritional Asmnt/Malnutrition Patient General Information Nutritional Screening Moderate Risk Diagnosis psychosis Pertinent Medical Hx/Surgical Hx DM, hyperlipidemia, DJD, dementia Subjective Information per records, PO intake 50-100% . Current Diet Order/ Nutrition Support mech soft ground, ELMA, CCHO Pertinent Medications oscal w/vit D, colace, glucotrol, novolog Pertinent Labs 06/02 Glucose 133, A1c 8.8 06/06-06/08 POC 87-242 Nutritional Hx/Data Height 1.63 m Height (Calculated Centimeters) 162.6 Current Weight (lbs) 61.235 kg Weight (Calculated Kilograms) 61.2 Weight (Calculated Grams) 91816.0 [place] Body Weight 120 % [place] Body Weight 113 Body Mass Index (BMI) 23.1 Weight Status Approriate GI Symptoms GI Symptoms None Last BM 06/07 Difficult in: None Skin Integrity/Comment: intact Estimated Nutritional Goals BEE in Kcals: Using Current wt Calories/Kcals/Kg 25-30 Kcals Calculated 1614-9288 Protein: Using Current wt Protein g/k-1.2 Protein Calculated 61-73 Fluid: ml 1525-1830ml (1ml/kcal) Nutritional Problem 1. Problem Problem altered nutrition related lab values Etiology hx of DM Signs/Symptoms: Glucose 133, A1c 8.8 POC 87-849 Malnutrition Alert Protein-Calorie Malnutrition N/A Is there a minimum of two criteria No selected? Query Text:Check all the applicable criteria. A minimum of two criteria are recommended for diagnosis of either severe or non-severe malnutrition. Intervention/Recommendation Comments 1. Continue with current diet as ordered. 2. Monitor PO intake, wt, labs and skin integrity 3. F/U as low risk in 7 days, 3/7 Expected Outcomes/Goals Expected Outcomes/Goals 1. PO intake to meet at least 75% of nutritional needs. 2. Wt stability, skin to remain intact, labs to approach WNL.
[2017-06-16] MEDS: Atorvastatin Calcium 10 MG TAB PO SCH (21:41)
[2017-06-17] MEDS: INSULIN ASPART SLIDING SCALE 100 UNITS/ML UNIT SUBQ SCH ×4 (06:34→21:22)
[2017-06-17] MEDS: Multivitamin w/ Minerals Tab PO SCH (08:07)
[2017-06-17] MEDS: Calcium Carb/Vit D 500 mg/200 U Tab PO SCH (08:07)
[2017-06-17] MEDS ORDERED: Haloperidol Lactate 5 mg/mL 1mL Vial ONE (08:40)
[2017-06-17] MEDS ORDERED: Haloperidol Lactate 5 mg/mL 1mL Vial IM ONE (09:32)
--- NOTE | 2017-06-17 19:31 | Internal Medicine Prog Note ---
Internal Medicine Subjective - Subjective Service Date: 06/17/17 Patient seen and examined:: without staff Patient is:: awake, in bed, confused Per staff patient has:: no adverse event Internal Medicine Objective - Results Result Diagrams: 06/02/17 18:18 06/02/17 18:18 Recent Labs: Laboratory Last Values WBC 6.6 Th/cmm (4.8-10.8) D 06/02/17 18:18 RBC 4.01 Mil/cmm (3.80-5.20) 06/02/17 18:18 Hgb 12.3 gm/dL (12-16) 06/02/17 18:18 Hct 36.9 % (41.0-60) L 06/02/17 18:18 MCV 92.0 fl (81-100) 06/02/17 18:18 MCH 30.6 pg (27.0-31.0) 06/02/17 18:18 MCHC Differential 33.3 pg (28.0-36.0) 06/02/17 18:18 RDW 13.2 % (11.5-20.0) 06/02/17 18:18 Plt Count 287 Th/cmm (150-400) D 06/02/17 18:18 MPV 6.6 fl 06/02/17 18:18 Neutrophils % 48.6 % (40.0-80.0) 06/02/17 18:18 Lymphocytes % 42.0 % (20.0-50.0) 06/02/17 18:18 Monocytes % 6.0 % (2.0-10.0) 06/02/17 18:18 Eosinophils % 2.8 % (0.0-5.0) 06/02/17 18:18 Basophils % 0.6 % (0.0-2.0) 06/02/17 18:18 Sodium 137 mEq/L (136-145) 06/02/17 18:18 Potassium 4.1 mEq/L (3.5-5.1) 06/02/17 18:18 Chloride 107 mEq/L (98-107) 06/02/17 18:18 Carbon Dioxide 24.2 mEq/L (21.0-31.0) 06/02/17 18:18 Anion Gap 9.9 (7.0-16.0) 06/02/17 18:18 BUN 18 mg/dL (7-25) 06/02/17 18:18 Creatinine 0.7 mg/dL (0.6-1.2) 06/02/17 18:18 Est GFR ( Amer) TNP 06/02/17 18:18 Est GFR (Non-Af Amer) TNP 06/02/17 18:18 BUN/Creatinine Ratio 25.7 06/02/17 18:18 Glucose 133 mg/dL (70-105) H 06/02/17 18:18 POC Glucose 140 MG/DL (70 - 105) H 06/17/17 16:52 Hemoglobin A1c % 8.8 % (4.0-6.0) H 06/02/17 18:18 Calcium 9.4 mg/dL (8.6-10.3) 06/02/17 18:18 Total Bilirubin 0.4 mg/dL (0.3-1.0) 06/02/17 18:18 AST 28 U/L (13-39) 06/02/17 18:18 ALT 32 U/L (7-52) 06/02/17 18:18 Alkaline Phosphatase 116 U/L (34-104) H 06/02/17 18:18 Total Protein 7.3 gm/dL (6.0-8.3) 06/02/17 18:18 Albumin 3.4 gm/dL (3.7-5.3) L 06/02/17 18:18 Globulin 3.9 gm/dL 06/02/17 18:18 Albumin/Globulin Ratio 0.9 (1.0-1.8) L 06/02/17 18:18 Triglycerides 107 mg/dL (<150) 06/02/17 18:18 Cholesterol 123 mg/dL (<200) 06/02/17 18:18 LDL Cholesterol Direct 45 mg/dL (75-193) L 06/02/17 18:18 HDL Cholesterol 60 mg/dL (23-92) 06/02/17 18:18 TSH 3.38 uIU/ml (0.34-5.60) 06/02/17 18:18 Salicylates < 25.0 mg/L (30.0-100.0) L 06/02/17 18:18 Acetaminophen < 10.0 ug/mL (10.0-30.0) L 06/02/17 18:18 Ethyl Alcohol < 10 mg/dL (0-10) 06/02/17 18:18 RPR NONREACTIVE (NONREACTIVE) 06/02/17 18:18 - Physical Exam Vitals and I&O: Vital Signs Temp 97.3 F 06/17/17 16:31 Pulse 70 06/17/17 16:31 Resp 18 06/17/17 16:31 BP 108/78 06/17/17 16:31 Pulse Ox 98 06/17/17 16:31 Intake & Output 06/17/17 06/17/17 06/18/17 06:59 18:59 06:59 Intake Total 700 850 Balance 700 850 Intake: Oral 700 850 Other: # Voids 3 4 # Bowel Movements 1 1 Active Medications: Current Medications Acetaminophen (Tylenol) 325 mg PO Q4HR PRN PRN Reason: Pain (Mild) Stop: 08/02/17 01:11 Last Admin: 06/13/17 06:22 Dose: 325 mg Alendronate Sodium (Fosamax) 70 mg PO QSAT [facility] Stop: 08/03/17 06:59 Last Admin: 06/11/17 06:13 Dose: 70 mg Atorvastatin Calcium (Lipitor) 20 mg PO HS [facility] Stop: 08/02/17 20:59 Last Admin: 06/16/17 21:41 Dose: 20 mg Calcium/Vitamin D (Oscal W/Vitamin D) 1 tab PO DAILY ERWIN Stop: 08/02/17 08:59 Last Admin: 06/17/17 08:07 Dose: 1 tab Docusate Sodium (Colace) 100 mg PO BID [facility] Stop: 08/02/17 08:59 Last Admin: 06/17/17 17:49 Dose: 100 mg Donepezil HCl (Aricept) 10 mg PO HS [facility] Stop: 08/02/17 20:59 Last Admin: 06/16/17 21:41 Dose: 10 mg Glipizide (Glucotrol) 2.5 mg PO QAM [facility] Stop: 08/02/17 08:59 Last Admin: 06/17/17 08:07 Dose: 2.5 mg Insulin Aspart (Novolog Insulin Sliding Scale) 0 units SUBQ ACHS ERIWN PRN Reason: Protocol Stop: 08/03/17 07:29 Last Admin: 06/17/17 17:01 Dose: Not Given Lorazepam (Ativan) 0.5 mg PO BID ERWIN PRN Reason: Protocol Stop: 08/08/17 16:59 Last Admin: 06/17/17 17:48 Dose: 0.5 mg Magnesium Hydroxide (Milk Of Magnesia) 30 ml PO DAILY PRN PRN Reason: Constipation Stop: 08/02/17 01:11 Last Admin: 06/14/17 08:02 Dose: 30 ml Memantine (Namenda) 10 mg PO BID ERWIN Stop: 08/07/17 08:02 Last Admin: 06/17/17 17:49 Dose: 10 mg Quetiapine Fumarate (Seroquel) 25 mg PO HS ERWIN PRN Reason: Protocol Stop: 08/12/17 11:39 Last Admin: 06/16/17 21:41 Dose: 25 mg General: demented HEENT: NC/AT, PERRLA, EOMI, anicteric sclerae, throat clear Neck: Supple, +2 carotid pulse wo bruit, No LAD, + JVD Lungs: CTAB Cardiovascular: RRR, Normal S1, Normal S2, without murmur Abdomen: soft, non-tender, non-distended Extremities: clear Neurological: no change - Procedures Procedures: Procedures Procedure Code Date EXCISION OF BUTTOCK SUBCU/FASCIA, OPEN APPROACH [id number] 10/27/16 REMOVAL OF PRESSURE SORE 06473 10/27/16 Internal Medicine Assmt/Plan - Assessment Assessment: 1.DM. 2.HYPERLIPIDEMIA. 3.DEMENTIA. 4.PSYCHOSIS. - Plan Plan: CONTINUE ON CURRENT MEDICATION AND DIET. Nutritional Asmnt/Malnutr-PDOC - Dietary Evaluation Malnutrition Findings (Please click <Entered> for more info): Nutritional Asmnt/Malnutrition Start: 06/08/17 14: 28 Text: Status: Complete Freq: Document 06/08/17 14:28 LCBRENNANG (Rec: 06/08/17 14:33 LCBRENNANG [email or web address]) Nutritional Asmnt/Malnutrition Patient General Information Nutritional Screening Moderate Risk Diagnosis psychosis Pertinent Medical Hx/Surgical Hx DM, hyperlipidemia, DJD, dementia Subjective Information per records, PO intake 50-100% . Current Diet Order/ Nutrition Support mech soft ground, ELMA, CCHO Pertinent Medications oscal w/vit D, colace, glucotrol, novolog Pertinent Labs 06/02 Glucose 133, A1c 8.8 06/06-06/08 POC 87-242 Nutritional Hx/Data Height 1.63 m Height (Calculated Centimeters) 162.6 Current Weight (lbs) 61.235 kg Weight (Calculated Kilograms) 61.2 Weight (Calculated Grams) 40158.0 [place] Body Weight 120 % [place] Body Weight 113 Body Mass Index (BMI) 23.1 Weight Status Approriate GI Symptoms GI Symptoms None Last BM 06/07 Difficult in: None Skin Integrity/Comment: intact Estimated Nutritional Goals BEE in Kcals: Using Current wt Calories/Kcals/Kg 25-30 Kcals Calculated 4071-7960 Protein: Using Current wt Protein g/k-1.2 Protein Calculated 61-73 Fluid: ml 1525-1830ml (1ml/kcal) Nutritional Problem 1. Problem Problem altered nutrition related lab values Etiology hx of DM Signs/Symptoms: Glucose 133, A1c 8.8 POC 87-075 Malnutrition Alert Protein-Calorie Malnutrition N/A Is there a minimum of two criteria No selected? Query Text:Check all the applicable criteria. A minimum of two criteria are recommended for diagnosis of either severe or non-severe malnutrition. Intervention/Recommendation Comments 1. Continue with current diet as ordered. 2. Monitor PO intake, wt, labs and skin integrity 3. F/U as low risk in 7 days, 3/7 Expected Outcomes/Goals Expected Outcomes/Goals 1. PO intake to meet at least 75% of nutritional needs. 2. Wt stability, skin to remain intact, labs to approach WNL.
[2017-06-17] MEDS: Atorvastatin Calcium 10 MG TAB PO SCH (21:22)
--- NOTE | 2017-06-18 00:53 | Progress Notes ---
DATE: 06/17/2017 Case was discussed with staff of the patient, reviewed records. The patient continues to be unpredictable, impulsive. She was acting out. She had to be medicated this morning. Still unpredictable, impulsive, needing redirection. Very poor insight, demented, confused. No side effects with the medication. No sedation, no nausea, no extrapyramidal symptoms and we will continue to work with the patient in group therapy, milieu therapy, adjust the medication as needed. JOB# [id number]
[2017-06-18] MEDS: INSULIN ASPART SLIDING SCALE 100 UNITS/ML UNIT SUBQ SCH ×3 (06:31→21:00)
[2017-06-18] MEDS: Calcium Carb/Vit D 500 mg/200 U Tab PO SCH (09:27)
[2017-06-18] MEDS: Multivitamin w/ Minerals Tab PO SCH (09:29)
--- NOTE | 2017-06-18 19:04 | Internal Medicine Prog Note ---
Internal Medicine Subjective - Subjective Service Date: 06/18/17 Patient seen and examined:: with staff Patient is:: awake, in bed, confused Per staff patient has:: no adverse event Internal Medicine Objective - Results Result Diagrams: 06/02/17 18:18 06/02/17 18:18 Recent Labs: Laboratory Last Values WBC 6.6 Th/cmm (4.8-10.8) D 06/02/17 18:18 RBC 4.01 Mil/cmm (3.80-5.20) 06/02/17 18:18 Hgb 12.3 gm/dL (12-16) 06/02/17 18:18 Hct 36.9 % (41.0-60) L 06/02/17 18:18 MCV 92.0 fl (81-100) 06/02/17 18:18 MCH 30.6 pg (27.0-31.0) 06/02/17 18:18 MCHC Differential 33.3 pg (28.0-36.0) 06/02/17 18:18 RDW 13.2 % (11.5-20.0) 06/02/17 18:18 Plt Count 287 Th/cmm (150-400) D 06/02/17 18:18 MPV 6.6 fl 06/02/17 18:18 Neutrophils % 48.6 % (40.0-80.0) 06/02/17 18:18 Lymphocytes % 42.0 % (20.0-50.0) 06/02/17 18:18 Monocytes % 6.0 % (2.0-10.0) 06/02/17 18:18 Eosinophils % 2.8 % (0.0-5.0) 06/02/17 18:18 Basophils % 0.6 % (0.0-2.0) 06/02/17 18:18 Sodium 137 mEq/L (136-145) 06/02/17 18:18 Potassium 4.1 mEq/L (3.5-5.1) 06/02/17 18:18 Chloride 107 mEq/L (98-107) 06/02/17 18:18 Carbon Dioxide 24.2 mEq/L (21.0-31.0) 06/02/17 18:18 Anion Gap 9.9 (7.0-16.0) 06/02/17 18:18 BUN 18 mg/dL (7-25) 06/02/17 18:18 Creatinine 0.7 mg/dL (0.6-1.2) 06/02/17 18:18 Est GFR ( Amer) TNP 06/02/17 18:18 Est GFR (Non-Af Amer) TNP 06/02/17 18:18 BUN/Creatinine Ratio 25.7 06/02/17 18:18 Glucose 133 mg/dL (70-105) H 06/02/17 18:18 POC Glucose 140 MG/DL (70 - 105) H 06/17/17 16:52 Hemoglobin A1c % 8.8 % (4.0-6.0) H 06/02/17 18:18 Calcium 9.4 mg/dL (8.6-10.3) 06/02/17 18:18 Total Bilirubin 0.4 mg/dL (0.3-1.0) 06/02/17 18:18 AST 28 U/L (13-39) 06/02/17 18:18 ALT 32 U/L (7-52) 06/02/17 18:18 Alkaline Phosphatase 116 U/L (34-104) H 06/02/17 18:18 Total Protein 7.3 gm/dL (6.0-8.3) 06/02/17 18:18 Albumin 3.4 gm/dL (3.7-5.3) L 06/02/17 18:18 Globulin 3.9 gm/dL 06/02/17 18:18 Albumin/Globulin Ratio 0.9 (1.0-1.8) L 06/02/17 18:18 Triglycerides 107 mg/dL (<150) 06/02/17 18:18 Cholesterol 123 mg/dL (<200) 06/02/17 18:18 LDL Cholesterol Direct 45 mg/dL (75-193) L 06/02/17 18:18 HDL Cholesterol 60 mg/dL (23-92) 06/02/17 18:18 TSH 3.38 uIU/ml (0.34-5.60) 06/02/17 18:18 Salicylates < 25.0 mg/L (30.0-100.0) L 06/02/17 18:18 Acetaminophen < 10.0 ug/mL (10.0-30.0) L 06/02/17 18:18 Ethyl Alcohol < 10 mg/dL (0-10) 06/02/17 18:18 RPR NONREACTIVE (NONREACTIVE) 06/02/17 18:18 - Physical Exam Vitals and I&O: Vital Signs Temp 97.7 F 06/18/17 15:49 Pulse 88 06/18/17 15:49 Resp 20 06/18/17 15:49 BP 121/72 06/18/17 15:49 Pulse Ox 97 06/18/17 15:49 Intake & Output 06/18/17 06/18/17 06/19/17 06:59 18:59 07:59 Intake Total 490 Balance 490 Intake: Oral 490 Other: # Voids 2 # Bowel Movements 0 Active Medications: Current Medications Acetaminophen (Tylenol) 325 mg PO Q4HR PRN PRN Reason: Pain (Mild) Stop: 08/02/17 01:11 Last Admin: 06/13/17 06:22 Dose: 325 mg Alendronate Sodium (Fosamax) 70 mg PO QSAT [facility] Stop: 08/03/17 06:59 Last Admin: 06/18/17 09:26 Dose: 70 mg Atorvastatin Calcium (Lipitor) 20 mg PO HS [facility] Stop: 08/02/17 20:59 Last Admin: 06/17/17 21:22 Dose: 20 mg Calcium/Vitamin D (Oscal W/Vitamin D) 1 tab PO DAILY [facility] Stop: 08/02/17 08:59 Last Admin: 06/18/17 09:27 Dose: 1 tab Docusate Sodium (Colace) 100 mg PO BID [facility] Stop: 08/02/17 08:59 Last Admin: 06/18/17 17:14 Dose: 100 mg Donepezil HCl (Aricept) 10 mg PO HS [facility] Stop: 08/02/17 20:59 Last Admin: 06/17/17 21:22 Dose: 10 mg Glipizide (Glucotrol) 2.5 mg PO QAM [facility] Stop: 08/02/17 08:59 Last Admin: 06/18/17 09:26 Dose: 2.5 mg Insulin Aspart (Novolog Insulin Sliding Scale) 0 units SUBQ ACHS ERWIN PRN Reason: Protocol Stop: 08/03/17 07:29 Last Admin: 06/18/17 11:12 Dose: Not Given Lorazepam (Ativan) 0.5 mg PO BID ERWIN PRN Reason: Protocol Stop: 08/08/17 16:59 Last Admin: 06/18/17 17:14 Dose: 0.5 mg Magnesium Hydroxide (Milk Of Magnesia) 30 ml PO DAILY PRN PRN Reason: Constipation Stop: 08/02/17 01:11 Last Admin: 06/14/17 08:02 Dose: 30 ml Memantine (Namenda) 10 mg PO BID ERWIN Stop: 08/07/17 08:02 Last Admin: 06/18/17 17:14 Dose: 10 mg Quetiapine Fumarate (Seroquel) 25 mg PO HS ERWIN PRN Reason: Protocol Stop: 08/12/17 11:39 Last Admin: 06/17/17 21:22 Dose: 25 mg General: demented HEENT: NC/AT, PERRLA, EOMI, anicteric sclerae, throat clear Neck: Supple, +2 carotid pulse wo bruit, No LAD, + JVD Lungs: CTAB Cardiovascular: RRR, Normal S1, Normal S2, without murmur Abdomen: soft, non-tender, non-distended Extremities: clear Neurological: no change - Procedures Procedures: Procedures Procedure Code Date EXCISION OF BUTTOCK SUBCU/FASCIA, OPEN APPROACH [id number] 10/27/16 REMOVAL OF PRESSURE SORE 63026 10/27/16 Internal Medicine Assmt/Plan - Assessment Assessment: 1.DM. 2.HYPERLIPIDEMIA. 3.DEMENTIA. 4.PSYCHOSIS. - Plan Plan: CONTINUE ON CURRENT MEDICATION AND DIET. Nutritional Asmnt/Malnutr-PDOC - Dietary Evaluation Malnutrition Findings (Please click <Entered> for more info): Nutritional Asmnt/Malnutrition Start: 06/08/17 14: 28 Text: Status: Complete Freq: Document 06/08/17 14:28 BRENNAN (Rec: 06/08/17 14:33 BRENNAN [email or web address]) Nutritional Asmnt/Malnutrition Patient General Information Nutritional Screening Moderate Risk Diagnosis psychosis Pertinent Medical Hx/Surgical Hx DM, hyperlipidemia, DJD, dementia Subjective Information per records, PO intake 50-100% . Current Diet Order/ Nutrition Support mech soft ground, ELMA, CCHO Pertinent Medications oscal w/vit D, colace, glucotrol, novolog Pertinent Labs 06/02 Glucose 133, A1c 8.8 06/06-06/08 POC 87-242 Nutritional Hx/Data Height 1.63 m Height (Calculated Centimeters) 162.6 Current Weight (lbs) 61.235 kg Weight (Calculated Kilograms) 61.2 Weight (Calculated Grams) 56750.0 [place] Body Weight 120 % [place] Body Weight 113 Body Mass Index (BMI) 23.1 Weight Status Approriate GI Symptoms GI Symptoms None Last BM 06/07 Difficult in: None Skin Integrity/Comment: intact Estimated Nutritional Goals BEE in Kcals: Using Current wt Calories/Kcals/Kg 25-30 Kcals Calculated 3274-7772 Protein: Using Current wt Protein g/k-1.2 Protein Calculated 61-73 Fluid: ml 1525-1830ml (1ml/kcal) Nutritional Problem 1. Problem Problem altered nutrition related lab values Etiology hx of DM Signs/Symptoms: Glucose 133, A1c 8.8 POC 87-242 Malnutrition Alert Protein-Calorie Malnutrition N/A Is there a minimum of two criteria No selected? Query Text:Check all the applicable criteria. A minimum of two criteria are recommended for diagnosis of either severe or non-severe malnutrition. Intervention/Recommendation Comments 1. Continue with current diet as ordered. 2. Monitor PO intake, wt, labs and skin integrity 3. F/U as low risk in 7 days, 3/7 Expected Outcomes/Goals Expected Outcomes/Goals 1. PO intake to meet at least 75% of nutritional needs. 2. Wt stability, skin to remain intact, labs to approach WNL.
[2017-06-18] MEDS: Atorvastatin Calcium 10 MG TAB PO SCH (21:00)
--- NOTE | 2017-06-19 05:54 | Progress Notes ---
DATE: COVERING FOR: Dr. Zuñiga. Chart reviewed and the patient interviewed. Also discussed the patient's condition with the staff and reviewed records and labs. The patient remains confused and she is still having unpredictable behavior. The patient noted by myself to be taking her clothes off. The patient also still confused and disoriented and is still impulsive and unpredictable behavior continues. The patient also still have episodes of agitation and irritability, but seems to be less than before. Otherwise, the patient is compliant with taking her medications with no side effect of Namenda or Seroquel or Aricept. ASSESSMENT: The patient is still confused and still has unpredictable behavior. TREATMENT PLAN: We will continue monitoring her behavior and her condition closely. Also, continue adjusting psychotropic medications and monitor her behavior closely. JOB# [id number]
[2017-06-19] MEDS: INSULIN ASPART SLIDING SCALE 100 UNITS/ML UNIT SUBQ SCH ×4 (06:49→20:56)
[2017-06-19] MEDS: Calcium Carb/Vit D 500 mg/200 U Tab PO SCH (09:10)
[2017-06-19] MEDS: Multivitamin w/ Minerals Tab PO SCH (09:12)
[2017-06-19] MEDS: Atorvastatin Calcium 10 MG TAB PO SCH (20:47)
--- NOTE | 2017-06-19 23:42 | Internal Medicine Prog Note ---
Internal Medicine Subjective - Subjective Service Date: 06/19/17 Patient seen and examined:: without staff Patient is:: awake, in bed, confused Per staff patient has:: no adverse event Internal Medicine Objective - Results Result Diagrams: 06/02/17 18:18 06/02/17 18:18 Recent Labs: Laboratory Last Values WBC 6.6 Th/cmm (4.8-10.8) D 06/02/17 18:18 RBC 4.01 Mil/cmm (3.80-5.20) 06/02/17 18:18 Hgb 12.3 gm/dL (12-16) 06/02/17 18:18 Hct 36.9 % (41.0-60) L 06/02/17 18:18 MCV 92.0 fl (81-100) 06/02/17 18:18 MCH 30.6 pg (27.0-31.0) 06/02/17 18:18 MCHC Differential 33.3 pg (28.0-36.0) 06/02/17 18:18 RDW 13.2 % (11.5-20.0) 06/02/17 18:18 Plt Count 287 Th/cmm (150-400) D 06/02/17 18:18 MPV 6.6 fl 06/02/17 18:18 Neutrophils % 48.6 % (40.0-80.0) 06/02/17 18:18 Lymphocytes % 42.0 % (20.0-50.0) 06/02/17 18:18 Monocytes % 6.0 % (2.0-10.0) 06/02/17 18:18 Eosinophils % 2.8 % (0.0-5.0) 06/02/17 18:18 Basophils % 0.6 % (0.0-2.0) 06/02/17 18:18 Sodium 137 mEq/L (136-145) 06/02/17 18:18 Potassium 4.1 mEq/L (3.5-5.1) 06/02/17 18:18 Chloride 107 mEq/L (98-107) 06/02/17 18:18 Carbon Dioxide 24.2 mEq/L (21.0-31.0) 06/02/17 18:18 Anion Gap 9.9 (7.0-16.0) 06/02/17 18:18 BUN 18 mg/dL (7-25) 06/02/17 18:18 Creatinine 0.7 mg/dL (0.6-1.2) 06/02/17 18:18 Est GFR ( Amer) TNP 06/02/17 18:18 Est GFR (Non-Af Amer) TNP 06/02/17 18:18 BUN/Creatinine Ratio 25.7 06/02/17 18:18 Glucose 133 mg/dL (70-105) H 06/02/17 18:18 POC Glucose 206 MG/DL (70 - 105) H 06/19/17 20:46 Hemoglobin A1c % 8.8 % (4.0-6.0) H 06/02/17 18:18 Calcium 9.4 mg/dL (8.6-10.3) 06/02/17 18:18 Total Bilirubin 0.4 mg/dL (0.3-1.0) 06/02/17 18:18 AST 28 U/L (13-39) 06/02/17 18:18 ALT 32 U/L (7-52) 06/02/17 18:18 Alkaline Phosphatase 116 U/L (34-104) H 06/02/17 18:18 Total Protein 7.3 gm/dL (6.0-8.3) 06/02/17 18:18 Albumin 3.4 gm/dL (3.7-5.3) L 06/02/17 18:18 Globulin 3.9 gm/dL 06/02/17 18:18 Albumin/Globulin Ratio 0.9 (1.0-1.8) L 06/02/17 18:18 Triglycerides 107 mg/dL (<150) 06/02/17 18:18 Cholesterol 123 mg/dL (<200) 06/02/17 18:18 LDL Cholesterol Direct 45 mg/dL (75-193) L 06/02/17 18:18 HDL Cholesterol 60 mg/dL (23-92) 06/02/17 18:18 TSH 3.38 uIU/ml (0.34-5.60) 06/02/17 18:18 Salicylates < 25.0 mg/L (30.0-100.0) L 06/02/17 18:18 Acetaminophen < 10.0 ug/mL (10.0-30.0) L 06/02/17 18:18 Ethyl Alcohol < 10 mg/dL (0-10) 06/02/17 18:18 RPR NONREACTIVE (NONREACTIVE) 06/02/17 18:18 - Physical Exam Vitals and I&O: Vital Signs Temp 97.4 F 06/19/17 20:00 Pulse 100 06/19/17 20:00 Resp 20 06/19/17 20:00 BP 120/58 06/19/17 20:00 Pulse Ox 98 06/19/17 20:00 Intake & Output 06/19/17 06/19/17 06/20/17 06:59 18:59 06:59 Intake Total 1200 Balance 1200 Intake: Oral 1200 Other: # Voids 3 # Bowel Movements 2 Active Medications: Current Medications Acetaminophen (Tylenol) 325 mg PO Q4HR PRN PRN Reason: Pain (Mild) Stop: 08/02/17 01:11 Last Admin: 06/13/17 06:22 Dose: 325 mg Alendronate Sodium (Fosamax) 70 mg PO QSAT [facility] Stop: 08/03/17 06:59 Last Admin: 06/18/17 09:26 Dose: 70 mg Atorvastatin Calcium (Lipitor) 20 mg PO HS [facility] Stop: 08/02/17 20:59 Last Admin: 06/19/17 20:47 Dose: 20 mg Calcium/Vitamin D (Oscal W/Vitamin D) 1 tab PO DAILY [facility] Stop: 08/02/17 08:59 Last Admin: 06/19/17 09:10 Dose: 1 tab Docusate Sodium (Colace) 100 mg PO BID [facility] Stop: 08/02/17 08:59 Last Admin: 06/19/17 17:17 Dose: 100 mg Donepezil HCl (Aricept) 10 mg PO HS [facility] Stop: 08/02/17 20:59 Last Admin: 06/19/17 20:47 Dose: 10 mg Glipizide (Glucotrol) 2.5 mg PO QAM [facility] Stop: 08/02/17 08:59 Last Admin: 06/19/17 09:11 Dose: 2.5 mg Insulin Aspart (Novolog Insulin Sliding Scale) 0 units SUBQ ACHS [facility] PRN Reason: Protocol Stop: 08/03/17 07:29 Last Admin: 06/19/17 20:56 Dose: 4 units Lorazepam (Ativan) 0.5 mg PO BID [facility] PRN Reason: Protocol Stop: 08/08/17 16:59 Last Admin: 06/19/17 17:08 Dose: 0.5 mg Magnesium Hydroxide (Milk Of Magnesia) 30 ml PO DAILY PRN PRN Reason: Constipation Stop: 08/02/17 01:11 Last Admin: 06/14/17 08:02 Dose: 30 ml Memantine (Namenda) 10 mg PO BID [facility] Stop: 08/07/17 08:02 Last Admin: 06/19/17 17:09 Dose: 10 mg Quetiapine Fumarate (Seroquel) 25 mg PO HS [facility] PRN Reason: Protocol Stop: 08/12/17 11:39 Last Admin: 06/19/17 20:47 Dose: 25 mg General: demented HEENT: NC/AT, PERRLA, EOMI, anicteric sclerae, throat clear Neck: Supple, +2 carotid pulse wo bruit, No LAD, + JVD Lungs: CTAB Cardiovascular: RRR, Normal S1, Normal S2, without murmur Abdomen: soft, non-tender, non-distended Extremities: clear Neurological: no change - Procedures Procedures: Procedures Procedure Code Date EXCISION OF BUTTOCK SUBCU/FASCIA, OPEN APPROACH [id number] 10/27/16 REMOVAL OF PRESSURE SORE 98781 10/27/16 Internal Medicine Assmt/Plan - Assessment Assessment: 1.DM. 2.HYPERLIPIDEMIA. 3.DEMENTIA. 4.PSYCHOSIS. - Plan Plan: CONTINUE ON CURRENT MEDICATION AND DIET. Nutritional Asmnt/Malnutr-PDOC - Dietary Evaluation Malnutrition Findings (Please click <Entered> for more info): Nutritional Asmnt/Malnutrition Start: 06/08/17 14: 28 Text: Status: Complete Freq: Document 06/08/17 14:28 BRENNANG (Rec: 06/08/17 14:33 BRENNAN [email or web address]) Nutritional Asmnt/Malnutrition Patient General Information Nutritional Screening Moderate Risk Diagnosis psychosis Pertinent Medical Hx/Surgical Hx DM, hyperlipidemia, DJD, dementia Subjective Information per records, PO intake 50-100% . Current Diet Order/ Nutrition Support mech soft ground, ELMA, CCHO Pertinent Medications oscal w/vit D, colace, glucotrol, novolog Pertinent Labs 06/02 Glucose 133, A1c 8.8 06/06-06/08 POC 87-242 Nutritional Hx/Data Height 1.63 m Height (Calculated Centimeters) 162.6 Current Weight (lbs) 61.235 kg Weight (Calculated Kilograms) 61.2 Weight (Calculated Grams) 69679.0 [place] Body Weight 120 % [place] Body Weight 113 Body Mass Index (BMI) 23.1 Weight Status Approriate GI Symptoms GI Symptoms None Last BM 06/07 Difficult in: None Skin Integrity/Comment: intact Estimated Nutritional Goals BEE in Kcals: Using Current wt Calories/Kcals/Kg 25-30 Kcals Calculated 8435-3412 Protein: Using Current wt Protein g/k-1.2 Protein Calculated 61-73 Fluid: ml 1525-1830ml (1ml/kcal) Nutritional Problem 1. Problem Problem altered nutrition related lab values Etiology hx of DM Signs/Symptoms: Glucose 133, A1c 8.8 POC 87-242 Malnutrition Alert Protein-Calorie Malnutrition N/A Is there a minimum of two criteria No selected? Query Text:Check all the applicable criteria. A minimum of two criteria are recommended for diagnosis of either severe or non-severe malnutrition. Intervention/Recommendation Comments 1. Continue with current diet as ordered. 2. Monitor PO intake, wt, labs and skin integrity 3. F/U as low risk in 7 days, 3/7 Expected Outcomes/Goals Expected Outcomes/Goals 1. PO intake to meet at least 75% of nutritional needs. 2. Wt stability, skin to remain intact, labs to approach WNL.
[2017-06-20] MEDS: INSULIN ASPART SLIDING SCALE 100 UNITS/ML UNIT SUBQ SCH ×4 (06:40→20:43)
[2017-06-20] MEDS: Multivitamin w/ Minerals Tab PO SCH (08:42)
[2017-06-20] MEDS: Calcium Carb/Vit D 500 mg/200 U Tab PO SCH (08:42)
--- NOTE | 2017-06-20 19:31 | Internal Medicine Prog Note ---
Internal Medicine Subjective - Subjective Service Date: 06/20/17 Patient seen and examined:: with staff (SHE IS DOING WELL) Patient is:: awake, in bed, confused Per staff patient has:: no adverse event Internal Medicine Objective - Results Result Diagrams: 06/02/17 18:18 06/02/17 18:18 Recent Labs: Laboratory Last Values WBC 6.6 Th/cmm (4.8-10.8) D 06/02/17 18:18 RBC 4.01 Mil/cmm (3.80-5.20) 06/02/17 18:18 Hgb 12.3 gm/dL (12-16) 06/02/17 18:18 Hct 36.9 % (41.0-60) L 06/02/17 18:18 MCV 92.0 fl (81-100) 06/02/17 18:18 MCH 30.6 pg (27.0-31.0) 06/02/17 18:18 MCHC Differential 33.3 pg (28.0-36.0) 06/02/17 18:18 RDW 13.2 % (11.5-20.0) 06/02/17 18:18 Plt Count 287 Th/cmm (150-400) D 06/02/17 18:18 MPV 6.6 fl 06/02/17 18:18 Neutrophils % 48.6 % (40.0-80.0) 06/02/17 18:18 Lymphocytes % 42.0 % (20.0-50.0) 06/02/17 18:18 Monocytes % 6.0 % (2.0-10.0) 06/02/17 18:18 Eosinophils % 2.8 % (0.0-5.0) 06/02/17 18:18 Basophils % 0.6 % (0.0-2.0) 06/02/17 18:18 Sodium 137 mEq/L (136-145) 06/02/17 18:18 Potassium 4.1 mEq/L (3.5-5.1) 06/02/17 18:18 Chloride 107 mEq/L (98-107) 06/02/17 18:18 Carbon Dioxide 24.2 mEq/L (21.0-31.0) 06/02/17 18:18 Anion Gap 9.9 (7.0-16.0) 06/02/17 18:18 BUN 18 mg/dL (7-25) 06/02/17 18:18 Creatinine 0.7 mg/dL (0.6-1.2) 06/02/17 18:18 Est GFR ( Amer) TNP 06/02/17 18:18 Est GFR (Non-Af Amer) TNP 06/02/17 18:18 BUN/Creatinine Ratio 25.7 06/02/17 18:18 Glucose 133 mg/dL (70-105) H 06/02/17 18:18 POC Glucose 98 MG/DL (70 - 105) 06/20/17 05:40 Hemoglobin A1c % 8.8 % (4.0-6.0) H 06/02/17 18:18 Calcium 9.4 mg/dL (8.6-10.3) 06/02/17 18:18 Total Bilirubin 0.4 mg/dL (0.3-1.0) 06/02/17 18:18 AST 28 U/L (13-39) 06/02/17 18:18 ALT 32 U/L (7-52) 06/02/17 18:18 Alkaline Phosphatase 116 U/L (34-104) H 06/02/17 18:18 Total Protein 7.3 gm/dL (6.0-8.3) 06/02/17 18:18 Albumin 3.4 gm/dL (3.7-5.3) L 06/02/17 18:18 Globulin 3.9 gm/dL 06/02/17 18:18 Albumin/Globulin Ratio 0.9 (1.0-1.8) L 06/02/17 18:18 Triglycerides 107 mg/dL (<150) 06/02/17 18:18 Cholesterol 123 mg/dL (<200) 06/02/17 18:18 LDL Cholesterol Direct 45 mg/dL (75-193) L 06/02/17 18:18 HDL Cholesterol 60 mg/dL (23-92) 06/02/17 18:18 TSH 3.38 uIU/ml (0.34-5.60) 06/02/17 18:18 Salicylates < 25.0 mg/L (30.0-100.0) L 06/02/17 18:18 Acetaminophen < 10.0 ug/mL (10.0-30.0) L 06/02/17 18:18 Ethyl Alcohol < 10 mg/dL (0-10) 06/02/17 18:18 RPR NONREACTIVE (NONREACTIVE) 06/02/17 18:18 - Physical Exam Vitals and I&O: Vital Signs Temp 98.8 F 06/20/17 15:24 Pulse 89 06/20/17 15:24 Resp 22 06/20/17 15:24 BP 115/60 06/20/17 15:24 Pulse Ox 99 06/20/17 15:24 Intake & Output 06/20/17 06/20/17 06/21/17 06:59 18:59 06:59 Intake Total 1320 950 Balance 1320 950 Intake: Oral 1320 950 Other: # Voids 3 5 # Bowel Movements 2 2 Active Medications: Current Medications Acetaminophen (Tylenol) 325 mg PO Q4HR PRN PRN Reason: Pain (Mild) Stop: 08/02/17 01:11 Last Admin: 06/13/17 06:22 Dose: 325 mg Alendronate Sodium (Fosamax) 70 mg PO QSAT [facility] Stop: 08/03/17 06:59 Last Admin: 06/18/17 09:26 Dose: 70 mg Atorvastatin Calcium (Lipitor) 20 mg PO HS [facility] Stop: 08/02/17 20:59 Last Admin: 06/19/17 20:47 Dose: 20 mg Calcium/Vitamin D (Oscal W/Vitamin D) 1 tab PO DAILY [facility] Stop: 08/02/17 08:59 Last Admin: 06/20/17 08:42 Dose: 1 tab Docusate Sodium (Colace) 100 mg PO BID [facility] Stop: 08/02/17 08:59 Last Admin: 06/20/17 17:45 Dose: 100 mg Donepezil HCl (Aricept) 10 mg PO HS [facility] Stop: 08/02/17 20:59 Last Admin: 06/19/17 20:47 Dose: 10 mg Glipizide (Glucotrol) 2.5 mg PO QAM [facility] Stop: 08/02/17 08:59 Last Admin: 06/20/17 08:43 Dose: 2.5 mg Insulin Aspart (Novolog Insulin Sliding Scale) 0 units SUBQ ACHS [facility] PRN Reason: Protocol Stop: 08/03/17 07:29 Last Admin: 06/20/17 17:43 Dose: Not Given Lorazepam (Ativan) 0.5 mg PO BID [facility] PRN Reason: Protocol Stop: 08/08/17 16:59 Last Admin: 06/20/17 17:45 Dose: 0.5 mg Magnesium Hydroxide (Milk Of Magnesia) 30 ml PO DAILY PRN PRN Reason: Constipation Stop: 08/02/17 01:11 Last Admin: 06/14/17 08:02 Dose: 30 ml Memantine (Namenda) 10 mg PO BID [facility] Stop: 08/07/17 08:02 Last Admin: 06/20/17 17:46 Dose: 10 mg Quetiapine Fumarate (Seroquel) 25 mg PO HS [facility] PRN Reason: Protocol Stop: 08/12/17 11:39 Last Admin: 06/19/17 20:47 Dose: 25 mg General: demented HEENT: NC/AT, PERRLA, EOMI, anicteric sclerae, throat clear Neck: Supple, +2 carotid pulse wo bruit, No LAD, + JVD Lungs: CTAB Cardiovascular: RRR, Normal S1, Normal S2, without murmur Abdomen: soft, non-tender, non-distended Extremities: clear Neurological: no change - Procedures Procedures: Procedures Procedure Code Date EXCISION OF BUTTOCK SUBCU/FASCIA, OPEN APPROACH [id number] 10/27/16 REMOVAL OF PRESSURE SORE 37467 10/27/16 Internal Medicine Assmt/Plan - Assessment Assessment: 1.DM. 2.HYPERLIPIDEMIA. 3.DEMENTIA. 4.PSYCHOSIS. - Plan Plan: CONTINUE ON CURRENT MEDICATION AND DIET. Nutritional Asmnt/Malnutr-PDOC - Dietary Evaluation Malnutrition Findings (Please click <Entered> for more info): Nutritional Asmnt/Malnutrition Start: 06/08/17 14: 28 Text: Status: Complete Freq: Document 06/08/17 14:28 ALBERTO (Rec: 06/08/17 14:33 ALBERTO [email or web address]) Nutritional Asmnt/Malnutrition Patient General Information Nutritional Screening Moderate Risk Diagnosis psychosis Pertinent Medical Hx/Surgical Hx DM, hyperlipidemia, DJD, dementia Subjective Information per records, PO intake 50-100% . Current Diet Order/ Nutrition Support mech soft ground, ELMA, CCHO Pertinent Medications oscal w/vit D, colace, glucotrol, novolog Pertinent Labs 2/22 Glucose 133, A1c 8.8 06/06-06/08 POC 87-242 Nutritional Hx/Data Height 1.63 m Height (Calculated Centimeters) 162.6 Current Weight (lbs) 61.235 kg Weight (Calculated Kilograms) 61.2 Weight (Calculated Grams) 83213.0 [place] Body Weight 120 % [place] Body Weight 113 Body Mass Index (BMI) 23.1 Weight Status Approriate GI Symptoms GI Symptoms None Last BM 06/07 Difficult in: None Skin Integrity/Comment: intact Estimated Nutritional Goals BEE in Kcals: Using Current wt Calories/Kcals/Kg 25-30 Kcals Calculated 1155-9239 Protein: Using Current wt Protein g/k-1.2 Protein Calculated 61-73 Fluid: ml 1525-1830ml (1ml/kcal) Nutritional Problem 1. Problem Problem altered nutrition related lab values Etiology hx of DM Signs/Symptoms: Glucose 133, A1c 8.8 POC 87-242 Malnutrition Alert Protein-Calorie Malnutrition N/A Is there a minimum of two criteria No selected? Query Text:Check all the applicable criteria. A minimum of two criteria are recommended for diagnosis of either severe or non-severe malnutrition. Intervention/Recommendation Comments 1. Continue with current diet as ordered. 2. Monitor PO intake, wt, labs and skin integrity 3. F/U as low risk in 7 days, 3/7 Expected Outcomes/Goals Expected Outcomes/Goals 1. PO intake to meet at least 75% of nutritional needs. 2. Wt stability, skin to remain intact, labs to approach WNL.
[2017-06-20] MEDS: Atorvastatin Calcium 10 MG TAB PO SCH (20:34)
--- NOTE | 2017-06-20 21:53 | Progress Notes ---
DATE: 06/20/2017 Case was discussed with staff of the patient, reviewed records. The patient continues to have episodes of agitation, irritability. Continues to be unpredictable, impulsive, needing redirection. Continues to have poor insight. She continues to be unable to make safe plan for self-care. She is on Seroquel 25 mg at bedtime, Aricept, and Namenda, maximum dosages. No side effects, no sedation, no nausea, no extrapyramidal symptoms. We will continue to work with the patient in group therapy, milieu therapy, and adjust medications. JOB# [id number]
[2017-06-21] MEDS: INSULIN ASPART SLIDING SCALE 100 UNITS/ML UNIT SUBQ SCH ×4 (06:40→20:56)
[2017-06-21] MEDS: Multivitamin w/ Minerals Tab PO SCH (09:52)
[2017-06-21] MEDS: Calcium Carb/Vit D 500 mg/200 U Tab PO SCH (09:53)
[2017-06-21] MEDS: Atorvastatin Calcium 10 MG TAB PO SCH (20:12)
--- NOTE | 2017-06-21 23:11 | Progress Notes ---
DATE: 06/21/2017 Case was discussed with staff of the patient, reviewed records. The patient continues to have episodes of yelling and screaming. Continues to be unpredictable, impulsive, demented, confused, needing redirection. She has been compliant with the medication with no side effects. No sedation, no nausea, no extrapyramidal symptoms. We will continue to work with the patient in group therapy, milieu therapy, and adjust the medication as needed. JOB# [id number]
[2017-06-22] MEDS: INSULIN ASPART SLIDING SCALE 100 UNITS/ML UNIT SUBQ SCH ×4 (06:45→21:33)
[2017-06-22] MEDS: Calcium Carb/Vit D 500 mg/200 U Tab PO SCH (08:41)
[2017-06-22] MEDS: Multivitamin w/ Minerals Tab PO SCH (08:41)
--- NOTE | 2017-06-22 10:15 | Progress Notes ---
DATE: 06/22/2017 SUBJECTIVE: Case was discussed with staff of the patient. The patient is still screaming and yelling. Continues to be unpredictable and impulsive. I did increase her Seroquel yesterday to 12.5 mg at bedtime, so it is too early to make judgment on how effective this increases because of her age, or make any further adjustments to see how it goes so far she is sleeping well. She is eating well. No side effects with the medication, no sedation, no nausea, no extrapyramidal symptoms. We will continue outpatient group therapy, milieu therapy, adjust her medication as needed. JOB# [id number]
--- NOTE | 2017-06-22 13:25 | Internal Medicine Prog Note ---
Internal Medicine Subjective - Subjective Service Date: 06/22/17 Patient seen and examined:: with staff Patient is:: awake, in bed, confused Per staff patient has:: no adverse event Internal Medicine Objective - Results Result Diagrams: 06/02/17 18:18 06/02/17 18:18 Recent Labs: Laboratory Last Values WBC 6.6 Th/cmm (4.8-10.8) D 06/02/17 18:18 RBC 4.01 Mil/cmm (3.80-5.20) 06/02/17 18:18 Hgb 12.3 gm/dL (12-16) 06/02/17 18:18 Hct 36.9 % (41.0-60) L 06/02/17 18:18 MCV 92.0 fl (81-100) 06/02/17 18:18 MCH 30.6 pg (27.0-31.0) 06/02/17 18:18 MCHC Differential 33.3 pg (28.0-36.0) 06/02/17 18:18 RDW 13.2 % (11.5-20.0) 06/02/17 18:18 Plt Count 287 Th/cmm (150-400) D 06/02/17 18:18 MPV 6.6 fl 06/02/17 18:18 Neutrophils % 48.6 % (40.0-80.0) 06/02/17 18:18 Lymphocytes % 42.0 % (20.0-50.0) 06/02/17 18:18 Monocytes % 6.0 % (2.0-10.0) 06/02/17 18:18 Eosinophils % 2.8 % (0.0-5.0) 06/02/17 18:18 Basophils % 0.6 % (0.0-2.0) 06/02/17 18:18 Sodium 137 mEq/L (136-145) 06/02/17 18:18 Potassium 4.1 mEq/L (3.5-5.1) 06/02/17 18:18 Chloride 107 mEq/L (98-107) 06/02/17 18:18 Carbon Dioxide 24.2 mEq/L (21.0-31.0) 06/02/17 18:18 Anion Gap 9.9 (7.0-16.0) 06/02/17 18:18 BUN 18 mg/dL (7-25) 06/02/17 18:18 Creatinine 0.7 mg/dL (0.6-1.2) 06/02/17 18:18 Est GFR ( Amer) TNP 06/02/17 18:18 Est GFR (Non-Af Amer) TNP 06/02/17 18:18 BUN/Creatinine Ratio 25.7 06/02/17 18:18 Glucose 133 mg/dL (70-105) H 06/02/17 18:18 POC Glucose 104 MG/DL (70 - 105) 06/22/17 11:47 Hemoglobin A1c % 8.8 % (4.0-6.0) H 06/02/17 18:18 Calcium 9.4 mg/dL (8.6-10.3) 06/02/17 18:18 Total Bilirubin 0.4 mg/dL (0.3-1.0) 06/02/17 18:18 AST 28 U/L (13-39) 06/02/17 18:18 ALT 32 U/L (7-52) 06/02/17 18:18 Alkaline Phosphatase 116 U/L (34-104) H 06/02/17 18:18 Total Protein 7.3 gm/dL (6.0-8.3) 06/02/17 18:18 Albumin 3.4 gm/dL (3.7-5.3) L 06/02/17 18:18 Globulin 3.9 gm/dL 06/02/17 18:18 Albumin/Globulin Ratio 0.9 (1.0-1.8) L 06/02/17 18:18 Triglycerides 107 mg/dL (<150) 06/02/17 18:18 Cholesterol 123 mg/dL (<200) 06/02/17 18:18 LDL Cholesterol Direct 45 mg/dL (75-193) L 06/02/17 18:18 HDL Cholesterol 60 mg/dL (23-92) 06/02/17 18:18 TSH 3.38 uIU/ml (0.34-5.60) 06/02/17 18:18 Salicylates < 25.0 mg/L (30.0-100.0) L 06/02/17 18:18 Acetaminophen < 10.0 ug/mL (10.0-30.0) L 06/02/17 18:18 Ethyl Alcohol < 10 mg/dL (0-10) 06/02/17 18:18 RPR NONREACTIVE (NONREACTIVE) 06/02/17 18:18 - Physical Exam Vitals and I&O: Vital Signs Temp 98 F 06/22/17 06:45 Pulse 64 06/22/17 06:45 Resp 20 06/22/17 06:45 BP 131/70 06/22/17 06:45 Pulse Ox 97 06/22/17 06:45 Intake & Output 06/21/17 06/22/17 06/22/17 18:59 06:59 18:59 Intake Total 1200 480 Balance 1200 480 Intake: Oral 1200 480 Other: # Voids 4 1 # Bowel Movements 1 Active Medications: Current Medications Acetaminophen (Tylenol) 325 mg PO Q4HR PRN PRN Reason: Pain (Mild) Stop: 08/02/17 01:11 Last Admin: 06/21/17 20:12 Dose: 325 mg Alendronate Sodium (Fosamax) 70 mg PO QSAT [facility] [place] Stop: 08/03/17 06:59 Last Admin: 06/18/17 09:26 Dose: 70 mg Atorvastatin Calcium (Lipitor) 20 mg PO HS [facility] Stop: 08/02/17 20:59 Last Admin: 06/21/17 20:12 Dose: 20 mg Calcium/Vitamin D (Oscal W/Vitamin D) 1 tab PO DAILY [facility] Stop: 08/02/17 08:59 Last Admin: 06/22/17 08:41 Dose: 1 tab Docusate Sodium (Colace) 100 mg PO BID [facility] Stop: 08/02/17 08:59 Last Admin: 06/22/17 08:41 Dose: 100 mg Donepezil HCl (Aricept) 10 mg PO HS [facility] [place] Stop: 08/02/17 20:59 Last Admin: 06/21/17 20:12 Dose: 10 mg Glipizide (Glucotrol) 2.5 mg PO QAM [facility] [place] Stop: 08/02/17 08:59 Last Admin: 06/22/17 08:00 Dose: 2.5 mg Insulin Aspart (Novolog Insulin Sliding Scale) 0 units SUBQ ACHS [facility] PRN Reason: Protocol Stop: 08/03/17 07:29 Last Admin: 06/22/17 06:45 Dose: Not Given Lorazepam (Ativan) 0.5 mg PO BID [facility] PRN Reason: Protocol Stop: 08/08/17 16:59 Last Admin: 06/22/17 08:41 Dose: 0.5 mg Magnesium Hydroxide (Milk Of Magnesia) 30 ml PO DAILY PRN PRN Reason: Constipation Stop: 08/02/17 01:11 Last Admin: 06/14/17 08:02 Dose: 30 ml Memantine (Namenda) 10 mg PO BID [facility] Stop: 08/07/17 08:02 Last Admin: 06/22/17 08:40 Dose: 10 mg Quetiapine Fumarate (Seroquel) 37.5 mg PO HS [facility] PRN Reason: Protocol Stop: 08/20/17 11:35 Last Admin: 06/21/17 20:13 Dose: 37.5 mg General: demented HEENT: NC/AT, PERRLA, EOMI, anicteric sclerae, throat clear Neck: Supple, +2 carotid pulse wo bruit, No LAD, + JVD Lungs: CTAB Cardiovascular: RRR, Normal S1, Normal S2, without murmur Abdomen: soft, non-tender, non-distended Extremities: clear Neurological: no change - Procedures Procedures: Procedures Procedure Code Date EXCISION OF BUTTOCK SUBCU/FASCIA, OPEN APPROACH [id number] 10/27/16 REMOVAL OF PRESSURE SORE 93866 10/27/16 Internal Medicine Assmt/Plan - Assessment Assessment: 1.DM. 2.HYPERLIPIDEMIA. 3.DEMENTIA. 4.PSYCHOSIS. - Plan Plan: CONTINUE ON CURRENT MEDICATION AND DIET. Nutritional Asmnt/Malnutr-PDOC - Dietary Evaluation Malnutrition Findings (Please click <Entered> for more info): Nutritional Asmnt/Malnutrition Start: 06/08/17 14: 28 Text: Status: Complete Freq: Document 06/08/17 14:28 LCBRENNANG (Rec: 06/08/17 14:33 LCBRENNANG [email or web address]) Nutritional Asmnt/Malnutrition Patient General Information Nutritional Screening Moderate Risk Diagnosis psychosis Pertinent Medical Hx/Surgical Hx DM, hyperlipidemia, DJD, dementia Subjective Information per records, PO intake 50-100% . Current Diet Order/ Nutrition Support mech soft ground, ELMA, CCHO Pertinent Medications oscal w/vit D, colace, glucotrol, novolog Pertinent Labs 06/02 Glucose 133, A1c 8.8 06/06-06/08 POC 87-242 Nutritional Hx/Data Height 1.63 m Height (Calculated Centimeters) 162.6 Current Weight (lbs) 61.235 kg Weight (Calculated Kilograms) 61.2 Weight (Calculated Grams) 89374.0 [place] Body Weight 120 % [place] Body Weight 113 Body Mass Index (BMI) 23.1 Weight Status Approriate GI Symptoms GI Symptoms None Last BM 06/07 Difficult in: None Skin Integrity/Comment: intact Estimated Nutritional Goals BEE in Kcals: Using Current wt Calories/Kcals/Kg 25-30 Kcals Calculated 5718-9863 Protein: Using Current wt Protein g/k-1.2 Protein Calculated 61-73 Fluid: ml 1525-1830ml (1ml/kcal) Nutritional Problem 1. Problem Problem altered nutrition related lab values Etiology hx of DM Signs/Symptoms: Glucose 133, A1c 8.8 POC 87-438 Malnutrition Alert Protein-Calorie Malnutrition N/A Is there a minimum of two criteria No selected? Query Text:Check all the applicable criteria. A minimum of two criteria are recommended for diagnosis of either severe or non-severe malnutrition. Intervention/Recommendation Comments 1. Continue with current diet as ordered. 2. Monitor PO intake, wt, labs and skin integrity 3. F/U as low risk in 7 days, 3/7 Expected Outcomes/Goals Expected Outcomes/Goals 1. PO intake to meet at least 75% of nutritional needs. 2. Wt stability, skin to remain intact, labs to approach WNL.
--- NOTE | 2017-06-22 13:25 | Internal Medicine Prog Note ---
Internal Medicine Subjective - Subjective Service Date: 06/21/17 Patient seen and examined:: without staff Patient is:: awake, in bed, confused Per staff patient has:: no adverse event Internal Medicine Objective - Results Result Diagrams: 06/02/17 18:18 06/02/17 18:18 Recent Labs: Laboratory Last Values WBC 6.6 Th/cmm (4.8-10.8) D 06/02/17 18:18 RBC 4.01 Mil/cmm (3.80-5.20) 06/02/17 18:18 Hgb 12.3 gm/dL (12-16) 06/02/17 18:18 Hct 36.9 % (41.0-60) L 06/02/17 18:18 MCV 92.0 fl (81-100) 06/02/17 18:18 MCH 30.6 pg (27.0-31.0) 06/02/17 18:18 MCHC Differential 33.3 pg (28.0-36.0) 06/02/17 18:18 RDW 13.2 % (11.5-20.0) 06/02/17 18:18 Plt Count 287 Th/cmm (150-400) D 06/02/17 18:18 MPV 6.6 fl 06/02/17 18:18 Neutrophils % 48.6 % (40.0-80.0) 06/02/17 18:18 Lymphocytes % 42.0 % (20.0-50.0) 06/02/17 18:18 Monocytes % 6.0 % (2.0-10.0) 06/02/17 18:18 Eosinophils % 2.8 % (0.0-5.0) 06/02/17 18:18 Basophils % 0.6 % (0.0-2.0) 06/02/17 18:18 Sodium 137 mEq/L (136-145) 06/02/17 18:18 Potassium 4.1 mEq/L (3.5-5.1) 06/02/17 18:18 Chloride 107 mEq/L (98-107) 06/02/17 18:18 Carbon Dioxide 24.2 mEq/L (21.0-31.0) 06/02/17 18:18 Anion Gap 9.9 (7.0-16.0) 06/02/17 18:18 BUN 18 mg/dL (7-25) 06/02/17 18:18 Creatinine 0.7 mg/dL (0.6-1.2) 06/02/17 18:18 Est GFR ( Amer) TNP 06/02/17 18:18 Est GFR (Non-Af Amer) TNP 06/02/17 18:18 BUN/Creatinine Ratio 25.7 06/02/17 18:18 Glucose 133 mg/dL (70-105) H 06/02/17 18:18 POC Glucose 104 MG/DL (70 - 105) 06/22/17 11:47 Hemoglobin A1c % 8.8 % (4.0-6.0) H 06/02/17 18:18 Calcium 9.4 mg/dL (8.6-10.3) 06/02/17 18:18 Total Bilirubin 0.4 mg/dL (0.3-1.0) 06/02/17 18:18 AST 28 U/L (13-39) 06/02/17 18:18 ALT 32 U/L (7-52) 06/02/17 18:18 Alkaline Phosphatase 116 U/L (34-104) H 06/02/17 18:18 Total Protein 7.3 gm/dL (6.0-8.3) 06/02/17 18:18 Albumin 3.4 gm/dL (3.7-5.3) L 06/02/17 18:18 Globulin 3.9 gm/dL 06/02/17 18:18 Albumin/Globulin Ratio 0.9 (1.0-1.8) L 06/02/17 18:18 Triglycerides 107 mg/dL (<150) 06/02/17 18:18 Cholesterol 123 mg/dL (<200) 06/02/17 18:18 LDL Cholesterol Direct 45 mg/dL (75-193) L 06/02/17 18:18 HDL Cholesterol 60 mg/dL (23-92) 06/02/17 18:18 TSH 3.38 uIU/ml (0.34-5.60) 06/02/17 18:18 Salicylates < 25.0 mg/L (30.0-100.0) L 06/02/17 18:18 Acetaminophen < 10.0 ug/mL (10.0-30.0) L 06/02/17 18:18 Ethyl Alcohol < 10 mg/dL (0-10) 06/02/17 18:18 RPR NONREACTIVE (NONREACTIVE) 06/02/17 18:18 - Physical Exam Vitals and I&O: Vital Signs Temp 98 F 06/22/17 06:45 Pulse 64 06/22/17 06:45 Resp 20 06/22/17 06:45 BP 131/70 06/22/17 06:45 Pulse Ox 97 06/22/17 06:45 Intake & Output 06/21/17 06/22/17 06/22/17 18:59 06:59 18:59 Intake Total 1200 480 Balance 1200 480 Intake: Oral 1200 480 Other: # Voids 4 1 # Bowel Movements 1 Active Medications: Current Medications Acetaminophen (Tylenol) 325 mg PO Q4HR PRN PRN Reason: Pain (Mild) Stop: 08/02/17 01:11 Last Admin: 06/21/17 20:12 Dose: 325 mg Alendronate Sodium (Fosamax) 70 mg PO QSAT [facility] Stop: 08/03/17 06:59 Last Admin: 06/18/17 09:26 Dose: 70 mg Atorvastatin Calcium (Lipitor) 20 mg PO HS [facility] Stop: 08/02/17 20:59 Last Admin: 06/21/17 20:12 Dose: 20 mg Calcium/Vitamin D (Oscal W/Vitamin D) 1 tab PO DAILY ERWIN Stop: 08/02/17 08:59 Last Admin: 06/22/17 08:41 Dose: 1 tab Docusate Sodium (Colace) 100 mg PO BID ERWIN Stop: 08/02/17 08:59 Last Admin: 06/22/17 08:41 Dose: 100 mg Donepezil HCl (Aricept) 10 mg PO HS [facility] Stop: 08/02/17 20:59 Last Admin: 06/21/17 20:12 Dose: 10 mg Glipizide (Glucotrol) 2.5 mg PO QAM [facility] Stop: 08/02/17 08:59 Last Admin: 06/22/17 08:00 Dose: 2.5 mg Insulin Aspart (Novolog Insulin Sliding Scale) 0 units SUBQ ACHS ERWIN PRN Reason: Protocol Stop: 08/03/17 07:29 Last Admin: 06/22/17 06:45 Dose: Not Given Lorazepam (Ativan) 0.5 mg PO BID ERWIN PRN Reason: Protocol Stop: 08/08/17 16:59 Last Admin: 06/22/17 08:41 Dose: 0.5 mg Magnesium Hydroxide (Milk Of Magnesia) 30 ml PO DAILY PRN PRN Reason: Constipation Stop: 08/02/17 01:11 Last Admin: 06/14/17 08:02 Dose: 30 ml Memantine (Namenda) 10 mg PO BID ERWIN Stop: 08/07/17 08:02 Last Admin: 06/22/17 08:40 Dose: 10 mg Quetiapine Fumarate (Seroquel) 37.5 mg PO HS ERWIN PRN Reason: Protocol Stop: 08/20/17 11:35 Last Admin: 06/21/17 20:13 Dose: 37.5 mg General: demented HEENT: NC/AT, PERRLA, EOMI, anicteric sclerae, throat clear Neck: Supple, +2 carotid pulse wo bruit, No LAD, + JVD Lungs: CTAB Cardiovascular: RRR, Normal S1, Normal S2, without murmur Abdomen: soft, non-tender, non-distended Extremities: clear Neurological: no change - Procedures Procedures: Procedures Procedure Code Date EXCISION OF BUTTOCK SUBCU/FASCIA, OPEN APPROACH [id number] 10/27/16 REMOVAL OF PRESSURE SORE 84291 10/27/16 Internal Medicine Assmt/Plan - Assessment Assessment: 1.DM. 2.HYPERLIPIDEMIA. 3.DEMENTIA. 4.PSYCHOSIS. - Plan Plan: CONTINUE ON CURRENT MEDICATION AND DIET. Nutritional Asmnt/Malnutr-PDOC - Dietary Evaluation Malnutrition Findings (Please click <Entered> for more info): Nutritional Asmnt/Malnutrition Start: 06/08/17 14: 28 Text: Status: Complete Freq: Document 06/08/17 14:28 LCBRENNANG (Rec: 06/08/17 14:33 LCBRENNANG [email or web address]) Nutritional Asmnt/Malnutrition Patient General Information Nutritional Screening Moderate Risk Diagnosis psychosis Pertinent Medical Hx/Surgical Hx DM, hyperlipidemia, DJD, dementia Subjective Information per records, PO intake 50-100% . Current Diet Order/ Nutrition Support mech soft ground, ELMA, CCHO Pertinent Medications oscal w/vit D, colace, glucotrol, novolog Pertinent Labs 06/02 Glucose 133, A1c 8.8 06/06-06/08 POC 87-242 Nutritional Hx/Data Height 1.63 m Height (Calculated Centimeters) 162.6 Current Weight (lbs) 61.235 kg Weight (Calculated Kilograms) 61.2 Weight (Calculated Grams) 00716.0 [place] Body Weight 120 % [place] Body Weight 113 Body Mass Index (BMI) 23.1 Weight Status Approriate GI Symptoms GI Symptoms None Last BM 06/07 Difficult in: None Skin Integrity/Comment: intact Estimated Nutritional Goals BEE in Kcals: Using Current wt Calories/Kcals/Kg 25-30 Kcals Calculated 6049-0012 Protein: Using Current wt Protein g/k-1.2 Protein Calculated 61-73 Fluid: ml 1525-1830ml (1ml/kcal) Nutritional Problem 1. Problem Problem altered nutrition related lab values Etiology hx of DM Signs/Symptoms: Glucose 133, A1c 8.8 POC 87-091 Malnutrition Alert Protein-Calorie Malnutrition N/A Is there a minimum of two criteria No selected? Query Text:Check all the applicable criteria. A minimum of two criteria are recommended for diagnosis of either severe or non-severe malnutrition. Intervention/Recommendation Comments 1. Continue with current diet as ordered. 2. Monitor PO intake, wt, labs and skin integrity 3. F/U as low risk in 7 days, 3/7 Expected Outcomes/Goals Expected Outcomes/Goals 1. PO intake to meet at least 75% of nutritional needs. 2. Wt stability, skin to remain intact, labs to approach WNL.
[2017-06-22] MEDS: Atorvastatin Calcium 10 MG TAB PO SCH (21:38)
[2017-06-23] MEDS: INSULIN ASPART SLIDING SCALE 100 UNITS/ML UNIT SUBQ SCH ×4 (06:39→21:03)
[2017-06-23] MEDS: Multivitamin w/ Minerals Tab PO SCH (09:53)
[2017-06-23] MEDS: Calcium Carb/Vit D 500 mg/200 U Tab PO SCH (09:54)
--- NOTE | 2017-06-23 14:59 | Internal Medicine Prog Note ---
Internal Medicine Subjective - Subjective Service Date: 06/23/17 Patient seen and examined:: with staff Patient is:: awake, in bed, confused Per staff patient has:: no adverse event Internal Medicine Objective - Results Result Diagrams: 06/02/17 18:18 06/02/17 18:18 Recent Labs: Laboratory Last Values WBC 6.6 Th/cmm (4.8-10.8) D 06/02/17 18:18 RBC 4.01 Mil/cmm (3.80-5.20) 06/02/17 18:18 Hgb 12.3 gm/dL (12-16) 06/02/17 18:18 Hct 36.9 % (41.0-60) L 06/02/17 18:18 MCV 92.0 fl (81-100) 06/02/17 18:18 MCH 30.6 pg (27.0-31.0) 06/02/17 18:18 MCHC Differential 33.3 pg (28.0-36.0) 06/02/17 18:18 RDW 13.2 % (11.5-20.0) 06/02/17 18:18 Plt Count 287 Th/cmm (150-400) D 06/02/17 18:18 MPV 6.6 fl 06/02/17 18:18 Neutrophils % 48.6 % (40.0-80.0) 06/02/17 18:18 Lymphocytes % 42.0 % (20.0-50.0) 06/02/17 18:18 Monocytes % 6.0 % (2.0-10.0) 06/02/17 18:18 Eosinophils % 2.8 % (0.0-5.0) 06/02/17 18:18 Basophils % 0.6 % (0.0-2.0) 06/02/17 18:18 Sodium 137 mEq/L (136-145) 06/02/17 18:18 Potassium 4.1 mEq/L (3.5-5.1) 06/02/17 18:18 Chloride 107 mEq/L (98-107) 06/02/17 18:18 Carbon Dioxide 24.2 mEq/L (21.0-31.0) 06/02/17 18:18 Anion Gap 9.9 (7.0-16.0) 06/02/17 18:18 BUN 18 mg/dL (7-25) 06/02/17 18:18 Creatinine 0.7 mg/dL (0.6-1.2) 06/02/17 18:18 Est GFR ( Amer) TNP 06/02/17 18:18 Est GFR (Non-Af Amer) TNP 06/02/17 18:18 BUN/Creatinine Ratio 25.7 06/02/17 18:18 Glucose 133 mg/dL (70-105) H 06/02/17 18:18 POC Glucose 137 MG/DL (70 - 105) H 06/23/17 11:34 Hemoglobin A1c % 8.8 % (4.0-6.0) H 06/02/17 18:18 Calcium 9.4 mg/dL (8.6-10.3) 06/02/17 18:18 Total Bilirubin 0.4 mg/dL (0.3-1.0) 06/02/17 18:18 AST 28 U/L (13-39) 06/02/17 18:18 ALT 32 U/L (7-52) 06/02/17 18:18 Alkaline Phosphatase 116 U/L (34-104) H 06/02/17 18:18 Total Protein 7.3 gm/dL (6.0-8.3) 06/02/17 18:18 Albumin 3.4 gm/dL (3.7-5.3) L 06/02/17 18:18 Globulin 3.9 gm/dL 06/02/17 18:18 Albumin/Globulin Ratio 0.9 (1.0-1.8) L 06/02/17 18:18 Triglycerides 107 mg/dL (<150) 06/02/17 18:18 Cholesterol 123 mg/dL (<200) 06/02/17 18:18 LDL Cholesterol Direct 45 mg/dL (75-193) L 06/02/17 18:18 HDL Cholesterol 60 mg/dL (23-92) 06/02/17 18:18 TSH 3.38 uIU/ml (0.34-5.60) 06/02/17 18:18 Salicylates < 25.0 mg/L (30.0-100.0) L 06/02/17 18:18 Acetaminophen < 10.0 ug/mL (10.0-30.0) L 06/02/17 18:18 Ethyl Alcohol < 10 mg/dL (0-10) 06/02/17 18:18 RPR NONREACTIVE (NONREACTIVE) 06/02/17 18:18 - Physical Exam Vitals and I&O: Vital Signs Temp 98.2 F 06/23/17 06:45 Pulse 66 06/23/17 06:45 Resp 19 06/23/17 06:45 BP 121/69 06/23/17 06:45 Pulse Ox 97 06/23/17 06:45 Intake & Output 06/22/17 06/23/17 06/23/17 18:59 06:59 18:59 Intake Total 1200 120 Balance 1200 120 Intake: Oral 1200 120 Other: # Voids 4 3 # Bowel Movements 1 Active Medications: Current Medications Acetaminophen (Tylenol) 325 mg PO Q4HR PRN PRN Reason: Pain (Mild) Stop: 08/02/17 01:11 Last Admin: 06/21/17 20:12 Dose: 325 mg Alendronate Sodium (Fosamax) 70 mg PO QSAT [facility] Stop: 08/03/17 06:59 Last Admin: 06/18/17 09:26 Dose: 70 mg Atorvastatin Calcium (Lipitor) 20 mg PO HS [facility] Stop: 08/02/17 20:59 Last Admin: 06/22/17 21:38 Dose: 20 mg Calcium/Vitamin D (Oscal W/Vitamin D) 1 tab PO DAILY [facility] Stop: 08/02/17 08:59 Last Admin: 06/23/17 09:54 Dose: 1 tab Docusate Sodium (Colace) 100 mg PO BID [facility] Stop: 08/02/17 08:59 Last Admin: 06/23/17 09:54 Dose: 100 mg Donepezil HCl (Aricept) 10 mg PO HS [facility] Stop: 08/02/17 20:59 Last Admin: 06/22/17 21:38 Dose: 10 mg Glipizide (Glucotrol) 2.5 mg PO QAM [facility] Stop: 08/02/17 08:59 Last Admin: 06/23/17 09:53 Dose: 2.5 mg Insulin Aspart (Novolog Insulin Sliding Scale) 0 units SUBQ ACHS [facility] PRN Reason: Protocol Stop: 08/03/17 07:29 Last Admin: 06/23/17 11:50 Dose: Not Given Lorazepam (Ativan) 0.5 mg PO BID [facility] PRN Reason: Protocol Stop: 08/08/17 16:59 Last Admin: 06/23/17 09:54 Dose: 0.5 mg Magnesium Hydroxide (Milk Of Magnesia) 30 ml PO DAILY PRN PRN Reason: Constipation Stop: 08/02/17 01:11 Last Admin: 06/14/17 08:02 Dose: 30 ml Memantine (Namenda) 10 mg PO BID [facility] Stop: 08/07/17 08:02 Last Admin: 06/23/17 09:54 Dose: 10 mg Quetiapine Fumarate (Seroquel) 37.5 mg PO HS [facility]WIN PRN Reason: Protocol Stop: 08/20/17 11:35 Last Admin: 06/22/17 21:42 Dose: 37.5 mg General: demented HEENT: NC/AT, PERRLA, EOMI, anicteric sclerae, throat clear Neck: Supple, +2 carotid pulse wo bruit, No LAD, + JVD Lungs: CTAB Cardiovascular: RRR, Normal S1, Normal S2, without murmur Abdomen: soft, non-tender, non-distended Extremities: clear Neurological: no change - Procedures Procedures: Procedures Procedure Code Date EXCISION OF BUTTOCK SUBCU/FASCIA, OPEN APPROACH [id number] 10/27/16 REMOVAL OF PRESSURE SORE 99030 10/27/16 Internal Medicine Assmt/Plan - Assessment Assessment: 1.DM. 2.HYPERLIPIDEMIA. 3.DEMENTIA. 4.PSYCHOSIS. - Plan Plan: CONTINUE ON CURRENT MEDICATION AND DIET. Nutritional Asmnt/Malnutr-PDOC - Dietary Evaluation Malnutrition Findings (Please click <Entered> for more info): Nutritional Asmnt/Malnutrition Start: 06/08/17 14: 28 Text: Status: Complete Freq: Document 06/08/17 14:28 LCBRENNANG (Rec: 06/08/17 14:33 LCBRENNANG [email or web address]) Nutritional Asmnt/Malnutrition Patient General Information Nutritional Screening Moderate Risk Diagnosis psychosis Pertinent Medical Hx/Surgical Hx DM, hyperlipidemia, DJD, dementia Subjective Information per records, PO intake 50-100% . Current Diet Order/ Nutrition Support mech soft ground, ELMA, CCHO Pertinent Medications oscal w/vit D, colace, glucotrol, novolog Pertinent Labs 06/02 Glucose 133, A1c 8.8 06/06-06/08 POC 87-242 Nutritional Hx/Data Height 1.63 m Height (Calculated Centimeters) 162.6 Current Weight (lbs) 61.235 kg Weight (Calculated Kilograms) 61.2 Weight (Calculated Grams) 96391.0 [place] Body Weight 120 % [place] Body Weight 113 Body Mass Index (BMI) 23.1 Weight Status Approriate GI Symptoms GI Symptoms None Last BM 06/07 Difficult in: None Skin Integrity/Comment: intact Estimated Nutritional Goals BEE in Kcals: Using Current wt Calories/Kcals/Kg 25-30 Kcals Calculated 4318-9453 Protein: Using Current wt Protein g/k-1.2 Protein Calculated 61-73 Fluid: ml 1525-1830ml (1ml/kcal) Nutritional Problem 1. Problem Problem altered nutrition related lab values Etiology hx of DM Signs/Symptoms: Glucose 133, A1c 8.8 POC 87-242 Malnutrition Alert Protein-Calorie Malnutrition N/A Is there a minimum of two criteria No selected? Query Text:Check all the applicable criteria. A minimum of two criteria are recommended for diagnosis of either severe or non-severe malnutrition. Intervention/Recommendation Comments 1. Continue with current diet as ordered. 2. Monitor PO intake, wt, labs and skin integrity 3. F/U as low risk in 7 days, 3/7 Expected Outcomes/Goals Expected Outcomes/Goals 1. PO intake to meet at least 75% of nutritional needs. 2. Wt stability, skin to remain intact, labs to approach WNL.
[2017-06-23] MEDS: Atorvastatin Calcium 10 MG TAB PO SCH (20:45)
--- NOTE | 2017-06-23 23:59 | Progress Notes ---
DATE: 06/23/2017 Case was discussed with staff of the patient, reviewed records. The patient continues to isolate herself, unpredictable, impulsive, needing redirection. Continues to have poor insight. Continues to be easily agitated. She is sleeping better, eating better. No side effects with the medication, no sedation, no nausea and no extrapyramidal symptoms. We will continue the patient in group therapy, milieu therapy, and adjust medications as needed. [facility]# [id number]
[2017-06-24] MEDS: INSULIN ASPART SLIDING SCALE 100 UNITS/ML UNIT SUBQ SCH ×4 (06:39→21:31)
[2017-06-24] MEDS: Multivitamin w/ Minerals Tab PO SCH (08:48)
[2017-06-24] MEDS: Calcium Carb/Vit D 500 mg/200 U Tab PO SCH (08:48)
[2017-06-24] MEDS: Atorvastatin Calcium 10 MG TAB PO SCH (20:23)
--- NOTE | 2017-06-24 23:11 | Internal Medicine Prog Note ---
Internal Medicine Subjective - Subjective Service Date: 06/24/17 Patient seen and examined:: with staff Patient is:: awake, in bed, confused Per staff patient has:: no adverse event Internal Medicine Objective - Results Result Diagrams: 06/02/17 18:18 06/02/17 18:18 Recent Labs: Laboratory Last Values WBC 6.6 Th/cmm (4.8-10.8) D 06/02/17 18:18 RBC 4.01 Mil/cmm (3.80-5.20) 06/02/17 18:18 Hgb 12.3 gm/dL (12-16) 06/02/17 18:18 Hct 36.9 % (41.0-60) L 06/02/17 18:18 MCV 92.0 fl (81-100) 06/02/17 18:18 MCH 30.6 pg (27.0-31.0) 06/02/17 18:18 MCHC Differential 33.3 pg (28.0-36.0) 06/02/17 18:18 RDW 13.2 % (11.5-20.0) 06/02/17 18:18 Plt Count 287 Th/cmm (150-400) D 06/02/17 18:18 MPV 6.6 fl 06/02/17 18:18 Neutrophils % 48.6 % (40.0-80.0) 06/02/17 18:18 Lymphocytes % 42.0 % (20.0-50.0) 06/02/17 18:18 Monocytes % 6.0 % (2.0-10.0) 06/02/17 18:18 Eosinophils % 2.8 % (0.0-5.0) 06/02/17 18:18 Basophils % 0.6 % (0.0-2.0) 06/02/17 18:18 Sodium 137 mEq/L (136-145) 06/02/17 18:18 Potassium 4.1 mEq/L (3.5-5.1) 06/02/17 18:18 Chloride 107 mEq/L (98-107) 06/02/17 18:18 Carbon Dioxide 24.2 mEq/L (21.0-31.0) 06/02/17 18:18 Anion Gap 9.9 (7.0-16.0) 06/02/17 18:18 BUN 18 mg/dL (7-25) 06/02/17 18:18 Creatinine 0.7 mg/dL (0.6-1.2) 06/02/17 18:18 Est GFR ( Amer) TNP 06/02/17 18:18 Est GFR (Non-Af Amer) TNP 06/02/17 18:18 BUN/Creatinine Ratio 25.7 06/02/17 18:18 Glucose 133 mg/dL (70-105) H 06/02/17 18:18 POC Glucose 158 MG/DL (70 - 105) H 06/24/17 20:19 Hemoglobin A1c % 8.8 % (4.0-6.0) H 06/02/17 18:18 Calcium 9.4 mg/dL (8.6-10.3) 06/02/17 18:18 Total Bilirubin 0.4 mg/dL (0.3-1.0) 06/02/17 18:18 AST 28 U/L (13-39) 06/02/17 18:18 ALT 32 U/L (7-52) 06/02/17 18:18 Alkaline Phosphatase 116 U/L (34-104) H 06/02/17 18:18 Total Protein 7.3 gm/dL (6.0-8.3) 06/02/17 18:18 Albumin 3.4 gm/dL (3.7-5.3) L 06/02/17 18:18 Globulin 3.9 gm/dL 06/02/17 18:18 Albumin/Globulin Ratio 0.9 (1.0-1.8) L 06/02/17 18:18 Triglycerides 107 mg/dL (<150) 06/02/17 18:18 Cholesterol 123 mg/dL (<200) 06/02/17 18:18 LDL Cholesterol Direct 45 mg/dL (75-193) L 06/02/17 18:18 HDL Cholesterol 60 mg/dL (23-92) 06/02/17 18:18 TSH 3.38 uIU/ml (0.34-5.60) 06/02/17 18:18 Salicylates < 25.0 mg/L (30.0-100.0) L 06/02/17 18:18 Acetaminophen < 10.0 ug/mL (10.0-30.0) L 06/02/17 18:18 Ethyl Alcohol < 10 mg/dL (0-10) 06/02/17 18:18 RPR NONREACTIVE (NONREACTIVE) 06/02/17 18:18 - Physical Exam Vitals and I&O: Vital Signs Temp 98.7 F 06/24/17 15:48 Pulse 96 06/24/17 19:32 Resp 20 06/24/17 19:32 BP 105/46 06/24/17 15:48 Pulse Ox 96 06/24/17 15:48 Intake & Output 06/24/17 06/24/17 06/25/17 06:59 18:59 06:59 Intake Total 120 1200 Balance 120 1200 Intake: Oral 120 1200 Other: # Voids 3 3 # Bowel Movements 3 Active Medications: Current Medications Acetaminophen (Tylenol) 325 mg PO Q4HR PRN PRN Reason: Pain (Mild) Stop: 08/02/17 01:11 Last Admin: 06/21/17 20:12 Dose: 325 mg Alendronate Sodium (Fosamax) 70 mg PO QSAT [facility] Stop: 08/03/17 06:59 Last Admin: 06/18/17 09:26 Dose: 70 mg Atorvastatin Calcium (Lipitor) 20 mg PO HS ERWIN Stop: 08/02/17 20:59 Last Admin: 06/24/17 20:23 Dose: 20 mg Calcium/Vitamin D (Oscal W/Vitamin D) 1 tab PO DAILY [facility] Stop: 08/02/17 08:59 Last Admin: 06/24/17 08:48 Dose: 1 tab Docusate Sodium (Colace) 100 mg PO BID [facility] Stop: 08/02/17 08:59 Last Admin: 06/24/17 16:34 Dose: 100 mg Donepezil HCl (Aricept) 10 mg PO HS [facility] Stop: 08/02/17 20:59 Last Admin: 06/24/17 20:23 Dose: 10 mg Glipizide (Glucotrol) 2.5 mg PO QAM [facility] Stop: 08/02/17 08:59 Last Admin: 06/24/17 08:48 Dose: 2.5 mg Insulin Aspart (Novolog Insulin Sliding Scale) 0 units SUBQ ACHS [facility] PRN Reason: Protocol Stop: 08/03/17 07:29 Last Admin: 06/24/17 21:31 Dose: 2 units Lorazepam (Ativan) 0.5 mg PO BID ERWIN PRN Reason: Protocol Stop: 08/08/17 16:59 Last Admin: 06/24/17 16:33 Dose: 0.5 mg Magnesium Hydroxide (Milk Of Magnesia) 30 ml PO DAILY PRN PRN Reason: Constipation Stop: 08/02/17 01:11 Last Admin: 06/14/17 08:02 Dose: 30 ml Memantine (Namenda) 10 mg PO BID [facility] Stop: 08/07/17 08:02 Last Admin: 06/24/17 16:34 Dose: 10 mg Quetiapine Fumarate (Seroquel) 50 mg PO HS ERWIN PRN Reason: Protocol Stop: 08/23/17 20:59 Last Admin: 06/24/17 20:24 Dose: 50 mg General: demented HEENT: NC/AT, PERRLA, EOMI, anicteric sclerae, throat clear Neck: Supple, +2 carotid pulse wo bruit, No LAD, + JVD Lungs: CTAB Cardiovascular: RRR, Normal S1, Normal S2, without murmur Abdomen: soft, non-tender, non-distended Extremities: clear Neurological: no change - Procedures Procedures: Procedures Procedure Code Date EXCISION OF BUTTOCK SUBCU/FASCIA, OPEN APPROACH [id number] 10/27/16 REMOVAL OF PRESSURE SORE 30732 10/27/16 Internal Medicine Assmt/Plan - Assessment Assessment: 1.DM. 2.HYPERLIPIDEMIA. 3.DEMENTIA. 4.PSYCHOSIS. - Plan Plan: CONTINUE ON CURRENT MEDICATION AND DIET. Nutritional Asmnt/Malnutr-PDOC - Dietary Evaluation Malnutrition Findings (Please click <Entered> for more info): Nutritional Asmnt/Malnutrition Start: 06/08/17 14: 28 Text: Status: Complete Freq: Document 06/08/17 14:28 LCBRENNANG (Rec: 06/08/17 14:33 LCBRENNANG [email or web address]) Nutritional Asmnt/Malnutrition Patient General Information Nutritional Screening Moderate Risk Diagnosis psychosis Pertinent Medical Hx/Surgical Hx DM, hyperlipidemia, DJD, dementia Subjective Information per records, PO intake 50-100% . Current Diet Order/ Nutrition Support mech soft ground, ELMA, CCHO Pertinent Medications oscal w/vit D, colace, glucotrol, novolog Pertinent Labs 06/02 Glucose 133, A1c 8.8 06/06-06/08 POC 87-242 Nutritional Hx/Data Height 1.63 m Height (Calculated Centimeters) 162.6 Current Weight (lbs) 61.235 kg Weight (Calculated Kilograms) 61.2 Weight (Calculated Grams) 31946.0 [place] Body Weight 120 % [place] Body Weight 113 Body Mass Index (BMI) 23.1 Weight Status Approriate GI Symptoms GI Symptoms None Last BM 06/07 Difficult in: None Skin Integrity/Comment: intact Estimated Nutritional Goals BEE in Kcals: Using Current wt Calories/Kcals/Kg 25-30 Kcals Calculated 2689-7336 Protein: Using Current wt Protein g/k-1.2 Protein Calculated 61-73 Fluid: ml 1525-1830ml (1ml/kcal) Nutritional Problem 1. Problem Problem altered nutrition related lab values Etiology hx of DM Signs/Symptoms: Glucose 133, A1c 8.8 POC 87-572 Malnutrition Alert Protein-Calorie Malnutrition N/A Is there a minimum of two criteria No selected? Query Text:Check all the applicable criteria. A minimum of two criteria are recommended for diagnosis of either severe or non-severe malnutrition. Intervention/Recommendation Comments 1. Continue with current diet as ordered. 2. Monitor PO intake, wt, labs and skin integrity 3. F/U as low risk in 7 days, 3/7 Expected Outcomes/Goals Expected Outcomes/Goals 1. PO intake to meet at least 75% of nutritional needs. 2. Wt stability, skin to remain intact, labs to approach WNL.
--- NOTE | 2017-06-25 00:22 | Progress Notes ---
DATE: 06/24/2017 SUBJECTIVE: Case was discussed with staff of the patient and reviewed records. The patient continues to have poor insight, continues to be yelling and screaming, continues to be unpredictable, impulsive, needing redirection, continues to be easily agitated. OBJECTIVE: She is compliant with the medications. No side effects, no sedation, no nausea, no extrapyramidal symptoms. ASSESSMENT AND PLAN: She is on Seroquel. I will be increasing the dose to 50 mg. Currently, she is on 37.5 mg. No side effects of the medication, no sedation, no nausea, no extrapyramidal symptoms. We will continue to work with the patient in group therapy, milieu therapy, and adjust medications as needed. [facility]# [id number]
[2017-06-25] MEDS: INSULIN ASPART SLIDING SCALE 100 UNITS/ML UNIT SUBQ SCH ×4 (07:04→21:44)
[2017-06-25] MEDS: Multivitamin w/ Minerals Tab PO SCH (08:25)
[2017-06-25] MEDS: Calcium Carb/Vit D 500 mg/200 U Tab PO SCH (08:25)
--- NOTE | 2017-06-25 15:22 | General Progress Note ---
Subjective - Review of Systems Service Date: 06/25/17 Subjective: resting comfortably no distress Objective - Results Result Diagrams: 06/02/17 18:18 06/02/17 18:18 Recent Labs: Laboratory Last Values WBC 6.6 Th/cmm (4.8-10.8) D 06/02/17 18:18 RBC 4.01 Mil/cmm (3.80-5.20) 06/02/17 18:18 Hgb 12.3 gm/dL (12-16) 06/02/17 18:18 Hct 36.9 % (41.0-60) L 06/02/17 18:18 MCV 92.0 fl (81-100) 06/02/17 18:18 MCH 30.6 pg (27.0-31.0) 06/02/17 18:18 MCHC Differential 33.3 pg (28.0-36.0) 06/02/17 18:18 RDW 13.2 % (11.5-20.0) 06/02/17 18:18 Plt Count 287 Th/cmm (150-400) D 06/02/17 18:18 MPV 6.6 fl 06/02/17 18:18 Neutrophils % 48.6 % (40.0-80.0) 06/02/17 18:18 Lymphocytes % 42.0 % (20.0-50.0) 06/02/17 18:18 Monocytes % 6.0 % (2.0-10.0) 06/02/17 18:18 Eosinophils % 2.8 % (0.0-5.0) 06/02/17 18:18 Basophils % 0.6 % (0.0-2.0) 06/02/17 18:18 Sodium 137 mEq/L (136-145) 06/02/17 18:18 Potassium 4.1 mEq/L (3.5-5.1) 06/02/17 18:18 Chloride 107 mEq/L (98-107) 06/02/17 18:18 Carbon Dioxide 24.2 mEq/L (21.0-31.0) 06/02/17 18:18 Anion Gap 9.9 (7.0-16.0) 06/02/17 18:18 BUN 18 mg/dL (7-25) 06/02/17 18:18 Creatinine 0.7 mg/dL (0.6-1.2) 06/02/17 18:18 Est GFR ( Amer) TNP 06/02/17 18:18 Est GFR (Non-Af Amer) TNP 06/02/17 18:18 BUN/Creatinine Ratio 25.7 06/02/17 18:18 Glucose 133 mg/dL (70-105) H 06/02/17 18:18 POC Glucose 95 MG/DL (70 - 105) 06/25/17 11:22 Hemoglobin A1c % 8.8 % (4.0-6.0) H 06/02/17 18:18 Calcium 9.4 mg/dL (8.6-10.3) 06/02/17 18:18 Total Bilirubin 0.4 mg/dL (0.3-1.0) 06/02/17 18:18 AST 28 U/L (13-39) 06/02/17 18:18 ALT 32 U/L (7-52) 06/02/17 18:18 Alkaline Phosphatase 116 U/L (34-104) H 06/02/17 18:18 Total Protein 7.3 gm/dL (6.0-8.3) 06/02/17 18:18 Albumin 3.4 gm/dL (3.7-5.3) L 06/02/17 18:18 Globulin 3.9 gm/dL 06/02/17 18:18 Albumin/Globulin Ratio 0.9 (1.0-1.8) L 06/02/17 18:18 Triglycerides 107 mg/dL (<150) 06/02/17 18:18 Cholesterol 123 mg/dL (<200) 06/02/17 18:18 LDL Cholesterol Direct 45 mg/dL (75-193) L 06/02/17 18:18 HDL Cholesterol 60 mg/dL (23-92) 06/02/17 18:18 TSH 3.38 uIU/ml (0.34-5.60) 06/02/17 18:18 Salicylates < 25.0 mg/L (30.0-100.0) L 06/02/17 18:18 Acetaminophen < 10.0 ug/mL (10.0-30.0) L 06/02/17 18:18 Ethyl Alcohol < 10 mg/dL (0-10) 06/02/17 18:18 RPR NONREACTIVE (NONREACTIVE) 06/02/17 18:18 - Physical Exam Vitals and I&O: Vital Signs Temp 98.7 F 06/24/17 15:48 Pulse 96 06/24/17 19:32 Resp 20 06/24/17 19:32 BP 105/46 06/24/17 15:48 Pulse Ox 96 06/24/17 15:48 Intake & Output 06/24/17 06/25/17 06/25/17 18:59 06:59 18:59 Intake Total 1200 Balance 1200 Intake: Oral 1200 Other: # Voids 3 # Bowel Movements 3 Active Medications: Current Medications Acetaminophen (Tylenol) 325 mg PO Q4HR PRN PRN Reason: Pain (Mild) Stop: 08/02/17 01:11 Last Admin: 06/21/17 20:12 Dose: 325 mg Alendronate Sodium (Fosamax) 70 mg PO QSAT ERWIN Stop: 08/03/17 06:59 Last Admin: 06/25/17 06:42 Dose: 70 mg Atorvastatin Calcium (Lipitor) 20 mg PO HS ERWIN Stop: 08/02/17 20:59 Last Admin: 06/24/17 20:23 Dose: 20 mg Calcium/Vitamin D (Oscal W/Vitamin D) 1 tab PO DAILY ERWIN Stop: 08/02/17 08:59 Last Admin: 06/25/17 08:25 Dose: 1 tab Docusate Sodium (Colace) 100 mg PO BID ERWIN Stop: 08/02/17 08:59 Last Admin: 06/25/17 08:24 Dose: 100 mg Donepezil HCl (Aricept) 10 mg PO HS ERWIN Stop: 08/02/17 20:59 Last Admin: 06/24/17 20:23 Dose: 10 mg Glipizide (Glucotrol) 2.5 mg PO QAM ERWIN Stop: 08/02/17 08:59 Last Admin: 06/25/17 08:25 Dose: 2.5 mg Insulin Aspart (Novolog Insulin Sliding Scale) 0 units SUBQ ACHS ERWIN PRN Reason: Protocol Stop: 08/03/17 07:29 Last Admin: 06/25/17 11:33 Dose: Not Given Lorazepam (Ativan) 0.5 mg PO BID ERWIN PRN Reason: Protocol Stop: 08/08/17 16:59 Last Admin: 06/25/17 08:25 Dose: 0.5 mg Magnesium Hydroxide (Milk Of Magnesia) 30 ml PO DAILY PRN PRN Reason: Constipation Stop: 08/02/17 01:11 Last Admin: 06/14/17 08:02 Dose: 30 ml Memantine (Namenda) 10 mg PO BID ERWIN Stop: 08/07/17 08:02 Last Admin: 06/25/17 08:25 Dose: 10 mg Quetiapine Fumarate (Seroquel) 50 mg PO HS ERWIN PRN Reason: Protocol Stop: 08/23/17 20:59 Last Admin: 06/24/17 20:24 Dose: 50 mg General: No acute distress HEENT: Atraumatic, PERRLA, EOMI Neck: Supple, JVD, Thyromegaly Cardiovascular: Regular rate, Normal S1, Normal S2 Lungs: Clear to auscultation Abdomen: Bowel sounds, Soft - Procedures Procedures: Procedures Procedure Code Date EXCISION OF BUTTOCK SUBCU/FASCIA, OPEN APPROACH [id number] 10/27/16 REMOVAL OF PRESSURE SORE 29373 10/27/16 Assessment/Plan - Assessment Assessment: 1.DM. 2.HYPERLIPIDEMIA. 3.DEMENTIA. 4.PSYCHOSIS. - Plan Plan: cont current treatment Nutritional Asmnt/Malnutr-PDOC - Dietary Evaluation Malnutrition Findings (Please click <Entered> for more info): Nutritional Asmnt/Malnutrition Start: 06/08/17 14: 28 Text: Status: Complete Freq: Document 06/08/17 14:28 LCBRENNANG (Rec: 06/08/17 14:33 LCBRENNANG [email or web address]) Nutritional Asmnt/Malnutrition Patient General Information Nutritional Screening Moderate Risk Diagnosis psychosis Pertinent Medical Hx/Surgical Hx DM, hyperlipidemia, DJD, dementia Subjective Information per records, PO intake 50-100% . Current Diet Order/ Nutrition Support [facility] soft ground, ELMA, CCHO Pertinent Medications oscal w/vit D, colace, glucotrol, novolog Pertinent Labs 06/02 Glucose 133, A1c 8.8 06/06-06/08 POC 87-242 Nutritional Hx/Data Height 1.63 m Height (Calculated Centimeters) 162.6 Current Weight (lbs) 61.235 kg Weight (Calculated Kilograms) 61.2 Weight (Calculated Grams) 66507.0 [place] Body Weight 120 % [place] Body Weight 113 Body Mass Index (BMI) 23.1 Weight Status Approriate GI Symptoms GI Symptoms None Last BM 06/07 Difficult in: None Skin Integrity/Comment: intact Estimated Nutritional Goals BEE in Kcals: Using Current wt Calories/Kcals/Kg 25-30 Kcals Calculated 2614-1051 Protein: Using Current wt Protein g/k-1.2 Protein Calculated 61-73 Fluid: ml 1525-1830ml (1ml/kcal) Nutritional Problem 1. Problem Problem altered nutrition related lab values Etiology hx of DM Signs/Symptoms: Glucose 133, A1c 8.8 POC 87-242 Malnutrition Alert Protein-Calorie Malnutrition N/A Is there a minimum of two criteria No selected? Query Text:Check all the applicable criteria. A minimum of two criteria are recommended for diagnosis of either severe or non-severe malnutrition. Intervention/Recommendation Comments 1. Continue with current diet as ordered. 2. Monitor PO intake, wt, labs and skin integrity 3. F/U as low risk in 7 days, 3/7 Expected Outcomes/Goals Expected Outcomes/Goals 1. PO intake to meet at least 75% of nutritional needs. 2. Wt stability, skin to remain intact, labs to approach WNL.
[2017-06-25] MEDS: Atorvastatin Calcium 10 MG TAB PO SCH (21:45)
--- NOTE | 2017-06-25 22:29 | Progress Notes ---
DATE: 06/25/2017 Case was discussed with staff of the patient, reviewed records. The patient does have episodes of yelling and screaming. Continues to be unpredictable, impulsive, needing redirection. Continues to have poor insight. I did increase her Seroquel yesterday of 50 mg at bedtime. So it is too early to make further changes that was increased yesterday and so far no side effects, no sedation, no nausea, no extrapyramidal symptoms. We will continue outpatient group therapy, milieu therapy, and adjust medications as needed. JOB# [id number]
[2017-06-26] MEDS: INSULIN ASPART SLIDING SCALE 100 UNITS/ML UNIT SUBQ SCH ×4 (06:43→21:36)
[2017-06-26] MEDS: Multivitamin w/ Minerals Tab PO SCH (08:35)
[2017-06-26] MEDS: Calcium Carb/Vit D 500 mg/200 U Tab PO SCH (08:35)
--- NOTE | 2017-06-26 11:24 | General Progress Note ---
Subjective - Review of Systems Service Date: 06/26/17 Subjective: resting comfortably no distress Objective - Results Result Diagrams: 06/02/17 18:18 06/02/17 18:18 Recent Labs: Laboratory Last Values WBC 6.6 Th/cmm (4.8-10.8) D 06/02/17 18:18 RBC 4.01 Mil/cmm (3.80-5.20) 06/02/17 18:18 Hgb 12.3 gm/dL (12-16) 06/02/17 18:18 Hct 36.9 % (41.0-60) L 06/02/17 18:18 MCV 92.0 fl (81-100) 06/02/17 18:18 MCH 30.6 pg (27.0-31.0) 06/02/17 18:18 MCHC Differential 33.3 pg (28.0-36.0) 06/02/17 18:18 RDW 13.2 % (11.5-20.0) 06/02/17 18:18 Plt Count 287 Th/cmm (150-400) D 06/02/17 18:18 MPV 6.6 fl 06/02/17 18:18 Neutrophils % 48.6 % (40.0-80.0) 06/02/17 18:18 Lymphocytes % 42.0 % (20.0-50.0) 06/02/17 18:18 Monocytes % 6.0 % (2.0-10.0) 06/02/17 18:18 Eosinophils % 2.8 % (0.0-5.0) 06/02/17 18:18 Basophils % 0.6 % (0.0-2.0) 06/02/17 18:18 Sodium 137 mEq/L (136-145) 06/02/17 18:18 Potassium 4.1 mEq/L (3.5-5.1) 06/02/17 18:18 Chloride 107 mEq/L (98-107) 06/02/17 18:18 Carbon Dioxide 24.2 mEq/L (21.0-31.0) 06/02/17 18:18 Anion Gap 9.9 (7.0-16.0) 06/02/17 18:18 BUN 18 mg/dL (7-25) 06/02/17 18:18 Creatinine 0.7 mg/dL (0.6-1.2) 06/02/17 18:18 Est GFR ( Amer) TNP 06/02/17 18:18 Est GFR (Non-Af Amer) TNP 06/02/17 18:18 BUN/Creatinine Ratio 25.7 06/02/17 18:18 Glucose 133 mg/dL (70-105) H 06/02/17 18:18 POC Glucose 117 MG/DL (70 - 105) H 06/26/17 06:20 Hemoglobin A1c % 8.8 % (4.0-6.0) H 06/02/17 18:18 Calcium 9.4 mg/dL (8.6-10.3) 06/02/17 18:18 Total Bilirubin 0.4 mg/dL (0.3-1.0) 06/02/17 18:18 AST 28 U/L (13-39) 06/02/17 18:18 ALT 32 U/L (7-52) 06/02/17 18:18 Alkaline Phosphatase 116 U/L (34-104) H 06/02/17 18:18 Total Protein 7.3 gm/dL (6.0-8.3) 06/02/17 18:18 Albumin 3.4 gm/dL (3.7-5.3) L 06/02/17 18:18 Globulin 3.9 gm/dL 06/02/17 18:18 Albumin/Globulin Ratio 0.9 (1.0-1.8) L 06/02/17 18:18 Triglycerides 107 mg/dL (<150) 06/02/17 18:18 Cholesterol 123 mg/dL (<200) 06/02/17 18:18 LDL Cholesterol Direct 45 mg/dL (75-193) L 06/02/17 18:18 HDL Cholesterol 60 mg/dL (23-92) 06/02/17 18:18 TSH 3.38 uIU/ml (0.34-5.60) 06/02/17 18:18 Salicylates < 25.0 mg/L (30.0-100.0) L 06/02/17 18:18 Acetaminophen < 10.0 ug/mL (10.0-30.0) L 06/02/17 18:18 Ethyl Alcohol < 10 mg/dL (0-10) 06/02/17 18:18 RPR NONREACTIVE (NONREACTIVE) 06/02/17 18:18 - Physical Exam Vitals and I&O: Vital Signs Temp 97.0 F 06/25/17 17:27 Pulse 68 06/25/17 17:27 Resp 18 18 08:00 BP 116/66 06/25/17 17:27 Pulse Ox 97 06/25/17 17:27 Intake & Output 06/25/17 06/26/17 06/26/17 18:59 06:59 18:59 Intake Total 1200 480 Balance 1200 480 Intake: Oral 1200 480 Other: # Voids 3 1 Active Medications: Current Medications Acetaminophen (Tylenol) 325 mg PO Q4HR PRN PRN Reason: Pain (Mild) Stop: 08/02/17 01:11 Last Admin: 06/21/17 20:12 Dose: 325 mg Alendronate Sodium (Fosamax) 70 mg PO QSAT ERWIN Stop: 08/03/17 06:59 Last Admin: 06/25/17 06:42 Dose: 70 mg Atorvastatin Calcium (Lipitor) 20 mg PO HS ERIWN Stop: 08/02/17 20:59 Last Admin: 06/25/17 21:45 Dose: 20 mg Calcium/Vitamin D (Oscal W/Vitamin D) 1 tab PO DAILY ERWIN Stop: 08/02/17 08:59 Last Admin: 06/26/17 08:35 Dose: 1 tab Docusate Sodium (Colace) 100 mg PO BID ERWIN Stop: 08/02/17 08:59 Last Admin: 06/26/17 08:35 Dose: 100 mg Donepezil HCl (Aricept) 10 mg PO HS ERWIN Stop: 08/02/17 20:59 Last Admin: 06/25/17 21:45 Dose: 10 mg Glipizide (Glucotrol) 2.5 mg PO QAM ERWIN Stop: 08/02/17 08:59 Last Admin: 06/26/17 08:34 Dose: 2.5 mg Insulin Aspart (Novolog Insulin Sliding Scale) 0 units SUBQ ACHS ERWIN PRN Reason: Protocol Stop: 08/03/17 07:29 Last Admin: 06/26/17 06:43 Dose: Not Given Lorazepam (Ativan) 0.5 mg PO BID ERWIN PRN Reason: Protocol Stop: 08/08/17 16:59 Last Admin: 06/26/17 08:34 Dose: 0.5 mg Magnesium Hydroxide (Milk Of Magnesia) 30 ml PO DAILY PRN PRN Reason: Constipation Stop: 08/02/17 01:11 Last Admin: 06/14/17 08:02 Dose: 30 ml Memantine (Namenda) 10 mg PO BID ERWIN Stop: 08/07/17 08:02 Last Admin: 06/26/17 08:35 Dose: 10 mg Quetiapine Fumarate (Seroquel) 50 mg PO HS ERWIN PRN Reason: Protocol Stop: 08/23/17 20:59 Last Admin: 06/25/17 21:46 Dose: 50 mg General: No acute distress HEENT: Atraumatic, PERRLA, EOMI Neck: Supple, JVD, Thyromegaly Cardiovascular: Regular rate, Normal S1, Normal S2 Lungs: Clear to auscultation Abdomen: Bowel sounds, Soft - Procedures Procedures: Procedures Procedure Code Date EXCISION OF BUTTOCK SUBCU/FASCIA, OPEN APPROACH [id number] 10/27/16 REMOVAL OF PRESSURE SORE 55821 10/27/16 Assessment/Plan - Assessment Assessment: 1.DM. 2.HYPERLIPIDEMIA. 3.DEMENTIA. 4.PSYCHOSIS. - Plan Plan: cont current treatment Nutritional Asmnt/Malnutr-PDOC - Dietary Evaluation Malnutrition Findings (Please click <Entered> for more info): Nutritional Asmnt/Malnutrition Start: 06/08/17 14: 28 Text: Status: Complete Freq: Document 06/08/17 14:28 LCBRENNANG (Rec: 06/08/17 14:33 LCBRENNANG [email or web address]) Nutritional Asmnt/Malnutrition Patient General Information Nutritional Screening Moderate Risk Diagnosis psychosis Pertinent Medical Hx/Surgical Hx DM, hyperlipidemia, DJD, dementia Subjective Information per records, PO intake 50-100% . Current Diet Order/ Nutrition Support [facility] soft ground, ELMA, CCHO Pertinent Medications oscal w/vit D, colace, glucotrol, novolog Pertinent Labs 06/02 Glucose 133, A1c 8.8 06/06-06/08 POC 87-242 Nutritional Hx/Data Height 1.63 m Height (Calculated Centimeters) 162.6 Current Weight (lbs) 61.235 kg Weight (Calculated Kilograms) 61.2 Weight (Calculated Grams) 20845.0 [place] Body Weight 120 % [place] Body Weight 113 Body Mass Index (BMI) 23.1 Weight Status Approriate GI Symptoms GI Symptoms None Last BM 06/07 Difficult in: None Skin Integrity/Comment: intact Estimated Nutritional Goals BEE in Kcals: Using Current wt Calories/Kcals/Kg 25-30 Kcals Calculated 3329-4561 Protein: Using Current wt Protein g/k-1.2 Protein Calculated 61-73 Fluid: ml 1525-1830ml (1ml/kcal) Nutritional Problem 1. Problem Problem altered nutrition related lab values Etiology hx of DM Signs/Symptoms: Glucose 133, A1c 8.8 POC 87-242 Malnutrition Alert Protein-Calorie Malnutrition N/A Is there a minimum of two criteria No selected? Query Text:Check all the applicable criteria. A minimum of two criteria are recommended for diagnosis of either severe or non-severe malnutrition. Intervention/Recommendation Comments 1. Continue with current diet as ordered. 2. Monitor PO intake, wt, labs and skin integrity 3. F/U as low risk in 7 days, 3/7 Expected Outcomes/Goals Expected Outcomes/Goals 1. PO intake to meet at least 75% of nutritional needs. 2. Wt stability, skin to remain intact, labs to approach WNL.
[2017-06-26] MEDS: Atorvastatin Calcium 10 MG TAB PO SCH (21:23)
--- NOTE | 2017-06-27 03:09 | Progress Notes ---
DATE: 06/26/2017 Case was discussed with staff of the patient, reviewed records. The patient continues to be psychotic, talking to herself, yelling and screaming nonstop. Continues to have poor insight. Unable to make safe plan for self-care. I did increase her Seroquel to 50 mg at bedtime. I will be increasing it further to 62.5 mg at bedtime. So far no side effects, no sedation, no nausea, no extrapyramidal symptoms. We will continue to work with the patient in group therapy, milieu therapy, and adjust medication as needed. JOB# [id number]
[2017-06-27] MEDS: INSULIN ASPART SLIDING SCALE 100 UNITS/ML UNIT SUBQ SCH ×4 (06:42→21:24)
[2017-06-27] MEDS: Calcium Carb/Vit D 500 mg/200 U Tab PO SCH (09:00)
[2017-06-27] MEDS: Multivitamin w/ Minerals Tab PO SCH (09:00)
[2017-06-27] MEDS: Atorvastatin Calcium 10 MG TAB PO SCH (21:03)
--- NOTE | 2017-06-27 21:42 | Internal Medicine Prog Note ---
Internal Medicine Subjective - Subjective Service Date: 06/27/17 Patient seen and examined:: with staff Patient is:: awake, in bed, confused Per staff patient has:: no adverse event Internal Medicine Objective - Results Result Diagrams: 06/02/17 18:18 06/02/17 18:18 Recent Labs: Laboratory Last Values WBC 6.6 Th/cmm (4.8-10.8) D 06/02/17 18:18 RBC 4.01 Mil/cmm (3.80-5.20) 06/02/17 18:18 Hgb 12.3 gm/dL (12-16) 06/02/17 18:18 Hct 36.9 % (41.0-60) L 06/02/17 18:18 MCV 92.0 fl (81-100) 06/02/17 18:18 MCH 30.6 pg (27.0-31.0) 06/02/17 18:18 MCHC Differential 33.3 pg (28.0-36.0) 06/02/17 18:18 RDW 13.2 % (11.5-20.0) 06/02/17 18:18 Plt Count 287 Th/cmm (150-400) D 06/02/17 18:18 MPV 6.6 fl 06/02/17 18:18 Neutrophils % 48.6 % (40.0-80.0) 06/02/17 18:18 Lymphocytes % 42.0 % (20.0-50.0) 06/02/17 18:18 Monocytes % 6.0 % (2.0-10.0) 06/02/17 18:18 Eosinophils % 2.8 % (0.0-5.0) 06/02/17 18:18 Basophils % 0.6 % (0.0-2.0) 06/02/17 18:18 Sodium 137 mEq/L (136-145) 06/02/17 18:18 Potassium 4.1 mEq/L (3.5-5.1) 06/02/17 18:18 Chloride 107 mEq/L (98-107) 06/02/17 18:18 Carbon Dioxide 24.2 mEq/L (21.0-31.0) 06/02/17 18:18 Anion Gap 9.9 (7.0-16.0) 06/02/17 18:18 BUN 18 mg/dL (7-25) 06/02/17 18:18 Creatinine 0.7 mg/dL (0.6-1.2) 06/02/17 18:18 Est GFR ( Amer) TNP 06/02/17 18:18 Est GFR (Non-Af Amer) TNP 06/02/17 18:18 BUN/Creatinine Ratio 25.7 06/02/17 18:18 Glucose 133 mg/dL (70-105) H 06/02/17 18:18 POC Glucose 171 MG/DL (70 - 105) H 06/27/17 21:01 Hemoglobin A1c % 8.8 % (4.0-6.0) H 06/02/17 18:18 Calcium 9.4 mg/dL (8.6-10.3) 06/02/17 18:18 Total Bilirubin 0.4 mg/dL (0.3-1.0) 06/02/17 18:18 AST 28 U/L (13-39) 06/02/17 18:18 ALT 32 U/L (7-52) 06/02/17 18:18 Alkaline Phosphatase 116 U/L (34-104) H 06/02/17 18:18 Total Protein 7.3 gm/dL (6.0-8.3) 06/02/17 18:18 Albumin 3.4 gm/dL (3.7-5.3) L 06/02/17 18:18 Globulin 3.9 gm/dL 06/02/17 18:18 Albumin/Globulin Ratio 0.9 (1.0-1.8) L 06/02/17 18:18 Triglycerides 107 mg/dL (<150) 06/02/17 18:18 Cholesterol 123 mg/dL (<200) 06/02/17 18:18 LDL Cholesterol Direct 45 mg/dL (75-193) L 06/02/17 18:18 HDL Cholesterol 60 mg/dL (23-92) 06/02/17 18:18 TSH 3.38 uIU/ml (0.34-5.60) 06/02/17 18:18 Salicylates < 25.0 mg/L (30.0-100.0) L 06/02/17 18:18 Acetaminophen < 10.0 ug/mL (10.0-30.0) L 06/02/17 18:18 Ethyl Alcohol < 10 mg/dL (0-10) 06/02/17 18:18 RPR NONREACTIVE (NONREACTIVE) 06/02/17 18:18 - Physical Exam Vitals and I&O: Vital Signs Temp 98 F 06/27/17 21:03 Pulse 86 06/27/17 21:03 Resp 17 06/27/17 21:03 BP 121/55 06/27/17 21:03 Pulse Ox 98 06/27/17 21:03 Intake & Output 06/27/17 06/27/17 06/28/17 06:59 18:59 06:59 Intake Total 240 800 120 Balance 240 800 120 Intake: Oral 240 800 120 Other: # Voids 1 4 3 # Bowel Movements 2 1 Active Medications: Current Medications Acetaminophen (Tylenol) 325 mg PO Q4HR PRN PRN Reason: Pain (Mild) Stop: 08/02/17 01:11 Last Admin: 06/21/17 20:12 Dose: 325 mg Alendronate Sodium (Fosamax) 70 mg PO QSAT ERWIN Stop: 08/03/17 06:59 Last Admin: 06/25/17 06:42 Dose: 70 mg Atorvastatin Calcium (Lipitor) 20 mg PO HS [facility] Stop: 08/02/17 20:59 Last Admin: 06/27/17 21:03 Dose: 20 mg Calcium/Vitamin D (Oscal W/Vitamin D) 1 tab PO DAILY ERWIN Stop: 08/02/17 08:59 Last Admin: 06/27/17 09:00 Dose: 1 tab Docusate Sodium (Colace) 100 mg PO BID ERWIN Stop: 08/02/17 08:59 Last Admin: 06/27/17 17:53 Dose: 100 mg Donepezil HCl (Aricept) 10 mg PO HS ERWIN Stop: 08/02/17 20:59 Last Admin: 06/27/17 21:03 Dose: 10 mg Glipizide (Glucotrol) 2.5 mg PO QAM ERWIN Stop: 08/02/17 08:59 Last Admin: 06/27/17 09:00 Dose: 2.5 mg Insulin Aspart (Novolog Insulin Sliding Scale) 0 units SUBQ ACHS ERWIN PRN Reason: Protocol Stop: 08/03/17 07:29 Last Admin: 06/27/17 21:24 Dose: 2 units Lorazepam (Ativan) 0.5 mg PO BID ERWIN PRN Reason: Protocol Stop: 08/08/17 16:59 Last Admin: 06/27/17 17:53 Dose: 0.5 mg Magnesium Hydroxide (Milk Of Magnesia) 30 ml PO DAILY PRN PRN Reason: Constipation Stop: 08/02/17 01:11 Last Admin: 06/14/17 08:02 Dose: 30 ml Memantine (Namenda) 10 mg PO BID ERWIN Stop: 08/07/17 08:02 Last Admin: 06/27/17 17:53 Dose: 10 mg Quetiapine Fumarate (Seroquel) 75 mg PO HS ERWIN PRN Reason: Protocol Stop: 08/26/17 11:30 Last Admin: 06/27/17 21:03 Dose: 75 mg General: demented HEENT: NC/AT, PERRLA, EOMI, anicteric sclerae, throat clear Neck: Supple, +2 carotid pulse wo bruit, No LAD, + JVD Lungs: CTAB Cardiovascular: RRR, Normal S1, Normal S2, without murmur Abdomen: soft, non-tender, non-distended Extremities: clear Neurological: no change - Procedures Procedures: Procedures Procedure Code Date EXCISION OF BUTTOCK SUBCU/FASCIA, OPEN APPROACH [id number] 10/27/16 REMOVAL OF PRESSURE SORE 12222 10/27/16 Internal Medicine Assmt/Plan - Assessment Assessment: 1.DM. 2.HYPERLIPIDEMIA. 3.DEMENTIA. 4.PSYCHOSIS. - Plan Plan: CONTINUE ON CURRENT MEDICATION AND DIET. Nutritional Asmnt/Malnutr-PDOC - Dietary Evaluation Malnutrition Findings (Please click <Entered> for more info): Nutritional Asmnt/Malnutrition Start: 06/08/17 14: 28 Text: Status: Complete Freq: Document 06/08/17 14:28 LCHENG (Rec: 06/08/17 14:33 LCBRENNANG [email or web address]) Nutritional Asmnt/Malnutrition Patient General Information Nutritional Screening Moderate Risk Diagnosis psychosis Pertinent Medical Hx/Surgical Hx DM, hyperlipidemia, DJD, dementia Subjective Information per records, PO intake 50-100% . Current Diet Order/ Nutrition Support [facility] soft ground, ELMA, CCHO Pertinent Medications oscal w/vit D, colace, glucotrol, novolog Pertinent Labs 06/02 Glucose 133, A1c 8.8 06/06-06/08 POC 87242 Nutritional Hx/Data Height 1.63 m Height (Calculated Centimeters) 162.6 Current Weight (lbs) 61.235 kg Weight (Calculated Kilograms) 61.2 Weight (Calculated Grams) 98141.0 [place] Body Weight 120 % [place] Body Weight 113 Body Mass Index (BMI) 23.1 Weight Status Approriate GI Symptoms GI Symptoms None Last BM 06/07 Difficult in: None Skin Integrity/Comment: intact Estimated Nutritional Goals BEE in Kcals: Using Current wt Calories/Kcals/Kg 25-30 Kcals Calculated 6278-0067 Protein: Using Current wt Protein g/k-1.2 Protein Calculated 61-73 Fluid: ml 1525-1830ml (1ml/kcal) Nutritional Problem 1. Problem Problem altered nutrition related lab values Etiology hx of DM Signs/Symptoms: Glucose 133, A1c 8.8 POC 87242 Malnutrition Alert Protein-Calorie Malnutrition N/A Is there a minimum of two criteria No selected? Query Text:Check all the applicable criteria. A minimum of two criteria are recommended for diagnosis of either severe or non-severe malnutrition. Intervention/Recommendation Comments 1. Continue with current diet as ordered. 2. Monitor PO intake, wt, labs and skin integrity 3. F/U as low risk in 7 days, 3/7 Expected Outcomes/Goals Expected Outcomes/Goals 1. PO intake to meet at least 75% of nutritional needs. 2. Wt stability, skin to remain intact, labs to approach WNL.
--- NOTE | 2017-06-27 22:52 | Progress Notes ---
DATE: 06/27/2017 SUBJECTIVE: Case was discussed with staff of the patient, reviewed records. The patient continues to be yelling and screaming, angry, and irritable. Continues to be appear to be responding to internal stimuli. Continues to have poor insight. Unable to make safe plan for self-care. PLAN: I did increase Seroquel dose yesterday to 62.5, but obviously it is not even touching her. I will be increasing the dose to 75 mg at bedtime and so far no side effects, no sedation, no nausea, and no extrapyramidal symptoms. We will continue to work with the patient in group therapy, milieu therapy, and adjust the medications as needed. Her lab work showed high blood sugar and that is being addressed. The repeated blood sugar went down to normal, which was 87. JOB# [id number]
[2017-06-28] MEDS: INSULIN ASPART SLIDING SCALE 100 UNITS/ML UNIT SUBQ SCH ×4 (07:02→20:25)
[2017-06-28] MEDS: Multivitamin w/ Minerals Tab PO SCH (09:06)
[2017-06-28] MEDS: Calcium Carb/Vit D 500 mg/200 U Tab PO SCH (09:07)
[2017-06-28] MEDS: Atorvastatin Calcium 10 MG TAB PO SCH (20:22)
--- NOTE | 2017-06-28 21:34 | Progress Notes ---
DATE: 06/28/2017 Case was discussed with staff of the patient, reviewed records. The patient continues to be yelling and screaming loud, continues to be paranoid, continues to have poor insight, unable to be redirected. I did increase her dose of Seroquel yesterday to 75 mg at bedtime. No side effects to the medications, no sedation, no nausea, no extrapyramidal symptoms. We will continue outpatient group therapy, milieu therapy, and adjust medications as needed. [facility]# [id number]
--- NOTE | 2017-06-28 21:46 | Internal Medicine Prog Note ---
Internal Medicine Subjective - Subjective Service Date: 06/28/17 Patient seen and examined:: without staff Patient is:: awake, in bed, confused Per staff patient has:: no adverse event Internal Medicine Objective - Results Result Diagrams: 06/02/17 18:18 06/02/17 18:18 Recent Labs: Laboratory Last Values WBC 6.6 Th/cmm (4.8-10.8) D 06/02/17 18:18 RBC 4.01 Mil/cmm (3.80-5.20) 06/02/17 18:18 Hgb 12.3 gm/dL (12-16) 06/02/17 18:18 Hct 36.9 % (41.0-60) L 06/02/17 18:18 MCV 92.0 fl (81-100) 06/02/17 18:18 MCH 30.6 pg (27.0-31.0) 06/02/17 18:18 MCHC Differential 33.3 pg (28.0-36.0) 06/02/17 18:18 RDW 13.2 % (11.5-20.0) 06/02/17 18:18 Plt Count 287 Th/cmm (150-400) D 06/02/17 18:18 MPV 6.6 fl 06/02/17 18:18 Neutrophils % 48.6 % (40.0-80.0) 06/02/17 18:18 Lymphocytes % 42.0 % (20.0-50.0) 06/02/17 18:18 Monocytes % 6.0 % (2.0-10.0) 06/02/17 18:18 Eosinophils % 2.8 % (0.0-5.0) 06/02/17 18:18 Basophils % 0.6 % (0.0-2.0) 06/02/17 18:18 Sodium 137 mEq/L (136-145) 06/02/17 18:18 Potassium 4.1 mEq/L (3.5-5.1) 06/02/17 18:18 Chloride 107 mEq/L (98-107) 06/02/17 18:18 Carbon Dioxide 24.2 mEq/L (21.0-31.0) 06/02/17 18:18 Anion Gap 9.9 (7.0-16.0) 06/02/17 18:18 BUN 18 mg/dL (7-25) 06/02/17 18:18 Creatinine 0.7 mg/dL (0.6-1.2) 06/02/17 18:18 Est GFR ( Amer) TNP 06/02/17 18:18 Est GFR (Non-Af Amer) TNP 06/02/17 18:18 BUN/Creatinine Ratio 25.7 06/02/17 18:18 Glucose 133 mg/dL (70-105) H 06/02/17 18:18 POC Glucose 210 MG/DL (70 - 105) H 06/28/17 20:16 Hemoglobin A1c % 8.8 % (4.0-6.0) H 06/02/17 18:18 Calcium 9.4 mg/dL (8.6-10.3) 06/02/17 18:18 Total Bilirubin 0.4 mg/dL (0.3-1.0) 06/02/17 18:18 AST 28 U/L (13-39) 06/02/17 18:18 ALT 32 U/L (7-52) 06/02/17 18:18 Alkaline Phosphatase 116 U/L (34-104) H 06/02/17 18:18 Total Protein 7.3 gm/dL (6.0-8.3) 06/02/17 18:18 Albumin 3.4 gm/dL (3.7-5.3) L 06/02/17 18:18 Globulin 3.9 gm/dL 06/02/17 18:18 Albumin/Globulin Ratio 0.9 (1.0-1.8) L 06/02/17 18:18 Triglycerides 107 mg/dL (<150) 06/02/17 18:18 Cholesterol 123 mg/dL (<200) 06/02/17 18:18 LDL Cholesterol Direct 45 mg/dL (75-193) L 06/02/17 18:18 HDL Cholesterol 60 mg/dL (23-92) 06/02/17 18:18 TSH 3.38 uIU/ml (0.34-5.60) 06/02/17 18:18 Salicylates < 25.0 mg/L (30.0-100.0) L 06/02/17 18:18 Acetaminophen < 10.0 ug/mL (10.0-30.0) L 06/02/17 18:18 Ethyl Alcohol < 10 mg/dL (0-10) 06/02/17 18:18 RPR NONREACTIVE (NONREACTIVE) 06/02/17 18:18 - Physical Exam Vitals and I&O: Vital Signs Temp 97.2 F 06/28/17 20:00 Pulse 81 06/28/17 20:00 Resp 20 06/28/17 20:00 BP 117/62 06/28/17 20:00 Pulse Ox 97 06/28/17 20:00 Intake & Output 06/28/17 06/28/17 06/29/17 06:59 18:59 06:59 Intake Total 120 1200 Balance 120 1200 Intake: Oral 120 1200 Other: # Voids 3 4 # Bowel Movements 1 2 Active Medications: Current Medications Acetaminophen (Tylenol) 325 mg PO Q4HR PRN PRN Reason: Pain (Mild) Stop: 08/02/17 01:11 Last Admin: 06/21/17 20:12 Dose: 325 mg Alendronate Sodium (Fosamax) 70 mg PO QSAT ERWIN Stop: 08/03/17 06:59 Last Admin: 06/25/17 06:42 Dose: 70 mg Atorvastatin Calcium (Lipitor) 20 mg PO HS [facility] Stop: 08/02/17 20:59 Last Admin: 06/28/17 20:22 Dose: 20 mg Calcium/Vitamin D (Oscal W/Vitamin D) 1 tab PO DAILY ERWIN Stop: 08/02/17 08:59 Last Admin: 06/28/17 09:07 Dose: 1 tab Docusate Sodium (Colace) 100 mg PO BID ERWIN Stop: 08/02/17 08:59 Last Admin: 06/28/17 16:14 Dose: 100 mg Donepezil HCl (Aricept) 10 mg PO HS ERWIN Stop: 08/02/17 20:59 Last Admin: 06/28/17 20:25 Dose: 10 mg Glipizide (Glucotrol) 2.5 mg PO QAM ERWIN Stop: 08/02/17 08:59 Last Admin: 06/28/17 09:07 Dose: 2.5 mg Insulin Aspart (Novolog Insulin Sliding Scale) 0 units SUBQ ACHS ERWIN PRN Reason: Protocol Stop: 08/03/17 07:29 Last Admin: 06/28/17 20:25 Dose: 4 units Lorazepam (Ativan) 0.5 mg PO BID ERWIN PRN Reason: Protocol Stop: 08/08/17 16:59 Last Admin: 06/28/17 16:14 Dose: 0.5 mg Magnesium Hydroxide (Milk Of Magnesia) 30 ml PO DAILY PRN PRN Reason: Constipation Stop: 08/02/17 01:11 Last Admin: 06/14/17 08:02 Dose: 30 ml Memantine (Namenda) 10 mg PO BID ERWIN Stop: 08/07/17 08:02 Last Admin: 06/28/17 16:15 Dose: 10 mg Quetiapine Fumarate (Seroquel) 75 mg PO HS ERWIN PRN Reason: Protocol Stop: 08/26/17 11:30 Last Admin: 06/28/17 20:23 Dose: 75 mg General: demented HEENT: NC/AT, PERRLA, EOMI, anicteric sclerae, throat clear Neck: Supple, +2 carotid pulse wo bruit, No LAD, + JVD Lungs: CTAB Cardiovascular: RRR, Normal S1, Normal S2, without murmur Abdomen: soft, non-tender, non-distended Extremities: clear Neurological: no change - Procedures Procedures: Procedures Procedure Code Date EXCISION OF BUTTOCK SUBCU/FASCIA, OPEN APPROACH [id number] 10/27/16 REMOVAL OF PRESSURE SORE 56249 10/27/16 Internal Medicine Assmt/Plan - Assessment Assessment: 1.DM. 2.HYPERLIPIDEMIA. 3.DEMENTIA. 4.PSYCHOSIS. - Plan Plan: CONTINUE ON CURRENT MEDICATION AND DIET. Nutritional Asmnt/Malnutr-PDOC - Dietary Evaluation Malnutrition Findings (Please click <Entered> for more info): Nutritional Asmnt/Malnutrition Start: 06/08/17 14: 28 Text: Status: Complete Freq: Document 06/08/17 14:28 LCBRENNANG (Rec: 06/08/17 14:33 LCBRENNANG [email or web address]) Nutritional Asmnt/Malnutrition Patient General Information Nutritional Screening Moderate Risk Diagnosis psychosis Pertinent Medical Hx/Surgical Hx DM, hyperlipidemia, DJD, dementia Subjective Information per records, PO intake 50-100% . Current Diet Order/ Nutrition Support mech soft ground, ELMA, CCHO Pertinent Medications oscal w/vit D, colace, glucotrol, novolog Pertinent Labs 06/02 Glucose 133, A1c 8.8 06/06-06/08 POC 87-242 Nutritional Hx/Data Height 1.63 m Height (Calculated Centimeters) 162.6 Current Weight (lbs) 61.235 kg Weight (Calculated Kilograms) 61.2 Weight (Calculated Grams) 22752.0 [place] Body Weight 120 % [place] Body Weight 113 Body Mass Index (BMI) 23.1 Weight Status Approriate GI Symptoms GI Symptoms None Last BM 06/07 Difficult in: None Skin Integrity/Comment: intact Estimated Nutritional Goals BEE in Kcals: Using Current wt Calories/Kcals/Kg 25-30 Kcals Calculated 0212-0031 Protein: Using Current wt Protein g/k-1.2 Protein Calculated 61-73 Fluid: ml 1525-1830ml (1ml/kcal) Nutritional Problem 1. Problem Problem altered nutrition related lab values Etiology hx of DM Signs/Symptoms: Glucose 133, A1c 8.8 POC 87-139 Malnutrition Alert Protein-Calorie Malnutrition N/A Is there a minimum of two criteria No selected? Query Text:Check all the applicable criteria. A minimum of two criteria are recommended for diagnosis of either severe or non-severe malnutrition. Intervention/Recommendation Comments 1. Continue with current diet as ordered. 2. Monitor PO intake, wt, labs and skin integrity 3. F/U as low risk in 7 days, 3/7 Expected Outcomes/Goals Expected Outcomes/Goals 1. PO intake to meet at least 75% of nutritional needs. 2. Wt stability, skin to remain intact, labs to approach WNL.
--- NOTE | 2017-06-28 22:48 | Progress Notes ---
DATE: SUBJECTIVE: Chart reviewed and the patient interviewed. Also discussed the patient's condition with the staff and reviewed records and labs. The patient is still confused and still has unpredictable behavior. The patient also is trying to take her clothes off. She also is still restless, still gets irritable and agitated easily. Otherwise, the patient is compliant with taking medications with no side effect of medications. ASSESSMENT: The patient is still psychotic and agitated. TREATMENT PLAN: Continue monitoring her behavior and continue adjusting psychotropic medications and follow up closely. JOB# [id number]
[2017-06-29] MEDS: INSULIN ASPART SLIDING SCALE 100 UNITS/ML UNIT SUBQ SCH ×4 (06:40→21:56)
[2017-06-29] MEDS: Multivitamin w/ Minerals Tab PO SCH (08:09)
[2017-06-29] MEDS: Calcium Carb/Vit D 500 mg/200 U Tab PO SCH (08:09)
[2017-06-29] MEDS: Atorvastatin Calcium 10 MG TAB PO SCH (21:05)
--- NOTE | 2017-06-29 22:46 | Internal Medicine Prog Note ---
Internal Medicine Subjective - Subjective Service Date: 06/29/17 Patient seen and examined:: without staff Patient is:: awake, in bed, confused Per staff patient has:: no adverse event Internal Medicine Objective - Results Result Diagrams: 06/02/17 18:18 06/02/17 18:18 Recent Labs: Laboratory Last Values WBC 6.6 Th/cmm (4.8-10.8) D 06/02/17 18:18 RBC 4.01 Mil/cmm (3.80-5.20) 06/02/17 18:18 Hgb 12.3 gm/dL (12-16) 06/02/17 18:18 Hct 36.9 % (41.0-60) L 06/02/17 18:18 MCV 92.0 fl (81-100) 06/02/17 18:18 MCH 30.6 pg (27.0-31.0) 06/02/17 18:18 MCHC Differential 33.3 pg (28.0-36.0) 06/02/17 18:18 RDW 13.2 % (11.5-20.0) 06/02/17 18:18 Plt Count 287 Th/cmm (150-400) D 06/02/17 18:18 MPV 6.6 fl 06/02/17 18:18 Neutrophils % 48.6 % (40.0-80.0) 06/02/17 18:18 Lymphocytes % 42.0 % (20.0-50.0) 06/02/17 18:18 Monocytes % 6.0 % (2.0-10.0) 06/02/17 18:18 Eosinophils % 2.8 % (0.0-5.0) 06/02/17 18:18 Basophils % 0.6 % (0.0-2.0) 06/02/17 18:18 Sodium 137 mEq/L (136-145) 06/02/17 18:18 Potassium 4.1 mEq/L (3.5-5.1) 06/02/17 18:18 Chloride 107 mEq/L (98-107) 06/02/17 18:18 Carbon Dioxide 24.2 mEq/L (21.0-31.0) 06/02/17 18:18 Anion Gap 9.9 (7.0-16.0) 06/02/17 18:18 BUN 18 mg/dL (7-25) 06/02/17 18:18 Creatinine 0.7 mg/dL (0.6-1.2) 06/02/17 18:18 Est GFR ( Amer) TNP 06/02/17 18:18 Est GFR (Non-Af Amer) TNP 06/02/17 18:18 BUN/Creatinine Ratio 25.7 06/02/17 18:18 Glucose 133 mg/dL (70-105) H 06/02/17 18:18 POC Glucose 159 MG/DL (70 - 105) H 06/29/17 20:58 Hemoglobin A1c % 8.8 % (4.0-6.0) H 06/02/17 18:18 Calcium 9.4 mg/dL (8.6-10.3) 06/02/17 18:18 Total Bilirubin 0.4 mg/dL (0.3-1.0) 06/02/17 18:18 AST 28 U/L (13-39) 06/02/17 18:18 ALT 32 U/L (7-52) 06/02/17 18:18 Alkaline Phosphatase 116 U/L (34-104) H 06/02/17 18:18 Total Protein 7.3 gm/dL (6.0-8.3) 06/02/17 18:18 Albumin 3.4 gm/dL (3.7-5.3) L 06/02/17 18:18 Globulin 3.9 gm/dL 06/02/17 18:18 Albumin/Globulin Ratio 0.9 (1.0-1.8) L 06/02/17 18:18 Triglycerides 107 mg/dL (<150) 06/02/17 18:18 Cholesterol 123 mg/dL (<200) 06/02/17 18:18 LDL Cholesterol Direct 45 mg/dL (75-193) L 06/02/17 18:18 HDL Cholesterol 60 mg/dL (23-92) 06/02/17 18:18 TSH 3.38 uIU/ml (0.34-5.60) 06/02/17 18:18 Salicylates < 25.0 mg/L (30.0-100.0) L 06/02/17 18:18 Acetaminophen < 10.0 ug/mL (10.0-30.0) L 06/02/17 18:18 Ethyl Alcohol < 10 mg/dL (0-10) 06/02/17 18:18 RPR NONREACTIVE (NONREACTIVE) 06/02/17 18:18 - Physical Exam Vitals and I&O: Vital Signs Temp 98.2 F 06/29/17 20:00 Pulse 79 06/29/17 20:00 Resp 19 06/29/17 20:00 BP 131/68 06/29/17 20:00 Pulse Ox 98 06/29/17 20:00 Intake & Output 06/29/17 06/29/17 06/30/17 06:59 18:59 06:59 Intake Total 120 1200 Balance 120 1200 Intake: Oral 120 1200 Other: # Voids 3 4 # Bowel Movements 2 Active Medications: Current Medications Acetaminophen (Tylenol) 325 mg PO Q4HR PRN PRN Reason: Pain (Mild) Stop: 08/02/17 01:11 Last Admin: 06/21/17 20:12 Dose: 325 mg Alendronate Sodium (Fosamax) 70 mg PO QSAT ERWIN Stop: 08/03/17 06:59 Last Admin: 06/25/17 06:42 Dose: 70 mg Atorvastatin Calcium (Lipitor) 20 mg PO HS ERWIN Stop: 08/02/17 20:59 Last Admin: 06/29/17 21:05 Dose: 20 mg Calcium/Vitamin D (Oscal W/Vitamin D) 1 tab PO DAILY ERWIN Stop: 08/02/17 08:59 Last Admin: 06/29/17 08:09 Dose: 1 tab Docusate Sodium (Colace) 100 mg PO BID ERWIN Stop: 08/02/17 08:59 Last Admin: 06/29/17 16:16 Dose: 100 mg Donepezil HCl (Aricept) 10 mg PO HS ERWIN Stop: 08/02/17 20:59 Last Admin: 06/29/17 21:05 Dose: 10 mg Glipizide (Glucotrol) 2.5 mg PO QAM ERWIN Stop: 08/02/17 08:59 Last Admin: 06/29/17 08:09 Dose: 2.5 mg Insulin Aspart (Novolog Insulin Sliding Scale) 0 units SUBQ ACHS ERWIN PRN Reason: Protocol Stop: 08/03/17 07:29 Last Admin: 06/29/17 21:56 Dose: 2 units Lorazepam (Ativan) 0.5 mg PO BID ERWIN PRN Reason: Protocol Stop: 08/08/17 16:59 Last Admin: 06/29/17 16:16 Dose: 0.5 mg Magnesium Hydroxide (Milk Of Magnesia) 30 ml PO DAILY PRN PRN Reason: Constipation Stop: 08/02/17 01:11 Last Admin: 06/14/17 08:02 Dose: 30 ml Memantine (Namenda) 10 mg PO BID ERWIN Stop: 08/07/17 08:02 Last Admin: 06/29/17 16:16 Dose: 10 mg Quetiapine Fumarate (Seroquel) 75 mg PO HS ERWIN PRN Reason: Protocol Stop: 08/26/17 11:30 Last Admin: 06/29/17 21:06 Dose: 75 mg General: demented HEENT: NC/AT, PERRLA, EOMI, anicteric sclerae, throat clear Neck: Supple, +2 carotid pulse wo bruit, No LAD, + JVD Lungs: CTAB Cardiovascular: RRR, Normal S1, Normal S2, without murmur Abdomen: soft, non-tender, non-distended Extremities: clear Neurological: no change - Procedures Procedures: Procedures Procedure Code Date EXCISION OF BUTTOCK SUBCU/FASCIA, OPEN APPROACH [id number] 10/27/16 REMOVAL OF PRESSURE SORE 04241 10/27/16 Internal Medicine Assmt/Plan - Assessment Assessment: 1.DM. 2.HYPERLIPIDEMIA. 3.DEMENTIA. 4.PSYCHOSIS. - Plan Plan: CONTINUE ON CURRENT MEDICATION AND DIET. Nutritional Asmnt/Malnutr-PDOC - Dietary Evaluation Malnutrition Findings (Please click <Entered> for more info): Nutritional Asmnt/Malnutrition Start: 06/08/17 14: 28 Text: Status: Complete Freq: Document 06/08/17 14:28 LCBRENNANG (Rec: 06/08/17 14:33 LCBRENNANG [email or web address]) Nutritional Asmnt/Malnutrition Patient General Information Nutritional Screening Moderate Risk Diagnosis psychosis Pertinent Medical Hx/Surgical Hx DM, hyperlipidemia, DJD, dementia Subjective Information per records, PO intake 50-100% . Current Diet Order/ Nutrition Support mech soft ground, ELMA, CCHO Pertinent Medications oscal w/vit D, colace, glucotrol, novolog Pertinent Labs 06/02 Glucose 133, A1c 8.8 06/06-06/08 POC 87-242 Nutritional Hx/Data Height 1.63 m Height (Calculated Centimeters) 162.6 Current Weight (lbs) 61.235 kg Weight (Calculated Kilograms) 61.2 Weight (Calculated Grams) 14034.0 [place] Body Weight 120 % [place] Body Weight 113 Body Mass Index (BMI) 23.1 Weight Status Approriate GI Symptoms GI Symptoms None Last BM 06/07 Difficult in: None Skin Integrity/Comment: intact Estimated Nutritional Goals BEE in Kcals: Using Current wt Calories/Kcals/Kg 25-30 Kcals Calculated 4083-9098 Protein: Using Current wt Protein g/k-1.2 Protein Calculated 61-73 Fluid: ml 1525-1830ml (1ml/kcal) Nutritional Problem 1. Problem Problem altered nutrition related lab values Etiology hx of DM Signs/Symptoms: Glucose 133, A1c 8.8 POC 87-651 Malnutrition Alert Protein-Calorie Malnutrition N/A Is there a minimum of two criteria No selected? Query Text:Check all the applicable criteria. A minimum of two criteria are recommended for diagnosis of either severe or non-severe malnutrition. Intervention/Recommendation Comments 1. Continue with current diet as ordered. 2. Monitor PO intake, wt, labs and skin integrity 3. F/U as low risk in 7 days, 3/7 Expected Outcomes/Goals Expected Outcomes/Goals 1. PO intake to meet at least 75% of nutritional needs. 2. Wt stability, skin to remain intact, labs to approach WNL.
--- NOTE | 2017-06-30 01:56 | Psychosocial Evaluation ---
DATE OF SERVICE: 06/29/2017 SUBJECTIVE: The case was discussed with staff of the patient and reviewed records. The patient continues to be unpredictable, impulsive, yelling and screaming, hard to redirect at times. I did increase her Seroquel dose to 75 mg at bedtime yesterday with no side effects, no sedation, no nausea, no extrapyramidal symptoms. We will continue to work the patient in group therapy, milieu therapy, and adjust medications as needed. JOB# [id number]
[2017-06-30] MEDS: INSULIN ASPART SLIDING SCALE 100 UNITS/ML UNIT SUBQ SCH ×4 (06:45→21:46)
[2017-06-30] MEDS: Calcium Carb/Vit D 500 mg/200 U Tab PO SCH (08:23)
[2017-06-30] MEDS: Multivitamin w/ Minerals Tab PO SCH (08:23)
--- NOTE | 2017-06-30 21:06 | Internal Medicine Prog Note ---
Internal Medicine Subjective - Subjective Service Date: 06/30/17 Patient seen and examined:: with staff (SHE IS DOIN WELL,NO CHANGES) Patient is:: awake, in bed, confused Per staff patient has:: no adverse event Internal Medicine Objective - Results Result Diagrams: 06/02/17 18:18 06/02/17 18:18 Recent Labs: Laboratory Last Values WBC 6.6 Th/cmm (4.8-10.8) D 06/02/17 18:18 RBC 4.01 Mil/cmm (3.80-5.20) 06/02/17 18:18 Hgb 12.3 gm/dL (12-16) 06/02/17 18:18 Hct 36.9 % (41.0-60) L 06/02/17 18:18 MCV 92.0 fl (81-100) 06/02/17 18:18 MCH 30.6 pg (27.0-31.0) 06/02/17 18:18 MCHC Differential 33.3 pg (28.0-36.0) 06/02/17 18:18 RDW 13.2 % (11.5-20.0) 06/02/17 18:18 Plt Count 287 Th/cmm (150-400) D 06/02/17 18:18 MPV 6.6 fl 06/02/17 18:18 Neutrophils % 48.6 % (40.0-80.0) 06/02/17 18:18 Lymphocytes % 42.0 % (20.0-50.0) 06/02/17 18:18 Monocytes % 6.0 % (2.0-10.0) 06/02/17 18:18 Eosinophils % 2.8 % (0.0-5.0) 06/02/17 18:18 Basophils % 0.6 % (0.0-2.0) 06/02/17 18:18 Sodium 137 mEq/L (136-145) 06/02/17 18:18 Potassium 4.1 mEq/L (3.5-5.1) 06/02/17 18:18 Chloride 107 mEq/L (98-107) 06/02/17 18:18 Carbon Dioxide 24.2 mEq/L (21.0-31.0) 06/02/17 18:18 Anion Gap 9.9 (7.0-16.0) 06/02/17 18:18 BUN 18 mg/dL (7-25) 06/02/17 18:18 Creatinine 0.7 mg/dL (0.6-1.2) 06/02/17 18:18 Est GFR ( Amer) TNP 06/02/17 18:18 Est GFR (Non-Af Amer) TNP 06/02/17 18:18 BUN/Creatinine Ratio 25.7 06/02/17 18:18 Glucose 133 mg/dL (70-105) H 06/02/17 18:18 POC Glucose 110 MG/DL (70 - 105) H 06/30/17 06:38 Hemoglobin A1c % 8.8 % (4.0-6.0) H 06/02/17 18:18 Calcium 9.4 mg/dL (8.6-10.3) 06/02/17 18:18 Total Bilirubin 0.4 mg/dL (0.3-1.0) 06/02/17 18:18 AST 28 U/L (13-39) 06/02/17 18:18 ALT 32 U/L (7-52) 06/02/17 18:18 Alkaline Phosphatase 116 U/L (34-104) H 06/02/17 18:18 Total Protein 7.3 gm/dL (6.0-8.3) 06/02/17 18:18 Albumin 3.4 gm/dL (3.7-5.3) L 06/02/17 18:18 Globulin 3.9 gm/dL 06/02/17 18:18 Albumin/Globulin Ratio 0.9 (1.0-1.8) L 06/02/17 18:18 Triglycerides 107 mg/dL (<150) 06/02/17 18:18 Cholesterol 123 mg/dL (<200) 06/02/17 18:18 LDL Cholesterol Direct 45 mg/dL (75-193) L 06/02/17 18:18 HDL Cholesterol 60 mg/dL (23-92) 06/02/17 18:18 TSH 3.38 uIU/ml (0.34-5.60) 06/02/17 18:18 Salicylates < 25.0 mg/L (30.0-100.0) L 06/02/17 18:18 Acetaminophen < 10.0 ug/mL (10.0-30.0) L 06/02/17 18:18 Ethyl Alcohol < 10 mg/dL (0-10) 06/02/17 18:18 RPR NONREACTIVE (NONREACTIVE) 06/02/17 18:18 - Physical Exam Vitals and I&O: Vital Signs Temp 97.0 F 06/30/17 16:15 Pulse 62 06/30/17 20:00 Resp 18 06/30/17 20:00 BP 125/64 06/30/17 16:15 Pulse Ox 96 06/30/17 16:15 Intake & Output 06/30/17 06/30/17 07/01/17 06:59 18:59 06:59 Intake Total 1320 1200 Balance 1320 1200 Intake: Oral 1320 1200 Other: # Voids 3 3 # Bowel Movements 2 2 Active Medications: Current Medications Acetaminophen (Tylenol) 325 mg PO Q4HR PRN PRN Reason: Pain (Mild) Stop: 08/02/17 01:11 Last Admin: 06/21/17 20:12 Dose: 325 mg Alendronate Sodium (Fosamax) 70 mg PO QSAT ERWIN Stop: 08/03/17 06:59 Last Admin: 06/25/17 06:42 Dose: 70 mg Atorvastatin Calcium (Lipitor) 20 mg PO HS [facility] Stop: 08/02/17 20:59 Last Admin: 06/29/17 21:05 Dose: 20 mg Calcium/Vitamin D (Oscal W/Vitamin D) 1 tab PO DAILY ERWIN Stop: 08/02/17 08:59 Last Admin: 06/30/17 08:23 Dose: 1 tab Docusate Sodium (Colace) 100 mg PO BID ERWIN Stop: 08/02/17 08:59 Last Admin: 06/30/17 16:26 Dose: 100 mg Donepezil HCl (Aricept) 10 mg PO HS ERWIN Stop: 08/02/17 20:59 Last Admin: 06/29/17 21:05 Dose: 10 mg Glipizide (Glucotrol) 2.5 mg PO QAM [facility] Stop: 08/02/17 08:59 Last Admin: 06/30/17 08:23 Dose: 2.5 mg Insulin Aspart (Novolog Insulin Sliding Scale) 0 units SUBQ ACHS ERWIN PRN Reason: Protocol Stop: 08/03/17 07:29 Last Admin: 06/30/17 17:34 Dose: Not Given Lorazepam (Ativan) 0.5 mg PO BID ERWIN PRN Reason: Protocol Stop: 08/08/17 16:59 Last Admin: 06/30/17 16:26 Dose: 0.5 mg Magnesium Hydroxide (Milk Of Magnesia) 30 ml PO DAILY PRN PRN Reason: Constipation Stop: 08/02/17 01:11 Last Admin: 06/14/17 08:02 Dose: 30 ml Memantine (Namenda) 10 mg PO BID ERWIN Stop: 08/07/17 08:02 Last Admin: 06/30/17 16:26 Dose: 10 mg Quetiapine Fumarate (Seroquel) 75 mg PO HS ERWIN PRN Reason: Protocol Stop: 08/26/17 11:30 Last Admin: 06/29/17 21:06 Dose: 75 mg Quetiapine Fumarate (Seroquel) 12.5 mg PO BID ERWIN PRN Reason: Protocol Stop: 08/29/17 16:59 Last Admin: 06/30/17 16:26 Dose: 12.5 mg General: demented HEENT: NC/AT, PERRLA, EOMI, anicteric sclerae, throat clear Neck: Supple, +2 carotid pulse wo bruit, No LAD, + JVD Lungs: CTAB Cardiovascular: RRR, Normal S1, Normal S2, without murmur Abdomen: soft, non-tender, non-distended Extremities: clear Neurological: no change - Procedures Procedures: Procedures Procedure Code Date EXCISION OF BUTTOCK SUBCU/FASCIA, OPEN APPROACH [id number] 10/27/16 REMOVAL OF PRESSURE SORE 51987 10/27/16 Internal Medicine Assmt/Plan - Assessment Assessment: 1.DM. 2.HYPERLIPIDEMIA. 3.DEMENTIA. 4.PSYCHOSIS. - Plan Plan: CONTINUE ON CURRENT MEDICATION AND DIET. Nutritional Asmnt/Malnutr-PDOC - Dietary Evaluation Malnutrition Findings (Please click <Entered> for more info): Nutritional Asmnt/Malnutrition Start: 06/08/17 14: 28 Text: Status: Complete Freq: Document 06/08/17 14:28 ALBERTO (Rec: 06/08/17 14:33 BRENNAN [email or web address]) Nutritional Asmnt/Malnutrition Patient General Information Nutritional Screening Moderate Risk Diagnosis psychosis Pertinent Medical Hx/Surgical Hx DM, hyperlipidemia, DJD, dementia Subjective Information per records, PO intake 50-100% . Current Diet [facility]/ [facility], ELMA, CCHO Pertinent Medications oscal w/vit D, colace, glucotrol, novolog Pertinent Labs 06/02 Glucose 133, A1c 8.8 06/06-06/08 POC 87-242 Nutritional Hx/Data Height 1.63 m Height (Calculated Centimeters) 162.6 Current Weight (lbs) 61.235 kg Weight (Calculated Kilograms) 61.2 Weight (Calculated Grams) 32487.0 [place] Body Weight 120 % [place] Body Weight 113 Body Mass Index (BMI) 23.1 Weight Status Approriate GI Symptoms GI Symptoms None Last BM 06/07 Difficult in: None Skin Integrity/Comment: intact Estimated Nutritional Goals BEE in Kcals: Using Current wt Calories/Kcals/Kg 25-30 Kcals Calculated 7302-6030 Protein: Using Current wt Protein g/k-1.2 Protein Calculated 61-73 Fluid: ml 1525-1830ml (1ml/kcal) Nutritional Problem 1. Problem Problem altered nutrition related lab values Etiology hx of DM Signs/Symptoms: Glucose 133, A1c 8.8 POC 87-242 Malnutrition Alert Protein-Calorie Malnutrition N/A Is there a minimum of two criteria No selected? Query Text:Check all the applicable criteria. A minimum of two criteria are recommended for diagnosis of either severe or non-severe malnutrition. Intervention/Recommendation Comments 1. Continue with current diet as ordered. 2. Monitor PO intake, wt, labs and skin integrity 3. F/U as low risk in 7 days, 3/7 Expected Outcomes/Goals Expected Outcomes/Goals 1. PO intake to meet at least 75% of nutritional needs. 2. Wt stability, skin to remain intact, labs to approach WNL.
[2017-06-30] MEDS: Atorvastatin Calcium 10 MG TAB PO SCH (21:45)
--- NOTE | 2017-07-01 02:04 | Progress Notes ---
DATE: 06/30/2017 SUBJECTIVE: The case was discussed with staff of the patient and reviewed records. The staff believes that the patient has not shown any progress at all and that she is still yelling and screaming at the same high-pitched noise. She has some downs also She is on Aricept 10 mg at bedtime as well as Namenda 10 mg twice a day. She is still unable to participate in a meaningful conversation or make safe plan for self-care. PLAN: I will be adding Seroquel during the day to help decrease her agitated behavior and so far no side effects, no sedation, no nausea, no extrapyramidal symptoms and we will continue to work with the patient in group therapy, milieu therapy, adjust the medication as needed. I will be adding Seroquel 12.5 mg twice a day. I will continue outpatient group therapy, milieu therapy, adjust medication as needed. JOB# [id number]
[2017-07-01] MEDS: INSULIN ASPART SLIDING SCALE 100 UNITS/ML UNIT SUBQ SCH ×4 (06:48→21:16)
[2017-07-01] MEDS: Multivitamin w/ Minerals Tab PO SCH (08:53)
[2017-07-01] MEDS: Calcium Carb/Vit D 500 mg/200 U Tab PO SCH (08:54)
[2017-07-01] MEDS: Atorvastatin Calcium 10 MG TAB PO SCH (21:15)
--- NOTE | 2017-07-01 21:31 | Internal Medicine Prog Note ---
Internal Medicine Subjective - Subjective Service Date: 07/01/17 Patient seen and examined:: with staff Patient is:: awake, in bed, confused Per staff patient has:: no adverse event Internal Medicine Objective - Results Result Diagrams: 06/02/17 18:18 06/02/17 18:18 Recent Labs: Laboratory Last Values WBC 6.6 Th/cmm (4.8-10.8) D 06/02/17 18:18 RBC 4.01 Mil/cmm (3.80-5.20) 06/02/17 18:18 Hgb 12.3 gm/dL (12-16) 06/02/17 18:18 Hct 36.9 % (41.0-60) L 06/02/17 18:18 MCV 92.0 fl (81-100) 06/02/17 18:18 MCH 30.6 pg (27.0-31.0) 06/02/17 18:18 MCHC Differential 33.3 pg (28.0-36.0) 06/02/17 18:18 RDW 13.2 % (11.5-20.0) 06/02/17 18:18 Plt Count 287 Th/cmm (150-400) D 06/02/17 18:18 MPV 6.6 fl 06/02/17 18:18 Neutrophils % 48.6 % (40.0-80.0) 06/02/17 18:18 Lymphocytes % 42.0 % (20.0-50.0) 06/02/17 18:18 Monocytes % 6.0 % (2.0-10.0) 06/02/17 18:18 Eosinophils % 2.8 % (0.0-5.0) 06/02/17 18:18 Basophils % 0.6 % (0.0-2.0) 06/02/17 18:18 Sodium 137 mEq/L (136-145) 06/02/17 18:18 Potassium 4.1 mEq/L (3.5-5.1) 06/02/17 18:18 Chloride 107 mEq/L (98-107) 06/02/17 18:18 Carbon Dioxide 24.2 mEq/L (21.0-31.0) 06/02/17 18:18 Anion Gap 9.9 (7.0-16.0) 06/02/17 18:18 BUN 18 mg/dL (7-25) 06/02/17 18:18 Creatinine 0.7 mg/dL (0.6-1.2) 06/02/17 18:18 Est GFR ( Amer) TNP 06/02/17 18:18 Est GFR (Non-Af Amer) TNP 06/02/17 18:18 BUN/Creatinine Ratio 25.7 06/02/17 18:18 Glucose 133 mg/dL (70-105) H 06/02/17 18:18 POC Glucose 140 MG/DL (70 - 105) H 07/01/17 20:45 Hemoglobin A1c % 8.8 % (4.0-6.0) H 06/02/17 18:18 Calcium 9.4 mg/dL (8.6-10.3) 06/02/17 18:18 Total Bilirubin 0.4 mg/dL (0.3-1.0) 06/02/17 18:18 AST 28 U/L (13-39) 06/02/17 18:18 ALT 32 U/L (7-52) 06/02/17 18:18 Alkaline Phosphatase 116 U/L (34-104) H 06/02/17 18:18 Total Protein 7.3 gm/dL (6.0-8.3) 06/02/17 18:18 Albumin 3.4 gm/dL (3.7-5.3) L 06/02/17 18:18 Globulin 3.9 gm/dL 06/02/17 18:18 Albumin/Globulin Ratio 0.9 (1.0-1.8) L 06/02/17 18:18 Triglycerides 107 mg/dL (<150) 06/02/17 18:18 Cholesterol 123 mg/dL (<200) 06/02/17 18:18 LDL Cholesterol Direct 45 mg/dL (75-193) L 06/02/17 18:18 HDL Cholesterol 60 mg/dL (23-92) 06/02/17 18:18 TSH 3.38 uIU/ml (0.34-5.60) 06/02/17 18:18 Salicylates < 25.0 mg/L (30.0-100.0) L 06/02/17 18:18 Acetaminophen < 10.0 ug/mL (10.0-30.0) L 06/02/17 18:18 Ethyl Alcohol < 10 mg/dL (0-10) 06/02/17 18:18 RPR NONREACTIVE (NONREACTIVE) 06/02/17 18:18 - Physical Exam Vitals and I&O: Vital Signs Temp 98.8 F 07/01/17 21:02 Pulse 72 07/01/17 21:02 Resp 18 07/01/17 21:02 BP 114/68 07/01/17 21:02 Pulse Ox 98 07/01/17 21:02 Intake & Output 07/01/17 07/01/17 07/02/17 06:59 18:59 06:59 Intake Total 420 950 240 Balance 420 950 240 Intake: Oral 420 950 240 Other: # Voids 1 5 1 # Bowel Movements 2 Active Medications: Current Medications Acetaminophen (Tylenol) 325 mg PO Q4HR PRN PRN Reason: Pain (Mild) Stop: 08/02/17 01:11 Last Admin: 06/21/17 20:12 Dose: 325 mg Alendronate Sodium (Fosamax) 70 mg PO QSAT [facility] Stop: 08/03/17 06:59 Last Admin: 06/25/17 06:42 Dose: 70 mg Atorvastatin Calcium (Lipitor) 20 mg PO HS [facility] Stop: 08/02/17 20:59 Last Admin: 07/01/17 21:15 Dose: 20 mg Calcium/Vitamin D (Oscal W/Vitamin D) 1 tab PO DAILY [facility] Stop: 08/02/17 08:59 Last Admin: 07/01/17 08:54 Dose: 1 tab Docusate Sodium (Colace) 100 mg PO BID [facility] Stop: 08/02/17 08:59 Last Admin: 07/01/17 17:09 Dose: 100 mg Donepezil HCl (Aricept) 10 mg PO HS [facility] Stop: 08/02/17 20:59 Last Admin: 07/01/17 21:15 Dose: 10 mg Glipizide (Glucotrol) 2.5 mg PO QAM [facility] Stop: 08/02/17 08:59 Last Admin: 07/01/17 08:54 Dose: 2.5 mg Insulin Aspart (Novolog Insulin Sliding Scale) 0 units SUBQ ACHS [facility] PRN Reason: Protocol Stop: 08/03/17 07:29 Last Admin: 07/01/17 21:16 Dose: Not Given Lorazepam (Ativan) 0.5 mg PO BID [facility] PRN Reason: Protocol Stop: 08/08/17 16:59 Last Admin: 07/01/17 17:09 Dose: 0.5 mg Magnesium Hydroxide (Milk Of Magnesia) 30 ml PO DAILY PRN PRN Reason: Constipation Stop: 08/02/17 01:11 Last Admin: 06/14/17 08:02 Dose: 30 ml Memantine (Namenda) 10 mg PO BID [facility] Stop: 08/07/17 08:02 Last Admin: 07/01/17 17:09 Dose: 10 mg Quetiapine Fumarate (Seroquel) 75 mg PO HS [facility] PRN Reason: Protocol Stop: 08/26/17 11:30 Last Admin: 07/01/17 21:15 Dose: 75 mg Quetiapine Fumarate (Seroquel) 12.5 mg PO BID [facility] PRN Reason: Protocol Stop: 08/29/17 16:59 Last Admin: 07/01/17 17:09 Dose: 12.5 mg General: demented HEENT: NC/AT, PERRLA, EOMI, anicteric sclerae, throat clear Neck: Supple, +2 carotid pulse wo bruit, No LAD, + JVD Lungs: CTAB Cardiovascular: RRR, Normal S1, Normal S2, without murmur Abdomen: soft, non-tender, non-distended Extremities: clear Neurological: no change - Procedures Procedures: Procedures Procedure Code Date EXCISION OF BUTTOCK SUBCU/FASCIA, OPEN APPROACH [id number] 10/27/16 REMOVAL OF PRESSURE SORE 54567 10/27/16 Internal Medicine Assmt/Plan - Assessment Assessment: 1.DM. 2.HYPERLIPIDEMIA. 3.DEMENTIA. 4.PSYCHOSIS. - Plan Plan: CONTINUE ON CURRENT MEDICATION AND DIET. Nutritional Asmnt/Malnutr-PDOC - Dietary Evaluation Malnutrition Findings (Please click <Entered> for more info): Nutritional Asmnt/Malnutrition Start: 06/08/17 14: 28 Text: Status: Complete Freq: Document 06/08/17 14:28 ALBERTO (Rec: 06/08/17 14:33 BRENNANG [id number]) Nutritional Asmnt/Malnutrition Patient General Information Nutritional Screening Moderate Risk Diagnosis psychosis Pertinent Medical Hx/Surgical Hx DM, hyperlipidemia, DJD, dementia Subjective Information per records, PO intake 50-100% . Current Diet Order/ Nutrition Support [facility] soft ground, ELMA, CCHO Pertinent Medications oscal w/vit D, colace, glucotrol, novolog Pertinent Labs 06/02 Glucose 133, A1c 8.8 06/06-06/08 POC 87-242 Nutritional Hx/Data Height 1.63 m Height (Calculated Centimeters) 162.6 Current Weight (lbs) 61.235 kg Weight (Calculated Kilograms) 61.2 Weight (Calculated Grams) 47912.0 [place] Body Weight 120 % [place] Body Weight 113 Body Mass Index (BMI) 23.1 Weight Status Approriate GI Symptoms GI Symptoms None Last BM 06/07 Difficult in: None Skin Integrity/Comment: intact Estimated Nutritional Goals BEE in Kcals: Using Current wt Calories/Kcals/Kg 25-30 Kcals Calculated 4297-2845 Protein: Using Current wt Protein g/k-1.2 Protein Calculated 61-73 Fluid: ml 1525-1830ml (1ml/kcal) Nutritional Problem 1. Problem Problem altered nutrition related lab values Etiology hx of DM Signs/Symptoms: Glucose 133, A1c 8.8 POC 87-242 Malnutrition Alert Protein-Calorie Malnutrition N/A Is there a minimum of two criteria No selected? Query Text:Check all the applicable criteria. A minimum of two criteria are recommended for diagnosis of either severe or non-severe malnutrition. Intervention/Recommendation Comments 1. Continue with current diet as ordered. 2. Monitor PO intake, wt, labs and skin integrity 3. F/U as low risk in 7 days, 3/7 Expected Outcomes/Goals Expected Outcomes/Goals 1. PO intake to meet at least 75% of nutritional needs. 2. Wt stability, skin to remain intact, labs to approach WNL.
--- NOTE | 2017-07-02 00:49 | Progress Notes ---
DATE: 07/01/2017 SUBJECTIVE: Case was discussed with staff of the patient, reviewed records. The staff report, she is not as loud today. She has been easier to redirect. When I went and talked to her, she was talking to herself; however, she is still easily agitated. I did increase her dose yesterday and gave her Seroquel 12.5 mg twice a day and so far no side effects, no sedation noted from the symptoms, still not ready to go to a lesser level of care. We will continue to work with the patient in group therapy, milieu therapy, and adjust medications as needed. JOB# [id number]
[2017-07-02] MEDS: INSULIN ASPART SLIDING SCALE 100 UNITS/ML UNIT SUBQ SCH ×4 (06:39→21:41)
[2017-07-02] MEDS: Calcium Carb/Vit D 500 mg/200 U Tab PO SCH (08:19)
[2017-07-02] MEDS: Multivitamin w/ Minerals Tab PO SCH (08:19)
--- NOTE | 2017-07-02 12:04 | Internal Medicine Prog Note ---
Internal Medicine Subjective - Subjective Service Date: 07/02/17 Patient seen and examined:: with staff (SHE IS DOING BETTER) Patient is:: awake, in bed, confused Per staff patient has:: no adverse event Internal Medicine Objective - Results Result Diagrams: 06/02/17 18:18 06/02/17 18:18 Recent Labs: Laboratory Last Values WBC 6.6 Th/cmm (4.8-10.8) D 06/02/17 18:18 RBC 4.01 Mil/cmm (3.80-5.20) 06/02/17 18:18 Hgb 12.3 gm/dL (12-16) 06/02/17 18:18 Hct 36.9 % (41.0-60) L 06/02/17 18:18 MCV 92.0 fl (81-100) 06/02/17 18:18 MCH 30.6 pg (27.0-31.0) 06/02/17 18:18 MCHC Differential 33.3 pg (28.0-36.0) 06/02/17 18:18 RDW 13.2 % (11.5-20.0) 06/02/17 18:18 Plt Count 287 Th/cmm (150-400) D 06/02/17 18:18 MPV 6.6 fl 06/02/17 18:18 Neutrophils % 48.6 % (40.0-80.0) 06/02/17 18:18 Lymphocytes % 42.0 % (20.0-50.0) 06/02/17 18:18 Monocytes % 6.0 % (2.0-10.0) 06/02/17 18:18 Eosinophils % 2.8 % (0.0-5.0) 06/02/17 18:18 Basophils % 0.6 % (0.0-2.0) 06/02/17 18:18 Sodium 137 mEq/L (136-145) 06/02/17 18:18 Potassium 4.1 mEq/L (3.5-5.1) 06/02/17 18:18 Chloride 107 mEq/L (98-107) 06/02/17 18:18 Carbon Dioxide 24.2 mEq/L (21.0-31.0) 06/02/17 18:18 Anion Gap 9.9 (7.0-16.0) 06/02/17 18:18 BUN 18 mg/dL (7-25) 06/02/17 18:18 Creatinine 0.7 mg/dL (0.6-1.2) 06/02/17 18:18 Est GFR ( Amer) TNP 06/02/17 18:18 Est GFR (Non-Af Amer) TNP 06/02/17 18:18 BUN/Creatinine Ratio 25.7 06/02/17 18:18 Glucose 133 mg/dL (70-105) H 06/02/17 18:18 POC Glucose 122 MG/DL (70 - 105) H 07/02/17 11:35 Hemoglobin A1c % 8.8 % (4.0-6.0) H 06/02/17 18:18 Calcium 9.4 mg/dL (8.6-10.3) 06/02/17 18:18 Total Bilirubin 0.4 mg/dL (0.3-1.0) 06/02/17 18:18 AST 28 U/L (13-39) 06/02/17 18:18 ALT 32 U/L (7-52) 06/02/17 18:18 Alkaline Phosphatase 116 U/L (34-104) H 06/02/17 18:18 Total Protein 7.3 gm/dL (6.0-8.3) 06/02/17 18:18 Albumin 3.4 gm/dL (3.7-5.3) L 06/02/17 18:18 Globulin 3.9 gm/dL 06/02/17 18:18 Albumin/Globulin Ratio 0.9 (1.0-1.8) L 06/02/17 18:18 Triglycerides 107 mg/dL (<150) 06/02/17 18:18 Cholesterol 123 mg/dL (<200) 06/02/17 18:18 LDL Cholesterol Direct 45 mg/dL (75-193) L 06/02/17 18:18 HDL Cholesterol 60 mg/dL (23-92) 06/02/17 18:18 TSH 3.38 uIU/ml (0.34-5.60) 06/02/17 18:18 Salicylates < 25.0 mg/L (30.0-100.0) L 06/02/17 18:18 Acetaminophen < 10.0 ug/mL (10.0-30.0) L 06/02/17 18:18 Ethyl Alcohol < 10 mg/dL (0-10) 06/02/17 18:18 RPR NONREACTIVE (NONREACTIVE) 06/02/17 18:18 - Physical Exam Vitals and I&O: Vital Signs Temp 98 F 07/02/17 06:57 Pulse 62 07/02/17 06:57 Resp 18 07/02/17 06:57 BP 126/66 07/02/17 06:57 Pulse Ox 97 07/02/17 06:57 Intake & Output 07/01/17 07/02/17 07/02/17 18:59 06:59 18:59 Intake Total 950 480 Balance 950 480 Intake: Oral 950 480 Other: # Voids 5 2 # Bowel Movements 2 Active Medications: Current Medications Acetaminophen (Tylenol) 325 mg PO Q4HR PRN PRN Reason: Pain (Mild) Stop: 08/02/17 01:11 Last Admin: 06/21/17 20:12 Dose: 325 mg Alendronate Sodium (Fosamax) 70 mg PO QSAT [facility] Stop: 08/03/17 06:59 Last Admin: 07/02/17 06:29 Dose: 70 mg Atorvastatin Calcium (Lipitor) 20 mg PO HS [facility] Stop: 08/02/17 20:59 Last Admin: 07/01/17 21:15 Dose: 20 mg Calcium/Vitamin D (Oscal W/Vitamin D) 1 tab PO DAILY [facility] Stop: 08/02/17 08:59 Last Admin: 07/02/17 08:19 Dose: 1 tab Docusate Sodium (Colace) 100 mg PO BID [facility] Stop: 08/02/17 08:59 Last Admin: 07/02/17 08:19 Dose: 100 mg Donepezil HCl (Aricept) 10 mg PO HS [facility] Stop: 08/02/17 20:59 Last Admin: 07/01/17 21:15 Dose: 10 mg Glipizide (Glucotrol) 2.5 mg PO QAM [facility] Stop: 08/02/17 08:59 Last Admin: 07/02/17 08:18 Dose: 2.5 mg Insulin Aspart (Novolog Insulin Sliding Scale) 0 units SUBQ ACHS [facility] PRN Reason: Protocol Stop: 08/03/17 07:29 Last Admin: 07/02/17 11:41 Dose: Not Given Lorazepam (Ativan) 0.5 mg PO BID [facility] PRN Reason: Protocol Stop: 08/08/17 16:59 Last Admin: 07/02/17 08:19 Dose: 0.5 mg Magnesium Hydroxide (Milk Of Magnesia) 30 ml PO DAILY PRN PRN Reason: Constipation Stop: 08/02/17 01:11 Last Admin: 06/14/17 08:02 Dose: 30 ml Memantine (Namenda) 10 mg PO BID [facility] Stop: 08/07/17 08:02 Last Admin: 07/02/17 08:19 Dose: 10 mg Quetiapine Fumarate (Seroquel) 75 mg PO HS [facility] PRN Reason: Protocol Stop: 08/26/17 11:30 Last Admin: 07/01/17 21:15 Dose: 75 mg Quetiapine Fumarate (Seroquel) 12.5 mg PO BID [facility] PRN Reason: Protocol Stop: 08/29/17 16:59 Last Admin: 07/02/17 08:19 Dose: 12.5 mg General: demented HEENT: NC/AT, PERRLA, EOMI, anicteric sclerae, throat clear Neck: Supple, +2 carotid pulse wo bruit, No LAD, + JVD Lungs: CTAB Cardiovascular: RRR, Normal S1, Normal S2, without murmur Abdomen: soft, non-tender, non-distended Extremities: clear Neurological: no change - Procedures Procedures: Procedures Procedure Code Date EXCISION OF BUTTOCK SUBCU/FASCIA, OPEN APPROACH [id number] 10/27/16 REMOVAL OF PRESSURE SORE 96874 10/27/16 Internal Medicine Assmt/Plan - Assessment Assessment: 1.DM. 2.HYPERLIPIDEMIA. 3.DEMENTIA. 4.PSYCHOSIS. - Plan Plan: CONTINUE ON CURRENT MEDICATION AND DIET. Nutritional Asmnt/Malnutr-PDOC - Dietary Evaluation Malnutrition Findings (Please click <Entered> for more info): Nutritional Asmnt/Malnutrition Start: 06/08/17 14: 28 Text: Status: Complete Freq: Document 06/08/17 14:28 ALBERTO (Rec: 06/08/17 14:33 BRENNANG [id number]) Nutritional Asmnt/Malnutrition Patient General Information Nutritional Screening Moderate Risk Diagnosis psychosis Pertinent Medical Hx/Surgical Hx DM, hyperlipidemia, DJD, dementia Subjective Information per records, PO intake 50-100% . Current Diet Order/ Nutrition Support [facility] soft ground, ELMA, CCHO Pertinent Medications oscal w/vit D, colace, glucotrol, novolog Pertinent Labs 06/02 Glucose 133, A1c 8.8 06/06-06/08 POC 87-242 Nutritional Hx/Data Height 1.63 m Height (Calculated Centimeters) 162.6 Current Weight (lbs) 61.235 kg Weight (Calculated Kilograms) 61.2 Weight (Calculated Grams) 48126.0 [place] Body Weight 120 % [place] Body Weight 113 Body Mass Index (BMI) 23.1 Weight Status Approriate GI Symptoms GI Symptoms None Last BM 06/07 Difficult in: None Skin Integrity/Comment: intact Estimated Nutritional Goals BEE in Kcals: Using Current wt Calories/Kcals/Kg 25-30 Kcals Calculated 9677-7228 Protein: Using Current wt Protein g/k-1.2 Protein Calculated 61-73 Fluid: ml 1525-1830ml (1ml/kcal) Nutritional Problem 1. Problem Problem altered nutrition related lab values Etiology hx of DM Signs/Symptoms: Glucose 133, A1c 8.8 POC 87-242 Malnutrition Alert Protein-Calorie Malnutrition N/A Is there a minimum of two criteria No selected? Query Text:Check all the applicable criteria. A minimum of two criteria are recommended for diagnosis of either severe or non-severe malnutrition. Intervention/Recommendation Comments 1. Continue with current diet as ordered. 2. Monitor PO intake, wt, labs and skin integrity 3. F/U as low risk in 7 days, 3/7 Expected Outcomes/Goals Expected Outcomes/Goals 1. PO intake to meet at least 75% of nutritional needs. 2. Wt stability, skin to remain intact, labs to approach WNL.
[2017-07-02] MEDS: Atorvastatin Calcium 10 MG TAB PO SCH (20:36)
--- NOTE | 2017-07-03 05:24 | Progress Notes ---
DATE: SUBJECTIVE: The patient was seen and evaluated. The patient's chart reviewed. Overnight, nursing staff reported the patient continues to respond to voices, disorganized. Today on [id number] evaluation, has been not as loud, still needing some redirection, but still observed to be talking to herself. MENTAL STATUS EXAMINATION: Still responding. ASSESSMENT AND PLAN: The patient continues to observe to be responding to voices. We will continue with primary psychiatrist's treatment plan and goals, which include Aricept 10 mg a day, Namenda 10 mg p.o. b.i.d., quetiapine 75 mg at nighttime and 12.5 mg p.o. b.i.d. to continue to target the residual voices that was recently increased less than 48 hours and some mild improvement is noted. [facility]# [id number]
[2017-07-03] MEDS: INSULIN ASPART SLIDING SCALE 100 UNITS/ML UNIT SUBQ SCH ×4 (06:31→20:30)
[2017-07-03] MEDS: Multivitamin w/ Minerals Tab PO SCH (08:33)
[2017-07-03] MEDS: Calcium Carb/Vit D 500 mg/200 U Tab PO SCH (08:34)
--- NOTE | 2017-07-03 20:07 | Internal Medicine Prog Note ---
Internal Medicine Subjective - Subjective Service Date: 07/03/17 Patient seen and examined:: with staff Patient is:: awake, in bed, confused Per staff patient has:: no adverse event Internal Medicine Objective - Results Result Diagrams: 06/02/17 18:18 06/02/17 18:18 Recent Labs: Laboratory Last Values WBC 6.6 Th/cmm (4.8-10.8) D 06/02/17 18:18 RBC 4.01 Mil/cmm (3.80-5.20) 06/02/17 18:18 Hgb 12.3 gm/dL (12-16) 06/02/17 18:18 Hct 36.9 % (41.0-60) L 06/02/17 18:18 MCV 92.0 fl (81-100) 06/02/17 18:18 MCH 30.6 pg (27.0-31.0) 06/02/17 18:18 MCHC Differential 33.3 pg (28.0-36.0) 06/02/17 18:18 RDW 13.2 % (11.5-20.0) 06/02/17 18:18 Plt Count 287 Th/cmm (150-400) D 06/02/17 18:18 MPV 6.6 fl 06/02/17 18:18 Neutrophils % 48.6 % (40.0-80.0) 06/02/17 18:18 Lymphocytes % 42.0 % (20.0-50.0) 06/02/17 18:18 Monocytes % 6.0 % (2.0-10.0) 06/02/17 18:18 Eosinophils % 2.8 % (0.0-5.0) 06/02/17 18:18 Basophils % 0.6 % (0.0-2.0) 06/02/17 18:18 Sodium 137 mEq/L (136-145) 06/02/17 18:18 Potassium 4.1 mEq/L (3.5-5.1) 06/02/17 18:18 Chloride 107 mEq/L (98-107) 06/02/17 18:18 Carbon Dioxide 24.2 mEq/L (21.0-31.0) 06/02/17 18:18 Anion Gap 9.9 (7.0-16.0) 06/02/17 18:18 BUN 18 mg/dL (7-25) 06/02/17 18:18 Creatinine 0.7 mg/dL (0.6-1.2) 06/02/17 18:18 Est GFR ( Amer) TNP 06/02/17 18:18 Est GFR (Non-Af Amer) TNP 06/02/17 18:18 BUN/Creatinine Ratio 25.7 06/02/17 18:18 Glucose 133 mg/dL (70-105) H 06/02/17 18:18 POC Glucose 112 MG/DL (70 - 105) H 07/03/17 19:55 Hemoglobin A1c % 8.8 % (4.0-6.0) H 06/02/17 18:18 Calcium 9.4 mg/dL (8.6-10.3) 06/02/17 18:18 Total Bilirubin 0.4 mg/dL (0.3-1.0) 06/02/17 18:18 AST 28 U/L (13-39) 06/02/17 18:18 ALT 32 U/L (7-52) 06/02/17 18:18 Alkaline Phosphatase 116 U/L (34-104) H 06/02/17 18:18 Total Protein 7.3 gm/dL (6.0-8.3) 06/02/17 18:18 Albumin 3.4 gm/dL (3.7-5.3) L 06/02/17 18:18 Globulin 3.9 gm/dL 06/02/17 18:18 Albumin/Globulin Ratio 0.9 (1.0-1.8) L 06/02/17 18:18 Triglycerides 107 mg/dL (<150) 06/02/17 18:18 Cholesterol 123 mg/dL (<200) 06/02/17 18:18 LDL Cholesterol Direct 45 mg/dL (75-193) L 06/02/17 18:18 HDL Cholesterol 60 mg/dL (23-92) 06/02/17 18:18 TSH 3.38 uIU/ml (0.34-5.60) 06/02/17 18:18 Salicylates < 25.0 mg/L (30.0-100.0) L 06/02/17 18:18 Acetaminophen < 10.0 ug/mL (10.0-30.0) L 06/02/17 18:18 Ethyl Alcohol < 10 mg/dL (0-10) 06/02/17 18:18 RPR NONREACTIVE (NONREACTIVE) 06/02/17 18:18 - Physical Exam Vitals and I&O: Vital Signs Temp 97.6 F 07/03/17 14:00 Pulse 96 07/03/17 14:00 Resp 20 07/03/17 14:00 BP 111/55 07/03/17 14:00 Pulse Ox 98 07/03/17 14:00 Intake & Output 07/03/17 07/03/17 07/04/17 06:59 18:59 06:59 Intake Total 560 1800 Balance 560 1800 Intake: Oral 560 1800 Other: # Voids 1 4 # Bowel Movements 2 Stool Characteristics Formed Active Medications: Current Medications Acetaminophen (Tylenol) 325 mg PO Q4HR PRN PRN Reason: Pain (Mild) Stop: 08/02/17 01:11 Last Admin: 07/03/17 10:41 Dose: 325 mg Alendronate Sodium (Fosamax) 70 mg PO QSAT [facility] Stop: 08/03/17 06:59 Last Admin: 07/02/17 06:29 Dose: 70 mg Atorvastatin Calcium (Lipitor) 20 mg PO HS [facility] Stop: 08/02/17 20:59 Last Admin: 07/02/17 20:36 Dose: 20 mg Calcium/Vitamin D (Oscal W/Vitamin D) 1 tab PO DAILY [facility] Stop: 08/02/17 08:59 Last Admin: 07/03/17 08:34 Dose: 1 tab Docusate Sodium (Colace) 100 mg PO BID [facility] Stop: 08/02/17 08:59 Last Admin: 07/03/17 16:20 Dose: 100 mg Donepezil HCl (Aricept) 10 mg PO HS [facility] Stop: 08/02/17 20:59 Last Admin: 07/02/17 20:36 Dose: 10 mg Glipizide (Glucotrol) 2.5 mg PO QAM [facility] Stop: 08/02/17 08:59 Last Admin: 07/03/17 08:33 Dose: 2.5 mg Insulin Aspart (Novolog Insulin Sliding Scale) 0 units SUBQ ACHS [facility] PRN Reason: Protocol Stop: 08/03/17 07:29 Last Admin: 07/03/17 16:54 Dose: 2 units Lorazepam (Ativan) 0.5 mg PO BID [facility] PRN Reason: Protocol Stop: 08/08/17 16:59 Last Admin: 07/03/17 16:20 Dose: 0.5 mg Magnesium Hydroxide (Milk Of Magnesia) 30 ml PO DAILY PRN PRN Reason: Constipation Stop: 08/02/17 01:11 Last Admin: 06/14/17 08:02 Dose: 30 ml Memantine (Namenda) 10 mg PO BID [facility] Stop: 08/07/17 08:02 Last Admin: 07/03/17 16:19 Dose: 10 mg Quetiapine Fumarate (Seroquel) 75 mg PO HS [facility] PRN Reason: Protocol Stop: 08/26/17 11:30 Last Admin: 07/02/17 20:36 Dose: 75 mg Quetiapine Fumarate (Seroquel) 12.5 mg PO BID [facility] PRN Reason: Protocol Stop: 08/29/17 16:59 Last Admin: 07/03/17 16:19 Dose: 12.5 mg General: demented HEENT: NC/AT, PERRLA, EOMI, anicteric sclerae, throat clear Neck: Supple, +2 carotid pulse wo bruit, No LAD, + JVD Lungs: CTAB Cardiovascular: RRR, Normal S1, Normal S2, without murmur Abdomen: soft, non-tender, non-distended Extremities: clear Neurological: no change - Procedures Procedures: Procedures Procedure Code Date EXCISION OF BUTTOCK SUBCU/FASCIA, OPEN APPROACH [id number] 10/27/16 REMOVAL OF PRESSURE SORE 58147 10/27/16 Internal Medicine Assmt/Plan - Assessment Assessment: 1.DM. 2.HYPERLIPIDEMIA. 3.DEMENTIA. 4.PSYCHOSIS. - Plan Plan: CONTINUE ON CURRENT MEDICATION AND DIET. Nutritional Asmnt/Malnutr-PDOC - Dietary Evaluation Malnutrition Findings (Please click <Entered> for more info): Nutritional Asmnt/Malnutrition Start: 06/08/17 14: 28 Text: Status: Complete Freq: Document 06/08/17 14:28 ALBERTO (Rec: 06/08/17 14:33 BRENNAN [email or web address]) Nutritional Asmnt/Malnutrition Patient General Information Nutritional Screening Moderate Risk Diagnosis psychosis Pertinent Medical Hx/Surgical Hx DM, hyperlipidemia, DJD, dementia Subjective Information per records, PO intake 50-100% . Current Diet Order/ Nutrition Support [facility] soft ground, ELMA, CCHO Pertinent Medications oscal w/vit D, colace, glucotrol, novolog Pertinent Labs 06/02 Glucose 133, A1c 8.8 06/06-06/08 POC 87-242 Nutritional Hx/Data Height 1.63 m Height (Calculated Centimeters) 162.6 Current Weight (lbs) 61.235 kg Weight (Calculated Kilograms) 61.2 Weight (Calculated Grams) 03394.0 [place] Body Weight 120 % [place] Body Weight 113 Body Mass Index (BMI) 23.1 Weight Status Approriate GI Symptoms GI Symptoms None Last BM 06/07 Difficult in: None Skin Integrity/Comment: intact Estimated Nutritional Goals BEE in Kcals: Using Current wt Calories/Kcals/Kg 25-30 Kcals Calculated 9174-7420 Protein: Using Current wt Protein g/k-1.2 Protein Calculated 61-73 Fluid: ml 1525-1830ml (1ml/kcal) Nutritional Problem 1. Problem Problem altered nutrition related lab values Etiology hx of DM Signs/Symptoms: Glucose 133, A1c 8.8 POC 87-242 Malnutrition Alert Protein-Calorie Malnutrition N/A Is there a minimum of two criteria No selected? Query Text:Check all the applicable criteria. A minimum of two criteria are recommended for diagnosis of either severe or non-severe malnutrition. Intervention/Recommendation Comments 1. Continue with current diet as ordered. 2. Monitor PO intake, wt, labs and skin integrity 3. F/U as low risk in 7 days, 3/7 Expected Outcomes/Goals Expected Outcomes/Goals 1. PO intake to meet at least 75% of nutritional needs. 2. Wt stability, skin to remain intact, labs to approach WNL.
[2017-07-03] MEDS: Atorvastatin Calcium 10 MG TAB PO SCH (20:25)
[2017-07-04] MEDS: INSULIN ASPART SLIDING SCALE 100 UNITS/ML UNIT SUBQ SCH ×3 (07:18→16:30)
--- NOTE | 2017-07-04 09:06 | Progress Notes ---
DATE: 07/03/2017 SUBJECTIVE: The patient was seen and evaluated. The patient's chart reviewed. Today on [id number] evaluation, the patient intermittently screams out "I want to eat, I want to eat" and this is despite she just recently ate and given more extra food. MENTAL STATUS EXAMINATION: Still impulsive, very minimal impulse control, intermittently yelling without redirection. ASSESSMENT: Continues to be responding, although less intense from yesterday. We will continue with the current medication regimen. Mild improvement is noted. We will continue working very closely with case management for safe disposition once the patient is further stabilized. JOB# [id number]
[2017-07-04] MEDS: Calcium Carb/Vit D 500 mg/200 U Tab PO SCH (09:50)
[2017-07-04] MEDS: Multivitamin w/ Minerals Tab PO SCH (10:01)
--- NOTE | 2017-07-04 12:13 | Discharge Summary ---
DATE OF DISCHARGE: 07/04/2017 IDENTIFYING INFORMATION: The patient is a 76-year-old female. CHIEF COMPLAINT: The patient was referred from [place] [facility] because of agitation and out of control behavior. She is demented, confused, unable to make safe plan for self-care or participate in a meaningful conversation. She is well known to me as I have seen her many times with many prior admissions for similar reasons. COURSE IN THE HOSPITAL: The patient was continued with her medication prior to admission, which was atorvastatin 10 mg at bedtime, Aricept 10 mg at bedtime, glipizide for diabetes, insulin. She was also on Namenda 10 mg twice a day, multivitamins. She was on Seroquel, started as small dose and increased the dose to 75 mg ____ 12.5 mg twice a day; however, we got a stage where we felt this is the basic level of functioning. We felt she could be managed at a lower level of care because she is not acting aggressive, so as I will see her at [place] [facility], so we felt she could be discharged to a lesser level of care. She is not hitting anybody, but she tends to yell at times. FINAL DIAGNOSES: AXIS I: Psychosis, not otherwise specified, dementia. MEDICAL DIAGNOSES: Diabetes mellitus and hyperlipidemia. The patient will defer to the medical doctor. The patient will follow up the primary care physician. I will follow up with the patient there. EXPECTED OUTCOME: Stable if the patient complies with the above. JOB# [id number]
[2017-07-04] MEDS: Atorvastatin Calcium 10 MG TAB PO SCH (20:41)
--- NOTE | 2017-07-04 23:22 | Internal Medicine Prog Note ---
Internal Medicine Subjective - Subjective Service Date: 07/04/17 Patient seen and examined:: with staff Patient is:: awake, in bed, confused Per staff patient has:: no adverse event Internal Medicine Objective - Results Result Diagrams: 06/02/17 18:18 06/02/17 18:18 Recent Labs: Laboratory Last Values WBC 6.6 Th/cmm (4.8-10.8) D 06/02/17 18:18 RBC 4.01 Mil/cmm (3.80-5.20) 06/02/17 18:18 Hgb 12.3 gm/dL (12-16) 06/02/17 18:18 Hct 36.9 % (41.0-60) L 06/02/17 18:18 MCV 92.0 fl (81-100) 06/02/17 18:18 MCH 30.6 pg (27.0-31.0) 06/02/17 18:18 MCHC Differential 33.3 pg (28.0-36.0) 06/02/17 18:18 RDW 13.2 % (11.5-20.0) 06/02/17 18:18 Plt Count 287 Th/cmm (150-400) D 06/02/17 18:18 MPV 6.6 fl 06/02/17 18:18 Neutrophils % 48.6 % (40.0-80.0) 06/02/17 18:18 Lymphocytes % 42.0 % (20.0-50.0) 06/02/17 18:18 Monocytes % 6.0 % (2.0-10.0) 06/02/17 18:18 Eosinophils % 2.8 % (0.0-5.0) 06/02/17 18:18 Basophils % 0.6 % (0.0-2.0) 06/02/17 18:18 Sodium 137 mEq/L (136-145) 06/02/17 18:18 Potassium 4.1 mEq/L (3.5-5.1) 06/02/17 18:18 Chloride 107 mEq/L (98-107) 06/02/17 18:18 Carbon Dioxide 24.2 mEq/L (21.0-31.0) 06/02/17 18:18 Anion Gap 9.9 (7.0-16.0) 06/02/17 18:18 BUN 18 mg/dL (7-25) 06/02/17 18:18 Creatinine 0.7 mg/dL (0.6-1.2) 06/02/17 18:18 Est GFR ( Amer) TNP 06/02/17 18:18 Est GFR (Non-Af Amer) TNP 06/02/17 18:18 BUN/Creatinine Ratio 25.7 06/02/17 18:18 Glucose 133 mg/dL (70-105) H 06/02/17 18:18 POC Glucose 105 MG/DL (70 - 105) 07/04/17 19:56 Hemoglobin A1c % 8.8 % (4.0-6.0) H 06/02/17 18:18 Calcium 9.4 mg/dL (8.6-10.3) 06/02/17 18:18 Total Bilirubin 0.4 mg/dL (0.3-1.0) 06/02/17 18:18 AST 28 U/L (13-39) 06/02/17 18:18 ALT 32 U/L (7-52) 06/02/17 18:18 Alkaline Phosphatase 116 U/L (34-104) H 06/02/17 18:18 Total Protein 7.3 gm/dL (6.0-8.3) 06/02/17 18:18 Albumin 3.4 gm/dL (3.7-5.3) L 06/02/17 18:18 Globulin 3.9 gm/dL 06/02/17 18:18 Albumin/Globulin Ratio 0.9 (1.0-1.8) L 06/02/17 18:18 Triglycerides 107 mg/dL (<150) 06/02/17 18:18 Cholesterol 123 mg/dL (<200) 06/02/17 18:18 LDL Cholesterol Direct 45 mg/dL (75-193) L 06/02/17 18:18 HDL Cholesterol 60 mg/dL (23-92) 06/02/17 18:18 TSH 3.38 uIU/ml (0.34-5.60) 06/02/17 18:18 Salicylates < 25.0 mg/L (30.0-100.0) L 06/02/17 18:18 Acetaminophen < 10.0 ug/mL (10.0-30.0) L 06/02/17 18:18 Ethyl Alcohol < 10 mg/dL (0-10) 06/02/17 18:18 RPR NONREACTIVE (NONREACTIVE) 06/02/17 18:18 - Physical Exam Vitals and I&O: Vital Signs Temp 98 F 07/04/17 20:48 Pulse 85 07/04/17 20:48 Resp 19 07/04/17 20:48 BP 100/48 07/04/17 20:48 Pulse Ox 95 07/04/17 20:48 Intake & Output 07/04/17 07/04/17 07/05/17 06:59 18:59 06:59 Intake Total 240 1000 240 Balance 240 1000 240 Intake: Oral 240 1000 240 Other: # Voids 2 5 1 # Bowel Movements 1 2 Stool Characteristics Formed Formed Formed Active Medications: Current Medications Acetaminophen (Tylenol) 325 mg PO Q4HR PRN PRN Reason: Pain (Mild) Stop: 08/02/17 01:11 Last Admin: 07/03/17 10:41 Dose: 325 mg Atorvastatin Calcium (Lipitor) 20 mg PO HS [facility] Stop: 08/02/17 20:59 Last Admin: 07/04/17 20:41 Dose: 20 mg Calcium/Vitamin D (Oscal W/Vitamin D) 1 tab PO DAILY ERWIN Stop: 08/02/17 08:59 Last Admin: 07/04/17 09:50 Dose: 1 tab Docusate Sodium (Colace) 100 mg PO BID ERWIN Stop: 08/02/17 08:59 Last Admin: 07/04/17 18:01 Dose: 100 mg Donepezil HCl (Aricept) 10 mg PO HS [facility] Stop: 08/02/17 20:59 Last Admin: 07/04/17 20:41 Dose: 10 mg Glipizide (Glucotrol) 2.5 mg PO QAM ERWIN Stop: 08/02/17 08:59 Last Admin: 07/04/17 09:50 Dose: 2.5 mg Lorazepam (Ativan) 0.5 mg PO BID ERWIN PRN Reason: Protocol Stop: 08/08/17 16:59 Last Admin: 07/04/17 18:00 Dose: 0.5 mg Magnesium Hydroxide (Milk Of Magnesia) 30 ml PO DAILY PRN PRN Reason: Constipation Stop: 08/02/17 01:11 Last Admin: 06/14/17 08:02 Dose: 30 ml Memantine (Namenda) 10 mg PO BID [facility] Stop: 08/07/17 08:02 Last Admin: 07/04/17 17:59 Dose: 10 mg Quetiapine Fumarate (Seroquel) 12.5 mg PO BID [facility] PRN Reason: Protocol Stop: 08/29/17 16:59 Last Admin: 07/04/17 18:01 Dose: 12.5 mg Quetiapine Fumarate 25 mg/ (Quetiapine Fumarate 50 mg) 75 mg PO HS [facility] Stop: 09/02/17 20:59 Last Admin: 07/04/17 20:42 Dose: 75 mg General: demented HEENT: NC/AT, PERRLA, EOMI, anicteric sclerae, throat clear Neck: Supple, +2 carotid pulse wo bruit, No LAD, + JVD Lungs: CTAB Cardiovascular: RRR, Normal S1, Normal S2, without murmur Abdomen: soft, non-tender, non-distended Extremities: clear Neurological: no change - Procedures Procedures: Procedures Procedure Code Date EXCISION OF BUTTOCK SUBCU/FASCIA, OPEN APPROACH [id number] 10/27/16 REMOVAL OF PRESSURE SORE 74223 10/27/16 Internal Medicine Assmt/Plan - Assessment Assessment: 1.DM. 2.HYPERLIPIDEMIA. 3.DEMENTIA. 4.PSYCHOSIS. - Plan Plan: CONTINUE ON CURRENT MEDICATION AND DIET. Nutritional Asmnt/Malnutr-PDOC - Dietary Evaluation Malnutrition Findings (Please click <Entered> for more info): Nutritional Asmnt/Malnutrition Start: 06/08/17 14: 28 Text: Status: Complete Freq: Document 06/08/17 14:28 ALBERTO (Rec: 06/08/17 14:33 BRENNAN [email or web address]) Nutritional Asmnt/Malnutrition Patient General Information Nutritional Screening Moderate Risk Diagnosis psychosis Pertinent Medical Hx/Surgical Hx DM, hyperlipidemia, DJD, dementia Subjective Information per records, PO intake 50-100% . Current Diet Order/ [facility], ELMA, CCHO Pertinent Medications oscal w/vit D, colace, glucotrol, novolog Pertinent Labs 06/02 Glucose 133, A1c 8.8 06/06-06/08 POC 87-242 Nutritional Hx/Data Height 1.63 m Height (Calculated Centimeters) 162.6 Current Weight (lbs) 61.235 kg Weight (Calculated Kilograms) 61.2 Weight (Calculated Grams) 17197.0 [place] Body Weight 120 % [place] Body Weight 113 Body Mass Index (BMI) 23.1 Weight Status Approriate GI Symptoms GI Symptoms None Last BM 06/07 Difficult in: None Skin Integrity/Comment: intact Estimated Nutritional Goals BEE in Kcals: Using Current wt Calories/Kcals/Kg 25-30 Kcals Calculated 2999-5158 Protein: Using Current wt Protein g/k-1.2 Protein Calculated 61-73 Fluid: ml 1525-1830ml (1ml/kcal) Nutritional Problem 1. Problem Problem altered nutrition related lab values Etiology hx of DM Signs/Symptoms: Glucose 133, A1c 8.8 POC 87-242 Malnutrition Alert Protein-Calorie Malnutrition N/A Is there a minimum of two criteria No selected? Query Text:Check all the applicable criteria. A minimum of two criteria are recommended for diagnosis of either severe or non-severe malnutrition. Intervention/Recommendation Comments 1. Continue with current diet as ordered. 2. Monitor PO intake, wt, labs and skin integrity 3. F/U as low risk in 7 days, 3/7 Expected Outcomes/Goals Expected Outcomes/Goals 1. PO intake to meet at least 75% of nutritional needs. 2. Wt stability, skin to remain intact, labs to approach WNL.
[2017-07-05] MEDS: INSULIN ASPART SLIDING SCALE 100 UNITS/ML UNIT SUBQ SCH ×4 (07:30→22:11)
[2017-07-05] MEDS: Calcium Carb/Vit D 500 mg/200 U Tab PO SCH (08:08)
--- NOTE | 2017-07-05 19:08 | Internal Medicine Prog Note ---
Internal Medicine Subjective - Subjective Service Date: 07/05/17 Patient seen and examined:: with staff Patient is:: awake, in bed, confused Per staff patient has:: no adverse event Internal Medicine Objective - Results Result Diagrams: 06/02/17 18:18 06/02/17 18:18 Recent Labs: Laboratory Last Values WBC 6.6 Th/cmm (4.8-10.8) D 06/02/17 18:18 RBC 4.01 Mil/cmm (3.80-5.20) 06/02/17 18:18 Hgb 12.3 gm/dL (12-16) 06/02/17 18:18 Hct 36.9 % (41.0-60) L 06/02/17 18:18 MCV 92.0 fl (81-100) 06/02/17 18:18 MCH 30.6 pg (27.0-31.0) 06/02/17 18:18 MCHC Differential 33.3 pg (28.0-36.0) 06/02/17 18:18 RDW 13.2 % (11.5-20.0) 06/02/17 18:18 Plt Count 287 Th/cmm (150-400) D 06/02/17 18:18 MPV 6.6 fl 06/02/17 18:18 Neutrophils % 48.6 % (40.0-80.0) 06/02/17 18:18 Lymphocytes % 42.0 % (20.0-50.0) 06/02/17 18:18 Monocytes % 6.0 % (2.0-10.0) 06/02/17 18:18 Eosinophils % 2.8 % (0.0-5.0) 06/02/17 18:18 Basophils % 0.6 % (0.0-2.0) 06/02/17 18:18 Sodium 137 mEq/L (136-145) 06/02/17 18:18 Potassium 4.1 mEq/L (3.5-5.1) 06/02/17 18:18 Chloride 107 mEq/L (98-107) 06/02/17 18:18 Carbon Dioxide 24.2 mEq/L (21.0-31.0) 06/02/17 18:18 Anion Gap 9.9 (7.0-16.0) 06/02/17 18:18 BUN 18 mg/dL (7-25) 06/02/17 18:18 Creatinine 0.7 mg/dL (0.6-1.2) 06/02/17 18:18 Est GFR ( Amer) TNP 06/02/17 18:18 Est GFR (Non-Af Amer) TNP 06/02/17 18:18 BUN/Creatinine Ratio 25.7 06/02/17 18:18 Glucose 133 mg/dL (70-105) H 06/02/17 18:18 POC Glucose 98 MG/DL (70 - 105) 07/05/17 16:45 Hemoglobin A1c % 8.8 % (4.0-6.0) H 06/02/17 18:18 Calcium 9.4 mg/dL (8.6-10.3) 06/02/17 18:18 Total Bilirubin 0.4 mg/dL (0.3-1.0) 06/02/17 18:18 AST 28 U/L (13-39) 06/02/17 18:18 ALT 32 U/L (7-52) 06/02/17 18:18 Alkaline Phosphatase 116 U/L (34-104) H 06/02/17 18:18 Total Protein 7.3 gm/dL (6.0-8.3) 06/02/17 18:18 Albumin 3.4 gm/dL (3.7-5.3) L 06/02/17 18:18 Globulin 3.9 gm/dL 06/02/17 18:18 Albumin/Globulin Ratio 0.9 (1.0-1.8) L 06/02/17 18:18 Triglycerides 107 mg/dL (<150) 06/02/17 18:18 Cholesterol 123 mg/dL (<200) 06/02/17 18:18 LDL Cholesterol Direct 45 mg/dL (75-193) L 06/02/17 18:18 HDL Cholesterol 60 mg/dL (23-92) 06/02/17 18:18 TSH 3.38 uIU/ml (0.34-5.60) 06/02/17 18:18 Salicylates < 25.0 mg/L (30.0-100.0) L 06/02/17 18:18 Acetaminophen < 10.0 ug/mL (10.0-30.0) L 06/02/17 18:18 Ethyl Alcohol < 10 mg/dL (0-10) 06/02/17 18:18 RPR NONREACTIVE (NONREACTIVE) 06/02/17 18:18 - Physical Exam Vitals and I&O: Vital Signs Temp 98.1 F 07/05/17 16:11 Pulse 99 07/05/17 16:11 Resp 20 07/05/17 16:11 BP 109/53 07/05/17 16:11 Pulse Ox 95 07/05/17 16:11 Intake & Output 07/05/17 07/05/17 07/06/17 06:59 18:59 06:59 Intake Total 240 1000 Balance 240 1000 Intake: Oral 240 1000 Other: # Voids 3 5 # Bowel Movements 1 2 Stool Characteristics Formed Formed Active Medications: Current Medications Acetaminophen (Tylenol) 325 mg PO Q4HR PRN PRN Reason: Pain (Mild) Stop: 08/02/17 01:11 Last Admin: 07/03/17 10:41 Dose: 325 mg Atorvastatin Calcium (Lipitor) 20 mg PO HS [facility] Stop: 08/02/17 20:59 Last Admin: 07/04/17 20:41 Dose: 20 mg Calcium/Vitamin D (Oscal W/Vitamin D) 1 tab PO DAILY ERWIN Stop: 08/02/17 08:59 Last Admin: 07/05/17 08:08 Dose: 1 tab Docusate Sodium (Colace) 100 mg PO BID ERWIN Stop: 08/02/17 08:59 Last Admin: 07/05/17 17:11 Dose: 100 mg Donepezil HCl (Aricept) 10 mg PO HS [facility] Stop: 08/02/17 20:59 Last Admin: 07/04/17 20:41 Dose: 10 mg Glipizide (Glucotrol) 2.5 mg PO QAM [facility] Stop: 08/02/17 08:59 Last Admin: 07/05/17 08:08 Dose: 2.5 mg Insulin Aspart (Novolog Insulin Sliding Scale) 0 units SUBQ ACHS ERWIN PRN Reason: Protocol Stop: 09/03/17 07:29 Last Admin: 07/05/17 16:55 Dose: Not Given Lorazepam (Ativan) 0.5 mg PO BID ERWIN PRN Reason: Protocol Stop: 08/08/17 16:59 Last Admin: 07/05/17 17:12 Dose: 0.5 mg Magnesium Hydroxide (Milk Of Magnesia) 30 ml PO DAILY PRN PRN Reason: Constipation Stop: 08/02/17 01:11 Last Admin: 06/14/17 08:02 Dose: 30 ml Memantine (Namenda) 10 mg PO BID [facility] Stop: 08/07/17 08:02 Last Admin: 07/05/17 17:11 Dose: 10 mg Quetiapine Fumarate 25 mg/ (Quetiapine Fumarate 50 mg) 75 mg PO HS ERWIN Stop: 09/02/17 20:59 Last Admin: 07/04/17 20:42 Dose: 75 mg Quetiapine Fumarate (Seroquel) 25 mg PO BID ERWIN PRN Reason: Protocol Stop: 09/03/17 10:47 Last Admin: 07/05/17 17:12 Dose: 25 mg General: demented HEENT: NC/AT, PERRLA, EOMI, anicteric sclerae, throat clear Neck: Supple, +2 carotid pulse wo bruit, No LAD, + JVD Lungs: CTAB Cardiovascular: RRR, Normal S1, Normal S2, without murmur Abdomen: soft, non-tender, non-distended Extremities: clear Neurological: no change - Procedures Procedures: Procedures Procedure Code Date EXCISION OF BUTTOCK SUBCU/FASCIA, OPEN APPROACH [id number] 10/27/16 REMOVAL OF PRESSURE SORE 73998 10/27/16 Internal Medicine Assmt/Plan - Assessment Assessment: 1.DM. 2.HYPERLIPIDEMIA. 3.DEMENTIA. 4.PSYCHOSIS. - Plan Plan: CONTINUE ON CURRENT MEDICATION AND DIET. Nutritional Asmnt/Malnutr-PDOC - Dietary Evaluation Malnutrition Findings (Please click <Entered> for more info): Nutritional Asmnt/Malnutrition Start: 06/08/17 14: 28 Text: Status: Complete Freq: Document 06/08/17 14:28 ALBERTO (Rec: 06/08/17 14:33 ALBERTO [email or web address]) Nutritional Asmnt/Malnutrition Patient General Information Nutritional Screening Moderate Risk Diagnosis psychosis Pertinent Medical Hx/Surgical Hx DM, hyperlipidemia, DJD, dementia Subjective Information per records, PO intake 50-100% . Current Diet Order/ Nutrition Support [facility] soft ground, ELMA, CCHO Pertinent Medications oscal w/vit D, colace, glucotrol, novolog Pertinent Labs 2/22 Glucose 133, A1c 8.8 06/06-06/08 POC 87-242 Nutritional Hx/Data Height 1.63 m Height (Calculated Centimeters) 162.6 Current Weight (lbs) 61.235 kg Weight (Calculated Kilograms) 61.2 Weight (Calculated Grams) 88745.0 [place] Body Weight 120 % [place] Body Weight 113 Body Mass Index (BMI) 23.1 Weight Status Approriate GI Symptoms GI Symptoms None Last BM 06/07 Difficult in: None Skin Integrity/Comment: intact Estimated Nutritional Goals BEE in Kcals: Using Current wt Calories/Kcals/Kg 25-30 Kcals Calculated 9732-9116 Protein: Using Current wt Protein g/k-1.2 Protein Calculated 61-73 Fluid: ml 1525-1830ml (1ml/kcal) Nutritional Problem 1. Problem Problem altered nutrition related lab values Etiology hx of DM Signs/Symptoms: Glucose 133, A1c 8.8 POC 87-242 Malnutrition Alert Protein-Calorie Malnutrition N/A Is there a minimum of two criteria No selected? Query Text:Check all the applicable criteria. A minimum of two criteria are recommended for diagnosis of either severe or non-severe malnutrition. Intervention/Recommendation Comments 1. Continue with current diet as ordered. 2. Monitor PO intake, wt, labs and skin integrity 3. F/U as low risk in 7 days, 3/7 Expected Outcomes/Goals Expected Outcomes/Goals 1. PO intake to meet at least 75% of nutritional needs. 2. Wt stability, skin to remain intact, labs to approach WNL.
[2017-07-05] MEDS: Atorvastatin Calcium 10 MG TAB PO SCH (21:24)
--- NOTE | 2017-07-05 22:44 | Progress Notes ---
DATE: 07/05/2017 Case was discussed with staff of the patient and reviewed records. The patient was supposed to have been discharged yesterday; however, the family refused to let her go back to [facility]. Apparently, they want another placement. She continues to be yelling and screaming all the day, though the staff believed this may be her basic level of functioning. The patient continues to be unpredictable and impulsive. I will try to increase Seroquel dose to 25 mg twice a day to help improve her yelling and screaming and so far no side effects of the medication, no sedation, no nausea and no extrapyramidal symptoms. We will continue to work with the patient in group therapy, milieu therapy, and adjust the medications as needed. JOB# [id number]
[2017-07-06] MEDS: INSULIN ASPART SLIDING SCALE 100 UNITS/ML UNIT SUBQ SCH ×2 (06:34→17:26)
--- NOTE | 2017-07-06 16:05 | Progress Notes ---
DATE: 07/06/2017 SUBJECTIVE: Case was discussed with staff of the patient,reviewed records. The patient today was more clear. She was able to talk to me. She was asking for food. Staff reports, she asked for food all day. She is still having episodes of yelling and screaming, but apparently that may be because she wants her ____. She tolerated the increase in Seroquel with no side effects, no sedation, no nausea. The dose was increased yesterday. So, I think she could be handled at lower level of care at [facility] Facility. So, she gets a placement then she can be discharged. Otherwise, we will continue to work with the patient in group therapy, milieu therapy, adjust her medication as needed. JOB# [id number]
[2017-07-06] MEDS: Calcium Carb/Vit D 500 mg/200 U Tab PO SCH (17:26)
== END 2017-07-06 18:55 | DRG 884 ==
LOC: ER 17:14 → GERO2 19:35 → GERO 20:13
PROVIDERS: ADMIT Psychiatry & Neurology Psychiatry; ATTEND Psychiatry & Neurology Psychiatry
DX: F03.91 Unspecified dementia, unspecified severity, with behavioral disturbance (principal); E11.9 Type 2 diabetes mellitus without complications; F29 Unspecified psychosis not due to a substance or known physiological condition; E78.5 Hyperlipidemia, unspecified; F31.9 Bipolar disorder, unspecified; R45.87 Impulsiveness; M19.90 Unspecified osteoarthritis, unspecified site; I10 Essential (primary) hypertension; Z83.3 Family history of diabetes mellitus; Z82.49 Family history of ischemic heart disease and other diseases of the circulatory system
CPT/HCPCS: 36415-UA; 80053-TC; 80061-TC; 80320-TC; 80329-TC; 82948-90; 83036-90; 84443-TC; 85025-TC; 86592-TC; 93005; 97530; J1200; J1630; J1815; J2060; X3904; Z7610